=== PATIENT | female | born 1935 | race Caucasian/White ===

== ENCOUNTER → 2021-10-04 | Outpatient (CLI) | payer MEDICARE, OTHER, SELFPAY ==
[2021-10-04 10:05] LABS: Hematocrit 34.8 % (37-47); Hemoglobin 11.3 g/dL (12.0-15.0); Mean Corp Hgb Conc 32.5 g/dL (32-36); Mean Corpuscular Volume 89.2 fL (81-99); Mean Platelet Vol. 9.5 fl (6.2-12.0); Platelet Count 279 K/mm3 (150-450); RBC Distribution Width CV 13.8 % (11.6-14.6); RBC Distribution Width SD 44.8 fl (35.1-43.9); White Blood Count 7.6 K/mm3 (4.4-11.0)
[2021-10-04 10:30] LABS: Ferritin 54 ng/mL (8-252); Iron 55 ug/dL (50-170)
[2021-10-04 11:50] LABS: Vitamin B12 254 pg/mL (211-911)
== END | disposition home or self-care (01) ==
LOC: MTLAB 09:10
PROVIDERS: PCP Family Medicine; Referring Provider Psychiatry & Neurology Neurology; Visit Provider Psychiatry & Neurology Neurology
DX: D64.9 Anemia, unspecified (principal); Z86.2 Personal history of diseases of the blood and blood-forming organs and certain disorders involving the immune mechanism; E53.8 Deficiency of other specified B group vitamins
CPT/HCPCS: 36415; 82607; 82728; 83540; 85027

== ENCOUNTER → 2024-07-03 | Outpatient (CLI) | payer MEDICARE, OTHER, SELFPAY | END | disposition home or self-care (01) | LOC: MTLAB 09:09 | PROVIDERS: PCP Family Medicine; Referring Provider Psychiatry & Neurology Neurology; Visit Provider Psychiatry & Neurology Neurology | DX: I10 Essential (primary) hypertension (principal); R44.3 Hallucinations, unspecified | CPT/HCPCS: 36415; 84443 ==

== ENCOUNTER → 2024-07-31 | Outpatient (CLI) | payer MEDICARE, OTHER, SELFPAY ==
--- NOTE | 2024-07-31 15:45 | MRI_ITS ---
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 Multiplanar and multisequence images were obtained. CONTRAST: [facility] VOLUME: 11 ML COMPARISON: None FINDINGS: No diffusion restriction to suggest acute/subacute ischemia. No acute intracranial hemorrhage, midline shift or mass effect. Moderate generalized cerebral atrophy. Scattered periventricular, subcortical and deep white matter hyperintense FLAIR signal most likely related to chronic small-vessel ischemic disease. Mild ventriculomegaly likely related to central atrophy. No suspicious cortical edema. No evidence of chronic microhemorrhage. No definite MR evidence of mesial temporal sclerosis. No pathologic enhancement. Poorly visualized right vertebral artery flow void which may relate to vascular occlusion. Globes are intact. Calvarium is within normal limits. Paranasal sinuses and mastoid air cells are clear. MRI/Brain W/WO Contrast IMPRESSION: 1. No acute intracranial abnormality or pathologic enhancement. 2. Atrophy and chronic small-vessel ischemic disease. 3. Possible occlusion of the right vertebral artery. Recommend further assessm ent with CTA neck. Reading Location: [facility]
--- OUTSIDE RECORDS SUMMARY | 2024-07-31 21:56 | XMS RPT_ITS | CCD ---
Author Organization [facility] Care Team Providers Care Neurology Hospitalist Name Role Phone Zhen Duncan Unavailable Unavailable Nilsa Malik Unavailable Unavailable Nilsa Malik Unavailable Unavailable Nilsa Malik Unavailable [phone] Isaiah Sterling Attending Provider Nilsa Malik MD Primary Care Provider Nilsa Malik MD Unavailable Nilsa Malik MD Unavailable Nilsa Malik MD Primary Care Provider [phone] Nilsa Malik MD Unavailable Nilsa Malik MD Unavailable NILSA MALIK Primary Care Unavailable NILSA MALIK Primary Care Unavailable NILSA MALIK Primary Care Unavailable Nilsa Malik MD Unavailable Nilsa Malik MD Primary Care Provider Nilsa Malik MD Unavailable Nilsa Malik MD Primary Care Provider [phone] Dr. Nilsa Malik MD Primary Care Provider Dr. Nilsa Malik MD Referring Provider Dr. Isaiah Sterling MD Attending Provider Dr. Isaiah Sterling MD Referring Provider NILSA MALIK Primary Care Unavailable JAIRON DENISE Attending Unavailable JAIRON DENISE Referring Unavailable NILSA MALIK Primary Care Unavailable MARY THOMASON Referring Unavailable NILSA MALIK Primary Care Unavailable MARY THOMASON Referring Unavailable STENCEL, NILSA D Primary Care Unavailable YEATER, MARY Hopper Referring Unavailable STENCEL, NILSA D Primary Care Unavailable YEATER, MARY M Referring Unavailable STENCEL, NILSA D Primary Care Unavailable YEATER, MARY M Referring Unavailable STENCEL, NILSA D Primary Care Unavailable YEATER, MARY M Referring Unavailable STENCEL, NILSA D Primary Care Unavailable YEATER, MARY M Referring Unavailable STENCEL, NILSA D Primary Care Unavailable YEATER, MARY M Referring Unavailable STENCEL, NILSA D Primary Care Unavailable BOLIVAR, AUBREY T Attending Unavailable YEATER, MARY M Referring Unavailable STENCEL, NILSA D Primary Care Unavailable YEATER, MARY M Referring Unavailable STENCEL, NILSA D Primary Care Unavailable STENCEL, NILSA D Attending Unavailable STENCEL, NILSA D Referring Unavailable STENCEL, NILSA D Primary Care Unavailable YEATER, MARY Hopper Attending Unavailable STENCEL, NILSA D Primary Care Unavailable STENCEL, NILSA D Attending Unavailable STENCEL, NILSA D Referring Unavailable STENCEL, NILSA D Primary Care Unavailable FURNESS, ZHEN Drummond Attending Unavailable STENCEL, NILSA D Primary Care Unavailable Stencel, Nilsa Primary Care Unavailable Stencel, Nilsa Referring Unavailable Baddour, Isaiah Attending Unavailable Stencel, Nilas Primary Care Unavailable Baddour, Isaiah Attending Unavailable Baddour, Isaiah Referring Unavailable Stencel, Nilsa Primary Care Unavailable Baddour, Isaiah Attending Unavailable Baddour, Isaiah Referring Unavailable Stencel, Nilsa Primary Care Unavailable Stencel, Nilsa Referring Unavailable Baddour, Isaiah Attending Unavailable Stencel, Nilsa Primary Care Unavailable Stencel, Nilsa Referring Unavailable Baddour, Isaiah Attending Unavailable Medications Current Medications Medication Drug Class(es) Dates Sig (Normalized) Sig (Original) 8 hr acetaminophen 650 mg extended release oral tablet (6 sources) take 1 tablet by mouth every eight hours as needed acetaminophen (Tylenol 8 HOUR) 650 mg ER tablet Take 1 tablet (650 mg) by mouth every 8 hours if needed for mild pain (1 - 3) or moderate pain (4 - 6). Do not crush, chew, or split. Active aspirin 81 mg delayed release oral tablet (20 sources) Platelet Aggregation Inhibitor, Nonsteroidal Anti-inflammatory Drug Start: 08-19-2019 take 1 tablet by mouth once daily aspirin 81 mg EC tablet Take 1 tablet (81 mg) by mouth once daily. 08/19/2019 Active carbidopa 25 mg / levodopa 100 mg oral tablet (20 sources) Aromatic Amino Acid Decarboxylation Inhibitor, Aromatic Amino Acid Start: 10-04-2021 End: 05-26-2024 Carbidopa-Levodopa (Sinemet) 25-100 mg tablet Active 2 {tbl} PO THREE TIMES A DAY May 26, 2024 5:21pm Start: 08-31-2020 Carbidopa-Levo dopa ER 25-100 MG Oral Tablet Extended Release Quantity: 0 Refills: 0 Ordered: 07-Jun-2021 DO Start : 31-Aug-2020 Active carbidopa-levodo pa (Sinemet) 25-100 mg tablet Take by mouth 4 times a day. 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 90 tablet 3 07/27/2023 07/26/2024 Active ferrous sulfate 325 mg oral tablet (20 sources) Start: 10-17-2022 End: 05-26-2024 take 1 tablet by mouth twice daily Ferrous Sulfate 325 mg (65 mg iron) tablet Active 325 mg PO DAILY May 26, 2024 5:22pm Do not take within 2 hours of a carbidopa/levodopa dose. Start: 08-31-2020 End: 10-17-2022 take 1 tablet by mouth once daily Ferrous Sulfate 325 mg (65 mg iron) tablet Discontinued 325 mg PO DAILY June 22, 2022 7:45pm October 17, 2022 10:21pm fludrocortisone acetate 0.1 mg oral tablet (1 source) Start: 07-03-2024 take 1 tablet by mouth once daily in the morning Fludrocortisone 0.1 mg tablet Active 0.1 mg PO 3 TIMES A WEEK July 03, 2024 12:00am Take 1 tablet orally every morning every Sunday, , and Sunday levETIRAcetam 500 mg oral tablet (2 sources) Start: 07-04-2024 End: 08-03-2024 take 1 tablet by mouth twice daily levETIRAcetam (Keppra) 500 mg tablet Indications: New onset seizure (Multi) Take 1 tablet (500 mg) by mouth 2 times a day. 60 tablet 07/04/2024 08/03/2024 Active Start: 07-02-2024 End: 07-02-2024 500 mg, intravenous, at 857. 1 mL/hr, Administer over 7 Minutes, Once, On Sun07/02/24 at 2200, For 1 dose levothyroxine sodium 0.075 mg oral tablet (20 sources) l-Thyroxine Start: 08-04-2022 End: 07-26-2024 take 1 tablet by mouth once daily levothyroxine (Synthroid, Levoxyl) 75 mcg tablet Indications: Hypothyroidism, unspecified type Take 1 tablet (75 mcg) by mouth once daily. 90 tablet 3 07/27/2023 07/26/2024 Active Start: 10-04-2021 take 1 capsule by mo [facility] once daily Levothyroxine 75 mcg capsule Active 75 ug PO DAILY October 04, 2021 12:00am Start: 01-21-2019 [facility] daily levothyroxine (Synthroid, Levoxyl) 75 mcg tablet Take 1 tablet (75 mcg) by mouth once daily. 0 01/21/2019 Active losartan potassium 25 mg oral tablet (5 sources) Angiotensin 2 Receptor Sima Start: 07-27-2023 End: 08-26-2023 take 1 tablet by mouth once daily losartan (Cozaar) 25 mg tablet Indications: Primary hypertension Take 1 tablet (25 mg) by mouth once daily. 30 tablet 11 07/27/2023 Active metFORMIN hydrochloride 1000 mg oral tablet (20 sources) Biguanide Start: 01-21-2019 End: 07-26-2024 take 1 tablet by mouth twice daily metFORMIN (Glucophage) 1,000 mg tablet Indications: Type 2 diabetes mellitus without complication, without long-term current use of insulin Take 1 tablet (1,000 mg) by mouth 2 times a day. 180 tablet 3 07/27/2023 07/26/2024 Active pioglitazone 15 mg oral tablet (20 sources) Peroxisome Proliferator Receptor alpha Agonist, Peroxisome Proliferator Receptor gamma Agonist, Thiazolidinedione Start: 08-31-2020 End: 07-26-2024 take 1 tablet by mouth once daily pioglitazone (Actos) 15 mg tablet Indications: Type 2 diabetes mellitus without complication, without long-term current use of insulin Take 1 tablet (15 mg) by mouth once daily. 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, unspecified whether recurrent 1 tab in am and 2 tabs in pm 90 tablet 11 06/22/2023 Active Start: 10-17-2022 End: 10-17-2022 take 1 tablet by mouth at bedtime Risperidone 2 mg tablet Discontinued 2 mg PO AT BEDTIME October 17, 2022 12:00am October 17, 2022 2:39pm Start: 06-22-2022 End: 06-07-2023 take 1 tablet by mouth twice daily Risperidone 1 mg tablet Discontinued 1 mg PO TWICE A DAY 60 June 04, 2023 4:35pm June 07, 2023 4:50pm Start: 02-16-2022 End: 06-22-2022 take 1 tablet by mouth at bedtime Risperidone 0.5 mg tablet Discontinued 0.5 mg PO AT BEDTIME February 16, 2022 1:00am June 22, 2022 7:44pm Start: 01-21-2019 End: 02-16-2022 take 1 tablet by mouth once daily Risperidone 2 mg tablet Discontinued 2 mg PO DAILY October 04, 2021 12:00am February 16, 2022 12:24pm Start: 01-21-2019 End: 06-22-2023 take 0.5 tablet by mouth twice daily risperiDONE (RisperDAL) 2 mg tablet Take 0.5 tablets (1 mg) by mouth 2 times a day. 01/21/2019 06/22/2023 Discontinued (Med List Cleanup) simvastatin 20 mg oral tablet (20 sources) HMG-CoA Reductase Inhibitor Start: 01-21-2019 End: 07-26-2024 take 1 tablet by mouth once daily simvastatin (Zocor) 20 mg tablet Indications: Mixed hyperlipidemia Take 1 tablet (20 mg) by mouth once daily. 90 tablet 3 07/27/2023 07/26/2024 Active sulfamethoxazole 800 mg / trimethoprim 160 mg oral tablet (1 source) Dihydrofolate Reductase Inhibitor Antibacterial, Sulfonamide Antimicrobial Start: 07-04-2024 End: 07-11-2024 take 1 tablet by mouth twice daily sulfamethoxazole-tr imethoprim (Bactrim DS) 800-160 mg tablet Indications: Urgency of urination Take 1 tablet by mouth 2 times a day for 7 days. 14 tablet 07/04/2024 07/11/2024 Active Completed/Discontinued Medications Medication Drug Class(es) Dates Sig (Normalized) Sig (Original) amantadine hydrochloride 100 mg oral capsule (20 sources) Influenza A M2 Protein Inhibitor Start: 05-26-2024 End: 07-03-2024 take 1 capsule by mouth three times daily Amantadine Hcl 100 mg capsule Discontinued 100 mg PO THREE TIMES A DAY 90 May 26, 2024 5:23pm July 03, 2024 8:34am Start: 02-16-2022 End: 05-26-2024 take 1 capsule by mouth twice daily Amantadine Hcl 100 mg capsule Discontinued 100 mg PO TWICE A DAY 60 October 12, 2023 1:53am May 26, 2024 5:23pm busPIRone hydrochloride 5 mg oral tablet (1 source) Start: 10-17-2022 End: 07-03-2024 take 1 tablet by mouth twice daily Buspirone 5 mg tablet Discontinued 5 mg PO TWICE A DAY 60 October 17, 2022 12:00am July 03, 2024 8:32am iohexol (OMNIPaque) 350 mg iodine/mL solution 68 mL (1 source) Start: 07-02-2024 End: 07-02-2024 68 mL, intravenous, Once in imaging, Starting on Sun07/02/24 at 2103, For 1 dose iohexol (OMNIPaque) 350 mg iodine/mL solution 73 mL (1 source) Start: 06-24-2023 End: 06-24-2023 73 mL, intravenous, Once in imaging, Starting on Sun06/24/23 at 0855, For 1 dose 1 ml ketorolac tromethamine 30 mg/ml injection (1 source) Nonsteroidal Anti-inflammatory Drug, Cyclooxygenase Inhibitor Start: 06-24-2023 End: 06-24-2023 15 mg, intravenous, Once, On Sun06/24/23 at 0840, For 1 dose lisinopril 10 mg oral tablet (20 sources) Angiotensin Converting Enzyme Inhibitor Start: 01-21-2019 End: 10-12-2023 take 1 tablet by mouth once daily lisinopril 10 mg tablet Indications: Primary hypertension Take 1 tablet (10 mg) by mouth once daily. 90 tablet 3 08/04/2022 06/22/2023 Discontinued (Therapy completed) 50 ml magnesium sulfate 40 mg/ml injection (1 source) Start: 06-24-2023 End: 06-24-2023 2 g, intravenous, at 25 mL/hr, Administer over 2 Hours, Once, On 06/24/23 at 0750, For 1 dose regadenoson (Lexiscan) injection 0.4 mg (1 source) Start: 07-09-2023 End: 07-09-2023 0.4 mg, intravenous, Once, On Sun07/09/23 at 0915, For 1 dose 1000 ml sodium chloride 9 mg/ml injection (1 source) Start: 06-24-2023 End: 06-24-2023 1,000 mL, intravenous, at 1,000 mL/hr, Administer over 1 Hours, Once, On 06/24/23 at 0750, For 1 dose Tc-99m tetrofosmin (Myoview) injection 10.5 millicurie (1 source) Start: 07-09-2023 End: 07-09-2023 10.5 millicurie, intravenous, Once in imaging, Starting on Sun07/09/23 at 0927, For 1 dose, Administer 45 to 90 minutes prior to imaging unless otherwise indicated. Tc-99m tetrofosmin (Myoview) injection 33 millicurie (1 source) Start: 07-09-2023 End: 07-09-2023 33 millicurie, intravenous, Once in imaging, Starting on Sun07/09/23 at 1002, For 1 dose, Administer 45 to 90 minutes prior to imaging unless otherwise indicated. vitamin b12 1 mg oral tablet (20 sources) Vitamin B12 Start: 10-05-2021 End: 05-26-2024 take 1 tablet by mouth once daily Cyanocobalamin (Vitamin B-12) 1,000 mcg tablet Discontinued 1000 ug PO DAILY October 12, 2023 1:53am May 26, 2024 5:23pm Problems Active Problems Problem Classification Problem Date Documented Date Episodic/Chronic Anxiety disorders (1 source) Anxiety; Translations: [Anxiety disorder, unspecified] 10-17-2022 Chronic Chronic kidney disease (17 sources) Chronic kidney disease stage 3A ; Translations: [Stage 3a chronic kidney disease (Multi)] Onset: 06-22-2023 06-22-2023 Chronic Deficiency and other anemia (4 sources) Iron deficiency anemia; Translations: [Iron deficiency anemia, unspecified] 10-17-2022 Episodic Deficiency and other anemia (1 source) Iron deficiency anemia, unspecified; Translations: [Iron deficiency anemia, unspecified] Episodic Diabetes mellitus without complication (20 sources) Type 2 diabetes mellitus; Translations: [Diabetes mellitus without mention of complication, type II or unspecified type, not stated as uncontrolled] Onset: 04-17-2022 06-09-2022 Chronic Disorders of lipid metabolism (20 sources) Hyperlipidemia; Translations: [Other and unspecified hyperlipidemia] Onset: 04-17-2022 06-09-2022 Chronic Epilepsy; convulsions (6 sources) Seizure; Translations: [Unspecified convulsions] Onset: 07-02-2024 07-02-2024 Episodic Essential hypertension (20 sources) Hypertensive disorder; Translations: [Unspecified essential hypertension] Onset: 04-17-2022 06-09-2022 Chronic Genitourinary symptoms and ill-defined conditions (3 sources) Urgent desire to urinate; Translations: [Urgency of urination] Onset: 07-04-2024 07-04-2024 Episodic Immunizations and screening for infectious disease (16 sources) Patient encounter status; Translations: [Other specified vaccination] Episodic Mood disorders (20 sources) Depressive disorder; Translations: [Depressive disorder, not elsewhere classified] Onset: 04-17-2022 06-09-2022 Chronic Nonspecific chest pain (4 sources) Chest pain; Translations: [Chest pain, unspecified] 06-24-2023 Episodic Nutritional deficiencies (4 sources) Cobalamin deficiency; Translations: [Deficiency of other specified B group vitamins] Episodic Osteoporosis (20 sources) Osteoporosis; Translations: [Osteoporosis, unspecified] Onset: 04-17-2022 04-17-2022 Chronic Other circulatory disease (2 sources) Orthostatic hypotension; Translations: [Orthostatic hypotension] 07-06-2024 Episodic Other hereditary and degenerative nervous system conditions (4 sources) Impaired cognition; Translations: [Mild cognitive impairment, so stated] 10-04-2021 Chronic Other hereditary and degenerative nervous system conditions (3 sources) Mild cognitive impairment, so stated; Translations: [Mild cognitive impairment, so stated] Onset: 07-03-2024 Chronic Other nervous system disorders (4 sources) Other chronic pain; Translations: [Other chronic pain] Onset: 10-25-2023 Chronic Other nervous system disorders (1 source) Unspecified abnormalities of gait and mobility; Translations: [Unspecified abnormalities of gait and mobility] Onset: 07-03-2024 Episodic Parkinson`s disease (20 sources) Parkinson's disease; Translations: [Parkinson's disease] Onset: 06-22-2023 Chronic Parkinson`s disease (2 sources) Parkinson`s disease; Translations: [Parkinson's disease without dyskinesia, without mention of fluctuations (Multi)] Onset: 06-22-2023 Residual codes; unclassified (20 sources) Past history of procedure; Translations: [Other specified personal history presenting hazards to health] Episodic Comment on above: 2017; Residual codes; unclassified (3 sources) Altered mental status, unspecified; Translations: [Altered mental status, unspecified] Onset: 05-31-2023 Episodic Residual codes; unclassified (5 sources) Hallucinations, unspecified; Translations: [Hallucinations, unspecified] Onset: 05-31-2023 Episodic Residual codes; unclassified (4 sources) Hallucinations; Translations: [Hallucinations, unspecified] 07-04-2024 Episodic Syncope (3 sources) Syncope; Translations: [Syncope and collapse] Onset: 07-03-2024 07-03-2024 Episodic Thyroid disorders (20 sources) Hypothyroidism; Translations: [Unspecified acquired hypothyroidism] Onset: 04-17-2022 04-17-2022 Chronic Unclassified (5 sources) Patient encounter status; Translations: [Screening for breast cancer] 02-05-2024 Past or Other Problems Problem Classification Problem Date Documented Date Episodic/Chronic Nonmalignant breast conditions (20 sources) Atypical ductal hyperplasia of breast; Translations: [Mammographic microcalcification found on diagnostic imaging of breast] Onset: 04-17-2022 Episodic Other connective tissue disease (4 sources) Muscle weakness of limb; Translations: [Other symptoms and signs involving the musculoskeletal system] Onset: 4 11-05-2023 Episodic Other screening for suspected conditions (not mental disorders or infectious disease) (20 sources) Mammography abnormal; Translations: [Abnormal mammogram, unspecified] Onset: 3 04-17-2022 Episodic Spondylosis; intervertebral disc disorders; other back problems (15 sources) Neck pain; Translations: [Cervicalgia] Onset: 4 06-24-2023 Episodic Unclassified (17 sources) Onset: 3 Resolved: 5 06-09-2022 NEGATED: Highlighted row has not occurred!Residual codes; unclassified (7 sources) Disease Episodic Results Test Name Value Interpretation Reference Range Facility POCT UA Automated manually r esultedon 07-04-2024 Appearance (U) Clear Clear [facility] Work Phone: Glucose Test strip (U) [Mass/Vol] Negative NEGATIVE mg/dl [facility] Work Phone: [phone] Hemoglobin Ql (U) Negative NEGATIVE [facility] Work Phone: [phone] Leukocyte esterase Test strip Ql (U) Negative NEGATIVE [facility] Work Phone: [phone] Nitrite Ql (U) Negative NEGATIVE [facility] Work Phone: [phone] pH (U) 5.5 [pH] No Reference Range Established [facility] Work Phone: [phone] POC Bilirubin, Urine Negative NEGATIVE [facility] Work Phone: [phone] POC Color, Urine Yellow Straw, Yellow, Light-Yellow [facility] Work Phone: [phone] POC Ketones, Urine Negative NEGATIVE mg/dl [facility] Work Phone: POC Protein, Urine Negative NEGATIVE mg/dl [facility] Work Phone: POC Specific [place], Urine 1.015 1.005 - 1.035 [facility] Work Phone: POC Urobilinogen, Urine 0.2 0.2, 1.0 EU/DL [facility] Work Phone: [facility] Work Phone: Neurology Visit Reporton Neurology Visit Report [facility] [address], [address] [place] [address] OFFICE VISIT Date of Service: 07/03/24 MR#: [id number] Acct: [id number] Name: RAMYA MOSS Rep #: [id number] : 1935 Provider: Dr. Isaiah bland MD Age/Sex: 88/F Location[place] [facility] [place] Status: Signed HPI HPI Chief Complaint: Details: Interim History: Ramya returns for follow-up visit. She has a history of history of hypertension, hypothyroidism, diabetes mellitus, depression and anxiety. Since 2009, she has been experiencing a tremor. The tremor affects the right leg and both hands. Her bilateral hand tremor began worsening in 2019 and is present at rest and with action. The tremor has interfered with activities such as eating soup. Her tremor has diminished with the use of carbidopa/levodopa 25/100 (though increasing her dose to 2 tablets 3 times daily in 2021 was not of added benefit for her tremor) and amantadine (initiated in 2021). Increasing her dose of amantadine to 100mg TID was not of added benefit and it is unclear at this time whether amantadine is producing ongoing functional benefit. Her tremor interferes with handwriting. Since 2019, she has had slowing of her gait. She has had multiple falls. Carbidopa/levodopa has been of benefit for her parkinsonian symptoms and no significant change in her parkinsonian symptoms have been noted within recent months.. She has tolerated carbidopa/levodopa well. She has had some slowing of her mentation but remains independent in her daily activities. She has been more confused recently. She has been having ongoing hallucinations. She has a prior history of nervous breakdown (around 2003) and was prescribed risperidone and escitalopram and continues to take these medications. In 2010, her dose of risperidone was reduced to 1mg nightly and she had some reduction of her tremor at that time though subsequently, in 2019, her tremor began worsening. She had auditory and visual hallucinations and delusional ideations. A trial of discontinuation of amantadine did not result in resolution of her hallucinations and amantadine was then resumed. Her dose of risperidone was increased to 1mg BID however she had a side effect of increased tremor and shuffling gait. This improved with a reduction of her risperidone dose to 0.5mg BID. Her hallucinations persist however she is not significantly troubled by these. Buspirone was not well- tolerated. She has no longer experienced significant anxiety. She takes simvastatin and aspirin. Her prior laboratory studies revealed a B12 deficiency and anemia. She has received B12 injections. B12 injections were of benefit for her prior fatigue. Per prior discussion, she did not wish to have further B12 injections. Her last B12 level was near the low end of the normal range. She is now taking B12 1000 mcg PO daily. She takes ferrous sulfate for iron deficiency anemia. Mini-mental status exam score was 28/30 in January 2021. Earlier in June 2024, she was found on the floor and unresponsive at her home. EMS was called and on hospital evaluation, the possibility of a stroke was raised (based on initial finding of aphasia, right sided weakness and right sided neglect, however on further assessment, including teleneurology consultation, no evidence of a stroke was noted and she was thought to possibly have had an unwitnessed seizure. In the hospital her blood pressure was noted to be 193/90. Levetiracetam was initiated. She has had occasional momentary vertigo (this has occurred when lying down). She has experienced occasional lightheadedness when standing. She now exhibits orthostatic hypotension when she stands. Physical Exam: Neuro: the patient is awake; she is mildly bradyphrenic; motor strength is 4+/5 in the right quadriceps and right foot dorsiflexors, 4-/5 in the left foot dorsiflexors and 4/5 in the left foot dorsiflexors; she is unsteady when she stands; she is able to subtract 7 from 100; she is able to spell world backwards; she is oriented to day of the week; no rigidity is noted in the wrists; a moderate bilateral hand tremor is noted when arms are extended; speech is hypophonic Heart: regular rate and rhythm Neck: no bruits Supplemental Info CBC, CMP, TSH (07/07/10): glucose 113, hematocrit 34.7. CMP, CBC, TSH, B12, folate (3/2/21): glucose 151, hemoglobin 11.4, hematocrit 35.7, B12 126. Head MRI (06/09/20): subcortical and periventricular sequelae of chronic microvascular disease; parenchymal volume loss with slightly disproportionate ventricular dilatation. No evidence of intracranial mass, extra-axial collection or acute infarction. Intrinsic factor blocking antibody (07/06/20): negative. Serum iron, ferritin (07/06/20): serum iron 34 (low). CBC, iron, ferritin, B12 (10/04/2021):???Hemoglobin 11.3 (low), hematocrit 34.8 (low), B12 254 (near low end of normal range). (more content not included)... Normal [facility] TSH DL <= 0.005 mIU/L QnOrde red By: Isaiah Sterling on 07-03-2024 TSH Qn 1.250 uIU/mL 0.300-4.200 [facility] Thyroid Stim Hormone (TSH)on 07-03-2024 TSH 1.250 uIU/mL Normal 0.300-4.200 [facility] Comment on above: Order Comment: TROYO U RINE Performed By: #### L [phone] #### [facility] [facility] [address] [place], [address] APTTon 07-02-2024 aPTT Coag (PPP) [Time] 29 s [facility] CBC W Auto Differential pane l (Bld)on 07-02-2024 Basophils (Bld) [#/Vol] 0.03 10*3/uL [facility] Basophils/100 WBC (Bld) 0.3 % 0.0 - 2.0 % [facility] Eosinophils (Bld) [#/Vol] 0.13 10*3/uL [facility] Eosinophils/100 WBC (Bld) 1.3 % 0.0 - 6.0 % [facility] Erythrocyte distribution width (RBC) [Ratio] 14.1 % 11.5 - 14.5 % [facility] Hematocrit (Bld) [Volume fraction] 31.7 % Low 36.0 - 46.0 % [facility] Hemoglobin (Bld) [Mass/Vol] 10.1 g/dL Low 12.0 - 16.0 g/dL [facility] Immature granulocytes (Bld) [#/Vol] 0.04 10*3/uL [facility] Immature granulocytes/100 WBC (Bld) 0.4 % 0.0 - 0.9 % [facility] Comment on above: Immature Granulocyte Count (IG) includes promyelocytes, myelocytes and metamyelocytes but does not include bands. Percent differential counts (%) should be interpreted in the context of the absolute cell counts (cells/UL). Interpretation and review of laboratory results Abnormal [facility] Lymphocytes (Bld) [#/Vol] 3.74 10*3/uL High [facility] Lymphocytes/100 WBC (Bld) 38.7 % 13.0 - 44.0 % [facility] MCH (RBC) [Entitic mass] 28.5 pg 26.0 - 34.0 pg [facility] MCHC (RBC) [Mass/Vol] 31.9 g/dL Low 32.0 - 36.0 g/dL [facility] MCV (RBC) [Entitic vol] 90 fL 80 - 100 fL [facility] Monocytes (Bld) [#/Vol] 0.59 10*3/uL [facility] Monocytes/100 WBC (Bld) 6.1 % 2.0 - 10.0 % [facility] Neutrophils (Bld) [#/Vol] 5.14 10*3/uL [facility] Comment on above: Percent differential counts (%) should be interpreted in the context of the absolute cell counts (cells/uL). Neutrophils/100 WBC (Bld) 53.2 % 40.0 - 80.0 % [facility] Nucleated RBC/100 WBC (Bld) [Ratio] 0 % [facility] Platelets (Bld) [#/Vol] 249 10*3/uL [facility] RBC (Bld) [#/Vol] 3.54 10*6/uL Low [facility] WBC (Bld) [#/Vol] 9.7 10*3/uL [facility] Basophils (Bld) [#/Vol] 0.03 x10*3/uL Normal 0.00-0.10 [facility] Comment on above: Performed By: #### 5 7021-8 #### BUZZ FUNEZ ([id number]) [facility] ([facility]) [address] [place] [address] 62285 Basophils/100 WBC (Bld) 0.3 % Normal 0.0-2.0 [facility] Comment on above: Performed By: #### 7021-8 #### BUZZ FUNEZ ([id number]) [facility] ([facility]) [address] [place] [address] 67784 Eosinophils (Bld) [#/Vol] 0.13 x10*3/uL Normal 0.00-0.40 [facility] Comment on above: Performed By: #### 5 7021-8 #### BUZZ FUNEZ ([id number]) [facility] ([facility]) [address] [place] [address] 28196 Eosinophils/100 WBC (Bld) 1.3 % Normal 0.0-6.0 [facility] Comment on above: Performed By: #### 7021-8 #### BUZZ FUNEZ ([id number]) [facility] ([facility]) [address] [place] [address] 04954 Erythrocyte distribution width (RBC) [Ratio] 14.1 % Normal 11.5-14.5 [facility] Comment on above: Performed By: #### 5 7021-8 #### BUZZ FUNEZ ([id number]) [facility] ([facility]) [address] [place] [address] 52016 Hematocrit (Bld) [Volume fraction] 31.7 % Low 36.0-46.0 [facility] Comment on above: Performed By: #### 7021-8 #### BUZZ FUNEZ ([id number]) [facility] ([facility]) [address] [place] [address] 59474 Hemoglobin (Bld) [Mass/Vol] 10.1 g/dL Low 12.0-16.0 [facility] Comment on above: Performed By: #### 7021-8 #### BUZZ FUNEZ ([id number]) [facility] ([facility]) [address] [place] [address] 08286 Immature granulocytes (Bld) [#/Vol] 0.04 x10*3/uL Normal 0.00-0.50 [facility] Comment on above: Performed By: #### 5 7021-8 #### BUZZ FUNEZ ([id number]) [facility] ([facility]) [address] [place] [address] 72164 Immature granulocytes/100 WBC (Bld) 0.4 % Normal 0.0-0.9 [facility] Comment on above: Result Comment: Olivia ture Granulocyte Count (IG) includes promyelocytes, myelocytes and metamyelocytes but does not include bands. Percent differential counts (%) should be interpreted in the context of the absolute cell counts (cells/UL). Performed By: #### 5 7021-8 #### BUZZ FUNEZ ([id number]) [facility] ([facility]) [address] [place] [address] 81703 Lymphocytes (Bld) [#/Vol] 3.74 x10*3/uL High 0.80-3.00 [facility] Comment on above: Performed By: #### 5 7021-8 #### BUZZ FUNEZ ([id number]) [facility] ([facility]) [address] [place] [address] 45785 Lymphocytes/100 WBC (Bld) 38.7 % Normal 13.0-44.0 [facility] Comment on above: Performed By: #### 5 7021-8 #### BUZZ FUNEZ ([id number]) [facility] ([facility]) [address] [place] [address] 27952 MCH (RBC) [Entitic mass] 28.5 pg Normal 26.0-34.0 [facility] Comment on above: Performed By: #### 5 7021-8 #### BUZZ FUNEZ ([id number]) [facility] ([facility]) [address] [place] [address] 73878 MCHC (RBC) [Mass/Vol] 31.9 g/dL Low 32.0-36.0 [facility] Comment on above: Performed By: #### 5 7021-8 #### BUZZ FUNEZ ([id number]) [facility] ([facility]) [address] [place] [address] 67904 MCV (RBC) [Entitic vol] 90 fL Normal 80-100 [facility] Comment on above: Performed By: #### 5 7021-8 #### BUZZ FUNEZ ([id number]) [facility] ([facility]) [address] [place] [address] 82492 Monocytes (Bld) [#/Vol] 0.59 x10*3/uL Normal 0.05-0.80 [facility] Comment on above: Performed By: #### 5 7021-8 #### BUZZ FUNEZ ([id number]) [facility] ([facility]) [address] [place] [address] 78816 Monocytes/100 WBC (Bld) 6.1 % Normal 2.0-10.0 [facility] Comment on above: Performed By: #### 5 7021-8 #### BUZZ FUNEZ ([id number]) [facility] ([facility]) [address] [place] [address] 57466 Neutrophils (Bld) [#/Vol] 5.14 x10*3/uL Normal 1.60-5.50 [facility] Comment on above: Result Comment: Perc ent differential counts (%) should be interpreted in the context of the absolute cell counts (cells/uL). Performed By: #### 5 7021-8 #### BUZZ FUNEZ ([id number]) [facility] ([facility]) [address] [place] [address] 95602 Neutrophils/100 WBC (Bld) 53.2 % Normal 40.0-80.0 [facility] Comment on above: Performed By: #### 5 7021-8 #### BUZZ FUNEZ ([id number]) [facility] ([facility]) [address] [place] [address] 04288 Nucleated RBC/100 WBC (Bld) [Ratio] 0.0 /100 WBCs Normal 0.0-0.0 [facility] Comment on above: Performed By: #### 5 7021-8 #### BUZZ FUNEZ ([id number]) [facility] ([facility]) [address] [place] [address] Platelets (Bld) [#/Vol] 249 x10*3/uL Normal 150-450 [facility] Comment on above: Performed By: #### 5 7021-8 #### BUZZ FUNEZ ([id number]) [facility] ([facility]) [address] [place] [address] RBC (Bld) [#/Vol] 3.54 x10*6/uL Low 4.00-5.20 [facility] Comment on above: Performed By: #### 5 7021-8 #### BUZZ FUNEZ ([id number]) [facility] ([facility]) [address] [place] [address] WBC (Bld) [#/Vol] 9.7 x10*3/uL Normal 4.4-11.3 [facility] Comment on above: Performed By: #### 5 7021-8 #### BUZZ FUNEZ ([id number]) [facility] ([facility]) [address] [place] [address] CT BRAIN ATTACK ANGIO HEAD A ND NECK W AND WO IV CONTRASTon 07-02-2024 CT BRAIN ATTACK ANGIO HEAD AND NECK W AND WO IV CONTRAST Interpreted By: Nighat Ngo, STUDY: CT BRAIN ATTACK ANGIO HEAD AND NECK W AND WO IV CONTRAST; 07/02/2024 9:03 pm INDICATION: Signs/Symptoms:Strokelike symptoms COMPARISON: Correlation with noncontrast CT of the same day ACCESSION NUMBER(S): [id number] ORDERING CLINICIAN: JAIRON DENISE TECHNIQUE: Following IV contrast administration, a CT angiography of the head and neck was performed. Triplanar MIPS and 3D reconstructions of the ute of Garcia and neck were generated. FINDINGS: CTA NECK: The great vessel origins are patent with no significant stenosis. LEFT VERTEBRAL ARTERY: The left vertebral artery is dominant. No hemodynamically significant stenosis, occlusion, or dissection. LEFT COMMON/INTERNAL CAROTID ARTERY: Mild calcified and noncalcified plaque at the carotid bifurcation and proximal ICA. No hemodynamically significant stenosis, occlusion, or dissection. RIGHT VERTEBRAL ARTERY: No hemodynamically significant stenosis, occlusion, or dissection. RIGHT COMMON/INTERNAL CAROTID ARTERY: Calcification of the carotid bifurcation. No hemodynamically significant stenosis, occlusion, or dissection. The neck soft tissues show no evidence of mass, fluid collection, or enlarged lymph nodes. There is no acute osseous abnormality. Mtkv-hb-uwstjxmo diffuse cervical degenerative disc changes. The imaged lungs are clear. CTA HEAD: ANTERIOR CIRCULATION: No occlusion or aneurysm. - Internal Carotid Arteries: Patent, with no hemodynamically significant stenosis. - Middle Cerebral Arteries: Patent, with no hemodynamically significant stenosis. - Anterior Cerebral Arteries: Patent, with no hemodynamically significant stenosis. POSTERIOR CIRCULATION: No aneurysm. - Intracranial Vertebral Arteries: The right vertebral artery is occluded just distal to the right posteroinferior cerebellar artery origin, approximately 8 mm segment occlusion. The basilar artery is supplied by the widely patent left vertebral artery. There is contrast opacifying a stump of the distal right vertebral artery near the vertebrobasilar junction. - Basilar Artery: Patent, with no hemodynamically significant stenosis. - Posterior Cerebral Arteries: Patent, with no hemodynamically significant stenosis. No arteriovenous malformation is visualized. No pathologic intracranial enhancement or discrete mass. The dural venous sinuses are patent. MIPS and 3D reconstructions confirm the above findings. IMPRESSION: 1. 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 The basilar artery is supplied by the left vertebral artery, which is dominant and widely patent. 2. No significant stenosis of the cervical carotid or vertebral arteries. MACRO: None Signed by: Nighat Ngo 07/02/2024 9:28 PM Dictation workstation: [id number] [facility] CT BRAIN ATTACK [facility] BRAIN ATTACK HEAD WO IV CONTRAST Interpreted By: Nighat Ngo, STUDY: CT BRAIN ATTACK HEAD WO IV CONTRAST; 07/02/2024 8:51 pm INDICATION: Signs/Symptoms:Stroke Evaluation. COMPARISON: None. ACCESSION NUMBER(S): [id number] ORDERING CLINICIAN: JAIRON DENISE TECHNIQUE: Axial noncontrast CT images of the head. FINDINGS: BRAIN PARENCHYMA: Moderate deep and periventricular white matter hypodensities are nonspecific, but favored to represent chronic small vessel ischemic changes. Byrne-white matter interfaces are preserved. No mass effect or midline shift. HEMORRHAGE: No acute intracranial hemorrhage. VENTRICLES and EXTRA-AXIAL SPACES: The ventricles and sulci are within normal limits in size for brain volume. No abnormal extraaxial fluid collection. EXTRACRANIAL SOFT TISSUES: Within normal limits. PARANASAL SINUSES/MASTOIDS: The visualized paranasal sinuses and mastoid air cells are aerated. CALVARIUM: No depressed skull fracture. No destructive osseous lesion. OTHER FINDINGS: None. IMPRESSION: No acute intracranial abnormality. Moderate burden of deep and periventricular white matter hypodensities which are nonspecific, but favored to represent chronic small vessel ischemic changes. MACRO: Nighat Ngo discussed the significance and urgency of this critical finding by telephone with JAIRON DENISE on 07/02/2024 at 9:10 pm. (-RCF-) Findings: See findings. Signed by: Nighat Ngo 07/02/2024 9:12 PM Dictation workstation: [id number] [facility] CT Head WO contraston 2024 No acute intracrania l abnormality. Moderate burden of deep and periventricular white matter hypodensities which are nonspecific, but favored to represent chronic small vessel ischemic changes. MACRO: Nighat Ngo discussed the significance and urgency of this critical finding by telephone with JAIRON DENISE on 07/02/2024 at 9:10 pm. (-RCF-) Findings: See findings. Signed by: Nighat Ngo 07/02/2024 9:12 PM Dictation workstation: [id number] [facility] Interpreted By: Nighat Manzano, STUDY: CT BRAIN ATTACK HEAD WO IV CONTRAST; 07/02/2024 8:51 pm INDICATION: Signs/Symptoms:Stroke Evaluation. COMPARISON: None. ACCESSION NUMBER(S): [id number] ORDERING CLINICIAN: JAIRON DENISE TECHNIQUE: Axial noncontrast CT images of the head. FINDINGS: BRAIN PARENCHYMA: Moderate deep and periventricular white matter hypodensities are nonspecific, but favored to represent chronic small vessel ischemic changes. Byrne-white matter interfaces are preserved. No mass effect or midline shift. HEMORRHAGE: No acute intracranial hemorrhage. VENTRICLES and EXTRA-AXIAL SPACES: The ventricles and sulci are within normal limits in size for brain volume. No abnormal extraaxial fluid collection. EXTRACRANIAL SOFT TISSUES: Within normal limits. PARANASAL SINUSES/MASTOIDS: The visualized paranasal sinuses and mastoid air cells are aerated. CALVARIUM: No depressed skull fracture. No destructive osseous lesion. OTHER FINDINGS: None. [facility] Nighat Ngo MD - 07/02/2024 Interpreted By: Nighat Ngo, STUDY: CT BRAIN ATTACK HEAD WO IV CONTRAST; 07/02/2024 8:51 pm INDICATION: Signs/Symptoms:Stroke Evaluation. COMPARISON: None. ACCESSION NUMBER(S): [id number] ORDERING CLINICIAN: JAIRON DENISE TECHNIQUE: Axial noncontrast CT images of the head. FINDINGS: BRAIN PARENCHYMA: Moderate deep and periventricular white matter hypodensities are nonspecific, but favored to represent chronic small vessel ischemic changes. Byrne-white matter interfaces are preserved. No mass effect or midline shift. HEMORRHAGE: No acute intracranial hemorrhage. VENTRICLES and EXTRA-AXIAL SPACES: The ventricles and sulci are within normal limits in size for brain volume. No abnormal extraaxial fluid collection. EXTRACRANIAL SOFT TISSUES: Within normal limits. PARANASAL SINUSES/MASTOIDS: The visualized paranasal sinuses and mastoid air cells are aerated. CALVARIUM: No depressed skull fracture. No destructive osseous lesion. OTHER FINDINGS: None. IMPRESSION: No acute intracranial abnormality. Moderate burden of deep and periventricular white matter hypodensities which are nonspecific, but favored to represent chronic small vessel ischemic changes. MACRO: Nighat Ngo discussed the significance and urgency of this critical finding by telephone with JAIRON DENISE on 07/02/2024 at 9:10 pm. (-RCF-) Findings: See findings. Signed by: Nighat Ngo 07/02/2024 9:12 PM Dictation workstation: [id number] [facility] Work Phone: Radiology Study observation (narrative) [facility] Work Phone: CT Head WO contrastOrdered B y: Nighat Ngo on 07-02-2024 [facility] Work Phone: CTA Head vessels and Neck ve ssels WO and W contrast Paul 07-02-2024 1. Segmental occlusi on of the right V4 segment vertebral artery just distal to the PICA origin. The basilar artery is supplied by the left vertebral artery, which is dominant and widely patent. 2. No significant stenosis of the cervical carotid or vertebral arteries. MACRO: None Signed by: Nighat Ngo 07/02/2024 9:28 PM Dictation workstation: [id number] [facility] Interpreted By: Nighat Manzano, STUDY: CT BRAIN ATTACK ANGIO HEAD AND NECK W AND WO IV CONTRAST; 07/02/2024 9:03 pm INDICATION: Signs/Symptoms:Strokelike symptoms COMPARISON: Correlation with noncontrast CT of the same day ACCESSION NUMBER(S): [id number] ORDERING CLINICIAN: JAIRON DENISE TECHNIQUE: Following IV contrast administration, a CT angiography of the head and neck was performed. Triplanar MIPS and 3D reconstructions of the ute of Garcia and neck were generated. FINDINGS: CTA NECK: The great vessel origins are patent with no significant stenosis. LEFT VERTEBRAL ARTERY: The left vertebral artery is dominant. No hemodynamically significant stenosis, occlusion, or dissection. LEFT COMMON/INTERNAL CAROTID ARTERY: Mild calcified and noncalcified plaque at the carotid bifurcation and proximal ICA. No hemodynamically significant stenosis, occlusion, or dissection. RIGHT VERTEBRAL ARTERY: No hemodynamically significant stenosis, occlusion, or dissection. RIGHT COMMON/INTERNAL CAROTID ARTERY: Calcification of the carotid bifurcation. No hemodynamically significant stenosis, occlusion, or dissection. The neck soft tissues show no evidence of mass, fluid collection, or enlarged lymph nodes. There is no acute osseous abnormality. Epkb-[id number] diffuse cervical degenerative disc changes. The imaged lungs are clear. CTA HEAD: ANTERIOR CIRCULATION: No occlusion or aneurysm. - Internal Carotid Arteries: Patent, with no hemodynamically significant stenosis. - Middle Cerebral Arteries: Patent, with no hemodynamically significant stenosis. - Anterior Cerebral Arteries: Patent, with no hemodynamically significant stenosis. POSTERIOR CIRCULATION: No aneurysm. - Intracranial Vertebral Arteries: The right vertebral artery is occluded just distal to the right posteroinferior cerebellar artery origin, approximately 8 mm segment occlusion. The basilar artery is supplied by the widely patent left vertebral artery. There is contrast opacifying a stump of the distal right vertebral artery near the vertebrobasilar junction. - Basilar Artery: Patent, with no hemodynamically significant stenosis. - Posterior Cerebral Arteries: Patent, with no hemodynamically significant stenosis. No arteriovenous malformation is visualized. No pathologic intracranial enhancement or discrete mass. The dural venous sinuses are patent. MIPS and 3D reconstructions confirm the above findings. MMODAL Nighat Ngo MD - 07/02/2024 Interpreted By: Nighat Ngo, STUDY: CT BRAIN ATTACK ANGIO HEAD AND NECK W AND WO IV CONTRAST; 07/02/2024 9:03 pm INDICATION: Signs/Symptoms:Strokelike symptoms COMPARISON: Correlation with noncontrast CT of the same day ACCESSION NUMBER(S): [id number] ORDERING CLINICIAN: JAIRON DENISE TECHNIQUE: Following IV contrast administration, a CT angiography of the head and neck was performed. Triplanar MIPS and 3D reconstructions of the ute of Garcia and neck were generated. FINDINGS: CTA NECK: The great vessel origins are patent with no significant stenosis. LEFT VERTEBRAL ARTERY: The left vertebral artery is dominant. No hemodynamically significant stenosis, occlusion, or dissection. LEFT COMMON/INTERNAL CAROTID ARTERY: Mild calcified and noncalcified plaque at the carotid bifurcation and proximal ICA. No hemodynamically significant stenosis, occlusion, or dissection. RIGHT VERTEBRAL ARTERY: No hemodynamically significant stenosis, occlusion, or dissection. RIGHT COMMON/INTERNAL CAROTID ARTERY: Calcification of the carotid bifurcation. No hemodynamically significant stenosis, occlusion, or dissection. The neck soft tissues show no evidence of mass, fluid collection, or enlarged lymph nodes. There is no acute osseous abnormality. Kjhd-nb-[id number] diffuse cervical degenerative disc changes. The imaged lungs are clear. CTA HEAD: ANTERIOR CIRCULATION: No occlusion or aneurysm. - Internal Carotid Arteries: Patent, with no hemodynamically significant stenosis. - Middle Cerebral Arteries: Patent, with no hemodynamically significant stenosis. - Anterior Cerebral Arteries: Patent, with no hemodynamically significant stenosis. POSTERIOR CIRCULATION: No aneurysm. - Intracranial Vertebral Arteries: The right vertebral artery is occluded just distal to the right posteroinferior cerebellar artery origin, approximately 8 mm segment occlusion. The basilar artery is supplied by the widely patent left vertebral artery. There is contrast opacifying a stump of the distal right vertebral artery near the vertebrobasilar junction. - Basilar Artery: Patent, with no hemodynamically significant stenosis. - Posterior Cerebral Arteries: Patent, with no hemodynamically significant stenosis. No arteriovenous malformation is visualized. No pathologic intracranial enhancement or discrete mass. The dural venous sinuses are patent. MIPS and 3D reconstructions confirm the above findings. IMPRESSION: 1. 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 The basilar artery is supplied by the left vertebral artery, which is dominant and widely patent. 2. No significant stenosis of the cervical carotid or vertebral arteries. MACRO: None Signed by: Nighat Ngo 07/02/2024 9:28 PM Dictation workstation: [id number] [facility] Work Phone: [facility] Work Phone: Radiology Study observation (narrative) [facility] Work Phone: Coagulation surface inducedo n 07-02-2024 aPTT Coag (PPP) [Time] 29 s Normal 26-36 [facility] Comment on above: Order Comment: The A PTT is no longer used for monitoring Unfractionated Heparin Therapy. For monitoring Heparin Therapy, use the Heparin Assay. Performed By: #### 1 4979-9 #### BUZZ FUNEZ ([id number]) [facility] ([facility]) [address] [place] [address] Coagulation tissue factor in ducedon 07-02-2024 PT Coag (PPP) [Time] 11.4 s Normal 9.8-12.4 [facility] Comment on above: Performed By: #### 5 902-2 #### BUZZ FUNEZ ([id number]) [facility] ([facility]) [address] [place], [place] [id number] Comprehensive metabolic 2000 panelon 07-02-2024 Albumin BCP dye [Mass/Vol] 4.2 g/dL 3.4 - 5.0 g/dL [facility] ALP [Catalytic activity/Vol] 62 U/L 33 - 136 U/L [facility] ALT With P-5'-P [Catalytic activity/Vol] 9 U/L 7 - 45 U/L [facility] Comment on above: Patients treated wit h Sulfasalazine may generate falsely decreased results for ALT. Anion gap [Moles/Vol] 18 mmol/L 10 - 20 mmol/L [facility] AST With P-5'-P [Catalytic activity/Vol] 10 U/L 9 - 39 U/L [facility] Bilirubin [Mass/Vol] 0.4 mg/dL 0.0 - 1 .2 mg/dL [facility] Calcium [Mass/Vol] 8.9 mg/dL 8.6 - 10. 3 mg/dL [facility] Chloride [Moles/Vol] 98 mmol/L 98 - 10 7 mmol/L [facility] CO2 [Moles/Vol] 21 mmol/L 21 - 32 mmol/L [facility] Creatinine [Mass/Vol] 1.27 mg/dL High 0.50 - 1.05 mg/dL [facility] GFR/1.73 sq M.predicted among non-blacks MDRD (S/P/Bld) [Vol rate/Area] 41 mL/min/{1.73_m2} Low - PINF [facility] Comment on above: Calculations of julia mated GFR are performed using the 2020 CKD-EPI Study Refit equation without the race variable for the IDMS-Traceable creatinine methods. https://jasn.asnjournals.org/content//ASN.3954141 988 Glucose [Mass/Vol] 191 mg/dL High 74 - 99 mg/dL [facility] Interpretation and review of laboratory results Abnormal [facility] Potassium [Moles/Vol] 4 mmol/L 3.5 - 5.3 mmol/L [facility] Protein [Mass/Vol] 6.8 g/dL 6.4 - 8.2 g/dL [facility] Sodium [Moles/Vol] 133 mmol/L Low 136 - 145 mmol/L [facility] Urea nitrogen [Mass/Vol] 16 mg/dL 6 - 23 mg/dL [facility] [facility] Albumin BCP dye [Mass/Vol] 4.2 g/dL Normal 3.4-5.0 [facility] Comment on above: Performed By: #### 2 4323-8 #### BUZZ FUNEZ ([id number]) [facility] ([facility]) [address] [place] [address] ALP [Catalytic activity/Vol] 62 U/L Normal 33-136 [facility] Comment on above: Performed By: #### 2 4323-8 #### BUZZ FUNEZ ([id number]) [facility] ([facility]) [address] [place] [address] ALT With P-5'-P [Catalytic activity/Vol] 9 U/L Normal 7-45 [facility] Comment on above: Result Comment: Desiree ents treated with Sulfasalazine may generate falsely decreased results for ALT. Performed By: #### 2 4323-8 #### BUZZ FUNEZ ([id number]) [facility] ([facility]) [address] [place] [address] Anion gap [Moles/Vol] 18 mmol/L Normal 10-20 [facility] Comment on above: Performed By: #### 2 4323-8 #### BUZZ FUNEZ ([id number]) [facility] ([facility]) [address] [place] [address] AST With P-5'-P [Catalytic activity/Vol] 10 U/L Normal 9-39 [facility] Comment on above: Performed By: #### 2 4323-8 #### BUZZ FUNEZ ([id number]) [facility] ([facility]) [address] [place] [address] Bilirubin [Mass/Vol] 0.4 mg/dL Normal 0.0-1.2 [facility] Comment on above: Performed By: #### 2 4323-8 #### BUZZ FUNEZ ([id number]) [facility] ([facility]) [address] [place] [address] Calcium [Mass/Vol] 8.9 mg/dL Normal 8.6-10.3 [facility] Comment on above: Performed By: #### 2 4323-8 #### BUZZ FUNEZ ([id number]) [facility] ([facility]) [address] [place] [address] Chloride [Moles/Vol] 98 mmol/L Normal 98-107 [facility] Comment on above: Performed By: #### 2 4323-8 #### BUZZ FUNEZ ([id number]) [facility] ([facility]) [address] [place] [address] CO2 [Moles/Vol] 21 mmol/L Normal 21-32 [facility] Comment on above: Performed By: #### 2 4323-8 #### BUZZ FUNEZ ([id number]) [facility] ([facility]) [address] [place] [address] Creatinine [Mass/Vol] 1.27 mg/dL High 0.50-1.05 [facility] Comment on above: Performed By: #### 2 4323-8 #### BUZZ FUNEZ ([id number]) [facility] ([facility]) [address] [place] [address] Glomerular filtration rate/1.73 sq M.predicted 41 mL/min/1.73m*2 Low >60 [facility] Comment on above: Result Comment: Calc ulations of estimated GFR are performed using the 2020 CKD-EPI Study Refit equation without the race variable for the IDMS-Traceable creatinine methods. https://jasn.asnjournals.org/content//ASN.6111344 988 Performed By: #### 2 4323-8 #### BUZZ FUNEZ ([id number]) [facility] ([facility]) [address] [place] [address] Glucose [Mass/Vol] 191 mg/dL High 74-99 [facility] Comment on above: Performed By: #### 2 4323-8 #### BUZZ FUNEZ ([id number]) [facility] ([facility]) [address] [place] [address] Potassium [Moles/Vol] 4.0 mmol/L Normal 3.5-5.3 [facility] Comment on above: Performed By: #### 2 4323-8 #### BUZZ FUNEZ ([id number]) [facility] ([facility]) [address] [place] [address] Protein [Mass/Vol] 6.8 g/dL Normal 6.4-8.2 [facility] Comment on above: Performed By: #### 2 4323-8 #### BUZZ FUNEZ ([id number]) [facility] ([facility]) [address] [place] [address] Sodium [Moles/Vol] 133 mmol/L Low 136-145 [facility] Comment on above: Performed By: #### 2 4323-8 #### BUZZ FUNEZ ([id number]) [facility] ([facility]) [facility] [place] [address] Urea nitrogen [Mass/Vol] 16 mg/dL Normal 6-23 [facility] Comment on above: Performed By: #### 2 4323-8 #### BUZZ FUNEZ ([id number]) [facility] ([facility]) [address] [place] [address] ECG 12-LEADon 07-02-2024 ECG 12-LEAD Ventricular Rate 88 Atrial Rate 88 P-R Interval 168 QRS Duration 74 Q-T Interval 372 QTC Calculation(Bazett) 450 P [place] 117 R [place] -25 T [place] 109 QRS Count 15 Q Onset 213 P Onset 96 P Offset 180 T Offset 399 QTC Fredericia 422 Diagnosis Normal sinus rhythm Nonspecific ST and T wave abnormality Abnormal ECG When compared with ECG of 09-JUL-2023 09:55, QRS axis Shifted left Nonspecific T wave abnormality, worse in Lateral leads See ED provider note for full interpretation and clinical correlation Confirmed by Amena Balbuena ([id number]) on 07/04/2024 9:28:24 PM Normal [facility] No Panel Informationon 07-02 Interpretation and review of laboratory results Normal [facility] POCT glucoseOrdered By: Kumar Agosto on 07-02-2024 Glucose [Mass/Vol] 177 mg/dL Abnormal 74 - 99 mg/dL [facility] Interpretation and review of laboratory results Abnormal [facility] PT Coag (PPP) [Time]on 07-02 INR Coag (PPP) [Relative time] 1 {INR} 0.9 - 1.1 [facility] INR Coag (PPP) [Relative time] 1.0 Normal 0.9-1.1 [facility] Comment on above: Performed By: #### 5 902-2 #### BUZZ FUNEZ ([id number]) [facility] ([facility]) [address] [place] [address] [place] [address] Protime-INRon 07-02-2024 PT Coag (PPP) [Time] 11.4 s [facility] Tropinin I.cardiac panel Hig h sensitivity methodon 07-02-2024 Interpretation and review of laboratory results Normal [facility] Less than 99th perce ntile of normal range cutoff- Female and children under 18 years old <14 ng/L; Male <21 ng/L: Negative Repeat testing should be performed if clinically indicated. Female and children under 18 years old 14-50 ng/L; Male 21-50 ng/L: Consistent with possible cardiac damage and possible increased clinical risk. Serial measurements may help to assess extent of myocardial damage. >50 ng/L: Consistent with cardiac damage, increased clinical risk and myocardial infarction. Serial measurements may help assess extent of myocardial damage. NOTE: Children less than 1 year old may have higher baseline troponin levels and results should be interpreted in conjunction with the overall clinical context. NOTE: Troponin I testing is performed using a different testing methodology at [facility] than at other [facility]. Direct result comparisons should only be made within the same method. [facility] Troponin I, High Sensitivity on 07-02-2024 Tropinin I.cardiac panel High sensitivity method 8 ng/L 0 - 13 ng/L [facility] Troponin I.cardiac panelon 0 07-02-2024 Tropinin I.cardiac panel High sensitivity method 8 ng/L Normal 0-13 [facility] Comment on above: Order Comment: Less than 99th percentile of normal range cutoff- Female and children under 18 years old <14 ng/L; Male <21 ng/L: Negative Repeat testing should be performed if clinically indicated. Female and children under 18 years old 14-50 ng/L; Male 21-50 ng/L: Consistent with possible cardiac damage and possible increased clinical risk. Serial measurements may help to assess extent of myocardial damage. >50 ng/L: Consistent with cardiac damage, increased clinical risk and myocardial infarction. Serial measurements may help assess extent of myocardial damage. NOTE: Children less than 1 year old may have higher baseline troponin levels and results should be interpreted in conjunction with the overall clinical context. NOTE: Troponin I testing is performed using a different testing methodology at [facility] than at other [facility]. Direct result comparisons should only be made within the same method. Performed By: #### 8 9577-1 #### GERBER ARMIN ([id number]) [facility] ([facility]) [address] [place] [address] aPTT Coag (PPP) [Time]on The APTT is no longe r used for monitoring Unfractionated Heparin Therapy. For monitoring Heparin Therapy, use the Heparin Assay. [facility] Neurology Visit Reporton Neurology Visit Report [facility] [address] [place] [address], [address] [place] [address] OFFICE VISIT Date of Service: 05/26/24 MR#: [id number] Acct: [id number] Name: RAMYA MOSS Rep #: [id number] : 1935 Provider: Dr. Isaiah bland MD Age/Sex: 88/F Location: [facility]. Status: Signed HPI HPI Chief Complaint: Details: Interim History: Ramya returns for follow-up visit. She has a history of history of hypertension, hypothyroidism, diabetes mellitus, depression and anxiety. Since 2009, she has been experiencing a tremor. The tremor affected the right leg and both hands. Her bilateral hand tremor began worsening in 2019 and is present at rest and with action. The tremor has interfered with activities such as eating soup. Her tremor has diminished with the use of carbidopa/levodopa 25/100 (though increasing her dose to 2 tablets 3 times daily in 2021 was not of added benefit for her tremor) and amantadine (initiated in 2021). Her tremor interferes with handwriting. Since 2019, she has had slowing of her gait. She has had multiple falls. Carbidopa/levodopa has been of benefit for her parkinsonian symptoms and no significant change in her parkinsonian symptoms have been noted within recent months.. She has tolerated carbidopa/levodopa well. She has had some slowing of her mentation but remains independent in her daily activities. No recent further change in her memory has been noted. She has a prior history of nervous breakdown (around 2003) and was prescribed risperidone and escitalopram and continues to take these medications. In 2010, her dose of risperidone was reduced to 1mg nightly and she had some reduction of her tremor at that time though subsequently, in 2019, her tremor began worsening. She had auditory and visual hallucinations and delusional ideations. A trial of discontinuation of amantadine did not result in resolution of her hallucinations and amantadine was then resumed. Her dose of risperidone was increased to 1mg BID however she had a side effect of increased tremor and shuffling gait. This improved with a reduction of her risperidone dose to 0.5mg BID. Her hallucinations persist however she is not significantly troubled by these. Buspirone was not well- tolerated. She has no longer experienced significant anxiety. She takes simvastatin and aspirin. Her prior laboratory studies revealed a B12 deficiency and anemia. She has received B12 injections. B12 injections were of benefit for her prior fatigue. Per prior discussion, she did not wish to have further B12 injections. Her last B12 level was near the low end of the normal range. She is now taking B12 1000 mcg PO daily. She takes ferrous sulfate for her iron deficiency anemia. Mini-mental status exam score was 28/30 in January 2021. She reports having occasional momentary vertigo (this has occurred when lying down). She has experienced occasional lightheadedness when standing. Physical Exam: Neuro: the patient is awake; she is mildly bradyphrenic; she is oriented to day of the week; she is able to subtract 7 from 100; she is able to spell world backwards; she exhibits a masklike face; no rigidity is noted in the wrists; a moderate bilateral hand tremor is noted when arms are extended; gait is mildly slow; speech is hypophonic Heart: regular rate and rhythm Neck: no bruits Supplemental Info CBC, CMP, TSH (07/07/10): glucose 113, hematocrit 34.7. CMP, CBC, TSH, B12, folate (04/27/20): glucose 151, hemoglobin 11.4, hematocrit 35.7, B12 126. Head MRI (06/09/20): subcortical and periventricular sequelae of chronic microvascular disease; parenchymal volume loss with slightly disproportionate ventricular dilatation. No evidence of intracranial mass, extra-axial collection or acute infarction. Intrinsic factor blocking antibody (07/06/20): negative. Serum iron, ferritin (07/06/20): serum iron 34 (low). CBC, iron, ferritin, B12 (10/04/2021):???Hemoglobin 11.3 (low), hematocrit 34.8 (low), B12 254 (near low end of normal range). Urine culture (05/31/23): no growth Urinalysis (05/31/23): ketones 5 (trace) CBC, CMP, TSH, hemoglobin A1c (06/15/23): hemoglobin 11.4 (low), glucose 145 (high), eGFR 57 (low), hemoglobin A1c 7.6 (high) CBC, magnesium (06/24/23): WBC 14.3 (high), hemoglobin 11.6 (low), magnesium 1.19 (low) Head CT (06/24/23): Skull fracture: no Subdural hematoma: none detected Epidural hematoma : none detected Intraparenchymal hemorrhage: none detected Subarachnoid hemorrhage: none detected Intraventricular hemorrhage: none detected Acute intracranial mass effect: negative CT evidence of acute/subacute territorial ischemia: negative Ventricles: diffusely prominent for size but in proportion to the degree of atrophy; no acute pathologic findings Other brain findings: no additional findings to note Included paranasal sinuses: layering fluid in right sphenoi (more content not included)... Normal [facility] HbA1c (Bld) [Mass fraction]o n 01-28-2024 Average glucose Estimated from glycated hemoglobin (Bld) [Mass/Vol] 169 mg/dL Normal Not Established [facility] Comment on above: Order Comment: Diagn osis of Diabetes-Adults Non-Diabetic: < or = 5.6% Increased risk for developing diabetes: 5.7-6.4% Diagnostic of diabetes: > or = 6.5% Performed By: #### 4 548-4 #### DANELLE Douglas ([id number]) [facility] ([facility]) [address] [place] [address] Hemoglobin A1c/Hemoglobin.to stephanie 01-28-2024 HbA1c (Bld) [Mass fraction] 7.5 % High See comment [facility] Comment on above: Order Comment: Diagn osis of Diabetes-Adults Non-Diabetic: < or = 5.6% Increased risk for developing diabetes: 5.7-6.4% Diagnostic of diabetes: > or = 6.5% Performed By: #### 4 548-4 #### DANELLE Douglas ([id number]) [facility] ([facility]) [address] [place] [address] XR LUMBAR SPINE COMPLETE 4+ VIEWSon 10-25-2023 XR LUMBAR SPINE COMPLETE 4+ VIEWS Interpreted By: Simba Escobar, STUDY: XR LUMBAR SPINE COMPLETE 4+ VIEWS; ; 10/25/2023 11:45 am INDICATION: Signs/Symptoms:88 year old female with bilateral low back pain with bialteral sciatica.. ,M54.42 Lumbago with sciatica, left side,M54.41 Lumbago with sciatica, right side,G89.29 Other chronic pain COMPARISON: None. ACCESSION NUMBER(S): [id number] ORDERING CLINICIAN: MARY THOMASON FINDINGS: Lumbar spine, five views Mild anterolisthesis of L4 on L5. There is moderate disc space narrowing with osteophytosis and sclerosis at L4-L5 and L5-S1. Facet disease as well. No fracture seen IMPRESSION: Moderate spondylosis facet disease lower lumbar spine. Mild anterolisthesis L4 on L5 MACRO: None Signed by: Simba Escobar 10/31/2023 5:42 PM Dictation workstation: [id number] [facility] Neurology Visit Reporton Neurology Visit Report [facility] [address] [facility] [address], [address] [place] [address] OFFICE VISIT Date of Service: 10/11/23 MR#: [id number] Acct: [id number] Name: RAMYA MOSS Rep #: [id number] : 1935 Provider: Dr. Isaiah bland MD Age/Sex: 88/F Location: [facility] Status: Signed HPI [facility] Chief Complaint: Details: Interim History: Ramya returns for follow-up visit. She has a history of history of hypertension, hypothyroidism, diabetes mellitus, depression and anxiety. Since 2009, she has been experiencing a tremor. The tremor affected the right leg and both hands. Her bilateral hand tremor began worsening in 2019 and is present at rest and with action. The tremor has interfered with activities such as eating soup. Her tremor has diminished with the use of carbidopa/levodopa 25/100 (though increasing her dose to 2 tablets 3 times daily in 2021 was not of added benefit for her tremor) and amantadine (initiated in 2021). Since 2019, she has had slowing of her gait. Carbidopa/levodopa has been of benefit for her parkinsonian symptoms and no change in her gait has been noted over recent months. She is tolerating carbidopa/levodopa well. She has had some slowing of her mentation but remains independent in her daily activities. Some recent further worsening of her memory has been noted. She is no longer driving. She has a prior history of nervous breakdown (around 2003) and was prescribed risperidone and escitalopram and continues to take these medications. In 2010, her dose of risperidone was reduced to 1mg nightly and she had some reduction of her tremor at that time though subsequently, in 2019, her tremor began worsening. She had auditory and visual hallucinations and delusional ideations. A trial of discontinuation of amantadine did not result in resolution of her hallucinations and amantadine was then resumed. Her dose of risperidone was increased to 1mg BID however she had a side effect of increased tremor and shuffling gait. This improved with a reduction of her risperidone dose to 0.5mg BID. Her hallucinations persisted and her dose of risperidone was increased to 0.5mg qAM and 1mg qPM. She takes simvastatin and aspirin. Her prior laboratory studies revealed a B12 deficiency and anemia. She has received B12 injections. B12 injections were of benefit for her prior fatigue. Per prior discussion, she did not wish to have further B12 injections. Her last B12 level was near the low end of the normal range. She is now taking B12 1000 mcg PO daily. She takes ferrous sulfate for her iron deficiency anemia. Mini-mental status exam score was 28/30 in January 2021. Buspirone was not well-tolerated. She is no longer experiencing significant anxiety. Physical Exam: Neuro: the patient is awake; she is mildly bradyphrenic; she is oriented to day of the week; she is able to subtract 7 from 100; she exhibits a masklike face; no rigidity is noted in the wrists; a moderate intermittent right hand tremor is noted at rest and with action; a mild intermittent left hand is noted; gait is slow; speech is hypophonic Heart: regular rate and rhythm Neck: no bruits Supplemental Info CBC, CMP, TSH (07/07/10): glucose 113, hematocrit 34.7. CMP, CBC, TSH, B12, folate (04/27/20): glucose 151, hemoglobin 11.4, hematocrit 35.7, B12 126. Head MRI (06/09/20): subcortical and periventricular sequelae of chronic microvascular disease; parenchymal volume loss with slightly disproportionate ventricular dilatation. No evidence of intracranial mass, extra-axial collection or acute infarction. Intrinsic factor blocking antibody (07/06/20): negative. Serum iron, ferritin (07/06/20): serum iron 34 (low). CBC, iron, ferritin, B12 (10/04/2021):???Hemoglobin 11.3 (low), hematocrit 34.8 (low), B12 254 (near low end of normal range). Urine culture (05/31/23): no growth Urinalysis (05/31/23): ketones 5 (trace) CBC, CMP, TSH, hemoglobin A1c (06/15/23): hemoglobin 11.4 (low), glucose 145 (high), eGFR 57 (low), hemoglobin A1c 7.6 (high) CBC, magnesium (06/24/23): WBC 14.3 (high), hemoglobin 11.6 (low), magnesium 1.19 (low) Head CT (06/24/23): Skull fracture: no Subdural hematoma: none detected Epidural hematoma : none detected Intraparenchymal hemorrhage: none detected Subarachnoid hemorrhage: none detected Intraventricular hemorrhage: none detected Acute intracranial mass effect: negative CT evidence of acute/subacute territorial ischemia: negative Ventricles: diffusely prominent for size but in proportion to the degree of atrophy; no acute pathologic findings Other brain findings: no additional findings to note Included paranasal sinuses: layering fluid in right sphenoid. Elsewhere clear Included mastoid air cells: all clear Skull: no lytic or blastic lesion Extracranial soft tissues: scalp and ocular globes grossly normal No acute intracranial process. Skull (more content not included)... Normal [facility] [place] Heart Perfusion W stress and W radionuclide Paul 07-09-2023 Normal myocardial perfusion study without evidence of ischemia or prior infarction. The left ventricle is normal in size. Normal LV wall motion with an LV EF estimated at greater than 65%. I personally reviewed the images/study and I agree with the findings as stated. This study was interpreted at [facility], [place], [place]. MACRO: None Signed by: Narinder Tristan 07/09/2023 12:00 PM Dictation workstation: [id number] Interpreted By: Narinder Sharp and Bartolomei Aguilar Christopher STUDY: NUCLEAR STRESS TEST; 07/09/2023 11:22 am INDICATION: Signs/Symptoms:atypical chest ain. COMPARISON: None. ACCESSION NUMBER(S): [id number] ORDERING CLINICIAN: NILSA MALIK TECHNIQUE: DIVISION OF NUCLEAR MEDICINE PHARMACOLOGIC STRESS MYOCARDIAL PERFUSION SCAN, ONE DAY PROTOCOL The patient received an intravenous injection of 10.5 mCi of Tc-99m Myoview and resting emission tomographic (SPECT) images of the myocardium were acquired. The patient then received an intravenous infusion of 0.4 mg regadenoson (Lexiscan) followed by an additional injection of 33 mCi of Tc-99m Myoview. Stress phase SPECT images of the myocardium were then acquired. These included ECG-gated post-stress and rest images to assess and quantify ventricular function. Low dose CT was acquired for attenuation correction. FINDINGS: Both stress and rest studies demonstrate grossly normal perfusion throughout the left ventricle. The left ventricle is normal in size. EKG-gated images demonstrate normal LV wall motion with an LV EF estimated at greater than 65%. Attenuation correction CT images demonstrate no gross anatomic abnormalities. [facility] MMODAL Narinder Tristan MD - 07/09/2023 Interpreted By: Narinder Tristan and Bartolomei Aguilar Christopher STUDY: NUCLEAR STRESS TEST; 07/09/2023 11:22 am INDICATION: Signs/Symptoms:atypical chest ain. COMPARISON: None. ACCESSION NUMBER(S): [id number] ORDERING CLINICIAN: NILSA MALIK TECHNIQUE: DIVISION OF NUCLEAR MEDICINE PHARMACOLOGIC STRESS MYOCARDIAL PERFUSION SCAN, ONE DAY PROTOCOL The patient received an intravenous injection of 10.5 mCi of Tc-99m Myoview and resting emission tomographic (SPECT) images of the myocardium were acquired. The patient then received an intravenous infusion of 0.4 mg regadenoson (Lexiscan) followed by an additional injection of 33 mCi of Tc-99m Myoview. Stress phase SPECT images of the myocardium were then acquired. These included ECG-gated post-stress and rest images to assess and quantify ventricular function. Low dose CT was acquired for attenuation correction. FINDINGS: Both stress and rest studies demonstrate grossly normal perfusion throughout the left ventricle. The left ventricle is normal in size. EKG-gated images demonstrate normal LV wall motion with an LV EF estimated at greater than 65%. Attenuation correction CT images demonstrate no gross anatomic abnormalities. IMPRESSION: Normal myocardial perfusion study without evidence of ischemia or prior infarction. The left ventricle is normal in size. Normal LV wall motion with an LV EF estimated at greater than 65%. I personally reviewed the images/study and I agree with the findings as stated. This study was interpreted at [facility], [place], [place]. MACRO: None Signed by: Narinder Tristan 07/09/2023 12:00 PM Dictation workstation: [id number] [facility] Work Phone: Radiology Study observation (narrative) [facility] Work Phone: NM Heart Perfusion W stress and W radionuclide IVOrdered By: Narinder Tristan on 07-09-2023 [facility] Work Phone: No Panel Informationon 07-08 [place] [address] [phone], Nuclear Pharmacologic Stress Test Patient Name: RAMYA MOSS Ordering Provider: [id number] NILSA MALIK Study Date: 07/09/2023 Reading Physician: [id number] Morrissey MD MRN/PID: [id number] Supervising Physician: [id number] Morrissey MD Fellow: Date of /Age: 7 1935 / 87 years Fellow: Gender: F Nurse: N/A Admit Date: 07/09/2023 Dope Firer: Admission Status: Outpatient Slubber Hand: N/A Height: 147.32 cm Technologist: Sharon Wood Weight: 57.61 kg Additional Staff: BSA: 1.50 m2 BMI: 26.54 kg/m2 Patient Location: [facility] Stress Lab Study Type: CARDIOLOGY INTERPRETATION OF NUCLEAR STRESS Diagnosis/ICD: Other chest pain-R07.89 Indication: Chest Pain Atypical Falls Risk: High: Patient has a high risk for sustaining a fall; a falls prevention plan has been implemented. Study Details: Correct procedure and correct patient verified verbally and with ID Band checked. Patient History: Chest pain, dyslipidemia and hyperlipidemia. Allergies: None. Smoker: Never. Diabetes: Yes, managed with Insulin. BMI: Overweight 25 - 30. Medications: ASPIRIN, ESCOTALOPRAM, METFORMIN, PIOGLITAZONE, SIMVASTATIN,SINEMET,SYNTH ROID, RISPERDAL. The patient did not take medications as prescribed. Patient Performance: Patient received a total of 0.4 mg of Regadenoson at 9:56:43 AM. Patient received a total of 33 mCi of Myoview at 9:57:31 AM. The patient did not exercise during infusion. The peak heart rate achieved was 100 bpm, which was 75 % of the age predicted target heart rate of 134 bpm. The resting blood pressure was 176/88 mmHg with a heart rate of 74 bpm. The patient developed nausea during the stress exam. The symptoms resolved with rest 3 minutes into recovery. The blood pressure response was normal. The test was terminated due to: completed lab protocol. Baseline ECG: Resting ECG showed Sinus Arrhythmia. Stress Stage Data: + +--+---- --+-------+ HR Sys BP Mcmahon BP + +--+---- --+-------+ Baseline Resting 74 176 88 + +--+---- --+-------+ Stage 1/2 77 + +--+---- --+-------+ Stage I 90 125 69 + +--+---- --+-------+ Recovery ECG: The heart rate recovery was normal. + +---+------+ -------+ HR Sys BP Mcmahon BP + +---+------+ -------+ Recovery I 100 + +---+------+ -------+ Recovery II 93 131 68 + +---+------+ -------+ Recovery III 94 + +---+------+ -------+ Recovery IV 98 152 73 + +---+------+ -------+ Summary: 1. Baseline EKG showing normal sinus rhythm with no resting ST-T segment changes. 2. With regadenoson infusion, there are no ST-T segment changes suggestive of ischemia. No sustained ventricular arrhythmias are seen. 3. Regadenoson stress EKG is negative for ischemia. 4. Adequate level of stress achieved. 5. Nuclear image results are reported separately. [id number] Morrissey MD Electronically signed on 07/09/2023 at 5:52:15 PM Final Louis Bar MD - 07/09/2023 [place] [address] [phone], Nuclear Pharmacologic Stress Test Patient Name: RAMYA MOSS Ordering Provider: [id number] NILSA MALIK Study Date: 07/09/2023 Reading Physician: [id number] Morrissey MD MRN/PID: [id number] Supervising Physician: Pedro Morrissey MD Fellow: Date of /Age: 7 1935 / 87 years Fellow: Gender: F Nurse: N/A Admit Date: 07/09/2023 Dope Firer: Admission Status: Outpatient Slubber Hand: N/A Height: 147.32 cm Technologist: Sharon Wood Weight: 57.61 kg Additional Staff: BSA: 1.50 m2 BMI: 26.54 kg/m2 Patient Location: [facility] Stress Lab Study Type: CARDIOLOGY INTERPRETATION OF NUCLEAR STRESS Diagnosis/ICD: Other chest pain-R07.89 Indication: Chest Pain Atypical Falls Risk: High: Patient has a high risk for sustaining a fall; a falls prevention plan has been implemented. Study Details: Correct procedure and correct patient verified verbally and with ID Band checked. Patient History: Chest pain, dyslipidemia and hyperlipidemia. Allergies: None. Smoker: Never. Diabetes: Yes, managed with Insulin. BMI: Overweight 25 - 30. Medications: ASPIRIN, ESCOTALOPRAM, METFORMIN, PIOGLITAZONE, SIMVASTATIN,SINEMET,SYNTH ROID, RISPERDAL. The patient did not take medications as prescribed. Patient Performance: Patient received a total of 0.4 mg of Regadenoson at 9:56:43 AM. Patient received a total of 33 mCi of Myoview at 9:57:31 AM. The patient did not exercise during infusion. The peak heart rate achieved was 100 bpm, which was 75 % of the age predicted target heart rate of 134 bpm. The resting blood pressure was 176/88 mmHg with a heart rate of 74 bpm. The patient developed nausea during the stress exam. The symptoms resolved with rest 3 minutes into recovery. The blood pressure response was normal. The test was terminated due to: completed lab protocol. Baseline ECG: Resting ECG showed Sinus Arrhythmia. Stress Stage Data: + +--+---- --+-------+ HR Sys BP Mcmahon BP + +--+---- --+-------+ Baseline Resting 74 176 88 + +--+---- --+-------+ Stage 1/2 77 + +--+---- --+-------+ Stage I 90 125 69 + +--+---- --+-------+ Recovery ECG: The heart rate recovery was normal. + +---+------+ -------+ HR Sys BP Mcmahon BP + +---+------+ -------+ Recovery I 100 + +---+------+ -------+ Recovery II 93 131 68 + +---+------+ -------+ Recovery III 94 + +---+------+ -------+ Recovery IV 98 152 73 + +---+------+ -------+ Summary: 1. Baseline EKG showing normal sinus rhythm with no resting ST-T segment changes. 2. With regadenoson infusion, there are no ST-T segment changes suggestive of ischemia. No sustained ventricular arrhythmias are seen. 3. Regadenoson stress EKG is negative for ischemia. 4. Adequate level of stress achieved. 5. Nuclear image results are reported separately. [id number] Louis Morrissey MD Electronically signed on 07/09/2023 at 5:52:15 PM Final [facility] Work Phone: No Panel InformationOrdered By: Louis Morrissey on 07-09-2023 [facility] Work Phone: CBC W Auto Differential pane l (Bld)on 06-24-2023 Basophils (Bld) [#/Vol] 0.04 10*3/uL [facility] Basophils/100 WBC (Bld) 0.3 % 0.0 - 2.0 % [facility] Eosinophils (Bld) [#/Vol] 0.03 10*3/uL [facility] Eosinophils/100 WBC (Bld) 0.2 % 0.0 - 6.0 % [facility] Erythrocyte distribution width (RBC) [Ratio] 13.3 % 11.5 - 14.5 % [facility] Hematocrit (Bld) [Volume fraction] 37.1 % 36.0 - 46.0 % [facility] Hemoglobin (Bld) [Mass/Vol] 11.6 g/dL Low 12.0 - 16.0 g/dL [facility] Immature granulocytes (Bld) [#/Vol] 0.08 10*3/uL [facility] Immature granulocytes/100 WBC (Bld) 0.6 % 0.0 - 0.9 % [facility] Comment on above: Immature Granulocyte Count (IG) includes promyelocytes, myelocytes and metamyelocytes but does not include bands. Percent differential counts (%) should be interpreted in the context of the absolute cell counts (cells/UL). Interpretation and review of laboratory results Abnormal [facility] Lymphocytes (Bld) [#/Vol] 1.11 10*3/uL [facility] Lymphocytes/100 WBC (Bld) 7.8 % 13.0 - 44.0 % [facility] MCH (RBC) [Entitic mass] 28.8 pg 26.0 - 34.0 pg [facility] MCHC (RBC) [Mass/Vol] 31.3 g/dL Low 32.0 - 36.0 g/dL [facility] MCV (RBC) [Entitic vol] 92 fL 80 - 100 fL [facility] Monocytes (Bld) [#/Vol] 1.08 10*3/uL High [facility] Monocytes/100 WBC (Bld) 7.6 % 2.0 - 10.0 % [facility] Neutrophils (Bld) [#/Vol] 11.93 10*3/uL High [facility] Comment on above: Percent differential counts (%) should be interpreted in the context of the absolute cell counts (cells/uL). Neutrophils/100 WBC (Bld) 83.5 % 40.0 - 80.0 % [facility] Nucleated RBC/100 WBC (Bld) [Ratio] 0.0 % [facility] Platelets (Bld) [#/Vol] 253 10*3/uL [facility] RBC (Bld) [#/Vol] 4.03 10*6/uL [facility] WBC (Bld) [#/Vol] 14.3 10*3/uL High [facility] CT Chest W contrast IV and C T angiogram Pulmonary arteries for pulmonary embolus W contrast Paul 06-24-[address] evidence of ac libra pulmonary embolism. MACRO: None. Signed by: Len Becekr 06/24/2023 10:24 AM Dictation workstation: [id number] MMODAL Interpreted By: Len Becker, STUDY: CT ANGIO CHEST FOR PULMONARY EMBOLISM; 06/24/2023 9:31 am INDICATION: Signs/Symptoms:chest pain. COMPARISON: None.. ACCESSION NUMBER(S): [id number] ORDERING CLINICIAN: JEAN PIERRE MATHIAS TECHNIQUE: CT angiography (non-coronary) of the chest was performed with Intravenous contrast material along with 3D (maximum intensity projection - MIP) image post processing and coronal reformatted images. 50 ml Omnipaque 350 was injected intravenously. FINDINGS: No filling defects to suggest acute pulmonary embolism or ventricular strain. No acute infiltrate or pleural effusion. Basilar platelike atelectasis. Cardiomegaly. No mediastinal or hilar adenopathy. Limited view of the upper abdomen shows no acute abnormality. Large benign-appearing cyst upper pole left kidney not entirely within the field of view. [facility]AL Len Becker MD - 06/24/2023 Interpreted By: Len Becker, STUDY: CT ANGIO CHEST FOR PULMONARY EMBOLISM; 06/24/2023 9:31 am INDICATION: Signs/Symptoms:chest pain. COMPARISON: None.. ACCESSION NUMBER(S): [id number] ORDERING CLINICIAN: JEAN PIERRE MATHIAS TECHNIQUE: CT angiography (non-coronary) of the chest was performed with Intravenous contrast material along with 3D (maximum intensity projection - MIP) image post processing and coronal reformatted images. 50 ml Omnipaque 350 was injected intravenously. FINDINGS: No filling defects to suggest acute pulmonary embolism or ventricular strain. No acute infiltrate or pleural effusion. Basilar platelike atelectasis. Cardiomegaly. No mediastinal or hilar adenopathy. Limited view of the upper abdomen shows no acute abnormality. Large benign-appearing cyst upper pole left kidney not entirely within the field of view. IMPRESSION: No CT evidence of acute pulmonary embolism. MACRO: None. Signed by: Len Becker 06/24/2023 10:24 AM Dictation workstation: [id number] [facility] Work Phone: Radiology Study observation (narrative) [facility] Work Phone: CT Chest W contrast IV and C T angiogram Pulmonary arteries for pulmonary embolus W contrast IVOrdered By: Len Becker on 06-24-2023 [facility] Work Phone: Comprehensive metabolic 2000 panelon 06-24-2023 Albumin BCP dye [Mass/Vol] 4.3 g/dL 3.4 - 5.0 g/dL [facility] ALP [Catalytic activity/Vol] 71 U/L 33 - 136 U/L [facility] ALT With P-5'-P [Catalytic activity/Vol] 5 U/L Low 7 - 45 U/L [facility] Comment on above: Patients treated wit h Sulfasalazine may generate falsely decreased results for ALT. Anion gap [Moles/Vol] 14 mmol/L 10 - 20 mmol/L [facility] AST With P-5'-P [Catalytic activity/Vol] 10 U/L 9 - 39 U/L [facility] Bilirubin [Mass/Vol] 0.6 mg/dL 0.0 - 1 .2 mg/dL [facility] Calcium [Mass/Vol] 9.1 mg/dL 8.6 - 10. 3 mg/dL [facility] Chloride [Moles/Vol] 103 mmol/L 98 - 10 7 mmol/L [facility] CO2 [Moles/Vol] 22 mmol/L 21 - 32 mmol/L [facility] Creatinine [Mass/Vol] 1.07 mg/dL High 0.50 - 1.05 mg/dL [facility] GFR/1.73 sq M.predicted among non-blacks MDRD (S/P/Bld) [Vol rate/Area] 51 mL/min/{1.73_m2} Low - PINF [facility] Comment on above: Calculations of julia mated GFR are performed using the 2020 CKD-EPI Study Refit equation without the race variable for the IDMS-Traceable creatinine methods. https://jasn.asnjournals.org/content//ASN.7124294 988 Glucose [Mass/Vol] 194 mg/dL High 74 - 99 mg/dL [facility] Potassium [Moles/Vol] 4.3 mmol/L 3.5 - 5.3 mmol/L [facility] Protein [Mass/Vol] 7.2 g/dL 6.4 - 8.2 g/dL [facility] Sodium [Moles/Vol] 135 mmol/L Low 136 - 145 mmol/L [facility] Urea nitrogen [Mass/Vol] 31 mg/dL High 6 - 23 mg/dL [facility] Magnesiumon 06-24-2023 Magnesium [Mass/Vol] 1.19 mg/dL Low 1.60 - 2.40 mg/dL [facility] No Panel Informationon 06-23 NO ACUTE INTRACRANIA L PROCESS. SKULL INTACT NO ACUTE FRACTURE OR SUBLUXATION IN THE CERVICAL SPINE THIS REPORT SERVES THE DIAGNOSTIC INTERPRETATION FOR TWO EXAMS PERFORMED CONCURRENTLY: CT BRAIN WITHOUT IV CONTRAST AND CT CERVICAL SPINE WITHOUT IV CONTRAST MACRO: None Signed by: Derick Arguelles 06/24/2023 8:33 AM Dictation workstation: [id number] [facility]AL Interpreted By: Derick Dinero, STUDY: CT HEAD WO IV CONTRAST; CT CERVICAL SPINE WO IV CONTRAST; 06/24/2023 8:07 am INDICATION: Signs/Symptoms:head injury; Signs/Symptoms:neck pain. COMPARISON: MRI brain 09 June 2020 ACCESSION NUMBER(S): [id number]; [id number] ORDERING CLINICIAN: JEAN PIERRE MATHIAS TECHNIQUE: CT of the brain from the skull vertex to the skull base, without intravenous contrast CT cervical spine from the craniocervical junction through the cervicothoracic junction without IV contrast, including sagittal and coronal reformatted images FINDINGS: CT BRAIN TRAUMA-RELATED Brain Injury (BIG) guidelines CT values: Skull fracture: No SDH (subdural hematoma): None detected EDH (epidural hemtoma): None detected IPH (intraparenchymal hemorrhage): None detected SAH (subarachnoid hemorrhage): None detected IVH (intraventricular hemorrhage): None detected Reference: Yoseph Duque, Sandra RS, Stephanie M, et al. The BIG (brain injury guidelines) project: defining the management of traumatic brain injury by acute care surgeons. J Trauma Acute Care Surg. 2014;76:052n541. OTHER ACUTE INTRACRANIAL MASS EFFECT: Negative CT EVIDENCE OF ACUTE / SUBACUTE TERRITORIAL ISCHEMIA: Negative VENTRICLES: Diffusely prominent for size but in proportion to the degree of atrophy; no acute pathologic findings OTHER BRAIN FINDINGS: No additional findings to note INCLUDED PARANASAL SINUSES: Layering fluid in right sphenoid. Elsewhere clear INCLUDED MASTOID AIR CELLS: All clear SKULL: No lytic or blastic lesion EXTRACRANIAL SOFT TISSUES: Scalp and occular globes grossly normal by CT ------- CT CERVICAL SPINE COUNTING REFERENCE: Craniocervical junction CRANIOCERVICAL JUNCTION: Intact CERVICAL ALIGNMENT: Straightening of and almost reversal of the normal cervical lordosis can be positional or can be seen with muscle spasm ACUTE FRACTURE: Negative AGGRESSIVE OSSEOUS LESION: Negative BONY CANAL AND FORAMINA: Degenerative changes are mild for age and most pronounced at C3-4. Multiple levels of perhaps mild bony canal and/or bony foraminal stenosis, but no critical/high-grade bony canal or bony foraminal stenosis PARASPINAL SOFT TISSUES: No large acute hematoma or other acute posttraumatic finding OTHER INCLUDED STRUCTURES: The right upper lobe nodule is a granuloma [facility] MM[facility]AL Derick Arguelles MD - 06/24/2023 Interpreted By: Derick Arguelles, STUDY: CT HEAD WO IV CONTRAST; CT CERVICAL SPINE WO IV CONTRAST; 06/24/2023 8:07 am INDICATION: Signs/Symptoms:head injury; Signs/Symptoms:neck pain. COMPARISON: MRI brain 09 June 2020 ACCESSION NUMBER(S): [id number]; [id number] ORDERING CLINICIAN: JEAN PIERRE MATHIAS TECHNIQUE: CT of the brain from the skull vertex to the skull base, without intravenous contrast CT cervical spine from the craniocervical junction through the cervicothoracic junction without IV contrast, including sagittal and coronal reformatted images FINDINGS: CT BRAIN TRAUMA-RELATED Brain Injury (BIG) guidelines CT values: Skull fracture: No SDH (subdural hematoma): None detected EDH (epidural hemtoma): None detected IPH (intraparenchymal hemorrhage): None detected SAH (subarachnoid hemorrhage): None detected IVH (intraventricular hemorrhage): None detected Reference: Yoseph B, Sandra RS, Stephanie M, et al. The BIG (brain injury guidelines) project: defining the management of traumatic brain injury by acute care surgeons. J Trauma Acute Care Surg. 2014;76:045g964. OTHER ACUTE INTRACRANIAL MASS EFFECT: Negative CT EVIDENCE OF ACUTE / SUBACUTE TERRITORIAL ISCHEMIA: Negative VENTRICLES: Diffusely prominent for size but in proportion to the degree of atrophy; no acute pathologic findings OTHER BRAIN FINDINGS: No additional findings to note INCLUDED PARANASAL SINUSES: Layering fluid in right sphenoid. Elsewhere clear INCLUDED MASTOID AIR CELLS: All clear SKULL: No lytic or blastic lesion EXTRACRANIAL SOFT TISSUES: Scalp and occular globes grossly normal by CT ------- CT CERVICAL SPINE COUNTING REFERENCE: Craniocervical junction CRANIOCERVICAL JUNCTION: Intact CERVICAL ALIGNMENT: Straightening of and almost reversal of the normal cervical lordosis can be positional or can be seen with muscle spasm ACUTE FRACTURE: Negative AGGRESSIVE OSSEOUS LESION: Negative BONY CANAL AND FORAMINA: Degenerative changes are mild for age and most pronounced at C3-4. Multiple levels of perhaps mild bony canal and/or bony foraminal stenosis, but no critical/high-grade bony canal or bony foraminal stenosis PARASPINAL SOFT TISSUES: No large acute hematoma or other acute posttraumatic finding OTHER INCLUDED STRUCTURES: The right upper lobe nodule is a granuloma IMPRESSION: NO ACUTE INTRACRANIAL PROCESS. SKULL INTACT NO ACUTE FRACTURE OR SUBLUXATION IN THE CERVICAL SPINE THIS REPORT SERVES THE DIAGNOSTIC INTERPRETATION FOR TWO EXAMS PERFORMED CONCURRENTLY: CT BRAIN WITHOUT IV CONTRAST AND CT CERVICAL SPINE WITHOUT IV CONTRAST MACRO: None Signed by: Derick Arguelles 06/24/2023 8:33 AM Dictation workstation: [id number] [facility] Work Phone: Interpretation and review of laboratory results Abnormal [facility] Radiology Study observation (narrative) [facility] Work Phone: No Panel InformationOrdered By: Derick Arguelles on 06-24-2023 [facility] Work Phone: Tropinin I.cardiac panel Hig h sensitivity methodon 06-24-2023 Interpretation and review of laboratory results Normal [facility] Less than 99th perce ntile of normal range cutoff- Female and children under 18 years old <14 ng/L; Male <21 ng/L: Negative Repeat testing should be performed if clinically indicated. Female and children under 18 years old 14-50 ng/L; Male 21-50 ng/L: Consistent with possible cardiac damage and possible increased clinical risk. Serial measurements may help to assess extent of myocardial damage. >50 ng/L: Consistent with cardiac damage, increased clinical risk and myocardial infarction. Serial measurements may help assess extent of myocardial damage. NOTE: Children less than 1 year old may have higher baseline troponin levels and results should be interpreted in conjunction with the overall clinical context. NOTE: Troponin I testing is performed using a different testing methodology at [facility] than at other [facility]. Direct result comparisons should only be made within the same method. [facility] Interpretation and review of laboratory results Normal [facility] Less than 99th perce ntile of normal range cutoff- Female and children under 18 years old <14 ng/L; Male <21 ng/L: Negative Repeat testing should be performed if clinically indicated. Female and children under 18 years old 14-50 ng/L; Male 21-50 ng/L: Consistent with possible cardiac damage and possible increased clinical risk. Serial measurements may help to assess extent of myocardial damage. >50 ng/L: Consistent with cardiac damage, increased clinical risk and myocardial infarction. Serial measurements may help assess extent of myocardial damage. NOTE: Children less than 1 year old may have higher baseline troponin levels and results should be interpreted in conjunction with the overall clinical context. NOTE: Troponin I testing is performed using a different testing methodology at [facility] than at other [facility]. Direct result comparisons should only be made within the same method. [facility] Troponin I, High Sensitivity , Initialon 06-24-2023 Tropinin I.cardiac panel High sensitivity method 3 ng/L 0 - 13 ng/L [facility] Troponin, High Sensitivity, 1 Houron 06-24-2023 Tropinin I.cardiac panel High sensitivity method 3 ng/L 0 - 13 ng/L [facility] XR Chest Single viewon 06-23 No acute abnormaliti es. Chronic changes noted. Signed by: Guillermina Finn 06/24/2023 8:21 AM Dictation workstation: [id number] MMODAL Interpreted By: Guillermina Munoz ch, STUDY: XR CHEST 1 VIEW 06/24/2023 7:24 am INDICATION: Signs/Symptoms:Chest Pain COMPARISON: None ACCESSION NUMBER(S): [id number] ORDERING CLINICIAN: JEAN PIERRE MATHIAS TECHNIQUE: AP view FINDINGS: There are low lung volumes. No infiltrates. Slight basilar atelectasis or scarring in the right lung base. Heart size is accentuated by the poor inspiration. Pulmonary vascularity is normal. MMODAL Guillermina Finn MD - 06/24/2023 Interpreted By: Guillermina Finn, STUDY: XR CHEST 1 VIEW 06/24/2023 7:24 am INDICATION: Signs/Symptoms:Chest Pain COMPARISON: None ACCESSION NUMBER(S): [id number] ORDERING CLINICIAN: JEAN PIERRE MATHIAS TECHNIQUE: AP view FINDINGS: There are low lung volumes. No infiltrates. Slight basilar atelectasis or scarring in the right lung base. Heart size is accentuated by the poor inspiration. Pulmonary vascularity is normal. IMPRESSION: No acute abnormalities. Chronic changes noted. Signed by: Guillermina Finn 06/24/2023 8:21 AM Dictation workstation: [id number] [facility] Work Phone: Radiology Study observation (narrative) [facility] Work Phone: XR Chest Single viewOrdered By: Guillermina Finn on 06-24-2023 [facility] Work Phone: Albumin/Creatinineon 024 Albumin/Creatinine DL <= 20 mg/L (U) [Mass ratio] 9.6 ug/mg Creat Normal <30.0 [facility] Comment on above: Performed By: #### 1 4959-1 #### DANELLE Douglas ([id number]) [facility] ([facility]) [address] [place] [address] Albumin/Creatinine DL <= 20 mg/L (U) [Mass ratio]on 06-15-2023 Albumin DL <= 20 mg/L (U) [Mass/Vol] 12.1 mg/L Normal Not established [facility] Comment on above: Performed By: #### 1 4959-1 #### DANELLE Douglas ([id number]) [facility] ([facility]) [address] [place] [address] Creatinine (U) [Mass/Vol] 126.0 mg/dL Normal 20.0-320.0 [facility] Comment on above: Performed By: #### 1 4959-1 #### DANELLE Douglas ([id number]) [facility] ([facility]) [address] [place] [address] CBC panel Auto (Bld)on 06-14 Erythrocyte distribution width (RBC) [Ratio] 13.6 % Normal 11.5-14.5 [facility] Comment on above: Performed By: #### 5 8410-2 #### BUZZ FUNEZ ([id number]) [facility] ([facility]) [address] [place] [address] Hematocrit (Bld) [Volume fraction] 37.3 % Normal 36.0-46.0 [facility] Comment on above: Performed By: #### 5 8410-2 #### BUZZ FUNEZ ([id number]) [facility] ([facility]) [address] [place] [address] Hemoglobin (Bld) [Mass/Vol] 11.4 g/dL Low 12.0-16.0 [facility] Comment on above: Performed By: #### 5 8410-2 #### BUZZ FUNEZ ([id number]) [facility] ([facility]) [address] [place] [address] 26723 MCH (RBC) [Entitic mass] 29.2 pg Normal 26.0-34.0 [facility] Comment on above: Performed By: #### 5 8410-2 #### BUZZ FUNEZ ([id number]) [facility] ([facility]) [address] [place] [address] 00766 MCHC (RBC) [Mass/Vol] 30.6 g/dL Low 32.0-36.0 [facility] Comment on above: Performed By: #### 5 8410-2 #### BUZZ FUNEZ ([id number]) [facility] ([facility]) [address] [place] [address] 44091 MCV (RBC) [Entitic vol] 96 fL Normal 80-100 [facility] Comment on above: Performed By: #### 5 8410-2 #### BUZZ FUNEZ ([id number]) [facility] ([facility]) [address] [place] [address] Nucleated RBC/100 WBC (Bld) [Ratio] 0.0 /100 WBCs Normal 0.0-0.0 [facility] Comment on above: Performed By: #### 5 8410-2 #### BUZZ FUNEZ ([id number]) [facility] ([facility]) [address] [place] [address] 19007 Platelets (Bld) [#/Vol] 273 x10*3/uL Normal 150-450 [facility] Comment on above: Performed By: #### 5 8410-2 #### BUZZ FUNEZ ([id number]) [facility] ([facility]) [address] [place] [address] 13747 RBC (Bld) [#/Vol] 3.90 x10*6/uL Low 4.00-5.20 [facility] Comment on above: Performed By: #### 5 8410-2 #### BUZZ FUNEZ ([id number]) [facility] ([facility]) [address] [place] [address] 66085 WBC (Bld) [#/Vol] 8.9 x10*3/uL Normal 4.4-11.3 [facility] Comment on above: Performed By: #### 5 8410-2 #### BUZZ FUNEZ ([id number]) [facility] ([facility]) [address] [place] [address] 67671 Comprehensive metabolic 2000 panelon 06-15-2023 Albumin BCP dye [Mass/Vol] 4.0 g/dL Normal 3.4-5.0 [facility] Comment on above: Performed By: #### 2 4323-8 #### BUZZ FUNEZ ([id number]) [facility] ([facility]) [address] [place] [address] ALP [Catalytic activity/Vol] 72 U/L Normal 33-136 [facility] Comment on above: Performed By: #### 2 432-8 #### UBZZ FUNEZ ([id number]) [facility] ([facility]) [address] [place] [address] ALT With P-5'-P [Catalytic activity/Vol] 11 U/L Normal 7-45 [facility] Comment on above: Result Comment: Desiree ents treated with Sulfasalazine may generate falsely decreased results for ALT. Performed By: #### 2 432-8 #### BUZZ FUNEZ ([id number]) [facility] ([facility]) [address] [place] [address] 39907 Anion gap [Moles/Vol] 11 mmol/L Normal 10-20 [facility] Comment on above: Performed By: #### 2 4322-8 #### BUZZ FUNEZ ([id number]) [facility] ([facility]) [address] [place] [address] 34703 AST With P-5'-P [Catalytic activity/Vol] 11 U/L Normal 9-39 [facility] Comment on above: Performed By: #### 2 4322-8 #### BUZZ FUNEZ ([id number]) [facility] ([facility]) [address] [place] [address] 04002 Bilirubin [Mass/Vol] 0.3 mg/dL Normal 0.0-1.2 [facility] Comment on above: Performed By: #### 2 4323-8 #### BUZZ FUNEZ ([id number]) [facility] ([facility]) [address] [place] [address] 18606 Calcium [Mass/Vol] 9.3 mg/dL Normal 8.6-10.3 [facility] Comment on above: Performed By: #### 2 432-8 #### BUZZ FUNEZ ([id number]) [facility] ([facility]) [address] [place] [address] Chloride [Moles/Vol] 104 mmol/L Normal 98-107 [facility] Comment on above: Performed By: #### 2 4323-8 #### BUZZ FUNEZ ([id number]) [facility] ([facility]) [address] [place] [address] 02847 CO2 [Moles/Vol] 30 mmol/L Normal 21-32 [facility] Comment on above: Performed By: #### 2 4323-8 #### BUZZ FUNEZ ([id number]) [facility] ([facility]) [address] [place] [address] 37426 Creatinine [Mass/Vol] 0.97 mg/dL Normal 0.50-1.05 [facility] Comment on above: Performed By: #### 2 3-8 #### BUZZ FUNEZ ([id number]) [facility] ([facility]) [address] [place] [address] 70505 Glomerular filtration rate/1.73 sq M.predicted 57 mL/min/1.73m*2 Low >60 [facility] Comment on above: Result Comment: Calc ulations of estimated GFR are performed using the 2020 CKD-EPI Study Refit equation without the race variable for the IDMS-Traceable creatinine methods. https://jasn.asnjournals.org/content/early/ASN.1322034 988 Performed By: #### 2 432-8 #### BUZZ FUNEZ ([id number]) [facility] ([facility]) [address] [place] [address] 23193 Glucose [Mass/Vol] 145 mg/dL High 74-99 [facility] Comment on above: Performed By: #### 2 432-8 #### BUZZ FUNEZ ([id number]) [facility] ([facility]) [address] [place] [address] 88215 Potassium [Moles/Vol] 4.0 mmol/L Normal 3.5-5.3 [facility] Comment on above: Performed By: #### 2 4323-8 #### BUZZ FUNEZ ([id number]) [facility] ([facility]) [address] [place] [address] 53284 Protein [Mass/Vol] 6.7 g/dL Normal 6.4-8.2 [facility] Comment on above: Performed By: #### 2 4323-8 #### BUZZ FUNEZ ([id number]) [facility] ([facility]) [address] [place] [address] 58021 Sodium [Moles/Vol] 141 mmol/L Normal 136-145 [facility] Comment on above: Performed By: #### 2 4323-8 #### BUZZ FUNEZ ([id number]) [facility] ([facility]) [address] [place] [address] 42609 Urea nitrogen [Mass/Vol] 17 mg/dL Normal 6-23 [facility] Comment on above: Performed By: #### 2 4323-8 #### BUZZ FUNEZ ([id number]) [facility] ([facility]) [address] [place] [address] 20677 HbA1c (Bld) [Mass fraction]o n 06-15-2023 Average glucose Estimated from glycated hemoglobin (Bld) [Mass/Vol] 171 mg/dL Normal Not Established [facility] Comment on above: Order Comment: Diagn osis of Diabetes-Adults Non-Diabetic: < or = 5.6% Increased risk for developing diabetes: 5.7-6.4% Diagnostic of diabetes: > or = 6.5% Monitoring of Diabetes Age (y)....................... Therapeutic Goal (%) Adults: >18.........................<7.0 Pediatrics: 13-18...................<7.5 Pediatrics: 7-12....................<8.0 Pediatrics: 0-6..................... 7.5-8.5 [place]. Diabetes Care 33(S1), Feb 2009 Performed By: #### 4 548-4 #### BUZZ FUNEZ ([id number]) [facility] ([facility]) [address] [place] [id number] Hemoglobin A1c/Hemoglobin.to stephanie 06-15-2023 HbA1c (Bld) [Mass fraction] 7.6 % High see below [facility] Comment on above: Order Comment: Diagn osis of Diabetes-Adults Non-Diabetic: < or = 5.6% Increased risk for developing diabetes: 5.7-6.4% Diagnostic of diabetes: > or = 6.5% Monitoring of Diabetes Age (y)....................... Therapeutic Goal (%) Adults: >18.........................<7.0 Pediatrics: 13-18...................<7.5 Pediatrics: 7-12....................<8.0 Pediatrics: 0-6..................... 7.5-8.5 [place] [employer]. Diabetes Care 33(S1), Feb 2009 Performed By: #### 4 548-4 #### BUZZ FUNEZ ([id number]) [facility] ([facility]) [address] [place] [address] Lipid 1996 panelon 4 Cholesterol [Mass/Vol] 137 mg/dL Normal 0-199 [facility] Comment on above: Result Comment: Age Desirable Borderline High High 0-19 Y 0 - 169 170 - 199 >/= 200 20-24 Y 0 - 189 190 - 224 >/= 225 >24 Y 0 - 199 200 - 239 >/= 240 All ranges are based on fasting samples. Specific therapeutic targets will vary based on patient-specific cardiac risk. Pediatric guidelines reference:Pediatrics 2011, 128(S5).Adult guidelines reference: NCEP ATPIII Guidelines,OSWALD 2001, 258:2486-97 Venipuncture immediately after or during the administration of Metamizole may lead to falsely low results. Testing should be performed immediately prior to Metamizole dosing. Performed By: #### 2 4331-1 #### BUZZ FUNEZ ([id number]) [facility] ([facility]) [facility] [place] [address] Cholesterol in HDL [Mass/Vol] 64.0 mg/dL Normal [facility] Comment on above: Result Comment: Age Very Low Low Normal High 0-19 Y < 35 < 40 40-45 ---- 20-24 Y ---- < 40 >45 ---- >24 Y ---- < 40 40-60 >60 Performed By: #### 2 4331-1 #### BUZZ FUNEZ ([id number]) [facility] ([facility]) [facility] [place] [address] Cholesterol in LDL [Mass/Vol] 50 mg/dL Normal <=99 [facility] Comment on above: Result Comment: Near Borderline AGE Desirable Optimal High High Very High 0-19 Y 0 - 109 --- 110-129 >/= 130 ---- 20-24 Y 0 - 119 --- 120-159 >/= 160 ---- >24 Y 0 - 99 100-129 130-159 160-189 >/=190 Performed By: #### 2 4331-1 #### BUZZ FUNEZ ([id number]) [facility] ([facility]) [address] [place] [address] 73271 Cholesterol in VLDL [Mass/Vol] 23 mg/dL Normal 0-40 [facility] Comment on above: Performed By: #### 2 4331-1 #### BUZZ FUNEZ ([id number]) [facility] ([facility]) [address] [place] [address] 09799 CHOLESTEROL/HDL RATIO 2.1 Normal [facility] Comment on above: Result Comment: Ref Values Desirable < 3.4 High Risk > 5.0 Performed By: #### 2 4331-1 #### BUZZ FUNEZ ([id number]) [facility] ([facility]) [address] [place] [address] 85991 NON HDL CHOLESTEROL 73 mg/dL Normal 0-149 [facility] Comment on above: Result Comment: Age Desirable Borderline High High Very High 0-19 Y 0 - 119 120 - 144 >/= 145 >/= 160 20-24 Y 0 - 149 150 - 189 >/= 190 ---- >24 Y 30 mg/dL above LDL Cholesterol goal Performed By: #### 2 4331-1 #### BUZZ FUNEZ ([id number]) [facility] ([facility]) [address] [place] [address] 69358 Triglyceride [Mass/Vol] 117 mg/dL Normal 0-149 [facility] Comment on above: Result Comment: Age Desirable Borderline High High Very High 0 D-90 D 19 - 174 ---- ---- ---- 91 D- 9 Y 0 - 74 75 - 99 >/= 100 ---- 10-19 Y 0 - 89 90 - 129 >/= 130 ---- 20-24 Y 0 - 114 115 - 149 >/= 150 ---- >24 Y 0 - 149 150 - 199 200- 499 >/= 500 Venipuncture immediately after or during the administration of Metamizole may lead to falsely low results. Testing should be performed immediately prior to Metamizole dosing. Performed By: #### 2 4331-1 #### BUZZ FUNEZ ([id number]) [facility] ([facility]) [address] [place] [address] 85779 Thyrotropinon 06-15-2023 TSH Qn 0.95 m[IU]/L Normal 0.44-3.98 [facility] Comment on above: Order Comment: TSH t esting is performed using different testing methodology at [facility] than at other [facility]. Direct result comparisons should only be made within the same method. Performed By: #### 3 016-3 #### BUZZ FUNEZ ([id number]) [facility] ([facility]) [address] [place] [address] 62569 Bacteria identifiedon 2023 Bacteria identified Cx Nom (U) Test: Urine Culture Specimen Source: Clean Catch/Voided Specimen Type: Urine Specimen Date: 05/31/2023 5:37 PM Result Date: 06/01/2023 10:59 PM Result Status: Final result Abnormal: No Resulting Lab: [facility] [id number] [place] [address] CULTURE No significant growth Normal [facility] Comment on above: Performed By: #### 6 30-4 #### DANELLE Douglas ([id number]) [facility] ([facility]) [id number] [place] [address] 16242 Urinalysis complete panel (U )on 05-31-2023 Appearance (U) Clear Normal Clear [facility] Comment on above: Performed By: #### 2 4356-8 #### BUZZ FUNEZ ([id number]) [facility] ([facility]) [address] [place] [address] 98287 Bilirubin (U) [Mass/Vol] Negative Normal NEGATIVE [facility] Comment on above: Performed By: #### 2 4356-8 #### BUZZ FUNEZ ([id number]) [facility] ([facility]) [address] [place] [address] 11027 Color (U) Straw Normal Straw, Yellow [facility] Comment on above: Performed By: #### 2 4356-8 #### BUZZ FUNEZ ([id number]) [facility] ([facility]) [address] [place] [address] 36653 Glucose Auto test strip (U) [Mass/Vol] Negative Normal NEGATIVE [facility] Comment on above: Performed By: #### 2 4356-8 #### BUZZ FUNEZ ([id number]) [facility] ([facility]) [address] [place] [address] 39666 Ketones (U) [Mass/Vol] 5 (TRACE) Abnormal NEGATIVE [facility] Comment on above: Performed By: #### 2 4356-8 #### BUZZ FUNEZ ([id number]) [facility] ([facility]) [address] [place] [address] 40782 Leukocyte esterase Auto test strip Ql (U) Negative Normal NEGATIVE [facility] Comment on above: Performed By: #### 2 4356-8 #### BUZZ FUNEZ ([id number]) [facility] ([facility]) [address] [place] [address] 53291 Nitrite Auto test strip Ql (U) Negative Normal NEGATIVE [facility] Comment on above: Performed By: #### 2 4356-8 #### BUZZ FUNEZ ([id number]) [facility] ([facility]) [address] [place] [address] 49197 pH (U) 5.0 [pH] Normal 5.0, 5.5, 6.0, 6.5, 7.0, 7.5, 8.0 [facility] Comment on above: Performed By: #### 2 4356-8 #### BUZZ FUNEZ ([id number]) [facility] ([facility]) [address] [place] [address] 85668 Protein (U) [Mass/Vol] Negative Normal NEGATIVE [facility] Comment on above: Performed By: #### 2 4356-8 #### BUZZ FUNEZ ([id number]) [facility] ([facility]) [address] [place] [address] 85041 RBC (U) [#/Vol] Negative Normal NEGATIVE [facility] Comment on above: Performed By: #### 2 4356-8 #### BUZZ FUNEZ ([id number]) [facility] ([facility]) [address] [place] [address] 85931 Specific gravity (U) [Rel density] 1.010 Normal 1.005-1.035 [facility] Comment on above: Performed By: #### 2 4356-8 #### BUZZ FUNEZ ([id number]) [facility] ([facility]) [address] [place] [address] 38320 Urobilinogen (U) [Mass/Vol] mg/dL Normal <2.0 [facility] Comment on above: Performed By: #### 2 4356-8 #### BUZZ FUNEZ ([id number]) [facility] ([facility]) [address] [place] [address] 40862 Office Visit (Primary Care T xt/Forms)on 12-07-2021 Follow-up visit Diagnoses/Problems Assessed Diabetes mellitus, type 2 (250.00) (E11.9) Hypothyroid (244.9) (E03.9) Depression (311) (F32.A) Hyperlipemia (272.4) (E78.5) Hypertension (401.9) (I10) Overweight with body mass index (BMI) of 27 to 27.9 in adult (278.02,V85.23) (E66.3,Z68.27) Orders Diabetes mellitus, type 2 Albumin, Urine Spot; Status:Active; Requested for:[id number]; Complete Blood Count; Status:Active; Requested for:01Clq5377; Comprehensive Metabolic Panel; Status:Active; Requested for:98Rdj8668; Hemoglobin A1C; Status:Active; Requested for:67Ldm2465; Lipid Panel; Status:Active; Requested for:38Odp2039; Hypothyroid TSH - Thyroid Stimulating Hormone, Serum; Status:Active; Requested for:20Ziv6541; Patient Discussion/Summary 6 month appointment and labs. Chief Complaint 6 MO FU. REV LABS History of Present Illness Since the last office visit there have been no interval operations, hospitalizations, important illnesses or injuries. 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 No alcohol. no tobacco. no exercise. low salt. Reviewed recommendation for 150 minutes of exercise per week including 2 days of weight training if over age 50 Hyperlipidemia- is on statin and a prudent diet. Hypothyroid- is euthyroid on replacement. Thyroid ros is unremarkable. 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) Depression (311) (F32.A) Diabetes mellitus, type 2 (250.00) (E11.9) Encounter for immunization (V03.89) (Z23) Hyperlipemia (272.4) (E78.5) Hypertension (401.9) (I10) Hypothyroid (244.9) (E03.9) Mammogram abnormal (793.80) (R92.8) Microcalcification of right breast on mammogram (793.81) (R92.0) Osteoporosis (733.00) (M81.0) Screening for breast cancer (V76.10) (Z12.39) Past Medical History Problems H/O mammogram (V15.89) (Z92.89) Surgical History Problems History of Appendectomy History of Breast biopsy History of Cataract surgery History of Cholecystectomy History of Colonoscopy History of Hysterectomy Family History Mother Family history of type 2 diabetes mellitus (V18.0) (Z83.3) Sister Family history of cardiac pacemaker (V17.49) (Z82.49) Family history of lung cancer (V16.1) (Z80.1) Family history of pancreatic cancer (V16.0) (Z80.0) Brother Family history of Cancer of spine Family history of cardiac pacemaker (V17.49) (Z82.49) Family history of pancreatic cancer (V16.0) (Z80.0) Social History Problems Denies alcohol consumption (V49.89) (Z78.9) No advance directives (V49.89) (Z78.9) No alcohol use Non-smoker (V49.89) (Z78.9) Current Meds Medication NameInstruction Aspirin EC Low Dose 81 MG Oral Tablet Delayed ReleaseTAKE 1 TABLET DAILY. Carbidopa-Levodopa ER 25-100 MG Oral Tablet Extended Release Escitalopram Oxalate 10 MG Oral TabletTAKE 1 TABLET DAILY. Ferrous Sulfate 325 (65 Fe) MG Oral Tablet Levothyroxine Sodium 75 MCG Oral TabletTAKE 1 TABLET DAILY. Lisinopril 10 MG Oral TabletTake 1 tablet daily metFORMIN HCl - 1000 MG Oral TabletTAKE 1 TABLET TWICE DAILY. Pioglitazone HCl - 15 MG Oral TabletTAKE 1 TABLET ONCE DAILY. risperiDONE 2 MG Oral TabletTAKE 1 TABLET AT BEDTIME. Simvastatin 20 MG Oral TabletTAKE 1 TABLET DAILY. Allergies Medication No Known Drug Allergies Vitals Vital Signs Recorded: [id number] 09:29AM Heart Rate: 76 Systolic: 128 Diastolic: 74 Height: 4 ft 9 in Weight: 127 lb 4 oz BMI Calculated: 27.54 kg/m2 BSA Calculated: 1.48 Tobacco Use: b) No Falls Screening (Age 18+): a) No falls within the last year O2 Saturation: 96 Physical Exam General: Alert, No acute distress. Appears stated age Eye: Pupils are equal, round and reactive to light, Extraocular movements are intact, Normal conjunctiva. Neck: Supple, Non-tender, No carotid bruit, No jugular venous distention, No lymphadenopathy, No thyromegaly. Respiratory: Lungs are clear to auscultation, Respirations are non-labored, Breath sounds are equal. Cardiovascular: Normal rate, Regular rhythm, No murmur. Gastrointestinal: Soft, Non-tender, No organomegaly. No solid or pulsatile mass Integumentary: Warm, Dry. No concerning lesions on exposed areas Neurologic: Alert, Oriented. Gross and fine motor intact, CN 2-12 intact Psychiatric: Cooperative, Appropriate mood AND affect. Results/Data 73 Signatures Electronically signed by : Nilsa Malik MD; Dec 07 2021 10:11AM EST (Author) Normal [employer] Hemoglobin A1Con 11-30-2021 Glucose [Mass/Vol] 163 mg/dL [employer] [facility] Work Phone: HbA1c (Bld) [Mass fraction] 7.3 % Abnormal [employer] [facility] Work Phone: Comment on above: Diagnosis of Diabete s-Adults Non-Diabetic: < or = 5.6% Increased risk for developing diabetes: 5.7-6.4% Diagnostic of diabetes: > or = 6.5%. Monitoring of Diabetes Age (y) Therapeutic Goal (%) Adults: >18 <7.0 Pediatrics: 13-18 <7.5 7-12 <8.0 0- 6 7.5-8.5 [place] [employer]. Diabetes Care 33(S1), Feb 2009. 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 We discussed the alternatives related to mammography follow-up. She thinks she would like to stop having mammograms or at least just do them intermittently. She is willing to follow-up with her primary care. She will return on a as needed basis. Chief Complaint Breast exam,mammo 09/12/2021 cat 2. Denies nipple discharge, breast pain or lumps. Pt is not performing SBE at this time. History of Present IllnessPatient is seen for breast exam and mammogram follow-up. She denies any change in her breast self-exam. 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) Depression (311) (F32.A) Diabetes mellitus, type 2 (250.00) (E11.9) Encounter for immunization (V03.89) (Z23) Hyperlipemia (272.4) (E78.5) Hypertension (401.9) (I10) Hypothyroid (244.9) (E03.9) Mammogram abnormal (793.80) (R92.8) Microcalcification of right breast on mammogram (793.81) (R92.0) Osteoporosis (733.00) (M81.0) Screening for breast cancer (V76.10) (Z12.39) Past Medical History H/O mammogram (V15.89) (Z92.89) 2018 Surgical History History of Appendectomy History of Breast biopsy History of Cataract surgery History of Cholecystectomy History of Colonoscopy 2012 History of Hysterectomy Family History Family history of type 2 diabetes mellitus (V18.0) (Z83.3) Family history of cardiac pacemaker (V17.49) (Z82.49) Family history of lung cancer (V16.1) (Z80.1) Family history of pancreatic cancer (V16.0) (Z80.0) Family history of Cancer of spine Family history of cardiac pacemaker (V17.49) (Z82.49) Family history of pancreatic cancer (V16.0) (Z80.0) Social History Denies alcohol consumption (V49.89) (Z78.9) No advance directives (V49.89) (Z78.9) No alcohol use Non-smoker (V49.89) (Z78.9) Allergies No Known Drug Allergies Recorded By: Caridad Emerson; 02/06/2019 8:52:43 AM Current Meds Medication NameInstruction Aspirin EC Low Dose 81 MG Oral Tablet Delayed ReleaseTAKE 1 TABLET DAILY. Carbidopa-Levodopa ER 25-100 MG Oral Tablet Extended Release Escitalopram Oxalate 10 MG Oral TabletTAKE 1 TABLET DAILY. Ferrous Sulfate 325 (65 Fe) MG Oral Tablet Levothyroxine Sodium 75 MCG Oral TabletTAKE 1 TABLET DAILY. Lisinopril 10 MG Oral TabletTake 1 tablet daily metFORMIN HCl - 1000 MG Oral TabletTAKE 1 TABLET TWICE DAILY. Pioglitazone HCl - 15 MG Oral TabletTAKE 1 TABLET ONCE DAILY. risperiDONE 2 MG Oral TabletTAKE 1 TABLET AT BEDTIME. Simvastatin 20 MG Oral TabletTAKE 1 TABLET DAILY. Vitals Vital Signs Recorded: [id number] 11:09AM Heart Rate80 [id number] Nhdbmwqho40 Height4 ft 9 in Mrnnbv953 lb 2 oz BMI Edcvdocuux16.94 kg/m2 BSA Calculated1.49 Tobacco Useb) No Falls Screening (Age 18+)a) No falls within the last year Physical Exam Eyes - Anicteric. Pulmonary - Respiratory effort: Normal respiration. Cardiovascular - Regular rate. Chest - No dominant mass or nipple discharge. Abdomen - Soft and nontender. Neurologic - Nonfocal. Psychiatric - Appropriate. Results/Data Mamm - Screening Mammogram w/ [id number] 10:25AMMaSerena Fair Test NameResultFlagReference Mamm Screening Digital with Tomosynthesis(Report) FINAL REPORT Interpreted by: HERMAN AHMADI CHRISTOPHER, MD 09/13/21 08:32 Patient Name: RAMYA MOSS STUDY: Digital mammography screening with parmjit; 09/12/2021 10:25 am ACCESSION NUMBER(S): [id number] ORDERING CLINICIAN: SERENA HULL INDICATION: Screening. COMPARISON: Comparison is made to prior digital mammograms dated 09/08/2020 FINDINGS: CC and MLO 2D digital mammograms and digital breast tomosynthesis images were obtained of the bilateral breasts. 3-D volume images were reconstructed in 4 views at an independent workstation as 1 mm slices through the breasts in both the CC and MLO projections. There are areas of scattered fibroglandular tissue. Well-defined intramammary lymph nodes are seen in the lateral aspect of the left breast at posterior depth, unchanged from prior studies. No new or enlarging mass or focal asymmetry is identified. No suspicious microcalcifications or foci of architectural distortion are seen. There has been no significant change. This study was interpreted with CAD. IMPRESSION: No mammographic evidence of malignancy. BI-RADS CATEGORY: Category: 2 - Benign. Recommendation: 1 Year Screening. Electronically signed by: HERMAN AHMADI 09/13/21 08:32 Signatures Electronically signed by : (more content not included)... Normal [employer] Tobacco Screening.on 022 Fall risk assessment a) No falls within the last year [facility] Work Phone: Tobacco use status CPHS b) No [facility] Work Phone: Basophil percentageon 2021 WBC (Bld) [#/Vol] 7.6 10*3/uL 4.4-11.0 [facility] Work Phone: Blood erythrocytes count (nu mber/volume)on 10-04-2021 RBC (Bld) [#/Vol] 3.90 10*6/uL 4.2-5.4 [facility] Work Phone: Blood hemoglobin measurement (mass/volume)on 10-04-2021 Hemoglobin (Bld) [Mass/Vol] 11.3 g/dL 12.0-15.0 [facility] Work Phone: Blood platelet mean volumeon 10-04-2021 Platelet mean volume (Bld) [Entitic vol] 9.5 fL 6.2-12.0 [facility] Work Phone: Determination of erythrocyte mean corpuscular volume (MCV)on 10-04-2021 MCV (RBC) [Entitic vol] 89.2 fL 81-99 [facility] Work Phone: Hematocrit Auto (Bld) [Volum e fraction]on 10-04-2021 Hematocrit (Bld) [Volume fraction] 34.8 % 37-47 [facility] Work Phone: Iron measurement (mass/mass) on 10-04-2021 Iron (Unsp spec) [Mass/Mass] 55 ug/dL 50-170 [facility] Work Phone: Laboratory - Chemistry and C hemistry - challengeon 10-04-2021 Cobalamin (Vitamin B12) [Mass/Vol] 254 pg/mL 211-911 [facility] Work Phone: Laboratory - Hematology and Cell countson 10-04-2021 Erythrocyte distribution width (RBC) [Entitic vol] 44.8 fL 35.1-43.9 [facility] Work Phone: Erythrocyte distribution width (RBC) [Ratio] 13.8 % 11.6-14.6 [facility] Work Phone: MCH (RBC) [Entitic mass] 29.0 pg 27.0-32.0 [facility] Work Phone: MCHC Auto (RBC) [Mass/Vol]on 10-04-2021 MCHC (RBC) [Mass/Vol] 32.5 g/dL 32-36 [facility] Work Phone: Platelets bldon 10-04-2021 Platelets (Bld) [#/Vol] 279 10*3/uL 150-450 [facility] Work Phone: Serum or plasma ferritin shelby surement (mass/volume)on 10-04-2021 Ferritin [Mass/Vol] 54 ng/mL 8-252 [facility] Work Phone: DIGITAL MAMM SCREENING W/ TO Sahni 09-12-2021 DIGITAL MAMM SCREENING W/ PARMJIT Patient Name: RAMYA MOSS STUDY: Digital mammography screening with parmjit; 09/12/2021 10:25 am ACCESSION NUMBER(S): [id number] ORDERING CLINICIAN: SERENA HULL INDICATION: Screening. COMPARISON: Comparison is made to prior digital mammograms dated 09/08/2020 FINDINGS: CC and MLO 2D digital mammograms and digital breast tomosynthesis images were obtained of the bilateral breasts. 3-D volume images were reconstructed in 4 views at an independent workstation as 1 mm slices through the breasts in both the CC and MLO projections. There are areas of scattered fibroglandular tissue. Well-defined intramammary lymph nodes are seen in the lateral aspect of the left breast at posterior depth, unchanged from prior studies. No new or enlarging mass or focal asymmetry is identified. No suspicious microcalcifications or foci of architectural distortion are seen. There has been no significant change. This study was interpreted with CAD. IMPRESSION: No mammographic evidence of malignancy. BI-RADS CATEGORY: Category: 2 - Benign. Recommendation: 1 Year Screening. Electronically signed by: HERMAN AHMADI MD [facility] Mamm - Screening Mammogram w / Tomosynthesison 09-12-2021 MG Breast Screening Normal [facility] Work Phone: Laboratory - Chemistry and C hemistry - challengeon 06-07-2021 Albumin Ql (U) <7.0 See Below [email or web address] [facility] Work Phone: Comment on above: Reference Range: Not Established Albumin/Creatinine DL <= 20 mg/L (U) [Mass ratio] SEE COMMENT 0.0 - 30.0 [email or web address] [facility] Work Phone: Comment on above: One or more analytes used in this calculation is outside of the analytical measurement range.Calculation cannot be performed. Creatinine (U) [Mass/Vol] 82.0 mg/dL See Below [email or web address] [facility] Work Phone: Comment on above: Reference Range: 20. 0 - 320.0 Medicare Annual Wellness Vis iton 06-07-2021 Medicare Annual Wellness Visit *Chief Complaint MCW..6 MO FU. REV LABS History of Present Illness The patient is being seen for the subsequent annual wellness visit. Past Medical, Surgical and Family History: reviewed and updated in chart. Interval History: Patient has not been hospitalized previously. Medications and Supplements: Review of all medications by a prescribing practitioner or clinical pharmacist (such as prescriptions, OTCs, herbal therapies and supplements) documented in the medical record. No, the patient is not using opioids. Health Risk Assessment:. Paper HRA completed by patient and scanned into chart. Patient Self Assessment of Health Status: good. Tobacco use: Non-User Alcohol use: Non-User, As noted in social history Illicit drug use: Non-User Current diet: well balanced diet. Exercise Frequency: the patient does not exercise. Depression/Suicide Screening: Patient has a current diagnosis of depression. Hearing Impairment: Patient has slight hearing impairment, bilaterally. Cognitive Impairment: No cognitive impairment observed. Bathing: performs independently. Dressing: performs independently. Walking: performs independently. Toileting: performs independently. Feeding: performs independently. Personal Hygiene: performs independently. Bowels: continent. Bladder: continent. Managing Finances: performs independently. Shopping: performs independently. Managing Medications: performs independently. Housework / Basic Home Maintenance: performs independently. Handling Transportation: performs independently. Preparing Meals: performs independently. Using the Telephone/ Communication Devices: performs independently. Falls Risk Screening:. RAMYA has not fallen in the last 6 months. Her fall did not result in injury. Fall risk factors: fell in snow. Care Plan Low/Moderate Risk: Regular physical activity such as walking, water aerobics or subhash chi to improve strength, balance, coordination and flexibility. Wear appropriate, sensible shoe wear. Remove fall hazards at home such as loose rugs, obstacles, use non-slip surface in bath or shower. Keep living space well lit. Home safety risk factors: no grab bars in the bathroom. Advance directives:. Advance Care Planning discussed and documented in the medical record, patient did not wish or was not able to name a surrogate decision maker or provide an advance care plan. Patient has living will. Patient has healthcare POA. Since the last office visit there have been no interval operations, hospitalizations, important illnesses or injuries. Hyperlipidemia- is on statin and a prudent diet. Hypothyroid- is euthyroid on replacement. Thyroid ros is unremarkable. HTN-Takes and tolerates meds without side effects. No alcohol. no tobacco. no exercise. low salt. 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) Depression (311) (F32.A) Diabetes mellitus, type 2 (250.00) (E11.9) Encounter for immunization (V03.89) (Z23) Hyperlipemia (272.4) (E78.5) Hypertension (401.9) (I10) Hypothyroid (244.9) (E03.9) Mammogram abnormal (793.80) (R92.8) Microcalcification of right breast on mammogram (793.81) (R92.0) Osteoporosis (733.00) (M81.0) Screening for breast cancer (V76.10) (Z12.39) Past Medical History H/O mammogram (V15.89) (Z92.89) 2018 Surgical History History of Appendectomy History of Breast biopsy History of Cataract surgery History of Cholecystectomy History of Colonoscopy 2011 History of Hysterectomy Family History Family history of type 2 diabetes mellitus (V18.0) (Z83.3) Family history of cardiac pacemaker (V17.49) (Z82.49) Family history of lung cancer (V16.1) (Z80.1) Family history of pancreatic cancer (V16.0) (Z80.0) Family history of Cancer of spine Family history of cardiac pacemaker (V17.49) (Z82.49) Family history of pancreatic cancer (V16.0) (Z80.0) Social History Denies alcohol consumption (V49.89) (Z78.9) No advance directives (V49.89) (Z78.9) No alcohol use Non-smoker (V49.89) (Z78.9) *Allergies No Known Drug Allergies Recorded By: Caridad Emerson; 02/06/2019 8:52:43 AM *Current Meds Medication NameInstruction Aspirin EC Low Dose 81 MG Oral Tablet Delayed ReleaseTAKE 1 TABLET DAILY. Carbidopa-Levodopa ER 25-100 MG Oral Tablet Extended Release Escitalopram Oxalate 10 MG Oral TabletTAKE 1 TABLET DAILY. Ferrous Sulfate 325 (65 Fe) MG Oral Tablet Levothyroxine Sodium 75 MCG Oral TabletTAKE 1 T (more content not included)... Normal [employer] Tobacco Screening.on 022 Adult depression screening assessment No [employer] [facility] Work Phone: Fall risk assessment a) No falls within the last year [employer] [facility] Work Phone: Tobacco use status CPHS b) No [employer] [facility] Work Phone: Hemoglobin A1Con 05-31-2021 Glucose [Mass/Vol] 169 mg/dL [employer] [facility] Work Phone: HbA1c (Bld) [Mass fraction] 7.5 % Abnormal [employer] [facility] Work Phone: Comment on above: Diagnosis of Diabete s-Adults Non-Diabetic: < or = 5.6% Increased risk for developing diabetes: 5.7-6.4% Diagnostic of diabetes: > or = 6.5%. Monitoring of Diabetes Age (y) Therapeutic Goal (%) Adults: >18 <7.0 Pediatrics: 13-18 <7.5 7-12 <8.0 0- 6 7.5-8.5 [place] [employer]. Diabetes Care 33(S1), Feb 2009. Laboratory - Chemistry and C hemistry - challengeon 05-31-2021 Albumin BCP dye [Mass/Vol] 4.0 g/dL 3.4 - 5.0 [employer] [facility] Work Phone: Albumin Ql (U) Canceled [employer] [facility] Work Phone: Albumin/Creatinine DL <= 20 mg/L (U) [Mass ratio] Canceled [employer] [facility] Work Phone: ALP [Catalytic activity/Vol] 71 U/L 33 - 136 [employer] [facility] Work Phone: ALT With P-5'-P [Catalytic activity/Vol] 10 U/L 7 - 45 [employer] [facility] Work Phone: Comment on above: Patients treated wit h Sulfasalazine may generate falsely decreased results for ALT. Anion gap [Moles/Vol] 13 mmol/L 10 - 20 [employer] [facility] Work Phone: AST With P-5'-P [Catalytic activity/Vol] 11 U/L 9 - 39 [employer] [facility] Work Phone: Bilirubin [Mass/Vol] 0.3 mg/dL 0.0 - 1.2 [employer] [facility] Work Phone: Calcium [Mass/Vol] 9.5 mg/dL 8.6 - 10.3 -[facility] ical [employer] [facility] Work Phone: Chloride [Moles/Vol] 104 mmol/L 98 - 107 - [facility] Work Phone: CO2 [Moles/Vol] 27 mmol/L 21 - 32 -[facility] Work Phone: Creatinine (U) [Mass/Vol] Canceled [facility] Work Phone: Creatinine [Mass/Vol] 0.86 mg/dL See Below -[facility] Work Phone: Comment on above: Reference Range: 0.5 0 - 1.05 Glucose [Mass/Vol] 136 mg/dL above high threshold 74 - 99 [facility] Work Phone: Potassium [Moles/Vol] 3.8 mmol/L 3.5 - 5.3 [facility] Work Phone: Protein [Mass/Vol] 7.1 g/dL 6.4 - 8.2 -[facility] Work Phone: Sodium [Moles/Vol] 140 mmol/L 136 - 145 -[facility] Work Phone: Urea nitrogen [Mass/Vol] 20 mg/dL 6 - 23 [facility] Work Phone: Laboratory - Hematology and Cell countson 05-31-2021 Erythrocyte distribution width (RBC) [Ratio] 14.6 % above high threshold See Below [facility] Work Phone: Comment on above: Reference Range: 11. 5 - 14.5 Hematocrit (Bld) [Volume fraction] 36.1 % See Below [facility] Work Phone: Comment on above: Reference Range: 36. 0 - 46.0 Hemoglobin (Bld) [Mass/Vol] 11.5 g/dL below low threshold See Below [facility] Work Phone: Comment on above: Reference Range: 12. 0 - 16.0 MCHC (RBC) [Mass/Vol] 31.9 g/dL below low threshold See Below [employer] [facility] Work Phone: Comment on above: Reference Range: 32. 0 - 36.0 MCV (RBC) [Entitic vol] 89 fL 80 - 100 [employer] [facility] Work Phone: Platelets (Bld) [#/Vol] 316 10*3/uL 150 - 450 [email or web address] Work Phone: RBC (Bld) [#/Vol] 4.08 {x10E12/L} See Below [employer] [facility] Work Phone: Comment on above: Reference Range: 4.0 0 - 5.20 WBC (Bld) [#/Vol] 8.1 10*3/uL 4.4 - 11.3 [facility] Work Phone: Lipid Panelon 05-31-2021 Cholesterol [Mass/Vol] 163 mg/dL 0 - 199 [employer] [facility] Work Phone: Comment on above: . AGE DESIRABLE BORD ERNST HIGH HIGH 0-19 Y 0 - 169 170 - 199 >/= 200 20-24 Y 0 - 189 190 - 224 >/= 225 >24 Y 0 - 199 200 - 239 >/= 240 All ranges are based on fasting samples. Specific therapeutic targets will vary based on patient-specific cardiac risk.. Pediatric guidelines reference:Pediatrics 2011, 128(S5). Adult guidelines reference: NCEP ATPIII Guidelines, OSWALD 2001, 258:2486-97. Venipuncture immediately after or during the administration of Metamizole may lead to falsely low results. Testing should be performed immediately prior to Metamizole dosing. Cholesterol in HDL [Mass/Vol] 53.0 mg/dL [employer] [facility] Work Phone: Comment on above: . AGE VERY LOW LOW N ORMAL HIGH 0-19 Y < 35 < 40 40-45 ---- 20- 24 Y ---- < 40 >45 ---- >24 Y ---- < 40 40-60 >60. Cholesterol in LDL [Mass/Vol] 54 mg/dL 0 - 99 [employer] [facility] Work Phone: Comment on above: . NEAR BORD AGE FRANCISCO RABLE OPTIMAL HIGH HIGH VERY HIGH 0-19 Y 0 - 109 --- 110-129 >/= 130 ---- 20-24 Y 0 - 119 --- 120-159 >/= 160 ---- >24 Y 0 - 99 100-129 130-159 160-189 >/=190. Cholesterol non HDL [Mass/Vol] 110 mg/dL [employer] [facility] Work Phone: Comment on above: AGE DESIRABLE BORDER LINE HIGH HIGH VERY HIGH 0-19 Y 0 - 119 120 - 144 >/= 145 >/= 160 20-24 Y 0 - 149 150 - 189 >/= 190 ---- >24 Y 30 MG/DL ABOVE LDL CHOLESTEROL GOAL. Cholesterol.total/Ch olesterol in HDL [Mass ratio] 3.1 {ratio} [employer] [facility] Work Phone: Comment on above: REF VALUESDESIRABLE < 3.4HIGH RISK > 5.0 Triglyceride [Mass/Vol] 278 mg/dL above high threshold 0 - 149 [employer] [facility] Work Phone: Comment on above: . AGE DESIRABLE BORD ERNST HIGH HIGH VERY HIGH 0 D-90 D 19 - 174 ---- ---- ----91 D- 9 Y 0 - 74 75 - 99 >/= 100 ---- 10-19 Y 0 - 89 90 - 129 >/= 130 ---- 20-24 Y 0 - 114 115 - 149 >/= 150 ---- >24 Y 0 - 149 150 - 199 200- 499 >/= 500. Venipuncture immediately after or during the administration of Metamizole may lead to falsely low results. Testing should be performed immediately prior to Metamizole dosing. Lipid Panel 56 mg/dL above high threshold 0 - 40 [employer] [facility] Work Phone: No Panel Informationon 05-31 67 {mL/min/1.73m2} >90 [employer] [facility] Work Phone: Comment on above: CALCULATIONS OF JULIA MATED GFR ARE PERFORMED USING THE 2020 CKD-EPI STUDY REFIT EQUATION WITHOUT THE RACE VARIABLE FOR THE IDMS-TRACEABLE CREATININE METHODS.[email or web address].asnjournals.org/content//ASN [email or web address] TSH - Thyroid Stimulating Ho nadja, Serumon 05-31-2021 TSH Qn 2.08 m[IU]/L See Below [employer] [facility] Work Phone: Comment on above: Reference Range: 0.4 4 - 3.98 TSH testing is performed using different testing methodology at [facility] than at other [facility]. Direct result comparisons should only be made within the same method. Falls Risk Screeningon 12-06 Fall risk assessment a) No falls within the last year [employer] [facility] Work Phone: Tobacco use status CPHS b) No [employer] [facility] Work Phone: HEMOGLOBIN A1Con 11-29-2020 Glucose [Mass/Vol] 160 mg/dL Normal [facility] Comment on above: Performed By: #### H BA1E #### [address] [address] HbA1c (Bld) [Mass fraction] 7.2 % Abnormal [facility] Comment on above: Result Comment: Diag nosis of Diabetes-Adults Non-Diabetic: < or = 5.6% Increased risk for developing diabetes: 5.7-6.4% Diagnostic of diabetes: > or = 6.5% . Monitoring of Diabetes Age (y) Therapeutic Goal (%) Adults: >18 <7.0 Pediatrics: 13-18 <7.5 7-12 <8.0 0- 6 7.5-8.5 [place] [employer]. Diabetes Care 33(S1), Feb 2009. Performed By: #### H BA1E #### [address] [address] Hemoglobin A1Con 11-29-2020 Glucose [Mass/Vol] 160 mg/dL [employer] [facility] Work Phone: HbA1c (Bld) [Mass fraction] 7.2 % Abnormal [facility] Work Phone: Comment on above: Diagnosis of Diabete s-Adults Non-Diabetic: < or = 5.6% Increased risk for developing diabetes: 5.7-6.4% Diagnostic of diabetes: > or = 6.5%. Monitoring of Diabetes Age (y) Therapeutic Goal (%) Adults: >18 <7.0 Pediatrics: 13-18 <7.5 7-12 <8.0 0- 6 7.5-8.5 [place] [employer]. Diabetes Care 33(S1), Feb 2009. GLUCOSE-POCTon 10-15-2020 Glucose [Mass/Vol] 160 mg/dL High 74 - 99 [facility] Comment on above: Performed By: #### G MIGUEL ANGEL #### [id number] [place] [address] Laboratory - Chemistry and C hemistry - challengeon 10-15-2020 Glucose [Mass/Vol] 160 mg/dL above high threshold 74 - 99 [facility] 120 Work Phone: No Panel Informationon 10-15 [email or web address]} [facility] 120 Work Phone: Tobacco Screening.on 021 Fall risk assessment a) No falls within the last year [facility] Work Phone: Tobacco use status [facility] b) No [facility] Work Phone: Tobacco Screening.on 021 Fall risk assessment a) No falls within the last year [facility] Work Phone: Tobacco use status [facility] b) No [facility] Work Phone: Hemoglobin A1Con 08-23-2020 Glucose [Mass/Vol] 171 mg/dL [facility] Work Phone: HbA1c (Bld) [Mass fraction] 7.6 % [facility] [employer] [facility] Work Phone: Comment on above: Diagnosis of Diabete s-Adults Non-Diabetic: < or = 5.6% Increased risk for developing diabetes: 5.7-6.4% Diagnostic of diabetes: > or = 6.5%. Monitoring of Diabetes Age (y) Therapeutic Goal (%) Adults: >18 <7.0 Pediatrics: 13-18 <7.5 7-12 <8.0 0- 6 7.5-8.5 [place] [employer]. Diabetes Care 33(S1), Feb 2009. Laboratory - Chemistry and C hemistry - challengeon 08-23-2020 Albumin BCP dye [Mass/Vol] 3.9 g/dL 3.4 - 5.0 [facility] Work Phone: Albumin Ql (U) 14.4 mg/L See Below [facility] Work Phone: Comment on above: Reference Range: Not Established Albumin/Creatinine DL <= 20 mg/L (U) [Mass ratio] 10.5 {ug/mg_crt} 0.0 - 30.0 [facility] Work Phone: ALP [Catalytic activity/Vol] 75 U/L 33 - 136 [facility] Work Phone: ALT With P-5'-P [Catalytic activity/Vol] 14 U/L 7 - 45 [facility] Work Phone: Comment on above: Patients treated wit h Sulfasalazine may generate falsely decreased results for ALT. Anion gap [Moles/Vol] 13 mmol/L 10 - 20 [facility] Work Phone: AST With P-5'-P [Catalytic activity/Vol] 14 U/L 9 - 39 [facility] Work Phone: Bilirubin [Mass/Vol] 0.3 mg/dL 0.0 - 1.2 [facility] Work Phone: Calcium [Mass/Vol] 8.9 mg/dL 8.6 - 10.3 -[facility] Work Phone: Chloride [Moles/Vol] 105 mmol/L 98 - 107 [facility] Work Phone: CO2 [Moles/Vol] 26 mmol/L 21 - 32 -[facility] Work Phone: Creatinine (U) [Mass/Vol] 137.0 mg/dL See Below [facility] Work Phone: Comment on above: Reference Range: 20. 0 - 320.0 Creatinine [Mass/Vol] 0.81 mg/dL See Below [facility] Work Phone: Comment on above: Reference Range: 0.5 0 - 1.05 Glucose [Mass/Vol] 146 mg/dL above high threshold 74 - 99 [facility] Work Phone: Potassium [Moles/Vol] 4.1 mmol/L 3.5 - 5.3 [facility] Work Phone: Protein [Mass/Vol] 6.7 g/dL 6.4 - 8.2 [facility] Work Phone: Sodium [Moles/Vol] 140 mmol/L 136 - 145 [facility] Work Phone: Urea nitrogen [Mass/Vol] 18 mg/dL 6 - 23 [facility] Work Phone: Laboratory - Hematology and Cell countson 08-23-2020 Erythrocyte distribution width (RBC) [Ratio] 14.5 % See Below [facility] Work Phone: Comment on above: Reference Range: 11. 5 - 14.5 Hematocrit (Bld) [Volume fraction] 34.5 % below low threshold See Below [facility] Work Phone: Comment on above: Reference Range: 36. 0 - 46.0 Hemoglobin (Bld) [Mass/Vol] 11.2 g/dL below low threshold See Below [email or web address] Work Phone: Comment on above: Reference Range: 12. 0 - 16.0 MCHC (RBC) [Mass/Vol] 32.5 g/dL See Below [email or web address] Work Phone: Comment on above: Reference Range: 32. 0 - 36.0 MCV (RBC) [Entitic vol] 88 fL 80 - 100 [employer] [facility] Work Phone: Platelets (Bld) [#/Vol] 268 10*3/uL 150 - 450 [facility] [employer] [facility] Work Phone: RBC (Bld) [#/Vol] 3.92 {x10E12/L} below low threshold See Below [email or web address] Work Phone: Comment on above: Reference Range: 4.0 0 - 5.20 WBC (Bld) [#/Vol] 8.3 10*3/uL 4.4 - 11.3 [facility] [employer] [facility] Work Phone: Lipid Panelon 08-23-2020 Cholesterol [Mass/Vol] 161 mg/dL 0 - 199 [email or web address] Work Phone: Comment on above: . AGE DESIRABLE BORD ERNST HIGH HIGH 0-19 Y 0 - 169 170 - 199 >/= 200 20-24 Y 0 - 189 190 - 224 >/= 225 >24 Y 0 - 199 200 - 239 >/= 240 All ranges are based on fasting samples. Specific therapeutic targets will vary based on patient-specific cardiac risk.. Pediatric guidelines reference:Pediatrics 2011, 128(S5). Adult guidelines reference: NCEP ATPIII Guidelines, OSWALD 2001, 258:2486-97. Venipuncture immediately after or during the administration of Metamizole may lead to falsely low results. Testing should be performed immediately prior to Metamizole dosing. Cholesterol in HDL [Mass/Vol] 48.0 mg/dL [employer] [facility] Work Phone: Comment on above: . AGE VERY LOW LOW N ORMAL HIGH 0-19 Y < 35 < 40 40-45 ---- 20- 24 Y ---- < 40 >45 ---- >24 Y ---- < 40 40-60 >60. Cholesterol in LDL [Mass/Vol] 66 mg/dL 0 - 99 [employer] [facility] Work Phone: Comment on above: . NEAR BORD AGE FRANCISCO RABLE OPTIMAL HIGH HIGH VERY HIGH 0-19 Y 0 - 109 --- 110-129 >/= 130 ---- 20-24 Y 0 - 119 --- 120-159 >/= 160 ---- >24 Y 0 - 99 100-129 130-159 160-189 >/=190. Cholesterol non HDL [Mass/Vol] 113 mg/dL [employer] [facility] Work Phone: Comment on above: AGE DESIRABLE BORDER LINE HIGH HIGH VERY HIGH 0-19 Y 0 - 119 120 - 144 >/= 145 >/= 160 20-24 Y 0 - 149 150 - 189 >/= 190 ---- >24 Y 30 MG/DL ABOVE LDL CHOLESTEROL GOAL. Cholesterol.total/Ch olesterol in HDL [Mass ratio] 3.4 {ratio} [employer] [facility] Work Phone: Comment on above: REF VALUESDESIRABLE < 3.4HIGH RISK > 5.0 Triglyceride [Mass/Vol] 233 mg/dL above high threshold 0 - 149 [employer] [facility] Work Phone: Comment on above: . AGE DESIRABLE BORD ERNST HIGH HIGH VERY HIGH 0 D-90 D 19 - 174 ---- ---- ----91 D- 9 Y 0 - 74 75 - 99 >/= 100 ---- 10-19 Y 0 - 89 90 - 129 >/= 130 ---- 20-24 Y 0 - 114 115 - 149 >/= 150 ---- >24 Y 0 - 149 150 - 199 200- 499 >/= 500. Venipuncture immediately after or during the administration of Metamizole may lead to falsely low results. Testing should be performed immediately prior to Metamizole dosing. Lipid Panel 47 mg/dL above high threshold 0 - 40 [facility] Work Phone: No Panel Informationon 08-23 >60 >60 [facility] Work Phone: Comment on above: CALCULATIONS OF JULIA MATED GFR ARE PERFORMED USING THE MDRD STUDY EQUATION FOR THE IDMS-TRACEABLE CREATININE METHODS. CLIN CHEM 2007;53:766-72 TSH - Thyroid Stimulating Ho nadja, Serumon 08-23-2020 TSH Qn 1.59 m[IU]/L See Below [facility] Work Phone: Comment on above: Reference Range: 0.4 4 - 3.98 TSH testing is performed using different testing methodology at [facility] than at other [facility]. Direct result comparisons should only be made within the same method. Metabolic Panelon 10-23-2019 Glucose [Mass/Vol] 136 mg/dL above high threshold 74 - 99 [facility] Work Phone: Otheron 10-23-2019 Interpreted by: HERMAN AHMADI10/23/19 10:45MRN: [id number] Name: RAMYA MOSS STUDY:RAD BREAST EXAM SPECIMEN; CLIP IMAGING DURING BREAST BIOPSY;ULTRASOUND GUIDED PLACEMENT BREAST LOC DEV; 10/23/2019 10:29 am;10/23/2019 9:15 am; 10/23/2019 9:11 am [id number]; [id number] ORDERING CLINICIAN:SERENA HULL INDICATION:ATYPICAL DUCTAL HYPERPLASIA; Atypical ductal hyperplasia. FINDINGS:Prior to the procedure, an audible timeout was done to verify patientidentification, site and type of procedure. Dr. Ahmadi and aradiology technologist were present. The procedure was explained to the patient including the risks,benefits, and alternatives. Medications were discussed, includingany prior use of blood thinning medications by the patient. Patientallergies were reviewed. The risks, including but not limited toinfection and bleeding, were reviewed by the performing physician andthe patient agreed to undergo the procedure. Ultrasound images were obtained through the right breast,demonstrating a biopsy clip in the 10 of the right breast. Theright breast was marked and sterilely prepped. Local anesthesia wasobtained via injection of 1% lidocaine. A 7 cm needle containing aMagseed was advanced into the area of concern using a medial tolateral approach. The needle was then removed and bandage wasapplied. The patient tolerated the procedure without difficulty andproceeded to Ambulatory surgery. Specimen radiograph obtained following surgery demonstrated thebiopsy clip, MagSeed within the specimen. IMPRESSION:Status post ultrasound-guided Mag seed localization of right breasttissue marker and associated mass. Electronically signed by: HERMAN AHMADI 10/23/19 10:45 Normal -[facility] Work Phone: Name RAMYA MOSS Pathologist: BEE DELGADO, IVANIAate of Procedure: 10/23/2019Date Received: 10/23/2019Date Reported 10/28/2019Submitting Physician: SERENA HULL MDLocation: [facility] Copy To/Referring/Attending:RAMON HULL MD Other External # FINAL DIAGNOSISA. 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 Electronically Signed Out By BEE DELGADO MD/HLGBy the signature on this report, the individual or group listed as making theFinal Interpretation/Diagnosis certifies that they have reviewed this case. Clinical History:Physician Contact Number: [phone] (A): FreshClinical Diagnosis History RT BREAST MASSout of body time unknown: recieved in mammo @ 1021recieved in lab and formalin added @ 1030Ischemic Time: estimate: 5720-3604= 9 min(within the hour)Specimens Submitted As:A: RT BREAST MASS Gross Description:Received in formalin, in a container labeled with the patient's name andhospital number and right breast mass, is an irregular segment of yellowlobulated fibrofatty tissue, 4.5 x 3.5 x 1.5 cm. The specimen is receivedunoriented, no sutures are identified. 6 inks are present on the specimen: Red,orange, yellow, green, blue, black. The inks are not oriented on therequisition or physician portal. The specimen is serially sectioned fromblack to green. The cut surface reveals a yellow fibrofatty cut surface. Thereis a hemorrhagic biopsy cavity measuring 1.5 x 0.4 x 0.4, abuts the red ink. Amag seed clip is identified. No discrete mass or lesion is identified. Aphotograph has been taken. The specimen is entirely submitted in 18 cassettes.IADNOTE: Ischemia time: Not provided.This specimen was placed into formalin at: 10:30 on 10/23/19.Summary of Cassettes:Specimen Label SiteA 1 slice 1, green 2 slice 2, green, yellow 3 slice 3, blue, green, red, yellow, orange 4 slice 4, bisected, blue, red, orange 5 slice 4, yellow, red, blue 6 slice 5, bisected, orange, blue, red, clip 7 slice 5, yellow, blue, red 8 slice 6, bisected, orange, red, blue 9 slice 6, yellow, blue, red 10 slice 7, blue, yellow 11 slice 8, bisected, orange, blue, red 12 slice 8, yellow, blue, red 13 slice 9, bisected, orange, blue, red 14 slice 9, bisected, yellow, blue, red 15 slice 10, orange, blue, red, yellow 16 slice 11, yellow, red, blue 17 slice 12, yellow, black, blue 18 slice 13, blackiad/10/25/2019 [facility] Work Phone: Interpreted by: HERMAN AHMADI10/23/19 10:45MRN: [id number] Name: RAMAY MOSS STUDY:RAD BREAST EXAM SPECIMEN; CLIP IMAGING DURING BREAST BIOPSY;ULTRASOUND GUIDED PLACEMENT BREAST LOC DEV; 10/23/2019 10:29 am;10/23/2019 9:15 am; 10/23/2019 9:11 am [id number]; [id number] ORDERING CLINICIAN:SERENA HULL INDICATION:ATYPICAL DUCTAL HYPERPLASIA; Atypical ductal hyperplasia. FINDINGS:Prior to the procedure, an audible timeout was done to verify patientidentification, site and type of procedure. Dr. Ahmadi and aradiology technologist were present. The procedure was explained to the patient including the risks,benefits, and alternatives. Medications were discussed, includingany prior use of blood thinning medications by the patient. Patientallergies were reviewed. The risks, including but not limited toinfection and bleeding, were reviewed by the performing physician andthe patient agreed to undergo the procedure. Ultrasound images were obtained through the right breast,demonstrating a biopsy clip in the 10 of the right breast. Theright breast was marked and sterilely prepped. Local anesthesia wasobtained via injection of 1% lidocaine. A 7 cm needle containing aMagseed was advanced into the area of concern using a medial tolateral approach. The needle was then removed and bandage wasapplied. The patient tolerated the procedure without difficulty andproceeded to Ambulatory surgery. Specimen radiograph obtained following surgery demonstrated thebiopsy clip, MagSeed within the specimen. IMPRESSION:Status post ultrasound-guided Mag seed localization of right breasttissue marker and associated mass. Electronically signed by: HERMAN AHMADI 10/23/19 10:45 Normal [facility] Work Phone: US Guidance for needle localization of Breast Interpreted by: HERMAN AHMADI10/23/19 10:45MRN: [id number] Name: RAMYA MOSS STUDY:RAD BREAST EXAM SPECIMEN; CLIP IMAGING DURING BREAST BIOPSY;ULTRASOUND GUIDED PLACEMENT BREAST LOC DEV; 10/23/2019 10:29 am;10/23/2019 9:15 am; 10/23/2019 9:11 am [id number]; [id number] ORDERING CLINICIAN:SERENA HULL INDICATION:ATYPICAL DUCTAL HYPERPLASIA; Atypical ductal hyperplasia. FINDINGS:Prior to the procedure, an audible timeout was done to verify patientidentification, site and type of procedure. Dr. Ahmadi and aradiology technologist were present. The procedure was explained to the patient including the risks,benefits, and alternatives. Medications were discussed, includingany prior use of blood thinning medications by the patient. Patientallergies were reviewed. The risks, including but not limited toinfection and bleeding, were reviewed by the performing physician andthe patient agreed to undergo the procedure. Ultrasound images were obtained through the right breast,demonstrating a biopsy clip in the 10 of the right breast. Theright breast was marked and sterilely prepped. Local anesthesia wasobtained via injection of 1% lidocaine. A 7 cm needle containing aMagseed was advanced into the area of concern using a medial tolateral approach. The needle was then removed and bandage wasapplied. The patient tolerated the procedure without difficulty andproceeded to Ambulatory surgery. Specimen radiograph obtained following surgery demonstrated thebiopsy clip, MagSeed within the specimen. IMPRESSION:Status post ultrasound-guided Mag seed localization of right breasttissue marker and associated mass. Electronically signed by: HERMAN AHMADI 10/23/19 10:45 Normal [facility] Work Phone: Otheron 10-21-2019 NOT DETECTED See Below [facility] Work Phone: Comment on above: SOURCE: Nasal, Nasop haryngealReference Range: Not DetectedThis assay is designed to detect the N, ORF1ab and/or S genes of SARS-CoV-2 via nucleic acid amplification. A Negative (NOT DETECTED) result does not preclude 2019-nCoV infection since the adequacy of sample collection and/or low viral burden may result in presence of viral nucleic acids below the clinical sensitivity of this test method. Negative (NOT DETECTED) result should not be used as the sole basis for treatment or other patient management decisions. Rather negative results should be combined with clinical observations, patient history, and epidemiological information to make patient management decisions.Fact sheet for providers: https://www.fda.gov/media/849707/downloadFact sheet for patients: https://www.fda.gov/media/627452/downloadThis test has received FDA Emergency Use Authorization (EUA) and has been verified by [facility] ([facility]). This test is only authorized for the duration of time that circumstances exist to justify the authorization of the emergency use of in vitro diagnostic tests for the detection of SARS-CoV-2 virus and/or diagnosis of COVID-19 infection under section 564(b)(1) of the Act, 21 U.S.C. 360bbb-3(b)(1), unless the authorization is terminated or revoked sooner. [facility] is certified under CLIA-88 as qualified to perform high complexity testing. Testing is performed in the [facility] laboratories located at [address] [place] [address]. Hematologyon 08-12-2019 Hematocrit (Bld) [Volume fraction] 37.8 % See Below [email or web address] Work Phone: Comment on above: Reference Range: 36. 0 - 46.0 Hemoglobin (Bld) [Mass/Vol] 12.1 g/dL See Below [facility] Work Phone: Comment on above: Reference Range: 12. 0 - 16.0 MCV (RBC) [Entitic vol] 87 fL 80 - 100 [facility] Work Phone: Platelets (Bld) [#/Vol] 314 {x10E9/L} 150 - 450 [facility] Work Phone: RBC (Bld) [#/Vol] 4.35 {x10E12/L} See Below [email or web address] Work Phone: Comment on above: Reference Range: 4.0 0 - 5.20 WBC (Bld) [#/Vol] 10.1 {x10E9/L} 4.4 - 11.3 [facility] [email or web address] [facility] Work Phone: Hemoglobin A1Con 08-12-2019 HbA1c (Bld) [Mass fraction] 166 {MG/DL} [email or web address] Work Phone: HbA1c (Bld) [Mass fraction] 7.4 % [facility] [email or web address] Work Phone: Comment on above: Diagnosis of Diabete s-Adults Non-Diabetic: < or = 5.6% Increased risk for developing diabetes: 5.7-6.4% Diagnostic of diabetes: > or = 6.5%. Monitoring of Diabetes Age (y) Therapeutic Goal (%) Adults: >18 <7.0 Pediatrics: 13-18 <7.5 7-12 <8.0 0- 6 7.5-8.5 [place] [employer]. Diabetes Care 33(S1), Feb 2009. Lipid Panelon 08-12-2019 Cholesterol [Mass/Vol] 147 mg/dL 0 - 199 [employer] [facility] Work Phone: Comment on above: . AGE DESIRABLE BORD ERNST HIGH HIGH 0-19 Y 0 - 169 170 - 199 >/= 200 20-24 Y 0 - 189 190 - 224 >/= 225 >24 Y 0 - 199 200 - 239 >/= 240 All ranges are based on fasting samples. Specific therapeutic targets will vary based on patient-specific cardiac risk.. Pediatric guidelines reference:Pediatrics 2011, 128(S5). Adult guidelines reference: NCEP ATPIII Guidelines, OSWALD 2001, 258:2486-97. Venipuncture immediately after or during the administration of Metamizole may lead to falsely low results. Testing should be performed immediately prior to Metamizole dosing. Cholesterol in HDL [Mass/Vol] 43.0 mg/dL [employer] [facility] Work Phone: Comment on above: . AGE VERY LOW LOW N ORMAL HIGH 0-19 Y < 35 < 40 40-45 ---- 20- 24 Y ---- < 40 >45 ---- >24 Y ---- < 40 40-60 >60. Cholesterol in LDL [Mass/Vol] 62 mg/dL 0 - 99 [employer] [facility] Work Phone: Comment on above: . NEAR BORD AGE FRANCISCO RABLE OPTIMAL HIGH HIGH VERY HIGH 0-19 Y 0 - 109 --- 110-129 >/= 130 ---- 20-24 Y 0 - 119 --- 120-159 >/= 160 ---- >24 Y 0 - 99 100-129 130-159 160-189 >/=190. Cholesterol non HDL [Mass/Vol] 104 mg/dL [employer] [facility] Work Phone: Comment on above: AGE DESIRABLE BORDER LINE HIGH HIGH VERY HIGH 0-19 Y 0 - 119 120 - 144 >/= 145 >/= 160 20-24 Y 0 - 149 150 - 189 >/= 190 ---- >24 Y 30 MG/DL ABOVE LDL CHOLESTEROL GOAL. Cholesterol.total/Ch olesterol in HDL [Mass ratio] 3.4 {ratio} [employer] [facility] Work Phone: Comment on above: REF VALUESDESIRABLE < 3.4HIGH RISK > 5.0 Triglyceride [Mass/Vol] 211 mg/dL above high threshold 0 - 149 [employer] [facility] Work Phone: Comment on above: . AGE DESIRABLE BORD ERNST HIGH HIGH VERY HIGH 0 D-90 D 19 - 174 ---- ---- ----91 D- 9 Y 0 - 74 75 - 99 >/= 100 ---- 10-19 Y 0 - 89 90 - 129 >/= 130 ---- 20-24 Y 0 - 114 115 - 149 >/= 150 ---- >24 Y 0 - 149 150 - 199 200- 499 >/= 500. Venipuncture immediately after or during the administration of Metamizole may lead to falsely low results. Testing should be performed immediately prior to Metamizole dosing. Lipid Panel 42 mg/dL above high threshold 0 - 40 [employer] [facility] Work Phone: Metabolic Panelon 08-12-2019 ALP [Catalytic activity/Vol] 79 U/L 33 - 136 [employer] [facility] Work Phone: Anion gap [Moles/Vol] 12 mmol/L 10 - 20 [employer] [facility] Work Phone: Bilirubin [Mass/Vol] 0.2 mg/dL 0.0 - 1.2 [employer] [facility] Work Phone: Calcium [Mass/Vol] 9.5 mg/dL 8.6 - 10.3 [facility] [employer] [facility] Work Phone: [place] [Moles/Vol] 104 mmol/L 98 - 107 [employer] [facility] Work Phone: CO2 [Moles/Vol] 29 mmol/L 21 - 32 [facility] [employer] [facility] Work Phone: Creatinine [Mass/Vol] 0.99 mg/dL See Below [employer] [facility] Work Phone: Comment on above: Reference Range: 0.5 0 - 1.05 Glucose [Mass/Vol] 139 mg/dL above high threshold 74 - 99 [employer] [facility] Work Phone: Potassium [Moles/Vol] 3.9 mmol/L 3.5 - 5.3 [facility] [email or web address] Work Phone: Protein [Mass/Vol] 7.1 g/dL 6.4 - 8.2 [facility]ITGlobal [facility] [employer] [facility] Work Phone: Sodium [Moles/Vol] 141 mmol/L 136 - 145 [facility] [employer] [facility] Work Phone: Urea nitrogen [Mass/Vol] 21 mg/dL 6 - 23 [email or web address] Work Phone: Otheron 08-12-2019 Albumin Ql (U) 8.7 mg/L See Below [email or web address] Work Phone: Comment on above: Reference Range: Not Established Albumin BCP dye [Mass/Vol] 4.1 g/dL 3.4 - 5.0 [employer] [facility] Work Phone: ALT With P-5'-P [Catalytic activity/Vol] 14 U/L 7 - 45 [facility] [email or web address] Work Phone: Comment on above: Patients treated wit h Sulfasalazine may generate falsely decreased results for ALT. AST With P-5'-P [Catalytic activity/Vol] 14 U/L 9 - 39 [email or web address] Work Phone: Erythrocyte distribution width (RBC) [Ratio] 14.7 % above high threshold See Below [email or web address] Work Phone: Comment on above: Reference Range: 11. 5 - 14.5 MCHC (RBC) [Mass/Vol] 32.2 g/dL See Below [email or web address] Work Phone: Comment on above: Reference Range: 32. 0 - 36.0 65 {mL/min/1.73m2} >60 [employer] [facility] [employer] [facility] Work Phone: Comment on above: CALCULATIONS OF JULIA MATED GFR ARE PERFORMED USING THE MDRD STUDY EQUATION FOR THE IDMS-TRACEABLE CREATININE METHODS. CLIN CHEM 2007;53:766-72 54 {mL/min/1.73m2} Abnormal >60 [facility] Work Phone: TSH - Thyroid Stimulating Ho rmone, Serumon 08-12-2019 TSH Qn 1.56 {mIU/L} See Below [facility] Work Phone: Comment on above: Reference Range: 0.4 4 - 3.98 TSH testing is performed using different testing methodology at [facility] than at other [facility]. Direct result comparisons should only be made within the same method. Urinalysison 08-12-2019 Albumin/Creatinine DL <= 20 mg/L (U) [Mass ratio] 6.3 {ug/mg_crt} 0.0 - 30.0 [facility] Work Phone: Creatinine (U) [Mass/Vol] 138.0 mg/dL See Below [facility] Work Phone: Comment on above: Reference Range: 20. 0 - 320.0 Auto Diffon 07-31-2018 Basophils (Bld) [#/Vol] 0.0 E3/mcL Normal 0.0-0.2 [facility] Comment on above: Order Comment: Order Added by Discern Expert. Performed By: #### 2 [id number] #### GIANLUCA PedersenHemo [address] [place], [place] [id number] Basophils/100 WBC (Bld) 0.3 % Normal 0.0-2.0 [facility] Comment on above: Order Comment: Order Added by Discern Expert. Performed By: #### 2 [id number] #### GIANLUCA RemHemo [facility] [place] [address] Eos Absolute 0.2 E3/mcL Normal 0.0-0.7 [facility] Comment on above: Order Comment: Order Added by Discern Expert. Performed By: #### 2 [id number] #### GIANLUCA RemHemo [facility] [place] [address] Eosinophils/100 WBC (Bld) 2.2 % Normal 0.0-11.0 [facility] Comment on above: Order Comment: Order Added by Discern Expert. Performed By: #### 2 [id number] #### GIANLUCA RemHemo [address] [place] [address] Lymphocytes (Bld) [#/Vol] 2.8 E3/mcL Normal 1.2-3.4 [facility] Comment on above: Order Comment: Order Added by Discern Expert. Performed By: #### 2 [id number] #### GIANLUCA RemHemo [address] [place] [address] Lymphocytes/100 WBC (Bld) 30.4 % Normal 20.0-55.0 [facility] Comment on above: Order Comment: Order Added by Discern Expert. Performed By: #### 2 [id number] #### GIANLUCA RemHemo [address] [place] [address] [place] Absolute 0.5 E3/mcL Normal 0.0-0.7 [facility] Comment on above: Order Comment: Order Added by Discern Expert. Performed By: #### 2 [id number] #### GIANLUCA RemHemo [address] [place] [address] Monocytes/100 WBC (Bld) 5.9 % Normal 0.0-10.0 [facility] Comment on above: Order Comment: Order Added by Discern Expert. Performed By: #### 2 [id number] #### GIANLUCA RemHemo [address] [place] [address] Neutro Absolute 5.5 E3/mcL Normal 1.4-6.5 [facility] Comment on above: Order Comment: Order Added by Discern Expert. Performed By: #### 2 [id number] #### GIANLUCA RemHemo [address] [place] [address] Neutro Auto 61.2 % Normal 37.0-75.0 [facility] Comment on above: Order Comment: Order Added by Discern Expert. Performed By: #### 2 [id number] #### GIANLUCA RemHemo [address] [place] [address] CBC w/ Auto Diffon 9 Erythrocyte distribution width (RBC) [Ratio] 13.9 % Normal 11.5-14.5 [facility] Comment on above: Performed By: #### 2 [id number] #### GIANLUCA PedersenHemo [facility] [place] [address] Hematocrit (Bld) [Volume fraction] 36.4 % Normal 36.0-48.0 [facility] Comment on above: Performed By: #### 2 [id number] #### GIANLUCA PedersenHemo [address] [place] [address] Hemoglobin (Bld) [Mass/Vol] 11.9 g/dL Low 12.0-16.0 [facility] Comment on above: Performed By: #### 2 [id number] #### GIANLUCA PedersenHemo [address] [place] [address] MCH (RBC) [Entitic mass] 29.1 pg Normal 27.0-31.0 [facility] Comment on above: Performed By: #### 2 [id number] #### GIANLUCA PedersenHemo [address] [place] [address] MCHC (RBC) [Mass/Vol] 32.8 g/dL Low 33.0-37.0 [facility] Comment on above: Performed By: #### 2 [id number] #### GIANLUCA PedersenHemo [address] [place] [address] MCV (RBC) [Entitic vol] 88.9 fL Normal 78.0-100.0 [facility] Comment on above: Performed By: #### 2 [id number] #### GIANLUCA PedersenHemo [address] [place] [address] Platelet mean volume (Bld) [Entitic vol] 8.7 fL Normal 7.4-11.0 [facility] Comment on above: Performed By: #### 2 [id number] #### GIANLUCA PedersenHemo [facility] [place] [address] Platelets (Bld) [#/Vol] 267 E3/mcL Normal 130-400 [facility] Comment on above: Performed By: #### 2 [id number] #### GIANLUCA PedersenHemo [facility] [place] [address] RBC (Bld) [#/Vol] 4.10 E6/mcL Normal 3.90-5.40 [facility] Comment on above: Performed By: #### 2 [id number] #### GIANLUCA Evanso [facility] [place] [address] WBC (Bld) [#/Vol] 9.1 E3/mcL Normal 3.6-11.0 [facility] Comment on above: Performed By: #### 2 [id number] #### GIANLUCA Evanso [facility] [place] [id number] CMPon 07-31-2018 Albumin [Mass/Vol] 4.0 g/dL Normal 3.4-5.0 [facility] Comment on above: Performed By: #### 2 [id number] #### GIANLUCA Evanso [facility] [place] [address] Albumin/Globulin [Mass ratio] 1.3 {ratio} Normal 1.1-1.9 [facility] Comment on above: Performed By: #### 2 045241 #### GIANLUCA PedersenHemo [address] [place] [address] Alk Phos 73 Int._Unit/L Normal 33-136 [facility] Comment on above: Performed By: #### 2 089839 #### GIANLUCA PedersenHemo [address] [place] [address] ALT [Catalytic activity/Vol] 16 Int._Unit/L Normal 7-45 [facility] Comment on above: Performed By: #### 2 [id number] #### GIANLUCA PedersenHemo [facility] [place] [address] Anion gap [Moles/Vol] 12 mmol/L Normal 10-20 [facility] Comment on above: Performed By: #### 2 850728 #### GIANLUCA PedersenHemo [address] [place] [address] AST [Catalytic activity/Vol] 13 Int._Unit/L Normal 9-39 [facility] Comment on above: Performed By: #### 2 944531 #### GIANLUCA PedersenHemo [address] [place] [address] Bili Total 0.22 mg/dL Normal 0.00-1.20 [facility] Comment on above: Performed By: #### 2 291021 #### GIANLUCA RemHemo [address] [place] [address] Calcium [Mass/Vol] 9.2 mg/dL Normal 8.6-10.3 [facility] Comment on above: Performed By: #### 2 947290 #### GIANLUCA RemHemo [address] [place] [address] Chloride [Moles/Vol] 106 mmol/L Normal 98-107 [facility] Comment on above: Performed By: #### 2 159127 #### GIANLUCA RemHemo [address] [place] [address] CO2 [Moles/Vol] 26.0 mmol/L Normal 21.0-32.0 [facility] Comment on above: Performed By: #### 2 949731 #### GIANLUCA RemHemo [address] [place] [address] Creatinine [Mass/Vol] 0.8 mg/dL Normal 0.5-1.1 [facility] Comment on above: Performed By: #### 2 898940 #### GIANLUCA RemHemo [address] [place] [address] Globulin (S) [Mass/Vol] 3.0 g/dL Normal 2.0-4.0 [facility] Comment on above: Performed By: #### 2 641503 #### GIANLUCA RemHemo [address] [place] [address] Glucose [Mass/Vol] 129 mg/dL High 70-99 [facility] Comment on above: Performed By: #### 2 302757 #### GIANLUCA RemHemo [address] [place] [address] Potassium [Moles/Vol] 4.4 mmol/L Normal 3.5-5.3 [facility] Comment on above: Performed By: #### 2 829703 #### GIANLUCA RemHemo [address] [place] [address] Protein [Mass/Vol] 7.0 g/dL Normal 6.4-8.2 [facility] Comment on above: Performed By: #### 2 406412 #### GIANLUCA RemHemo [address] [place] [address] Sodium [Moles/Vol] 139 mmol/L Normal 136-145 [facility] Comment on above: Performed By: #### 2 143192 #### GIANLUCA PedersenHemo [address] [place] [address] Urea nitrogen [Mass/Vol] 18 mg/dL Normal 6-23 [facility] Comment on above: Performed By: #### 2 405597 #### GIANLUCA NuviaHemo [facility] [place] [address] Urea nitrogen/Creatinine [Mass ratio] 22.5 ratio Normal 5.4-30.0 [facility] Comment on above: Performed By: #### 2 153540 #### GIANLUCA PedersenHemo [facility] [place] [address] [id number] 07-31-2018 HbA1c (Bld) [Mass fraction] 7.1 % High 4.0-6.3 [facility] Comment on above: Performed By: #### 2 346871 #### GIANLUCA NuviaHemo [address] [place] [address] Lipid Profileon 07-31-2018 Cholesterol [Mass/Vol] 139 mg/dL Normal 0-199 [facility] Comment on above: Result Comment: TOTA L CHOLEESTEROL: <200 NORMAL 200 - 239 BORDERLINE HIGH >240 HIGH Performed By: #### 2 554539 #### GIANLUCA PedersenHemo [address] [place] [address] Cholesterol in HDL [Mass/Vol] 41 mg/dL Normal 40-60 [facility] Comment on above: Performed By: #### 2 802867 #### GIANLUCA PedersenHemo [address] [place] [address] Cholesterol in LDL [Mass/Vol] 42 mg/dL Normal 0-130 [facility] Comment on above: Result Comment: <100 OPTIMAL 100-129 NEAR / ABOVE OPTIMAL 130-159 BORDERLINE HIGH 160-189 HIGH >190 VERY HIGH CALC LDL NOT VALID WHEN TRIGLYCERIDE IS >400 MG/DL Performed By: #### 2 099707 #### GIANLUCA NuviaHemo [address] [place] [address] Cholesterol in VLDL [Mass/Vol] 56 mg/dL High 0-40 [facility] Comment on above: Performed By: #### 2 628623 #### GIANLUCA RemHemo [address] [place] [address] Triglyceride [Mass/Vol] 279 mg/dL High 0-149 [facility] Comment on above: Result Comment: AGE DESIRABLE BORDERLINE HIGH 91 D - 9 Y 0 - 74 75 - 99 > 100 10 - 19 Y 0 - 89 90 - 129 > 130 20 -24 Y 0 - 114 115 - 149 > 150 > 25 0 - 149 150 - 199 200 - 499 Performed By: #### 2 158587 #### GIANLUCA RemHemo [facility] [place] [address] TSHon 07-31-2018 TSH Qn 1.63 mcIU/mL Normal 0.30-5.60 [facility] Comment on above: Performed By: #### 2 854752 #### GIANLUCA [employer] [address] [place] [address] eGFRon 07-31-2018 GFR/1.73 sq M predicted among non-blacks MDRD (S/P/Bld) [Vol rate/Area] mL/min/{1.73_m2} Normal [facility] Comment on above: Order Comment: Order Added by Discern Expert. Performed By: #### 2 [id number] #### GIANLUCA RemHemo [facility] [place] [id number] Auto Diffon 01-30-2018 Basophils (Bld) [#/Vol] 0.0 E3/mcL Normal 0.0-0.2 [facility] Comment on above: Order Comment: Order Added by Discern Expert. Performed By: #### 2 725330 #### GIANLUCA RemHemo [facility] [place] [address] Basophils/100 WBC (Bld) 0.4 % Normal 0.0-2.0 [facility] Comment on above: Order Comment: Order Added by Discern Expert. Performed By: #### 2 685625 #### GIANLUCA RemHemo [facility] [place] [id number] Eos Absolute 0.3 E3/mcL Normal 0.0-0.7 [facility] Comment on above: Order Comment: Order Added by Discern Expert. Performed By: #### 2 371004 #### GIANLUCA PedersenHemo [address] [place] [address] Eosinophils/100 WBC (Bld) 3.5 % Normal 0.0-11.0 [facility] Comment on above: Order Comment: Order Added by Discern Expert. Performed By: #### 2 401270 #### GIANLUCA PedersenHemo [address] [place] [address] Lymphocytes (Bld) [#/Vol] 2.5 E3/mcL Normal 1.2-3.4 [facility] Comment on above: Order Comment: Order Added by Discern Expert. Performed By: #### 2 426529 #### GIANLUCA PedersenHemo [address] [place] [address] Lymphocytes/100 WBC (Bld) 30.3 % Normal 20.0-55.0 [facility] Comment on above: Order Comment: Order Added by Discern Expert. Performed By: #### 2 489752 #### GIANLUCA PedersenHemo [address] [place] [address] [place] Absolute 0.5 E3/mcL Normal 0.0-0.7 [facility] Comment on above: Order Comment: Order Added by Discern Expert. Performed By: #### 2 207356 #### GIANLUCA PedersenHemo [address] [place] [address] Monocytes/100 WBC (Bld) 6.2 % Normal 0.0-10.0 [facility] Comment on above: Order Comment: Order Added by Discern Expert. Performed By: #### 2 191457 #### GIANLUCA PedersenHemo [address] [place] [address] Neutro Absolute 4.9 E3/mcL Normal 1.4-6.5 [facility] Comment on above: Order Comment: Order Added by Discern Expert. Performed By: #### 2 820420 #### GIANLUCA RemHemo [address] [place] [address] Neutro Auto 59.6 % Normal 37.0-75.0 [facility] Comment on above: Order Comment: Order Added by Discern Expert. Performed By: #### 2 722092 #### GIANLUCA PedersenHemo [address] [place] [address] CBC w/ Auto Diffon 8 Erythrocyte distribution width (RBC) [Ratio] 13.9 % Normal 11.5-14.5 [facility] Comment on above: Performed By: #### 2 817799 #### GIANLUCA PedersenHemo [address] [place] [address] Hematocrit (Bld) [Volume fraction] 37.7 % Normal 36.0-48.0 [facility] Comment on above: Performed By: #### 2 483166 #### GIANLUCA PedersenHemo [address] [place] [address] Hemoglobin (Bld) [Mass/Vol] 12.1 g/dL Normal 12.0-16.0 [facility] Comment on above: Performed By: #### 2 174827 #### GIANLUCA PedersenHemo [address] [place] [address] MCH (RBC) [Entitic mass] 28.4 pg Normal 27.0-31.0 [facility] Comment on above: Performed By: #### 2 384694 #### GIANLUCA PedersenHemo [address] [place] [address] MCHC (RBC) [Mass/Vol] 32.2 g/dL Low 33.0-37.0 [facility] Comment on above: Performed By: #### 2 780465 #### GIANLUCA PedersenHemo [address] [place] [address] MCV (RBC) [Entitic vol] 88.2 fL Normal 78.0-100.0 [facility] Comment on above: Performed By: #### 2 580884 #### GIANLUCA PedersenHemo [address] [place] [address] Platelet mean volume (Bld) [Entitic vol] 8.7 fL Normal 7.4-11.0 [facility] Comment on above: Performed By: #### 2 230255 #### GIANLUCA PedersenHemo [facility] [place] [address] Platelets (Bld) [#/Vol] 283 E3/mcL Normal 130-400 [facility] Comment on above: Performed By: #### 2 548407 #### GIANLUCA PedersenHemo [facility] [place] [address] RBC (Bld) [#/Vol] 4.28 E6/mcL Normal 3.90-5.40 [facility] Comment on above: Performed By: #### 2 707142 #### GIANLUCA Evanso [address] [place] [address] WBC (Bld) [#/Vol] 8.2 E3/mcL Normal 3.6-11.0 [facility] Comment on above: Performed By: #### 2 558371 #### GIANLUCA Evanso [address] [place], [place] [address] CMPon 01-30-2018 Albumin [Mass/Vol] 4.0 g/dL Normal 3.4-5.0 [facility] Comment on above: Performed By: #### 2 723789 #### [place] [id number] Albumin/Globulin [Mass ratio] 1.5 {ratio} Normal 1.1-1.9 [facility] Comment on above: Performed By: #### 2 342971 #### GIANLUCA PedersenChem [address] [place] [address] Alk Phos 79 Int._Unit/L Normal 33-136 [facility] Comment on above: Performed By: #### 2 307448 #### GIANLUCA Pedersen[address] [address] ALT [Catalytic activity/Vol] 19 Int._Unit/L Normal 7-45 [facility] Comment on above: Performed By: #### 2 635672 #### GIANLUCA NuviaMiroslava [facility] [place] [address] Anion gap [Moles/Vol] 11 mmol/L Normal 10-20 [facility] Comment on above: Performed By: #### 2 804488 #### GIANLUCA PedersenChem [address] [place] [address] AST [Catalytic activity/Vol] 15 Int._Unit/L Normal 9-39 [facility] Comment on above: Performed By: #### 2 550796 #### GIANLUCA NuviaChem [facility] [place] [address] Bili Total 0.32 mg/dL Normal 0.00-1.20 [facility] Comment on above: Performed By: #### 2 005805 #### GIANLUCA [employer] [address] [place] [address] Calcium [Mass/Vol] 9.0 mg/dL Normal 8.6-10.3 [facility] Comment on above: Performed By: #### 2 265655 #### GIANLUCA [employer] [address] [place] [address] Chloride [Moles/Vol] 105 mmol/L Normal 98-107 [facility] Comment on above: Performed By: #### 2 228739 #### GIANLUCA [employer] [address] [place] [address] CO2 [Moles/Vol] 28.0 mmol/L Normal 21.0-32.0 [facility] Comment on above: Performed By: #### 2 038501 #### GIANLUCA [employer] [address] [place] [address] Creatinine [Mass/Vol] 0.9 mg/dL Normal 0.5-1.1 [facility] Comment on above: Performed By: #### 2 557420 #### GIANLUCA [employer] [address] [place] [address] Globulin (S) [Mass/Vol] 3.0 g/dL Normal 2.0-4.0 [facility] Comment on above: Performed By: #### 2 487663 #### GIANLUCA [employer] [address] [place] [address] Glucose [Mass/Vol] 149 mg/dL High 70-99 [facility] Comment on above: Performed By: #### 2 417756 #### GIANLUCA [employer] [address] [place] [address] Potassium [Moles/Vol] 4.1 mmol/L Normal 3.5-5.3 [facility] Comment on above: Performed By: #### 2 915740 #### GIANLUCA [employer] [address] [place] [address] Protein [Mass/Vol] 6.6 g/dL Normal 6.4-8.2 [facility] Comment on above: Performed By: #### 2 344638 #### GIANLUCA [employer] [address] [place] [address] Sodium [Moles/Vol] 140 mmol/L Normal 136-145 [facility] Comment on above: Performed By: #### 2 933584 #### GIANLUCA [employer] [address] [place] [address] Urea nitrogen [Mass/Vol] 17 mg/dL Normal 6-23 [facility] Comment on above: Performed By: #### 2 747650 #### GIANLUCA [employer] [address] [place] [address] Urea nitrogen/Creatinine [Mass ratio] 18.9 ratio Normal 5.4-30.0 [facility] Comment on above: Performed By: #### 2 138784 #### GIANLUCA [employer] [address] [place] [address] [id number] 01-30-2018 HbA1c (Bld) [Mass fraction] 7.9 % High 4.0-6.3 [facility] Comment on above: Performed By: #### 3 [id number] #### GIANLUCA Chemistry Manual Subsection [address] [place] [address] Lipid Profileon 01-30-2018 Cholesterol [Mass/Vol] 158 mg/dL Normal 0-199 [facility] Comment on above: Performed By: #### 3 [id number] #### GIANLUCA [employer] [address] [place] [address] Cholesterol in HDL [Mass/Vol] 44 mg/dL Normal 40-60 [facility] Comment on above: Performed By: #### 3 [id number] #### GIANLUCA [employer] [address] [place] [address] Cholesterol in LDL [Mass/Vol] 59 mg/dL Normal 0-130 [facility] Comment on above: Performed By: #### 3 [id number] #### GIANLUCA [employer] [address] [place] [address] Cholesterol in VLDL [Mass/Vol] 55 mg/dL High 0-40 [facility] Comment on above: Performed By: #### 3 [id number] #### GIANLUCA [employer] [address] [place] [address] Triglyceride [Mass/Vol] 277 mg/dL High 0-149 [facility] Comment on above: Result Comment: AGE DESIRABLE BORDERLINE HIGH 91 D - 9 Y 0 - 74 75 - 99 > 100 10 - 19 Y 0 - 89 90 - 129 > 130 20 - 24 Y 0 - 114 115 - 149 > 150 > 25 0 - 149 150 - 199 200 - 499 Performed By: #### 3 [id number] #### GIANLUCA RemChem [facility] [place] [address] Microalb/Creat Ratioon 01-30 Creatinine [Mass/Vol] 181.0 mg/dL Normal 20.0-300.0 [facility] Comment on above: Performed By: #### 1 [id number] #### GIANLUCA RemChem [facility] [place] [address] Creatinine [Mass/Vol] 9 ug/mg Normal 0-30 [facility] Comment on above: Performed By: #### 1 [id number] #### GIANLUCA RemChem [facility] [place] [address] Ur Microalbumin 1.6 mg/dL Normal 0.0-1.9 [facility] Comment on above: Performed By: #### 1 [id number] #### GIANLUCA RemChem [facility] [place] [address] eGFRon 01-30-2018 GFR/1.73 sq M predicted among non-blacks MDRD (S/P/Bld) [Vol rate/Area] mL/min/{1.73_m2} Normal [facility] Comment on above: Order Comment: Order added by Discern Expert. Performed By: #### 1 [id number] #### GIANLUCA Pedersen[address] [address] Vital Signs Date Time Vital Sign Value Performing Clinician Facility 07-04-2024 13:53-0400 Body height 144.8 cm Zhen Duncan MD Work Phone: [facility] 07-04-2024 13:53-0400 Body mass index (BMI) [Ratio] 26.83 kg/m2 Zhen Duncan MD Work Phone: [facility] 07-04-2024 13:53-0400 Body weight 56.25 kg Zhen Duncan MD Work Phone: [facility] 07-04-2024 13:53-0400 Diastolic blood pressure 56 mm[Hg] Zhen Duncan MD Work Phone: [facility] 07-04-2024 13:53-0400 Heart rate 65 /min Zhen Duncan MD Work Phone: [facility] 07-04-2024 13:53-0400 SaO2% (BldA) [Mass fraction] 96 % Zhen Duncan MD Work Phone: [facility] 07-04-2024 13:53-0400 Systolic blood pressure 104 mm[Hg] Zhen Duncan MD Work Phone: [facility] 07-03-2024 11:38-0400 Diastolic blood pressure 64 mm[Hg] Dr. Nilsa Malik MD Work Phone: [facility] 07-03-2024 11:38-0400 Systolic blood pressure 90 mm[Hg] Dr. Nilsa Malik MD Work Phone: [facility] 07-03-2024 08:00-0400 Body height 146.[address] Nilsa Malik MD Work Phone: [facility] 07-03-2024 08:00-0400 Body mass index (BMI) [Ratio] 25.9 kg/m2 Dr. Nilsa Malik MD Work Phone: [facility] 07-03-2024 08:00-0400 Body temperature 97.8 [degF] Dr. Nilsa Malik MD Work Phone: [facility] 07-03-2024 08:00-0400 Body weight 55.[address] Nilsa Malik MD Work Phone: [facility] 07-03-2024 08:00-0400 Heart rate 76 /min Dr. Nilsa Malik MD Work Phone: [facility] 07-03-2024 08:00-0400 Respiratory rate 16 /min Dr. Nilsa Malik MD Work Phone: [facility] 07-03-2024 08:00-0400 SaO2% (BldA) [Mass fraction] 94 % Dr. Nilsa Malik MD Work Phone: [facility] 07-02-2024 23:30-0400 Diastolic blood pressure 84 mm[Hg] Jairon Denise MD Work Phone: [facility] 07-02-2024 23:30-0400 Heart rate 81 /min Jairon Denise MD Work Phone: [facility] 07-02-2024 23:30-0400 Respiratory rate 16 /min Jairon Denise MD Work Phone: [facility] 07-02-2024 23:30-0400 SaO2% (BldA) [Mass fraction] 97 % Jairon Denise MD Work Phone: [facility] 07-02-2024 23:30-0400 Systolic blood pressure 175 mm[Hg] Jairon Denise MD Work Phone: [facility] 07-02-2024 21:04-0400 Body temperature 97.59 [degF] Jairon Denise MD Work Phone: [facility] 07-02-2024 20:58-0400 Body height 144.8 cm Jairon Denise MD Work Phone: [facility] 07-02-2024 20:58-0400 Body mass index (BMI) [Ratio] 26.24 kg/m2 Jairon Denise MD Work Phone: [facility] 07-02-2024 20:58-0400 Body weight 55 kg Jairon Denise MD Work Phone: [facility] 05-26-2024 17:06-0400 Diastolic blood pressure 66 mm[Hg] Dr. Nilsa Malik MD Work Phone: [facility] 05-26-2024 17:06-0400 Systolic blood pressure 124 mm[Hg] Dr. Nilsa Malik MD Work Phone: [facility] 05-26-2024 11:22-0400 Body mass index (BMI) [Ratio] 26.6 kg/m2 Dr. Nilsa Malik MD Work Phone: [facility] 05-26-2024 11:22-0400 Body temperature 98 [degF] Dr. Nilsa Malik MD Work Phone: [facility] 05-26-2024 11:22-0400 Body weight 56.[address] Nilsa Malik MD Work Phone: 6(168)006-826027 [place] [address] 05-26-2024 11:22-0400 Heart rate 81 /min Dr. Nilsa Malik MD Work Phone: 0(366)617-889527 [place] [address] 05-26-2024 11:22-0400 Respiratory rate 15 /min Dr. Nilsa Malik MD Work Phone: 6(505)463-055727 [place] [address] 05-26-2024 11:22-0400 SaO2% (BldA) [Mass fraction] 99 % Dr. Nilsa Malik MD Work Phone: 6(469)696-761527 [place] [address] 02-05-2024 11:10-0500 Body height 145.7 cm Nilsa Malik MD Work Phone: 0(188)985-905200 [place] [address] 02-05-2024 11:10-0500 Body mass index (BMI) [Ratio] 27.79 kg/m2 Nilsa Malik MD Work Phone: [facility] 02-05-2024 11:10-0500 Body weight 58.97 kg Nilsa Malik MD Work Phone: [facility] 02-05-2024 11:10-0500 Diastolic blood pressure 84 mm[Hg] Nilsa Malik MD Work Phone: [facility] 02-05-2024 11:10-0500 Heart rate 86 /min Nilsa Malik MD Work Phone: [facility] 02-05-2024 11:10-0500 SaO2% (BldA) [Mass fraction] 96 % Nilsa Malik MD Work Phone: [facility] 02-05-2024 11:10-0500 Systolic blood pressure 144 mm[Hg] Nilsa Malik MD Work Phone: [facility] 10-25-2023 09:26-0400 Body height 146.1 cm Mary Thomason MD Work Phone: [facility] 10-25-2023 09:26-0400 Body mass index (BMI) [Ratio] 27.98 kg/m2 Mary Thomason MD Work Phone: [facility] 10-25-2023 09:26-0400 Body weight 59.69 kg Mary Thomason MD Work Phone: [facility] 10-25-2023 09:26-0400 Diastolic blood pressure 74 mm[Hg] Mary Thomason MD Work Phone: [facility] 10-25-2023 09:26-0400 Heart rate 78 /min Mary Thomason MD Work Phone: [facility] 10-25-2023 09:26-0400 SaO2% (BldA) [Mass fraction] 96 % Mary Thomason MD Work Phone: [facility] 10-25-2023 09:26-0400 Systolic blood pressure 140 mm[Hg] Mary Thomason MD Work Phone: [facility] 07-27-2023 10:06-0400 Body height 146.1 cm Nilsa Malik MD Work Phone: [facility] 07-27-2023 10:06-0400 Body mass index (BMI) [Ratio] 26.84 kg/m2 Nilsa Malik MD Work Phone: [facility] 07-27-2023 10:06-0400 Body weight 57.24 kg Nilsa Malik MD Work Phone: [facility] 07-27-2023 10:06-0400 Diastolic blood pressure 70 mm[Hg] Nilsa Malik MD Work Phone: [facility] 07-27-2023 10:06-0400 Heart rate 87 /min Nilsa Malik MD Work Phone: [facility] 07-27-2023 10:06-0400 SaO2% (BldA) [Mass fraction] 95 % Nilsa Malik MD Work Phone: [facility] 07-27-2023 10:06-0400 Systolic blood pressure 130 mm[Hg] Nilsa Malik MD Work Phone: [facility] 06-25-2023 09:13-0400 Body height 146.1 cm Nilsa Malik MD Work Phone: [facility] 06-25-2023 09:13-0400 Body mass index (BMI) [Ratio] 26.99 kg/m2 Nilsa Malik MD Work Phone: [facility] 06-25-2023 09:13-0400 Body weight 57.56 kg Nilsa Malik MD Work Phone: [facility] 06-25-2023 09:13-0400 Diastolic blood pressure 64 mm[Hg] Nilsa Malik MD Work Phone: [facility] 06-25-2023 09:13-0400 Heart rate 78 /min Nilsa Malik MD Work Phone: [facility] 06-25-2023 09:13-0400 SaO2% (BldA) [Mass fraction] 92 % Nilsa Malik MD Work Phone: [facility] 06-25-2023 09:13-0400 Systolic blood pressure 130 mm[Hg] Nilsa Malik MD Work Phone: [facility] 06-24-2023 11:25-0400 Diastolic blood pressure 72 mm[Hg] Jean Pierre Mathias DO Work Phone: [facility] 06-24-2023 11:25-0400 Heart rate 82 /min Jean Pierre Mathias DO Work Phone: [facility] 06-24-2023 11:25-0400 Respiratory rate 20 /min Jean Pierre Mathias DO Work Phone: [facility] 06-24-2023 11:25-0400 SaO2% (BldA) [Mass fraction] 92 % Jean Pierre Mathias DO Work Phone: [facility] 06-24-2023 11:25-0400 Systolic blood pressure 151 mm[Hg] Jean Pierre Mathias DO Work Phone: [facility] 06-24-2023 07:00-0400 Body height 146.1 cm Jean Pierre Mathias DO Work Phone: [facility] 06-24-2023 07:00-0400 Body mass index (BMI) [Ratio] 26.13 kg/m2 Jean Pierre Mathias DO Work Phone: [facility] 06-24-2023 07:00-0400 Body temperature 97 [degF] Jean Pierre Mathias DO Work Phone: [facility] 06-24-2023 07:00-0400 Body weight 55.75 kg Jean Pierre Mathias DO Work Phone: [facility] 06-22-2023 10:01-0400 Body height 144.8 cm Nilsa Malik MD Work Phone: [facility] 06-22-2023 10:01-0400 Body mass index (BMI) [Ratio] 26.6 kg/m2 Nilsa Malik MD Work Phone: [facility] 06-22-2023 10:01-0400 Body weight 55.75 kg Nilsa Malik MD Work Phone: [facility] 06-22-2023 10:01-0400 Diastolic blood pressure 60 mm[Hg] Nilsa Malik MD Work Phone: [facility] [facility] 06-22-2023 10:01-0400 Heart rate 58 /min Nilsa Malik MD Work Phone: [facility] 06-22-2023 10:01-0400 SaO2% (BldA) [Mass fraction] 97 % Nilsa Malik MD Work Phone: [facility] 06-22-2023 10:01-0400 Systolic blood pressure 108 mm[Hg] Nilsa Malik MD Work Phone: [facility] 12-20-2022 09:49-0400 Body height 144.8 cm Nilsa Malik MD Work Phone: [facility] 12-20-2022 09:49-0400 Body mass index (BMI) [Ratio] 26.94 kg/m2 Nilsa Malik MD Work Phone: [facility] 12-20-2022 09:49-0400 Body weight 56.47 kg Nilsa Malik MD Work Phone: [facility] 12-20-2022 09:49-040 Diastolic blood pressure 62 mm[Hg] Nilsa Malik MD Work Phone: [facility] 12-20-2022 09:49-0400 Heart rate 100 /min Nilsa Malik MD Work Phone: [facility] 12-20-2022 09:49-0400 SaO2% (BldA) [Mass fraction] 95 % Nilsa Malik MD Work Phone: [facility] 12-20-2022 09:49-0400 Systolic blood pressure 124 mm[Hg] Nilsa Malik MD Work Phone: [facility] 06-09-2022 09:28-0400 Body height 144.8 cm Nilsa Malik MD Work Phone: [facility] 06-09-2022 09:28-0400 Body mass index (BMI) [Ratio] 28.07 kg/m2 Nilsa Malik MD Work Phone: [facility] 06-09-2022 09:28-0400 Body weight 58.83 kg Nilsa Malik MD Work Phone: [facility] 06-09-2022 09:28-0400 Diastolic blood pressure 64 mm[Hg] Nilsa Malik MD Work Phone: [facility] 06-09-2022 09:28-0400 Heart rate 77 /min Nilsa Malik MD Work Phone: [facility] 06-09-2022 09:28-0400 SaO2% (BldA) [Mass fraction] 97 % Nilsa Malki MD Work Phone: [facility] 06-09-2022 09:28-0400 Systolic blood pressure 122 mm[Hg] Nilsa Malik MD Work Phone: [facility] 10-25-2021 11:09-0400 Body height 144.78 cm Nilsa Malik Work Phone: -[facility] Work Phone: 10-25-2021 11:09-0400 Body mass index (BMI) [Ratio] 27.94 kg/m2 Nilsa Malik Work Phone: -[facility] Work Phone: 10-25-2021 11:09-0400 Body surface area Derived from formula 1.49 m2 Nilsa Malik Work Phone: -[facility] Work Phone: 10-25-2021 11:09-0400 Body weight 58.57 kg Nilsa Malik Work Phone: -[facility] Work Phone: 10-25-2021 11:09-0400 Diastolic blood pressure 72 mm[Hg] Nilsa Malik Work Phone: -[facility] Work Phone: 10-25-2021 11:09-0400 Heart rate 80 /min Nilsa Malik Work Phone: -[facility] Work Phone: 10-25-2021 11:09-0400 Systolic blood pressure 102 mm[Hg] Nilsa Malik Work Phone: -[facility] Work Phone: 10-04-2021 08:19-0400 Body height 146.[address] Isaiah Sterlnig Work Phone: [facility] Work Phone: 10-04-2021 08:19-0400 Body mass index (BMI) [Ratio] 27 kg/m2 Dr. Isaiah Sterling Work Phone: [facility] Work Phone: 10-04-2021 08:19-0400 Body temperature 98.2 [degF] Dr. Isaiah Sterling Work Phone: [facility] Work Phone: 10-04-2021 08:19-0400 Body weight 57.[address] Isaiah Sterling Work Phone: [facility] Work Phone: 10-04-2021 08:19-0400 Diastolic blood pressure 88 mm[Hg] Dr. Isaiah Sterling Work Phone: [facility] Work Phone: 10-04-2021 08:19-0400 Heart rate 76 /min Dr. Isaiah Sterling Work Phone: [facility] Work Phone: 10-04-2021 08:19-0400 Respiratory rate 16 /min Dr. Isaiah Sterling Work Phone: [facility] Work Phone: 10-04-2021 08:19-0400 SaO2% (BldA) [Mass fraction] 92 % Dr. Isaiah Sterling Work Phone: [facility] Work Phone: 10-04-2021 08:19-0400 Systolic blood pressure 138 mm[Hg] Dr. Isaiah Sterling Work Phone: [facility] Work Phone: 06-07-2021 08:39-0400 Body height 144.78 cm Nilsa Malik Work Phone: [facility] Work Phone: 06-07-2021 08:39-0400 Body mass index (BMI) [Ratio] 28.69 kg/m2 Nilsa Malik Work Phone: [facility] Work Phone: 06-07-2021 08:39-0400 Body surface area Derived from formula 1.51 m2 Nilsa Malik Work Phone: [facility] Work Phone: 06-07-2021 08:39-0400 Body weight 60.13 kg Nilsa Malik Work Phone: [facility] Work Phone: 06-07-2021 08:39-0400 Diastolic blood pressure 72 mm[Hg] Nilsa Malik Work Phone: [facility] Work Phone: 06-07-2021 08:39-0400 Heart rate 75 /min Nilsa Malik Work Phone: [facility] Work Phone: 06-07-2021 08:39-0400 SaO2% (BldA) [Mass fraction] 95 % Nilsa Malik Work Phone: [facility] Work Phone: 06-07-2021 08:39-0400 Systolic blood pressure 132 mm[Hg] Nilsa Malik Work Phone: [facility] Work Phone: 12-06-2020 14:05-0400 Body height 144.78 cm Nilsa Malik Work Phone: [facility] Work Phone: 12-06-2020 14:05-0400 Body mass index (BMI) [Ratio] 28.17 kg/m2 Nilsa Malik Work Phone: [facility] Work Phone: 12-06-2020 14:05-0400 Body surface area Derived from formula 1.5 m2 Nilsa Malik Work Phone: [facility] Work Phone: 12-06-2020 14:05-0400 Body temperature 96.9 [degF] Nilsa Malik Work Phone: [facility] Work Phone: 12-06-2020 14:05-0400 Body weight 59.05 kg Nilsa Malik Work Phone: [facility] Work Phone: 12-06-2020 14:05-0400 Diastolic blood pressure 58 mm[Hg] Nilsa Malik Work Phone: [facility] Work Phone: 12-06-2020 14:05-0400 Heart rate 71 /min Nilsa Malik Work Phone: [facility] Work Phone: 12-06-2020 14:05-0400 SaO2% (BldA) [Mass fraction] 95 % Nilsa Malik Work Phone: [facility] Work Phone: 12-06-2020 14:05-0400 Systolic blood pressure 118 mm[Hg] Nilsa Malik Work Phone: [facility] Work Phone: 09-10-2020 13:13-0400 Body height 144.78 cm Nilsa Rajancel Work Phone: [facility] Work Phone: 09-10-2020 13:13-0400 Body mass index (BMI) [Ratio] 27.92 kg/m2 Nilsa Rajancel Work Phone: [facility] Work Phone: 09-10-2020 13:13-0400 Body surface area Derived from formula 1.49 m2 Nilsa Rajancel Work Phone: [facility] Work Phone: 09-10-2020 13:13-0400 Body weight 58.51 kg Nilsa Ham Stencel Work Phone: [facility] Work Phone: 09-10-2020 13:13-0400 Diastolic blood pressure 74 mm[Hg] Nilsa Rajancel Work Phone: [facility] Work Phone: 09-10-2020 13:13-0400 Heart rate 76 /min Nilsa Rajancel Work Phone: [facility] Work Phone: 09-10-2020 13:13-0400 Systolic blood pressure 122 mm[Hg] Nilsa Rajancel Work Phone: [facility] Work Phone: 08-31-2020 10:05-0400 Body height 144.78 cm Nilsa Rajancel Work Phone: [facility] Work Phone: 08-31-2020 10:05-0400 Body mass index (BMI) [Ratio] 28.36 kg/m2 Nilsa Rajancel Work Phone: [facility] Work Phone: 08-31-2020 10:05-0400 Body surface area Derived from formula 1.5 m2 Nilsa Rajancel Work Phone: [facility] Work Phone: 08-31-2020 10:05-0400 Body temperature 97.6 [degF] Nilsa Rajancel Work Phone: [facility] Work Phone: 08-31-2020 10:05-0400 Body weight 59.45 kg Nilsa Rajancel Work Phone: [facility] Work Phone: 08-31-2020 10:05-0400 Diastolic blood pressure 78 mm[Hg] Nilsa Malik Work Phone: [facility] Work Phone: 08-31-2020 10:05-0400 Heart rate 75 /min Nlisa Malik Work Phone: [facility] Work Phone: 08-31-2020 10:05-0400 SaO2% (BldA) [Mass fraction] 96 % Nilsa Malik Work Phone: [facility] Work Phone: 08-31-2020 10:05-0400 Systolic blood pressure 118 mm[Hg] Nilsa Malik Work Phone: [facility] Work Phone: 08-19-2019 10:37-0400 BP Diastolic 72 mm[Hg] Zhen Duncan [facility] Work Phone: 08-19-2019 10:37-0400 BP Systolic 144 mm[Hg] Zhen Duncan [facility] Work Phone: 08-19-2019 10:30-0400 BMI (Body Mass Index) 28.7 kg/m2 Zhen Duncan [facility] Work Phone: 08-19-2019 10:30-0400 Body Temperature 96.9 [degF] Zhen Duncan [facility] Work Phone: 08-19-2019 10:30-0400 Body weight 58.06 kg Zhen Duncan [facility] Work Phone: 08-19-2019 10:30-0400 BSA (Body Surface Area) 1.47 m2 Zhen Duncan [facility] Work Phone: 08-19-2019 10:30-0400 Height 142.24 cm Zhen Duncan -[facility] Work Phone: 08-19-2019 10:30-0400 Pulse (Heart Rate) 80 /min Zhen Duncan -[facility] Work Phone: 08-19-2019 10:30-0400 Pulse Oximetry 95 % Zhen Duncan -[facility] Work Phone: Encounters Encounter Date Encounter Type Care Provider Facility Start: 07-31-2024 ambulatory Nilsa Malik Facilit y:[facility] Start: 07-04-2024 End: 07-04-2024 Office outpatient visit 25 minutes Zhen Duncan MD Work Phone: [facility] Comment on above: Urgency of urination (Primary Dx); Hallucinations; Primary hypertension Start: 07-04-2024 End: 07-04-2024 ambulatory ZHEN [facility] Ambulatory Start: 07-03-2024 End: 07-03-[address] Nilsa Malik MD Work Phone: [facility] Work Phone: Start: 07-03-2024 End: 07-03-[address] Isaiah Sterling MD -[facility] Work Phone: Start: 07-03-2024 End: 07-03-[address] Isaiah Sterling MD -[facility] Work Phone: Start: 07-03-2024 End: 07-03-2024 ambulatory Nilsa Malik Facility[facility] Start: 07-03-2024 End: 07-03-2024 ambulatory Nilsa Malik Facility:[facility] Start: 07-02-2024 End: 07-03-2024 Emergency department patient visit JAIRON DENISE [facility] Start: 07-02-2024 End: 07-02-2024 Subsequent hospital visit by physician Alex L[facility] Start: 07-02-2024 End: 07-02-2024 Emergency department patient visit Jairon Denise MD Work Phone: [facility] Comment on above: New onset seizure (M ulti) (Primary Dx) Start: 05-26-2024 End: 05-26-[address] Isaiah Sterling MD -[facility] Work Phone: Start: 05-26-2024 End: 05-26-[address] 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); Type 2 diabetes mellitus without complication, without long-term current use of insulin (Multi); Primary hypertension; Parkinson's disease, unspecified whether dyskinesia present, unspecified whether manifestations fluctuate; Acquired hypothyroidism Start: 02-05-2024 End: 02-05-2024 ambulatory [facility] Ambulatory Start: 02-05-2024 End: 02-05-2024 Encounter for general adult medical examination without abnormal findings [facility] Ambulatory Start: 01-28-2024 ambulatory [facility] Start: 12-06-2023 End: 12-06-2023 ambulatory MARY Hopper [facility] Start: 12-03-2023 End: 12-03-2023 ambulatory AUBREY BOLIVAR [facility] Start: 11-29-2023 End: 11-29-2023 ambulatory MARY Hopper [facility] Start: 11-26-2023 End: 11-26-2023 ambulatory MARY Hopper [facility] Start: 11-22-2023 End: 11-22-2023 ambulatory MARY Hopper [facility] Start: 11-19-2023 End: 11-19-2023 ambulatory MARY Ruchi [facility] Start: 11-15-2023 End: 11-15-2023 ambulatory [facility] Start: 11-12-2023 End: 11-12-2023 [facility] Start: 11-05-2023 End: 11-05-2023 [facility] Start: 10-25-2023 End: 10-25-2023 ambulatory [facility] Start: 10-25-2023 End: 10-25-2023 Subsequent hospital visit by physician Alex Banuelos 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); Acquired hypothyroidism; Primary hypertension; Mixed hyperlipidemia; Hypothyroidism, unspecified type Start: 07-27-2023 End: 07-27-2023 [facility] Start: 07-09-2023 End: 07-09-2023 Subsequent hospital visit by physician Alex Church [facility] Comment on above: Arrived Atypical chest pain Start: 06-25-2023 End: 06-25-2023 Office outpatient visit 25 minutes Nilsa Malik MD Work Phone: [facility] Comment on above: Atypical chest pain (Primary Dx) Start: 06-24-2023 End: 06-24-2023 Emergency department patient visit Jean Pierre Mathias DO Work Phone: [facility] Comment on above: Chest pain, unspecif ied type (Primary Dx); Neck pain Start: 06-22-2023 End: 06-22-2023 Office outpatient visit 25 minutes Nilsa Malik MD Work Phone: [facility] Comment on above: Type 2 diabetes zach itus without complication, without long- term current use of insulin (Multi) (Primary Dx); 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, unspecified whether recurrent (CMS-HCC); Acquired hypothyroidism; Primary hypertension; Mixed hyperlipidemia; Parkinson's disease, unspecified whether dyskinesia present, unspecified whether manifestations fluctuate (Multi); Stage 3a chronic kidney disease (Multi) Start: 06-15-2023 End: 06-15-2023 ambulatory NILSA MALIK [facility] Start: 05-31-2023 End: 05-31-2023 ambulatory NILSA MALIK [facility] Start: 12-20-2022 End: 12-20-2022 Assay of hemosiderin, quant Nilsa Malik MD Work Phone: [facility] Work Phone: Start: 12-20-2022 End: 12-20-2022 Patient encounter procedure Nilsa Malik MD Work Phone: [facility] Comment on above: Routine general medi marko examination at health care facility (Primary Dx); Type 2 diabetes mellitus without complication, without long-term current use of insulin (CMS/HCC); 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, unspecified whether recurrent (CMS/HCC); Acquired hypothyroidism; Primary hypertension; Mixed hyperlipidemia Start: 06-09-2022 End: 06-09-2022 Office outpatient visit 25 minutes Nilsa Malik MD Work Phone: [facility] Comment on above: Primary hypertension (Primary Dx); Type 2 diabetes mellitus without complication, without long-term current use of insulin (CMS/HCC); Mixed hyperlipidemia; 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 Isaiah Sterling Work Phone: [facility] Start: 10-04-2021 End: 10-04-[address] Isaiah Sterling Work Phone: [facility] Start: 09-14-2021 Chart Update Nilsa Rajan darby Work Phone: [facility] Work Phone: Start: 08-16-2021 AUDIT Nilsa Rajan darby Work Phone: [facility] Work Phone: Start: 06-07-2021 Chart Update Nilsa Rajan darby Work Phone: [facility] Work Phone: Start: 06-07-2021 Adv care pln/ no alt dcsn mkr docd or refusal Nilsa Malik Work Phone: [facility] Work Phone: Start: 05-31-2021 Chart Update Nilsa Rajan darby Work Phone: [facility] Work Phone: Start: 01-26-2021 Chart Update Nilsa Rajan darby Work Phone: [facility] Work Phone: Start: 12-06-2020 Office outpatient vi sit 25 minutes Nilsa D Stencel Work Phone: -[facility] Work Phone: Start: 11-29-2020 Chart Update Nilsa Ham Sten darby Work Phone: [facility] Work Phone: Start: 10-18-2020 Chart Update Nilsa D Sten darby Work Phone: [facility] [facility] [address] Work Phone: Start: 09-10-2020 Office outpatient vi sit 15 minutes Nilsa D Stencel Work Phone: [facility] Work Phone: Start: 09-10-2020 Patient encounter procedure Nilsa D Stencel Work Phone: [facility] Work Phone: Start: 08-31-2020 Office outpatient vi sit 25 minutes Nilsa D Stencel Work Phone: -[facility] Work Phone: Start: 08-23-2020 Chart Update Nilsa D Sten darby Work Phone: [facility] Work Phone: Start: 09-29-2019 Patient encounter procedure Zhen Duncan [facility] Work Phone: Start: 08-19-2019 [facility] Work [facility]: Start: 02-06-2019 Patient encounter procedure Zhen Duncan [facility] Work Phone: Procedures Date Procedure Procedure Detail Performing Clinician Start: 07-04-2024 Urnls dip stick/tabl et rgnt auto w/o microscopy Zhen Duncan MD Work Phone: Start: 07-02-2024 Ecg routine ecg w/le ast 12 lds trcg only w/o i&r Jairon Denise MD Work Phone: Start: 07-02-2024 End: 07-02-2024 Ct head/brain w/o contrast material Jairon Denise MD Work Phone: Start: 07-02-2024 Comprehensive metabo lic panel Jairon Denise MD Work Phone: Start: 07-02-2024 PULSE OXIMETRY, CONTINUOUS Jairon Denise MD Work Phone: Start: 07-02-2024 POCT GLUCOSE METER Jairon Denise MD Work Phone: Start: 07-09-2023 Cv strs tst xers&/or rx cont ecg trcg only Nilsa Malik MD Work Phone: Start: 07-09-2023 Myocardial spect mul tiple studies Nilsa Malik MD Work Phone: Start: 06-24-2023 Ecg routine ecg w/le ast 12 lds trcg only w/o i&r Jean Pierre Mathias DO Work Phone: Start: 06-24-2023 Ct angiography chest w/contrast/noncontrast Jean Pierre Mathias DO Work Phone: Start: 06-24-2023 Assay of troponin quantitative Jean Pierre Yilisa DO Work Phone: Start: 06-24-2023 Ct cervical spine w/ o contrast material Jean Pierre Mathias DO Work Phone: Start: 06-24-2023 Ct head/brain w/o co ntrast material Jean Pierre Mathias DO Work Phone: Start: 06-24-2023 Radiologic exam ches t single view Jean Pierre Mathias DO Work Phone: Start: 06-24-2023 Comprehensive metabo lic panel Jean Pierre Mathias DO Work Phone: Start: 06-24-2023 Troponin I.cardiac p kasia - Serum or Plasma by High sensitivity method Jean Pierre Mathias DO Work Phone: Start: 06-15-2023 ALBUMIN, URINE RANDOM Ruchi LANDAVERDE ESTEPHANIE Start: 06-15-2023 CBC panel - Blood by Automated count NILSA MALIK Start: 06-15-2023 Comprehensive metabo lic 2000 panel - Serum or Plasma NILSA MALIK Start: 06-15-2023 Hemoglobin A1c/Hemoglobin.total in Blood NILSA MALIK Start: 06-15-2023 Lipid panel NILSA SHERWOOD Start: 06-15-2023 Lipid 1996 panel - S bucky or Plasma Nilsa Malik MD Work Phone: Start: 06-15-2023 Thyrotropin [Units/v olume] in Serum or Plasma Nilsa Malik MD Work Phone: Start: 05-31-2023 Bacteria identified in Urine by Culture NILSA MALIK Start: 05-31-2023 URINALYSIS WITH REFL EX MICROSCOPIC NILSA MALIK Start: 06-02-2022 Lipid 1996 panel - S bucky or Plasma Nilsa Malik MD Work Phone: Start: 06-02-2022 Thyrotropin [Units/v olume] in Serum or Plasma Nilsa Malik MD Work Phone: Start: 10-15-2020 Colonoscopy Nilsa Malik Work Phone: Start: 08-19-2019 Hemoglobin glycosylated a1c Zhen Duncan Start: 08-19-2019 MG Breast screening Niurka Duncan Appendectomy Zhen Duncan Biopsy of breast Nilsa chambers Work Phone: Cataract surgery Zhen Yanes ness Cholecystectomy Zhen dey Colonoscopy Zhen Duncan Comment on above: 2011; Hysterectomy Zhen Duncan Plan of Treatment Date Care Activity Detail Author Start: 03-01-2030 DTaP/Tdap/Td Vaccine s (2 - Td or Tdap) DTaP/Tdap/Td Vaccines (2 - Td or Tdap) [facility] Start: 10-31-2025 Glaucoma screening Diabetes: R etinopathy Screening [facility] Start: 02-05-2025 Medicare Annual Well ness Visit Medicare Annual Wellness Visit (AWV) [facility] Start: 10-31-2024 Glaucoma screening Diabetes: R etinopathy Screening [facility] Start: 08-07-2024 End: 08-07-2024 Patient encounter procedure 08/07/2024 3:20 PM EDT Office Visit [facility] [address] [id number] Nilsa Malik MD [address] [address] [facility] Start: 07-14-2024 Electroencephalogram [facility] Start: 06-14-2024 Lipid panel Lipid Panel [facility] Start: 06-14-2024 Thyroid stimulating hormone measurement TSH Level [facility] Start: 06-14-2024 Urine screening for protein Di abetes: Urine Protein Screening [facility] Start: 04-27-2024 Hemoglobin A1c measurement Torri betes: Hemoglobin A1C [facility] Start: 02-05-2024 End: 02-04-2025 CBC panel - Blood by Automated count CBC Lab Routine 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, unspecified whether recurrent (CMS-HCC) Type 2 diabetes mellitus without complication, without long-term current use of insulin (Multi) Primary hypertension Parkinson's disease, unspecified whether dyskinesia present, unspecified whether manifestations fluctuate (Multi) Expected: 02/05/2024 (Approximate), Expires: 02/04/2025 [facility] Work Phone: Comment on above: Expected: 02/05/2024 (Approximate), Expires: 02/04/2025 Start: 02-05-2024 End: 02-04-2025 Comprehensive metabolic 2000 panel - Serum or Plasma Comprehensive Metabolic Panel Lab Routine 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, unspecified whether recurrent (CMS-HCC) Type 2 diabetes mellitus without complication, without long-term current use of insulin (Multi) Primary hypertension Parkinson's disease, unspecified whether dyskinesia present, unspecified whether manifestations fluctuate (Multi) Expected: 02/05/2024 (Approximate), Expires: 02/04/2025 [facility] [facility] Service Area Work Phone: Comment on above: Expected: 02/05/2024 (Approximate), Expires: 02/04/2025 Start: 02-05-2024 End: 02-04-2025 Hemoglobin A1c/Hemoglobin.total in Blood Hemoglobin A1C Lab Routine Type 2 diabetes mellitus without complication, without long-term current use of insulin (Multi) Expected: 02/05/2024 (Approximate), Expires: 02/04/2025 [facility] Work Phone: Comment on above: Expected: 02/05/2024 (Approximate), Expires: 02/04/2025 Start: 02-05-2024 End: 02-04-2025 Lipid 1996 panel - Serum or Plasma Lipid Panel Lab Routine Type 2 diabetes mellitus without complication, without long-term current use of insulin (Multi) Primary hypertension Expected: 02/05/2024 (Approximate), Expires: 02/04/2025 [facility] Work Phone: Comment on above: Expected: 02/05/2024 (Approximate), Expires: 02/04/2025 Start: 02-05-2024 End: 02-04-2025 Microalbumin/Creatinine [Mass Ratio] in Urine Albumin-Creatinine Ratio, Urine Random Lab Routine Type 2 diabetes mellitus without complication, without long-term current use of insulin (Multi) Expected: 02/05/2024 (Approximate), Expires: 02/04/2025 [facility] Work Phone: Comment on above: Expected: 02/05/2024 (Approximate), Expires: 02/04/2025 Start: 02-05-2024 End: 02-04-2025 Thyrotropin [Units/volume] in Serum or Plasma Thyroid Stimulating Hormone Lab Routine Acquired hypothyroidism Expected: 02/05/2024 (Approximate), Expires: 02/04/2025 [facility] Work Phone: Comment on above: Expected: 02/05/2024 (Approximate), Expires: 02/04/2025 Start: 02-05-2024 End: 02-05-2024 Patient encounter procedure [facility] Start: 12-22-2023 Medicare Annual Well ness Visit Medicare Annual Wellness Visit (AWV) [facility] Start: 11-05-2023 End: 11-05-2023 ambulatory 11/05/2023 1:45 PM EDT Evaluation [facility] [address] [place] [id number] Petra Dangelo, PT [address] [facility] [place], [place] [id number] [facility] Start: 10-28-2023 COVID-19 Vaccine () COVID-19 Vaccine () [facility] Start: 10-28-2023 Influenza vaccination Influenz a Vaccine (#1) [facility] Start: 10-25-2023 End: 10-24-2024 XR Lumbar spine 4 Views [facility] Service Are a Work Phone: Comment on above: Once for 1 Occurrenc es starting 10/25/2023 until 10/25/2023 Expected: 10/25/2023 , Expires: 10/24/2024 Start: 09-14-2023 Hemoglobin A1c measurement Torri betes: Hemoglobin A1C [facility] Start: 07-27-2023 End: 07-26-2024 Hemoglobin A1c/Hemoglobin.total in Blood Hemoglobin A1C Lab Routine Type 2 diabetes mellitus without complication, without long-term current use of insulin (Multi) Expected: 07/27/2023 (Approximate), Expires: 07/26/2024 [facility] Service Area Work Phone: Comment on above: Expected: 07/27/2023 (Approximate), Expires: 07/26/2024 Start: 07-27-2023 End: 07-27-2023 Patient encounter procedure 07/27/2023 10:00 AM EDT Office Visit [facility] [address] [place] [phone] Nilsa Malik MD [address] [place], [place] [id number] [facility] Start: 07-09-2023 End: 07-09-2023 Patient encounter procedure 07/09/2023 10:[address] [facility] [address] [place] [address] [facility] Start: 07-09-2023 End: 07-09-[address] [facility] Start: 06-25-2023 End: 06-24-2024 NM Heart Perfusion W stress and W radionuclide IV Nuclear Stress Test Cardiac Nuclear Medicine Routine Atypical chest pain Expected: 06/25/2023, Expires: 06/24/2024 [facility] Service Area Work Phone: Comment on above: Expected: 06/25/2023 , Expires: 06/24/2024 Start: 06-22-2023 End: 06-22-2023 Patient encounter procedure 06/22/2023 10:00 AM EDT Office Visit [facility] [address] [place] [phone] Nilsa Malik MD [address] [place], [place] [id number] [facility] Start: 06-03-2023 Lipid panel Lipid Panel [facility] Start: 06-03-2023 Thyroid stimulating hormone measurement TSH Level [facility] Start: 06-03-2023 Urine screening for protein Di abetes: Urine Protein Screening [facility] Start: 03-15-2023 Hemoglobin A1c measurement Torri betes: Hemoglobin A1C [facility] Start: 12-20-2022 End: 12-21-2023 CBC panel - Blood by Automated count CBC Lab Routine Type 2 diabetes mellitus without complication, without long-term current use of insulin ([facility]) Primary hypertension Mixed hyperlipidemia Expected: 12/20/2022 (Approximate), Expires: 12/21/2023 [facility] Work Phone: Comment on above: Expected: 12/20/2022 (Approximate), Expires: 12/21/2023 Start: 12-20-2022 End: 12-21-2023 Comprehensive metabolic 2000 panel - Serum or Plasma Comprehensive Metabolic Panel Lab Routine Type 2 diabetes mellitus without complication, without long-term current use of insulin (CMS/HCC) Primary hypertension Mixed hyperlipidemia Expected: 12/20/2022 (Approximate), Expires: 12/21/2023 [facility] Work Phone: Comment on above: Expected: 12/20/2022 (Approximate), Expires: 12/21/2023 Start: 12-20-2022 End: 12-21-2023 Hemoglobin A1c/Hemoglobin.total in Blood Hemoglobin A1C Lab Routine Type 2 diabetes mellitus without complication, without long-term current use of insulin (CMS/HCC) Expected: 12/20/2022 (Approximate), Expires: 12/21/2023 [facility] Work Phone: Comment on above: Expected: 12/20/2022 (Approximate), Expires: 12/21/2023 Start: 12-20-2022 End: 12-21-2023 Lipid 1996 panel - Serum or Plasma Lipid Panel Lab Routine Type 2 diabetes mellitus without complication, without long-term current use of insulin (CMS/[facility]) Primary hypertension Mixed hyperlipidemia Expected: 12/20/2022 (Approximate), Expires: 12/21/2023 [facility] Work Phone: Comment on above: Expected: 12/20/2022 (Approximate), Expires: 12/21/2023 Start: 12-20-2022 End: 12-21-2023 Microalbumin/Creatinine [Mass Ratio] in Urine Albumin , Urine Random Lab Routine Type 2 diabetes mellitus without complication, without long-term current use of insulin (CMS/HCC) Primary hypertension Mixed hyperlipidemia Expected: 12/20/2022 (Approximate), Expires: 12/21/2023 [facility] Service Area Work Phone: Comment on above: Expected: 12/20/2022 (Approximate), Expires: 12/21/2023 Start: 12-20-2022 End: 12-21-2023 Thyrotropin [Units/volume] in Serum or Plasma Thyroid Stimulating Hormone Lab Routine Acquired hypothyroidism Expected: 12/20/2022 (Approximate), Expires: 12/21/2023 [facility] Work Phone: Comment on above: Expected: 12/20/2022 (Approximate), Expires: 12/21/2023 Start: 12-20-2022 End: 12-20-2022 Patient encounter procedure 12/20/2022 10:00 AM EDT Office Visit [facility] [address] [place] [address] Nilsa Malik MD [address] [place] [address] [facility] Start: 10-27-2022 COVID-19 Vaccine () COVID-19 Vaccine () [facility] Start: 2022 Hemoglobin A1c measurement Torri betes: Hemoglobin A1C [facility] Start: 06-29-2022 Glaucoma screening Diabetes: R etinopathy Screening [facility] Start: 06-09-2022 End: 06-10-2023 Hemoglobin A1c/Hemoglobin.total in Blood Hemoglobin A1C Lab Routine Type 2 diabetes mellitus without complication, without long-term current use of insulin ([facility]) Expected: 06/09/2022 (Approximate), Expires: 06/10/2023 [facility] Service Area Work Phone: Comment on above: Expected: 06/09/2022 (Approximate), Expires: 06/10/2023 Start: 12-07-2021 EPV, Provider: Nilsa Malik, Status: Pen, Time: 9:20 AM EPV, Provider: Nilsa Malik, Status: Pen, Time: 9:20 AM [facility] Work Phone: Start: 06-07-2021 EPV, Provider: Nilsa Malik, Status: Pen, Time: 8:40 AM EPV, Provider: Nilsa Malik, Status: Pen, Time: 8:40 AM [facility] Work Phone: Start: 02-15-2021 COVID-19 Vaccine (4 - Booster for Moderna series) COVID-19 Vaccine (4 - Booster for Moderna series) [facility] Start: 02-15-2021 COVID-19 Vaccine (4 - Moderna series) COVID-19 Vaccine (4 - Moderna series) [facility] Start: 12-06-2020 EPV, Provider: Nilsa Malik, Status: Pen, Time: 2:00 PM EPV, Provider: Nilsa Malik, Status: Pen, Time: 2:00 PM [email or web address] Work Phone: Start: 10-15-2020 COLON, Provider: Jaison Messer, Status: Pen, Time: 11:00 AM COLON, Provider: Jaison Messer, Status: Pen, Time: 11:00 AM [facility] Work Phone: Start: 09-10-2020 FUV, Provider: Serena Hull, Status: Pen, Time: 1:00 PM FUV, Provider: Serena Hull, Status: Pen, Time: 1:00 PM [email or web address] Work Phone: Start: 08-31-2020 EPV, Provider: Nilsa Malik, Status: Pen, Time: 10:00 AM EPV, Provider: Nilsa Malik, Status: Pen, Time: 10:00 AM [email or web address] Work Phone: Start: 09-03-2019 MG Breast screening Mamm - Scr eening Mammogram w/ Tomosynthesis [email or web address] Work Phone: Start: 2012 RSV High Risk: (Elde rly (60+) or Population) (1 - 1-dose 75+ series) RSV High Risk: (Elderly (60+) or Population) (1 - 1-dose 75+ series) [facility] Start: 06-26-2009 Screening for osteoporosis Bone Dens ity Scan [facility] Start: 1997 RSV patient s and/or patients aged 60+ years (1 - 1-dose 60+ series) RSV patients and/or patients aged 60+ years (1 - 1-dose 60+ series) [facility] Start: 09-02-1987 Zoster Vaccines (1 of 2) Zoste r Vaccines (1 of 2) [facility] Start: 09-02-1947 Diabetic foot examination Diabetes: Foot Exam [facility] Start: 09-02-1947 Ophthalmic examinati on and evaluation Diabetes: Retinopathy Screening [facility] Start: 1935 Medicare Annual Well ness Visit Medicare Annual Wellness Visit (AWV) [facility] Start: 1935 Screening for osteoporosis Bone Dens ity Scan [facility] End: 06-24-2023 ECG 12 lead [facility] Service Area Work Phone: Comment on above: Every 1 hour for 2 O ccurrences starting 06/24/2023 until 06/24/2023, 1 completed As needed until disc ontinued starting 06/24/2023 End: 07-02-2024 ECG 12 lead [facility] Service Area Work Phone: Comment on above: Once for 1 Occurrenc es starting 07/02/2024 until 07/02/2024 MR Brain WO and W co ntrast IV [facility] Urinalysis complete panel - Urine [facility] Work Phone: [facility] NEGATED: Highlighted row has been ruled out! Planned Goals not documented [facility] Work Phone: Immunizations Immunization Date Immunization Notes Care Provider Chan valerio 11-15-2023 influenza, high dose seasonal, preservative-free Nilsa Malik MD Work Phone: [facility] Work Phone: 11-09-2022 Influenza, Seasonal, Quadrivalent, Adjuvanted Nilsa Malik MD Work Phone: [facility] Work Phone: 11-09-2022 influenza virus vacc ine, unspecified formulation Mary Thomason MD Work Phone: [facility] Work Phone: 11-10-2021 influenza, seasonal, injectable Nilsa Malik MD Work Phone: [facility] Work Phone: 12-21-2020 [facility] COVI D-19 Vacc 30 MCG/0.3ML Intramuscular Suspension Nilsa Jitendra Malik Work Phone: [facility] 11-10-2020 Fluzone High-Dose Quadrivalent 0.7 ML Intramuscular Suspension Prefilled Syringe Nilsa Malik Work Phone: [facility] Work Phone: 05-13-2020 Moderna COVID-19 Vac cine 100 MCG/0.5ML Intramuscular Suspension Nilsa Malik Work Phone: [facility] 04-14-2020 Moderna COVID-19 Vac cine 100 MCG/0.5ML Intramuscular Suspension Nilsa Malik Work Phone: [facility] 03-01-2020 pneumococcal polysaccharide vaccine, 23 valent; Translations: [Pneumococcal polysaccharide vaccine, 23 valent] Nilsa Malik Work Phone: [facility] Work Phone: Comment on above: Series: 03-01-2020 tetanus toxoid, redu baljeet diphtheria toxoid, and acellular pertussis vaccine, adsorbed; Translations: [Tdap] Nilsa Malik Work Phone: [facility] Work Phone: Comment on above: Series: 11-19-2019 Flu vaccine, quadrivalent, high-dose, preservative free, age 65y+ (FLUZONE) Nilsa Malik MD Work Phone: [facility] Work Phone: 11-19-2019 influenza, seasonal, injectable Nilsa Malik Work Phone: [facility] Work Phone: Comment on above: Series: 11-20-2018 influenza, high dose seasonal, preservative-free Nilsa Malik MD Work Phone: [facility] Work Phone: 11-20-2018 influenza, seasonal, injectable Zhen Duncan [facility] Work Phone: Comment on above: Series: 08-04-2015 pneumococcal conjuga te vaccine, 13 valent Zhen Duncan [facility] Work Phone: Comment on above: Series: Payers Date Payer Category Payer Self-pay [id number] 2007 Managed Care (Private) [facility] [id number] 2007 Private Health Insurance [facility] [id number] 2007-Present [address] [place] [address] [id number] 2007 Private Health Insurance [id number] 2002 Medicare [id number] 2002 Medicare [id number] 1937 Unknown [id number] [id number] 9.2.124 1937 Unknown [id number] 2.16840.1.492066.3.57 9.2.124 1937 Unknown [id number] 2.16.840.1.490018.3.57 9.2.1244 1937 Unknown [id number] 2.840.1.055559.3.57 9.2.1242 1937 Unknown [id number] 2.16840.1.116634.3.57 9.2.1242 1937 Unknown [id number] 2.16840.1.365805.3.57 9.2.1242 1937 Unknown [id number] 2.840.1.462817.3.57 9.2.1242 1937 Unknown [id number] 2.840.1.141687.3.57 9.2.1242 1937 Unknown [id number] 2.840.1.489639.3.57 9.2.1242 1937 Unknown [id number] 2.840.1.689548.3.57 9.2.1242 1937 Unknown [id number] 2.840.1.733291.3.57 9.2.1242 1937 Unknown [id number] 2.840.1.059284.3.57 9.2.1242 1937 Unknown [id number] 2.840.1.984846.3.57 9.2.1242 1937 Unknown [id number] 2.840.1.583447.3.57 9.2.1242 1937 Unknown [id number] 2.840.1.262270.3.57 9.2.1242 1937 Unknown [id number] 2.840.1.065619.3.57 9.2.1243 1937 Unknown [id number] 2.840.1.073192.3.57 9.2.1243 1937 Unknown [id number] 2.840.1.411300.3.57 9.2.1244 1937 Unknown [id number] 2.16.840.1.161530.3.57 9.2.1244 Unknown Unknown [id number] 2.16.840.1.797280.3.57 9.2.462 Unknown [id number] 2.16.840.1.913705.3.57 9.2.462 Unknown [id number] 2.16.840.1.291810.3.57 9.2.462 Unknown [id number] 2.16.840.1.959761.3.57 9.2.462 Unknown [id number] 2.16.840.1.849349.3.57 9.2.462 Social History Date Type Detail Facility Assertion Tobacco smoking consumption unknown (finding) [facility] Work Phone: Start: 06-09-2022 End: 07-04-2024 Non-smoker Non-smoker [facility] [facility] Work Phone: Start: 10-04-2021 Tobacco smoking stat us NHIS Unknown if ever smoked [facility] Work Phone: Start: 1935 Sex Assigned At Female [facility] Start: 06-09-2022 End: 07-02-2024 Tobacco smoking status NHIS Never smoked tobacco [facility] Work Phone: Start: 06-09-2022 Tobacco use and exposure Smokeless tobacco non-user [facility] Work Phone: Start: 06-09-2022 Alcohol intake [facility] Work Phone: Start: 06-09-2022 End: 07-04-2024 Tobacco use panel [facility] Work Phone: Start: 1935 Sex Assigned At Not on file U [facility] Work Phone: Start: 05-30-2022 End: 07-04-2024 Exposure to SARS-CoV-2 (event) Not sure [facility] Start: 12-20-2022 End: 07-04-2024 Alcohol intake Lifetime non-drinker (finding) [facility] Work Phone: Functional Status Date Assessment Result Facility 07-04-2024 Patient Health Questionnaire 2 item (PHQ-2) [Reported] [facility] Work Phone: 07-02-2024 [facility] - suicide severity rating scale screener - recent [C-SSRS] [facility] Work Phone: NEGATED: Highlighted row Functional performance Functional status health issues are not documented [facility] Work Phone: Mental Status Date Assessment Result Facility NEGATED: Highlighted row Cognitive function [Interpretation] Cognitive status health issues are not documented Disease [facility] Work Phone: Clinical Notes 06-09-2022 to 07-04-2024 Zhen Duncan MD - 07/04/2024 1:40 PM EDTPatient InstructionsDischarge InstructionsAttachmentsChajitendra Denise MD - 07/02/2024 11:12 PM EDTChad Michael Denise MD - 07/02/2024 11:12 PM EDT Note Date & Type Note Facility 07-04-2024 History of Present illness Narrative Subjective Patient ID: Ramya Moss is a 88 y.o. female who presents for UTI (Confusion- shuffle with feet since Sunday- hallucinations constantly). HPI Was able to see neurology after the ER visit, does not think it is a seizure but is okay with starting the Keppra twice a day for now. Did back off on the amantadine although she has not stopped that. Did put her on some Florinef 3 times a week to elevate her blood pressure but did not want to stop the losartan. Is also ordering an EEG and an MRI of the brain. Sounds like she has possibly had a change neurologically with significant decline Noticed if it is just been weakness in her legs over the last 5 days. No obvious signs of UTI but I think treatment short-term would be worth it. Agree with the Florinef I recommend she stop the losartan her blood pressure is low today and was lower at home yesterday. Family is helping taking care of her and keeping a close eye on her. Review of Systems Constitutional: Positive for fatigue. Negative for chills and fever. Respiratory: Negative for cough and shortness of breath. Cardiovascular: Negative for chest pain and palpitations. Gastrointestinal: Negative for diarrhea and nausea. Genitourinary: Positive for frequency. Skin: Negative for rash. Psychiatric/Behavioral: Positive for confusion, decreased concentration and hallucinations. Negative for behavioral problems. Objective BP 104/56 Pulse 65 Ht 1.448 m (4' 9) Wt 56.2 kg (124 lb) SpO2 96% BMI 26.83 kg/m Physical Exam Constitutional: Appearance: Normal appearance. HENT: Head: Normocephalic and atraumatic. Cardiovascular: Rate and Rhythm: Normal rate and regular rhythm. Heart sounds: Normal heart sounds. Pulmonary: Effort: Pulmonary effort is normal. Breath sounds: Normal breath sounds. Skin: General: Skin is warm and dry. Neurological: General: No focal deficit present. Mental Status: She is alert and oriented to person, place, and time. Psychiatric: Mood and Affect: Mood normal. Behavior: Behavior normal. Thought Content: Thought content normal. Judgment: Judgment normal. Assessment/Plan Problem List Items Addressed This Visit ICD-10-CM Hypertension I10 Other Visit Diagnoses Codes Urgency of urination - Primary R39.15 Relevant Medications sulfamethoxazole-trimethoprim (Bactrim DS) 800-160 mg tablet Other Relevant Orders POCT UA Automated manually resulted (Completed) Hallucinations R44.3 Patient was identified as a fall risk. Risk prevention instructions provided. documented in this encounter [facility] Work Phone: 07-04-2024 Instructions Zhen Duncan MD - 07/04/2024 1:40 PM EDT Ways to Help Prevent Falls at Home Quick Tips ? Ask for help if you need it. Most people want to help! ? Get up slowly after sitting or laying down ? Wear a medical alert device or keep cell phone in your pocket ? Use night lights, especially areas near a bathroom ? Keep the items you use often within reach on a small stool or end table ? Use an assistive device such as walker or cane, as directed by provider/physical therapy ? Use a non-slip mat and grab bars in your bathroom. Look for home health sections for best options Other Areas to Focus On ? Exercise and nutrition: Regular exercise or taking a falls prevention class are great ways improve strength and balance. Don t forget to stay hydrated and bring a snack! ? Medicine side effects: Some medicines can make you sleepy or dizzy, which could cause a fall. Ask your healthcare provider about the side effects your medicines could cause. Be sure to let them know if you take any vitamins or supplements as well. ? Tripping hazards: Remove items you could trip on, such as loose mats, rugs, cords, and clutter. Wear closed toe shoes with rubber soles. ? Health and wellness: Get regular checkups with your healthcare provider, plus routine vision and hearing screenings. Talk with your healthcare provider about: o Your medicines and the possible side effects - bring them in a bag if that is easier! o Problems with balance or feeling dizzy o Ways to promote bone health, such as Vitamin D and calcium supplements o Questions or concerns about falling *Ask your healthcare team if you have questions [facility]2021 documented in this encounter [facility] Work Phone: 07-02-2024 Hospital Discharge instructions Jairon Denise MD - 07/02/2024 11:19 PM EDT Recommend no driving until follow-up. The following attachments cannot be sent through Care Everywhere.Seizures, Adult ED (Belarusian)Time to stop driving? (Belarusian)documented in this encounter [facility] Work Phone: 07-02-2024 Physician Emergency department Note Patient is an 88-year-old female who presents after being found down. Last known well was 715 when the went out to do some lawn work. When he returned to the house she was unresponsive lying on the floor. EMS was contacted. Upon arrival I felt the patient was VAN positive and she was sent directly to CT scan. Review of Systems Physical Exam Vitals and nursing note reviewed. Constitutional: Appearance: She is not ill-appearing or toxic-appearing. HENT: Head: Normocephalic and atraumatic. Right Ear: Tympanic membrane normal. Left Ear: Tympanic membrane normal. Nose: Nose normal. Mouth/Throat: Mouth: Mucous membranes are moist. Pharynx: No oropharyngeal exudate or posterior oropharyngeal erythema. Eyes: Extraocular Movements: Extraocular movements intact. Conjunctiva/sclera: Conjunctivae normal. Pupils: Pupils are equal, round, and reactive to light. Cardiovascular: Rate and Rhythm: Normal rate and regular rhythm. Pulmonary: Effort: Pulmonary effort is normal. No respiratory distress. Breath sounds: Normal breath sounds. No wheezing, rhonchi or rales. Abdominal: General: There is no distension. Palpations: Abdomen is soft. There is no mass. Tenderness: There is no abdominal tenderness. There is no guarding. Musculoskeletal: General: No deformity. Normal range of motion. Cervical back: Neck supple. No tenderness. Skin: General: Skin is warm and dry. Neurological: General: No focal deficit present. Mental Status: She is alert. Cranial Nerves: Dysarthria and facial asymmetry present. Motor: Weakness present. Comments: Upon arrival initial sentiment seem to demonstrate a right sided facial droop, right-sided upper extremity weakness and right sided neglect as well as aphasia versus dysarthria. Psychiatric: Mood and Affect: Mood normal. Labs Reviewed CBC WITH AUTO DIFFERENTIAL - Abnormal Result Value WBC 9.7 nRBC 0.0 RBC 3.54 (*) Hemoglobin 10.1 (*) Hematocrit 31.7 (*) MCV 90 MCH 28.5 MCHC 31.9 (*) RDW 14.1 Platelets 249 Neutrophils % 53.2 Immature Granulocytes %, Automated 0.4 Lymphocytes % 38.7 Monocytes % 6.1 Eosinophils % 1.3 Basophils % 0.3 Neutrophils Absolute 5.14 Immature Granulocytes Absolute, Automated 0.04 Lymphocytes Absolute 3.74 (*) Monocytes Absolute 0.59 Eosinophils Absolute 0.13 Basophils Absolute 0.03 COMPREHENSIVE METABOLIC PANEL - Abnormal Glucose 191 (*) Sodium 133 (*) Potassium 4.0 Chloride 98 Bicarbonate 21 Anion Gap 18 Urea Nitrogen 16 Creatinine 1.27 (*) eGFR 41 (*) Calcium 8.9 Albumin 4.2 Alkaline Phosphatase 62 Total Protein 6.8 AST 10 Bilirubin, Total 0.4 ALT 9 POCT GLUCOSE METER - Abnormal POCT Glucose 177 (*) TROPONIN I, HIGH SENSITIVITY - Normal Troponin I, High Sensitivity 8 Narrative: Less than 99th percentile of normal range cutoff- Female and children under 18 years old <14 ng/L; Male <21 ng/L: Negative Repeat testing should be performed if clinically indicated. Female and children under 18 years old 14-50 ng/L; Male 21-50 ng/L: Consistent with possible cardiac damage and possible increased clinical risk. Serial measurements may help to assess extent of myocardial damage. >50 ng/L: Consistent with cardiac damage, increased clinical risk and myocardial infarction. Serial measurements may help assess extent of myocardial damage. NOTE: Children less than 1 year old may have higher baseline troponin levels and results should be interpreted in conjunction with the overall clinical context. NOTE: Troponin I testing is performed using a different testing methodology at [facility] than at other [facility]. Direct result comparisons should only be made within the same method. PROTIME-INR - Normal Protime 11.4 INR 1.0 APTT - Normal aPTT 29 Narrative: The APTT is no longer used for monitoring Unfractionated Heparin Therapy. For monitoring Heparin Therapy, use the Heparin Assay. CT brain attack angio head and neck W and WO IV contrast Final Result 1. 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 The basilar artery is supplied by the left vertebral artery, which is dominant and widely patent. 2. No significant stenosis of the cervical carotid or vertebral arteries. MACRO: None Signed by: Nighat Ngo 07/02/2024 9:28 PM Dictation workstation: [id number] CT brain attack head wo IV contrast Final Result No acute intracranial abnormality. Moderate burden of deep and periventricular white matter hypodensities which are nonspecific, but favored to represent chronic small vessel ischemic changes. MACRO: Nighat Ngo discussed the significance and urgency of this critical finding by telephone with JAIRON DENISE on 07/02/2024 at 9:10 pm. (-RCF-) Findings: See findings. Signed by: Nighat Ngo 07/02/2024 9:12 PM Dictation workstation: [id number] Procedures Medical Decision Making Patient is an 88-year-old female who presents after being found down. Last known well was 715 when the went out to do some lawn work. When he returned to the house she was unresponsive lying on the floor. EMS was contacted. Upon arrival I felt the patient was VAN positive and she was sent directly to CT scan. She demonstrated right upper extremity weakness with aphasia and would appear to be right sided neglect. By the time she got back from CT scan she was starting to make some improvements overall. Reassessment revealed some lingering dysarthria versus difficulty word finding. Stroke alert was called prior to the patient's arrival. It was discontinued at 2200 as the neurology consult with Dr. Zuñiga did not feel that the patient was having a stroke, neurology's concern was more of a seizure. They recommended starting her on Keppra and getting an outpatient EEG. DDx: Stroke, seizure, hypoglycemia, hyperglycemia, intracranial bleed Diagnoses as of 07/02/24 2320 New onset seizure (Multi) Jairon Denise MD 07/02/242319 [facility] Work Phone: 07-02-2024 Emergency department Note Patient is an 88-year-old female who presents after being found down. Last known well was 715 when the went out to do some lawn work. When he returned to the house she was unresponsive lying on the floor. EMS was contacted. Upon arrival I felt the patient was VAN positive and she was sent directly to CT scan. Review of Systems Physical Exam Vitals and nursing note reviewed. Constitutional: Appearance: She is not ill-appearing or toxic-appearing. HENT: Head: Normocephalic and atraumatic. Right Ear: Tympanic membrane normal. Left Ear: Tympanic membrane normal. Nose: Nose normal. Mouth/Throat: Mouth: Mucous membranes are moist. Pharynx: No oropharyngeal exudate or posterior oropharyngeal erythema. Eyes: Extraocular Movements: Extraocular movements intact. Conjunctiva/sclera: Conjunctivae normal. Pupils: Pupils are equal, round, and reactive to light. Cardiovascular: Rate and Rhythm: Normal rate and regular rhythm. Pulmonary: Effort: Pulmonary effort is normal. No respiratory distress. Breath sounds: Normal breath sounds. No wheezing, rhonchi or rales. Abdominal: General: There is no distension. Palpations: Abdomen is soft. There is no mass. Tenderness: There is no abdominal tenderness. There is no guarding. Musculoskeletal: General: No deformity. Normal range of motion. Cervical back: Neck supple. No tenderness. Skin: General: Skin is warm and dry. Neurological: General: No focal deficit present. Mental Status: She is alert. Cranial Nerves: Dysarthria and facial asymmetry present. Motor: Weakness present. Comments: Upon arrival initial sentiment seem to demonstrate a right sided facial droop, right-sided upper extremity weakness and right sided neglect as well as aphasia versus dysarthria. Psychiatric: Mood and Affect: Mood normal. Labs Reviewed CBC WITH AUTO DIFFERENTIAL - Abnormal Result Value WBC 9.7 nRBC 0.0 RBC 3.54 (*) Hemoglobin 10.1 (*) Hematocrit 31.7 (*) MCV 90 MCH 28.5 MCHC 31.9 (*) RDW 14.1 Platelets 249 Neutrophils % 53.2 Immature Granulocytes %, Automated 0.4 Lymphocytes % 38.7 Monocytes % 6.1 Eosinophils % 1.3 Basophils % 0.3 Neutrophils Absolute 5.14 Immature Granulocytes Absolute, Automated 0.04 Lymphocytes Absolute 3.74 (*) Monocytes Absolute 0.59 Eosinophils Absolute 0.13 Basophils Absolute 0.03 COMPREHENSIVE METABOLIC PANEL - Abnormal Glucose 191 (*) Sodium 133 (*) Potassium 4.0 Chloride 98 Bicarbonate 21 Anion Gap 18 Urea Nitrogen 16 Creatinine 1.27 (*) eGFR 41 (*) Calcium 8.9 Albumin 4.2 Alkaline Phosphatase 62 Total Protein 6.8 AST 10 Bilirubin, Total 0.4 ALT 9 POCT GLUCOSE METER - Abnormal POCT Glucose 177 (*) TROPONIN I, HIGH SENSITIVITY - Normal Troponin I, High Sensitivity 8 Narrative: Less than 99th percentile of normal range cutoff- Female and children under 18 years old <14 ng/L; Male <21 ng/L: Negative Repeat testing should be performed if clinically indicated. Female and children under 18 years old 14-50 ng/L; Male 21-50 ng/L: Consistent with possible cardiac damage and possible increased clinical risk. Serial measurements may help to assess extent of myocardial damage. >50 ng/L: Consistent with cardiac damage, increased clinical risk and myocardial infarction. Serial measurements may help assess extent of myocardial damage. NOTE: Children less than 1 year old may have higher baseline troponin levels and results should be interpreted in conjunction with the overall clinical context. NOTE: Troponin I testing is performed using a different testing methodology at [facility] than at other [facility]. Direct result comparisons should only be made within the same method. PROTIME-INR - Normal Protime 11.4 INR 1.0 APTT - Normal aPTT 29 Narrative: The APTT is no longer used for monitoring Unfractionated Heparin Therapy. For monitoring Heparin Therapy, use the Heparin Assay. CT brain attack angio head and neck W and WO IV contrast Final Result 1. 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 The basilar artery is supplied by the left vertebral artery, which is dominant and widely patent. 2. No significant stenosis of the cervical carotid or vertebral arteries. MACRO: None Signed by: Nighat Ngo 07/02/2024 9:28 PM Dictation workstation: [id number] CT brain attack head wo IV contrast Final Result No acute intracranial abnormality. Moderate burden of deep and periventricular white matter hypodensities which are nonspecific, but favored to represent chronic small vessel ischemic changes. MACRO: Nighat Ngo discussed the significance and urgency of this critical finding by telephone with JAIRON DENISE on 07/02/2024 at 9:10 pm. (-RCF-) Findings: See findings. Signed by: Nighat Ngo 07/02/2024 9:12 PM Dictation workstation: [id number] Procedures Medical Decision Making Patient is an 88-year-old female who presents after being found down. Last known well was 715 when the went out to do some lawn work. When he returned to the house she was unresponsive lying on the floor. EMS was contacted. Upon arrival I felt the patient was VAN positive and she was sent directly to CT scan. She demonstrated right upper extremity weakness with aphasia and would appear to be right sided neglect. By the time she got back from CT scan she was starting to make some improvements overall. Reassessment revealed some lingering dysarthria versus difficulty word finding. Stroke alert was called prior to the patient's arrival. It was discontinued at 2200 as the neurology consult with Dr. Zuñiga did not feel that the patient was having a stroke, neurology's concern was more of a seizure. They recommended starting her on Keppra and getting an outpatient EEG. DDx: Stroke, seizure, hypoglycemia, hyperglycemia, intracranial bleed Diagnoses as of 07/02/242319 New onset seizure (Multi) Jairon Denise MD 07/02/242319 documented in this encounter [facility] Work Phone: 07-02-2024 Nurse Note Pt Stroke Alert. Pt has never smoked. [facility] 07-02-2024 Nurse Note Pt Stroke Alert. Pt has never smoked. documented in this encounter [facility] Work Phone: 05-26-2024 Evaluation note Diagnosis Onset Date Resolution Hallucinations chronic April 11:20am Iron deficiency anemia chronic Ma [facility] 2024 11:20am Mild cognitive impairment chronic May 26, 2024 11:20am Parkinson disease chronic April 282024 11:20am B12 nutritional deficiency resolved May 26, 2024 11:20am Orthostatic hypotension acute M ay 2024 8:03am Seizure acute July 03, 2024 8:03am Hallucinations chronic July 03, 025 8:03am Iron deficiency anemia chronic Ma y 2024 8:03am Mild cognitive impairment chronic July 03, 2024 8: 03am Parkinson disease chronic June 8:03am [facility] Work Phone: 1(157) 822-773312-10-2024 History of Present illness Narrative* Nilsa Malik MD - 02/05/2024 10:40 AM EST Subjective Patient ID: Ramya Moss is a 88 y.o. female who presents for Medicare Annual Wellness Visit Subsequent (6 mo fu rev labs). HPI Since the last office visit there have been no interval operations, hospitalizations, important illnesses or injuries. Dm no cks HTN-Takes and tolerates meds without side effects. No alcohol. no tobacco. Reg exercise. low salt. Reviewed recommendation for 150 minutes of exercise per week including 2 days of weight training if over age 50 Depression-mood has been very good. Hypothyroid- is euthyroid on replacement. Thyroid ros is unremarkable. Parkinson's continue on meds as ordered amantadine and carbidopa levodopa Review of Systems General-no fatigue weight to within 10 pounds ENT no problems with vision swallowing Cardiac no chest pains palpitations change in exercise tolerance or capacity Pulmonary no cough shortness of breath GI no heartburn or abdominal pain Musculoskeletal no joint pains Objective BP 144/84 Pulse 86 Ht 1.457 m (4' 9.35) Wt 59 kg (130 lb) SpO2 96% BMI 27.79 kg/m Physical Exam General: Alert, No acute distress. Appears stated age Neck: Supple, Non-tender, No carotid bruit, No jugular venous distention, No lymphadenopathy, No thyromegaly. Respiratory: Lungs are clear to auscultation, Respirations are non-labored, Breath sounds are equal. Cardiovascular: Normal rate, Regular rhythm, No murmur. Gastrointestinal: Soft, Non-tender, No organomegaly. No solid or pulsatile mass Integumentary: Warm, Dry. No concerning lesions on exposed areas Neurologic: Alert, Oriented. Gross and fine motor intact, CN 2-12 intact Psychiatric: Cooperative, Appropriate mood & affect. Assessment/Plan Problem List Items Addressed This Visit ICD-10-CM Depression F32.A Relevant Orders Follow Up In Primary Care Comprehensive Metabolic Panel CBC Hypertension I10 Relevant Orders Follow Up In Primary Care Comprehensive Metabolic Panel CBC Lipid Panel Hypothyroid E03.9 Relevant Orders Follow Up In Primary Care Thyroid Stimulating Hormone Type 2 diabetes mellitus E11.9 Relevant Orders Follow Up In Primary Care Comprehensive Metabolic Panel CBC Albumin-Creatinine Ratio, Urine Random Hemoglobin A1C Lipid Panel Parkinson's disease, unspecified whether dyskinesia present, unspecified whether manifestations fluctuate G20.A1 Relevant Orders Follow Up In Primary Care Comprehensive Metabolic Panel CBC Other Visit Diagnoses Codes Routine general medical examination at health care facility - Primary Z00.00 Relevant Orders 1 Year Follow Up In Primary Care - Wellness [facility] Phone: 1(117) 909-767508-29-2024 History of Present illness Narrative* Mary Thomason MD - 10/25/2023 9:20 AM EDT Subjective: Ramya Moss is a 88 y.o. female who presents to clinic today for Back Pain (LOWER BACK ) She notes that she is having back pain. This started for a year or more. Its been off and on. It traditionally was aggravated by walking and exercise. Over the last 3 weeks she has been having pain every day. She's had to start using a cane in the last week. She was taking 4 tylenol every day, she's taking 2 in the morning nad 2 in the evening. Pain worsened when told to take 1 tylenol twice daily instead by her daughter. She's had pain daily since visiting her granddaughter in [place]. She notes that tylenol takes the edge off but doesn't eliminate it. She's been taking tylenol for 6months. Review of Systems Assessment/Plan: Ramya Moss is a 88 y.o. female who presents to clinic today to address the following issues: 1. Chronic bilateral low back pain with bilateral sciatica XR lumbar spine complete 4+ views Referral to Physical Therapy 2. Stage 3a chronic kidney disease (Multi) Worsening of chronic problem - Chronic problem, unresolved, new to this provider, requires further workup and treatment - Discussed with pt that with any acute worsening of her chronic back pain I would recommend that we get x-rays to rule out compression fracture or other anatomical abnormalities. I did explain that I anticipate degenerative changes that are age-related and that these may or may not be explaining her acute changes. I encouraged her and her daughter to increase Tylenol back to 2 tablets twice daily and to continue to minimize and avoid NSAIDs due to chronic kidney disease. Additionally ordered physical therapy that she will complete unless fracture on x-ray. Problem List Items Addressed This Visit Stage 3a chronic kidney disease (Multi) Other Visit Diagnoses Chronic bilateral low back pain with bilateral sciatica - Primary Relevant Orders XR lumbar spine complete 4+ views Referral to Physical Therapy There are no Patient Instructions on file for this visit. Follow up: based on results Return precautions discussed. An After Visit Summary was given to the patient. All questions were answered and patient in agreement with plan. Objective: BP 140/74 Pulse 78 Ht 1.461 m (4' 9.5) Wt 59.7 kg (131 lb 9.6 oz) SpO2 96% BMI 27.98 kg/m Physical Exam Vitals and nursing note reviewed. Constitutional: General: She is not in acute distress. Appearance: Normal appearance. HENT: Head: Normocephalic and atraumatic. Mouth/Throat: Mouth: Mucous membranes are moist. Eyes: General: No scleral icterus. Right eye: No discharge. Left eye: No discharge. Extraocular Movements: Extraocular movements intact. Conjunctiva/sclera: Conjunctivae normal. Pulmonary: Effort: No respiratory distress. Musculoskeletal: Comments: No tenderness to palpation over cervical and thoracic spine. Tenderness to palpation over lumbar region of spine and laterally. + + straight leg test bilaterally Skin: General: Skin is warm and dry. Neurological: Mental Status: She is alert and oriented to person, place, and time. I spent 18 minutes in total time for this visit including all related clinical activities before, during, and after the visit excluding other billable activities/procedure time. Mary Thomason MD documented in this [facility] Work Phone: 1(802) 733-704605-31-2024 History of Present illness Narrative* Nilsa Malik MD - 07/27/2023 10:00 AM EDT Subjective Patient ID: Ramya Moss is a 87 y.o. female who presents for Follow-up (1 mo). HPI 1 month follow-up blood pressure in good control no side effects taking and tolerating losartan 25 daily. Had no hypotensive episodes no orthostasis. Prescriptions filled for other diagnoses Review of Systems Denies chest pains palpitations cough shortness of breath heartburn or abdominal pain Objective BP 130/70 Pulse 87 Ht 1.461 m (4' 9.5) Wt 57.2 kg (126 lb 3.2 oz) SpO2 95% BMI 26.84 kg/m Physical Exam Chest is clear heart is regular without murmur Assessment/Plan Problem List Items Addressed This Visit ICD-10-CM Depression F32.A Relevant Medications escitalopram (Lexapro) 10 mg tablet Hyperlipemia E78.5 Relevant Medications simvastatin (Zocor) 20 mg tablet Hypertension I10 Relevant Medications losartan (Cozaar) 25 mg tablet Other Relevant Orders Follow Up In Primary Care - Established Hypothyroid E03.9 Relevant Medications levothyroxine (Synthroid, Levoxyl) 75 mcg tablet Type 2 diabetes mellitus (Multi) E11.9 Relevant Medications metFORMIN (Glucophage) 1,000 mg tablet pioglitazone (Actos) 15 mg tablet Other Relevant Orders Hemoglobin A1C Follow Up In Primary Care - Established [facility]: 1(679) 110-660104-29-2024 History of Present illness Narrative* Nilsa Malik MD - 06/25/2023 9:00 AM EDT Subjective Patient ID: Ramya Moss is a 87 y.o. female who presents for Follow-up (ER-06/24/23). HPI in er. Pain neck, shoulders. Felll 2wks ago and onset pain yesterday. ER record reviewed radiograph CAT scan reviewed. Reviewed use of [id number] analgesics Additionally reported some substernal discomfort. Will get stress test to prove not anginal Review of Systems As per HPI otherwise not remarkable Objective BP 160/78 Pulse 78 Ht 1.461 m (4' 9.5) Wt 57.6 kg (126 lb 14.4 oz) SpO2 92% BMI 26.99 kg/m Physical Exam Slightly tender base of the neck bilaterally right greater than left. No pain with right or left gaze. No weakness in upper extremities. Inspection of scalp shows no rash Assessment/Plan Problem List Items Addressed This Visit None Visit Diagnoses Codes Atypical chest pain - Primary R07.89 Relevant Orders Nuclear Stress Test [facility] Phone: 1(398) 457-603904-28-2024 Hospital Discharge instructions* Discharge Instructions* Jean Pierre Mathias DO - 06/24/2023 10:32 AM EDT Motrin and Tylenol as needed for pain. * Attachments The following attachments cannot be sent through Care Everywhere. * Chest Pain Discharge Instructions (Belarusian) * Neck Pain ED (Belarusian) documented in this [facility] Work Phone: 1(298) 810-713804-28-2024 Emergency department Note* Jean Pierre Mathias DO - 06/24/2023 6:56 AM EDTAssociated Order(s): ECG 12 lead HPI Chief Complaint Patient presents with Chest Pain Pt comes in for chest pain x last pm. Pt reports having upper/mid chest pain that radiates into bilateral shoulders. Pt denies any nausea, vomiting, back pain. Pt does have some neck pain, but had a fall last wk. Pt states that it hurts to breath. Limitations to History: None HPI: 87-year-old female presents with chest pain, neck pain, shoulder pain. States this began 12 hours ago. Kept her up through the night. Constant in nature. Patient fell a week ago in the bathroom and feels it may be secondary to this fall. Denies any shortness of breath, nausea, vomiting, abdominal pain, urinary symptoms. Additional History Obtained from: Family at the bedside. Physical Exam: VS: As documented in the triage note and EMR flowsheet from this visit were reviewed. Appearance: Alert. cooperative, in no acute distress. Skin: Intact, dry skin, no lesions, rash, petechiae or purpura. Eyes: PERRLA, EOMs intact, Conjunctiva pink with no redness or exudates. HENT: Normocephalic, atraumatic. Nares patent. No intraoral lesions. Neck: Supple, without meningismus. Trachea at midline. No lymphadenopathy. Pulmonary: Clear bilaterally with good chest wall excursion. No rales, rhonchi or wheezing. No accessory muscle use or stridor. Cardiac: Regular rate and rhythm, no rubs, murmurs, or gallops. Abdomen: Abdomen is soft, nontender, and nondistended. No palpable organomegaly. No rebound or guarding. No CVA tenderness. Nonsurgical abdomen. Genitourinary: Exam deferred. Musculoskeletal: Full range of motion. Pulses full and equal. No cyanosis, clubbing, or edema. Neurological: Cranial nerves are grossly intact, grossly normal sensation, no weakness, no focal findings identified. Psychiatric: Appropriate mood and affect. No data recorded Patient History Past Medical History: Diagnosis Date Personal history of other medical treatment H/O mammogram Past Surgical History: Procedure Laterality Date OTHER SURGICAL HISTORY 02/06/2019 Cholecystectomy OTHER SURGICAL HISTORY 02/06/2019 Appendectomy OTHER SURGICAL HISTORY 02/06/2019 Cataract surgery OTHER SURGICAL HISTORY 02/06/2019 Hysterectomy OTHER SURGICAL HISTORY 02/06/2019 Colonoscopy OTHER SURGICAL HISTORY 03/01/2020 Breast biopsy Family History Problem Relation Name Age of Onset Diabetes Mother Other (cardiac pacemaker) Sister Lung cancer Sister Pancreatic cancer Sister Other (cancer of spine) Brother Other (cardiack pacemaker) Brother Pancreatic cancer Brother Social History Tobacco Use Smoking status: Never Smokeless tobacco: Never Vaping Use Vaping status: Never Used Substance Use Topics Alcohol use: Never Drug use: Defer Physical Exam ED Triage Vitals [06/24/23 0700] Temperature Heart Rate Respirations BP 36.1 C (97 F) 87 (!) 21 153/79 Pulse Ox Temp Source Heart Rate Source Patient Position (!) 92 % Temporal Monitor Sitting BP Location FiO2 (%) Left arm -- Physical Exam ED Course & MDM Diagnoses as of 06/24/23 1032 Chest pain, unspecified type Neck pain Medical Decision Making Labs Reviewed CBC WITH AUTO DIFFERENTIAL - Abnormal WBC 14.3 (*) nRBC 0.0 RBC 4.03 Hemoglobin 11.6 (*) Hematocrit 37.1 MCV 92 MCH 28.8 MCHC 31.3 (*) RDW 13.3 Platelets 253 Neutrophils % 83.5 Immature Granulocytes %, Automated 0.6 Lymphocytes % 7.8 Monocytes % 7.6 Eosinophils % 0.2 Basophils % 0.3 Neutrophils Absolute 11.93 (*) Immature Granulocytes Absolute, Au* 0.08 Lymphocytes Absolute 1.11 Monocytes Absolute 1.08 (*) Eosinophils Absolute 0.03 Basophils Absolute 0.04 COMPREHENSIVE METABOLIC PANEL - Abnormal Glucose 194 (*) Sodium 135 (*) Potassium 4.3 Chloride 103 Bicarbonate 22 Anion Gap 14 Urea Nitrogen 31 (*) Creatinine 1.07 (*) eGFR 51 (*) Calcium 9.1 Albumin 4.3 Alkaline Phosphatase 71 Total Protein 7.2 AST 10 Bilirubin, Total 0.6 ALT 5 (*) MAGNESIUM - Abnormal Magnesium 1.19 (*) SERIAL TROPONIN-INITIAL - Normal Troponin I, High Sensitivity 3 Narrative: Less than 99th percentile of normal range cutoff- Female and children under 18 years old <14 ng/L; Male <21 ng/L: Negative Repeat testing should be performed if clinically indicated. Female and children under 18 years old 14-50 ng/L; Male 21-50 ng/L: Consistent with possible cardiac damage and possible increased clinical risk. Serial measurements may help to assess extent of myocardial damage. >50 ng/L: Consistent with cardiac damage, increased clinical risk and myocardial infarction. Serial measurements may help assess extent of myocardial damage. NOTE: Children less than 1 year old may have higher baseline troponin levels and results should be interpreted in conjunction with the overall clinical context. NOTE: Troponin I testing is performed using a different testing methodology at [facility] than at [facility]. Direct result comparisons should only be made within the same method. SERIAL TROPONIN, 1 HOUR - Normal Troponin I, High Sensitivity 3 Narrative: Less than 99th percentile of normal range cutoff- Female and children under 18 years old <14 ng/L; Male <21 ng/L: Negative Repeat testing should be performed if clinically indicated. Female and children under 18 years old 14-50 ng/L; Male 21-50 ng/L: Consistent with possible cardiac damage and possible increased clinical risk. Serial measurements may help to assess extent of myocardial damage. >50 ng/L: Consistent with cardiac damage, increased clinical risk and myocardial infarction. Serial measurements may help assess extent of myocardial damage. NOTE: Children less than 1 year old may have higher baseline troponin levels and results should be interpreted in conjunction with the overall clinical context. NOTE: Troponin I testing is performed using a different testing methodology at [facility] than at other [facility]. Direct result comparisons should only be made within the same method. TROPONIN SERIES- (INITIAL, 1 HR) CT angio chest for pulmonary embolism Final Result No CT evidence of acute pulmonary embolism. MACRO: None. Signed by: Len Becker 06/24/2023 10:24 AM Dictation workstation: [id number] CT head wo IV contrast Final Result NO ACUTE INTRACRANIAL PROCESS. SKULL INTACT NO ACUTE FRACTURE OR SUBLUXATION IN THE CERVICAL SPINE THIS REPORT SERVES THE DIAGNOSTIC INTERPRETATION FOR TWO EXAMS PERFORMED CONCURRENTLY: CT BRAIN WITHOUT IV CONTRAST AND CT CERVICAL SPINE WITHOUT IV CONTRAST MACRO: None Signed by: Derick Arguelles 06/24/2023 8:33 AM Dictation workstation: [id number] CT cervical spine wo IV contrast Final Result NO ACUTE INTRACRANIAL PROCESS. SKULL INTACT NO ACUTE FRACTURE OR SUBLUXATION IN THE CERVICAL SPINE THIS REPORT SERVES THE DIAGNOSTIC INTERPRETATION FOR TWO EXAMS PERFORMED CONCURRENTLY: CT BRAIN WITHOUT IV CONTRAST AND CT CERVICAL SPINE WITHOUT IV CONTRAST MACRO: None Signed by: Derick Arguelles 06/24/2023 8:33 AM Dictation workstation: [id number] XR chest 1 view Final Result No acute abnormalities. Chronic changes noted. Signed by: Guillermina Finn 06/24/2023 8:21 AM Dictation workstation: [id number] Medical Decision Making: Patient appears well nontoxic. EKG nonischemic. Patient's oxygen between 89 and 92. Was placed on some supplemental for comfort. White blood cell count of 14,000. Mild acute renal insufficiency with some hypomagnesemia. Patient treated with 1 L normal saline, intravenous magnesium, and intravenous Toradol. Troponin negative x 2. Chest x-ray clear. CTA performed which is also negative. Patient feeling much improved. Advised on Motrin and Tylenol for pain. Patient does wish to be discharged home.Will follow-up with her primary care provider and was given cardiology as needed. Stable at time ofdischarge. Differential Diagnoses Considered: ACS, pneumonia, pneumothorax, pulmonary embolism, chest wall pain Independent Interpretation of Studies: I independently interpreted: Chest x-ray shows no evidence of pneumonia or pneumothorax. CTA without central pulmonary embolism. Escalation of Care: Appropriate for discharge and follow-up with primary care and cardiology. Procedure ECG 12 lead Performed by: Jean Pierre Mathias DO Authorized by: Jean Pierre Mathias DO ECG interpreted by ED Physician in the absence of a reinforcing metal worker: yes Comments: EKG interpreted by Dr. Jean Pierre Mathias: Normal sinus rhythm at 93 bpm. MO interval 154 ms. QTc of422 ms. No evidence of ST elevation or depression at this time. Jean Pierre Mathias DO 06/24/23 1034 documented in this [facility] Work Phone: [phone]) 769-523704-28-2024 Physician Emergency department Note* Jean Pierre Mathias DO - 06/24/2023 6:56 AM EDTAssociated Order(s): ECG 12 lead HPI Chief Complaint Patient presents with Chest Pain Pt comes in for chest pain x last pm. Pt reports having upper/mid chest pain that radiates into bilateral shoulders. Pt denies any nausea, vomiting, back pain. Pt does have some neck pain, but had a fall last wk. Pt states that it hurts to breath. Limitations to History: None HPI: 87-year-old female presents with chest pain, neck pain, shoulder pain. States this began 12 hours ago. Kept her up through the night. Constant in nature. Patient fell a week ago in the bathroom and feels it may be secondary to this fall. Denies any shortness of breath, nausea, vomiting, abdominal pain, urinary symptoms. Additional History Obtained from: Family at the bedside. Physical Exam: VS: As documented in the triage note and EMR flowsheet from this visit were reviewed. Appearance: Alert. cooperative, in no acute distress. Skin: Intact, dry skin, no lesions, rash, petechiae or purpura. Eyes: PERRLA, EOMs intact, Conjunctiva pink with no redness or exudates. HENT: Normocephalic, atraumatic. Nares patent. No intraoral lesions. Neck: Supple, without meningismus. Trachea at midline. No lymphadenopathy. Pulmonary: Clear bilaterally with good chest wall excursion. No rales, rhonchi or wheezing. No accessory muscle use or stridor. Cardiac: Regular rate and rhythm, no rubs, murmurs, or gallops. Abdomen: Abdomen is soft, nontender, and nondistended. No palpable organomegaly. No rebound or guarding. No CVA tenderness. Nonsurgical abdomen. Genitourinary: Exam deferred. Musculoskeletal: Full range of motion. Pulses full and equal. No cyanosis, clubbing, or edema. Neurological: Cranial nerves are grossly intact, grossly normal sensation, no weakness, no focal findings identified. Psychiatric: Appropriate mood and affect. No data recorded Patient History Past Medical History: Diagnosis Date Personal history of other medical treatment H/O mammogram Past Surgical History: Procedure Laterality Date OTHER SURGICAL HISTORY 02/06/2019 Cholecystectomy OTHER SURGICAL HISTORY 02/06/2019 Appendectomy OTHER SURGICAL HISTORY 02/06/2019 Cataract surgery OTHER SURGICAL HISTORY 02/06/2019 Hysterectomy OTHER SURGICAL HISTORY 02/06/2019 Colonoscopy OTHER SURGICAL HISTORY 03/01/2020 Breast biopsy Family History Problem Relation Name Age of Onset Diabetes Mother Other (cardiac pacemaker) Sister Lung cancer Sister Pancreatic cancer Sister Other (cancer of spine) Brother Other (cardiack pacemaker) Brother Pancreatic cancer Brother Social History Tobacco Use Smoking status: Never Smokeless tobacco: Never Vaping Use Vaping status: Never Used Substance Use Topics Alcohol use: Never Drug use: Defer Physical Exam ED Triage Vitals [06/24/23 0700] Temperature Heart Rate Respirations BP 36.1 C (97 F) 87 (!) 21 153/79 Pulse Ox Temp Source Heart Rate Source Patient Position (!) 92 % Temporal Monitor Sitting BP Location FiO2 (%) Left arm -- Physical Exam ED Course & MDM Diagnoses as of 06/24/23 1032 Chest pain, unspecified type Neck pain Medical Decision Making Labs Reviewed CBC WITH AUTO DIFFERENTIAL - Abnormal WBC 14.3 (*) nRBC 0.0 RBC 4.03 Hemoglobin 11.6 (*) Hematocrit 37.1 MCV 92 MCH 28.8 MCHC 31.3 (*) RDW 13.3 Platelets 253 Neutrophils % 83.5 Immature Granulocytes %, Automated 0.6 Lymphocytes % 7.8 Monocytes % 7.6 Eosinophils % 0.2 Basophils % 0.3 Neutrophils Absolute 11.93 (*) Immature Granulocytes Absolute, Au* 0.08 Lymphocytes Absolute 1.11 Monocytes Absolute 1.08 (*) Eosinophils Absolute 0.03 Basophils Absolute 0.04 COMPREHENSIVE METABOLIC PANEL - Abnormal Glucose 194 (*) Sodium 135 (*) Potassium 4.3 Chloride 103 Bicarbonate 22 Anion Gap 14 Urea Nitrogen 31 (*) Creatinine 1.07 (*) eGFR 51 (*) Calcium 9.1 Albumin 4.3 Alkaline Phosphatase 71 Total Protein 7.2 AST 10 Bilirubin, Total 0.6 ALT 5 (*) MAGNESIUM - Abnormal Magnesium 1.19 (*) SERIAL TROPONIN-INITIAL - Normal Troponin I, High Sensitivity 3 Narrative: Less than 99th percentile of normal range cutoff- Female and children under 18 years old <14 ng/L; Male <21 ng/L: Negative Repeat testing should be performed if clinically indicated. Female and children under 18 years old 14-50 ng/L; Male 21-50 ng/L: Consistent with possible cardiac damage and possible increased clinical risk. Serial measurements may help to assess extent of myocardial damage. >50 ng/L: Consistent with cardiac damage, increased clinical risk and myocardial infarction. Serial measurements may help assess extent of myocardial damage. NOTE: Children less than 1 year old may have higher baseline troponin levels and results should be interpreted in conjunction with the overall clinical context. NOTE: Troponin I testing is performed using a different testing methodology at [facility] than at other [facility]. Direct result comparisons should only be made within the same method. SERIAL TROPONIN, 1 HOUR - Normal Troponin I, High Sensitivity 3 Narrative: Less than 99th percentile of normal range cutoff- Female and children under 18 years old <14 ng/L; Male <21 ng/L: Negative Repeat testing should be performed if clinically indicated. Female and children under 18 years old 14-50 ng/L; Male 21-50 ng/L: Consistent with possible cardiac damage and possible increased clinical risk. Serial measurements may help to assess extent of myocardial damage. >50 ng/L: Consistent with cardiac damage, increased clinical risk and myocardial infarction. Serial measurements may help assess extent of myocardial damage. NOTE: Children less than 1 year old may have higher baseline troponin levels and results should be interpreted in conjunction with the overall clinical context. NOTE: Troponin I testing is performed using a different testing methodology at [facility] than at other [facility]. Direct result comparisons should only be made within the same method. TROPONIN SERIES- (INITIAL, 1 HR) CT angio chest for pulmonary embolism Final Result No CT evidence of acute pulmonary embolism. MACRO: None. Signed by: Len Becker 06/24/2023 10:24 AM Dictation workstation: [id number] CT head wo IV contrast Final Result NO ACUTE INTRACRANIAL PROCESS. SKULL INTACT NO ACUTE FRACTURE OR SUBLUXATION IN THE CERVICAL SPINE THIS REPORT SERVES THE DIAGNOSTIC INTERPRETATION FOR TWO EXAMS PERFORMED CONCURRENTLY: CT BRAIN WITHOUT IV CONTRAST AND CT CERVICAL SPINE WITHOUT IV CONTRAST MACRO: None Signed by: Derick Arguelles 06/24/2023 8:33 AM Dictation workstation: [id number] CT cervical spine wo IV contrast Final Result NO ACUTE INTRACRANIAL PROCESS. SKULL INTACT NO ACUTE FRACTURE OR SUBLUXATION IN THE CERVICAL SPINE THIS REPORT SERVES THE DIAGNOSTIC INTERPRETATION FOR TWO EXAMS PERFORMED CONCURRENTLY: CT BRAIN WITHOUT IV CONTRAST AND CT CERVICAL SPINE WITHOUT IV CONTRAST MACRO: None Signed by: Derick Arguelles 06/24/2023 8:33 AM Dictation workstation: [id number] XR chest 1 view Final Result No acute abnormalities. Chronic changes noted. Signed by: Guillermina Finn 06/24/2023 8:21 AM Dictation workstation: [id number] Medical Decision Making: Patient appears well nontoxic. EKG nonischemic. Patient's oxygen between 89 and 92. Was placed on some supplemental for comfort. White blood cell count of 14,000. Mild acute renal insufficiency with some hypomagnesemia. Patient treated with 1 L normal saline, intravenous magnesium, and intravenous Toradol. Troponin negative x 2. Chest x-ray clear. CTA performed which is also negative. Patient feeling much improved. Advised on Motrin and Tylenol for pain. Patient does wish to be discharged home.Will follow-up with her primary care provider and was given cardiology as needed. Stable at time ofdischarge. Differential Diagnoses Considered: ACS, pneumonia, pneumothorax, pulmonary embolism, chest wall pain Independent Interpretation of Studies: I independently interpreted: Chest x-ray shows no evidence of pneumonia or pneumothorax. CTA without central pulmonary embolism. Escalation of Care: Appropriate for discharge and follow-up with primary care and cardiology. Procedure ECG 12 lead Performed by: Jean Pierre Mathias DO Authorized by: Jean Pierre Mathias DO ECG interpreted by ED Physician in the absence of a reinforcing metal worker: yes Comments: EKG interpreted by Dr. Jean Pierre Mathias: Normal sinus rhythm at 93 bpm. MO interval 154 ms. QTc of422 ms. No evidence of ST elevation or depression at this time. Jean Pierre Mathias DO 06/24/23 1034 [facility] Work Phone: [phone]) 830-800304-28-2024 Reason for referral (narrative)* Consultation (Routine) - Authorized Specialty Diagnoses / Procedures Referred By Lorraine drummond Referred To Contact Cardiology Jean Pierre Mathias DO [address] [place] [address] Department [place] [address] Referral ID Status Reason Start Date Expiration Date Visits Requested Visits Authorized [id number] Authorized Specialty Services Required 06/24/2023 06/23/2024 1 1 * Consultation (Routine) - Authorized Specialty Diagnoses / Procedures Referred By Lorraine drummond Referred To Contact Family Medicine / Primary Care Jean Pierre Mathias DO [address] [place] [address] Department [place] [address] Referral ID Status Reason Start Date Expiration Date Visits Requested Visits Authorized [id number] Authorized Specialty Services Required 06/24/2023 06/23/2024 1 1 [facility] Work Phone: [phone]) [phone] History of Present illness Narrative* Nilsa Malik MD - 06/22/2023 10:00 AM EDT Subjective Patient ID: Ramya Moss is a 87 y.o. female who presents for Follow-up (6 MO FU ). HPI Had fall, dizzy, lite headed when up at hs. Since the last office visit there have been no interval operations, hospitalizations, important illnesses or injuries. Lab CKD 3A. His diabetic on lisinopril been having hypotension with dizziness will DC the lisinopril. When rechecked in a month we will see if orthostasis is better monitor blood pressure. Here today with son and [id number] as she has had an acceleration in her improbable thoughts. She thinks her now had an affair with the resultant 31-year-old child [place] whocomes to visit regularly, moves the tile so she knows he has been there. Been aware of these psych code features long-term and she been well-maintained on respite all. More recently neurology washed out the amantadine over the weekend to see if it was the cause, did not evaluate the Parkinson's drug Sinemet as the cause and increased her from 1 mg to 2 mg which she became sedated and had shuffling gait so he reduced her to half milligram tabs 1 twice a day. I recommend that we attempt to control with smaller stairstep and she will take 0.5 mg by day and 1 mg at bedtime and if tolerated recheck in a month for both tolerability and effectiveness. If not effective consider quetiapine Review of Systems As per HPI Objective BP 108/60 Pulse 58 Ht 1.448 m (4' 9) Wt 55.7 kg (122 lb 14.4 oz) SpO2 97% BMI 26.60 kg/m Physical Exam Heart regular lungs clear able to discuss issues regarding the above-captioned improbable thought Assessment/Plan Problem List Items Addressed This Visit ICD-10-CM Depression F32.A Relevant Medications risperiDONE (RisperDAL) 0.5 mg tablet Other Relevant Orders Follow Up In Primary Care - Established Hyperlipemia E78.5 Relevant Orders Follow Up In Primary Care - Established Hypertension I10 Relevant Orders Follow Up In Primary Care - Established Hypothyroid E03.9 Relevant Orders Follow Up In Primary Care - Established Type 2 diabetes mellitus (Multi) - Primary E11.9 Relevant Orders Follow Up In Primary Care - Established Parkinson's disease, unspecified whether dyskinesia present, unspecified whether manifestations fluctuate (Multi) G20.A1 Stage 3a chronic kidney disease (Multi) N18.31 Depression with psychotic features will now be Resporal 0.5 every morning and 1 mg nightly 1 month follow-up documented in this [facility] Work Phone: [phone] 454-357910-25-2023 History of Present illness Narrative* Nilsa Malik MD - 12/20/2022 10:00 AM EDT Subjective Reason for Visit: Ramya Moss is an 87 y.o. female here for a Medicare Wellness visit. Past Medical, Surgical, and Family History reviewed and updated in chart. Reviewed all medications by prescribing practitioner or clinical pharmacist (such as prescriptions,OTCs, herbal therapies and supplements) and documented in the medical record. HPI Since the last office visit there have been no interval operations, hospitalizations, important illnesses or injuries. Patient Care Team: Nilsa Malik MD as PCP - General [facility] Provider Nilsa Malik MD as PCP - [facility] PCP Dr Sterling for parkinsons on sinemet HTN-Takes and tolerates meds without side effects. No alcohol. no tobacco. no exercise. low salt. Reviewed recommendation for 150 minutes of exercise per week including 2 days of weight training if over age 50 Hyperlipidemia- is on a statin and a prudent diet. Hypothyroid- is euthyroid on replacement. Thyroid ros is unremarkable. Dm-no checks, no nursing staff development coordinator,retin, nephrop On risperdone woth no hallucinations or improbable thoughts. Review of Systems Objective Vitals: BP 124/62 Pulse 100 Ht 1.448 m (4' 9) Wt 56.5 kg (124 lb 8 oz) SpO2 95% BMI 26.94 kg/m Physical Exam General: Alert, No acute distress. Appears stated age Eye: Pupils are equal, round and reactive to light, Extraocular movements are intact, Normal conjunctiva. Neck: Supple, Non-tender, No carotid bruit, No jugular venous distention, No lymphadenopathy, No thyromegaly. Respiratory: Lungs are clear to auscultation, Respirations are non-labored, Breath sounds are equal. Cardiovascular: Normal rate, Regular rhythm, No murmur. Gastrointestinal: Soft, Non-tender, No organomegaly. No solid or pulsatile mass Integumentary: Warm, Dry. No concerning lesions on exposed areas Neurologic: Alert, Oriented. Gross and fine motor intact, CN 2-12 intact Psychiatric: Cooperative, Appropriate mood & affect. Assessment/Plan Problem List Items Addressed This Visit Depression Relevant Orders Follow Up In Primary Care Hyperlipemia Relevant Orders Albumin , Urine Random CBC Comprehensive Metabolic Panel Lipid Panel Follow Up In Primary Care Hypertension Relevant Orders Albumin , Urine Random CBC Comprehensive Metabolic Panel Lipid Panel Follow Up In Primary Care Hypothyroid Relevant Orders Thyroid Stimulating Hormone Follow Up In Primary Care Type 2 diabetes mellitus (CMS/HCC) Relevant Orders Albumin , Urine Random CBC Hemoglobin A1C Comprehensive Metabolic Panel Lipid Panel Follow Up In Primary Care Other Visit Diagnoses Routine general medical examination at health care facility - [facility]: [phone] History of Present illness Narrative* Nilsa Malik MD - 06/09/2022 9:20 AM EDT Subjective Patient ID: Ramya Moss is a 86 y.o. female who presents for Follow-up (6 mo fu rev labs ). HPI Since the last office visit there have been no interval operations, hospitalizations, importantillnesses or injuries. HTN-Takes and tolerates meds without side effects. No alcohol. no tobacco. no exercise. low salt. Reviewed recommendation for 150 minutes of exercise per week including 2 days of weight training if over age 50 Hyperlipidemia- is on a statin and a prudent diet. dm A1c at 7.4 microalbumin absent lipids at goal CBC CMP unremarkable Depression is well controlled sleep is good continues on respite all at bedtime. No problematic improbable thoughts Review of Systems general-no fatigue weight to within 10 pounds ENT no problems with vision swallowing Cardiac no chest pains palpitations change in exercise tolerance or capacity Pulmonary no cough shortness of breath GI no heartburn or abdominal pain Musculoskeletal no joint pains Objective BP 122/64 Pulse 77 Ht 1.448 m (4' 9) Wt 58.8 kg (129 lb 11.2 oz) SpO2 97% BMI 28.07 kg/m Physical Exam General: Alert, No acute distress. Appears stated age Eye: Pupils are equal, round and reactive to light, Extraocular movements are intact, Normal conjunctiva. Neck: Supple, Non-tender, No carotid bruit, No jugular venous distention, No lymphadenopathy, No thyromegaly. Respiratory: Lungs are clear to auscultation, Respirations are non-labored, Breath sounds are equal. Cardiovascular: Normal rate, Regular rhythm, No murmur. Gastrointestinal: Soft, Non-tender, No organomegaly. No solid or pulsatile mass Integumentary: Warm, Dry. No concerning lesions on exposed areas Neurologic: Alert, Oriented. Gross and fine motor intact, CN 2-12 intact Psychiatric: Cooperative, Appropriate mood & affect. Assessment/Plan Problem List Items Addressed This Visit Circulatory Hypertension - Primary Endocrine/Metabolic Type 2 diabetes mellitus (CMS/HCC) Relevant Orders Follow Up In Primary Care Hemoglobin A1C Other Depression [facility]emia [facility] note* Diagnosis Onset Date Resolution Status B12 nutritional deficiency c hronic Iron deficiency anemia chron ic Mild cognitive impairment ch ronic Parkinson disease [facility] Work Phone: Evaluation note* Diagnosis Primary hypertension- Primary Unspecified essential hypertension Type 2 diabetes mellitus without complication, without long-term current use of insulin (CMS/HCC) Mixed hyperlipidemia 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, unspecified whether recurrent (CMS/HCC) documented in this encounter [facility] Work Phone: Evaluation note* Diagnosis Routine general medical examination at health care facility- Primary Routine general medical examination at a health care facility Type 2 diabetes mellitus without complication, without long-term current use of insulin (CMS/HCC) 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, unspecified whether recurrent (CMS/HCC) Acquired hypothyroidism Unspecified hypothyroidism Primary hypertension Unspecified essential hypertension Mixed hyperlipidemia documented in this encounter [facility] Work Phone: Evaluation note* Diagnosis Type 2 diabetes mellitus without complication, without long-term current use of insulin (Multi)- Primary 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, unspecified whether recurrent (CMS-HCC) Acquired hypothyroidism Unspecified hypothyroidism Primary hypertension Unspecified essential hypertension Mixed hyperlipidemia Parkinson's disease, unspecified whether dyskinesia present, unspecified whether manifestations fluctuate (Multi) Stage 3a chronic kidney disease (Multi) documented in this encounter [facility] Work Phone: [phone] note* Diagnosis Chest pain, unspecified type- Primary Neck pain Cervicalgia documented in this encounter [facility] Work Phone: [phone] note* Diagnosis Atypical chest pain- Primary Other chest pain documented in this encounter [facility] Work Phone: [phone] note* Diagnosis Atypical chest pain Other chest pain Atypical chest pain Other chest pain documented in this encounter [facility] Work Phone: [phone] note* Diagnosis Atypical chest pain Other chest pain Atypical chest pain Other chest pain documented in this encounter [facility] Work Phone: [phone] note* Diagnosis Type 2 diabetes mellitus without complication, without long-term current use of insulin (Multi) 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, unspecified whether recurrent ([facility]-HCC) Acquired hypothyroidism Unspecified hypothyroidism Primary hypertension Unspecified essential hypertension Mixed hyperlipidemia Hypothyroidism, unspecified type documented in this encounter [facility] Work Phone: [phone] note* Diagnosis Routine general medical examination at health care facility- Primary Routine general medical examination at a health care facility 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, unspecified whether recurrent (CMS-HCC) Type 2 diabetes mellitus without complication, without long-term current use of insulin (Multi) Primary hypertension Unspecified essential hypertension Parkinson's disease, unspecified whether dyskinesia present, unspecified whether manifestations fluctuate Acquired hypothyroidism Unspecified hypothyroidism documented in this encounter [facility] Work Phone: [phone] note* Diagnosis Chronic bilateral low back pain with bilateral sciatica documented in this encounter [facility] Work Phone: [phone] note* Diagnosis Chronic bilateral low back pain with bilateral sciatica- Primary Stage 3a chronic kidney disease (Multi) documented in this encounter [facility] Work Phone: [phone] note* Diagnosis New onset seizure (Multi)- Primary documented in this encounter [facility] Work Phone: [phone] note* Diagnosis Urgency of urination- Primary Hallucinations Primary hypertension Unspecified essential hypertension documented in this encounter [facility] Work Phone: History of Present illness Narrative* Since the last office visit there have been no interval operations, hospitalizations, important illnesses or injuries. * sees neurology for herbert jacobsen * mood is good on lexapro risperdal with no improbable thoughts * HTN-Takes and tolerates meds without side effects. No alcohol. no tobacco. no exercise. low salt. Reviewed recommendation for 150 minutes of exercise per week including 2 days of weight training if over age 50 * dm no cks , eye dr current no nursing staff development coordinator * Hyperlipidemia- is on statin and a prudent diet. * is on b12 pills as b12 was low and anemia is persistent nc/[email or web address] has on . [email or web address] [facility] Work Phone: History of Present illness Narrative* Since the last office visit there have been no interval operations, hospitalizations, important illnesses or injuries. * dm back down to 7.2 and will return to 6 mo ov * eye dr current feb, no nursing staff development coordinator * Hypothyroid- is euthyroid on replacement. Thyroid ros is unremarkable. * Hyperlipidemia- is on statin and a prudent diet. * HTN-Takes and tolerates meds without side effects. No alcohol. no tobacco. no exercise. low salt. Reviewed recommendation for 150 minutes of exercise per week including 2 days of weight training if over age 50 [email or web address] [facility] Work Phone: History of Present illness Narrative* The patient is being seen for the subsequent annual wellness visit. * Past Medical, Surgical and Family History: reviewed and updated in chart. * Interval History: Patient has not been hospitalized previously. * Medications and Supplements: Review of all medications by a prescribing practitioner or clinical pharmacist (such as prescriptions, OTCs, herbal therapies and supplements) documented in the medical record. * No, the patient is not using opioids. * Health Risk Assessment:. Paper HRA completed by patient and scanned into chart. * Patient Self Assessment of Health Status: good. * Tobacco use: Non-User * Alcohol use: Non-User, As noted in social history * Illicit drug use: Non-User * Current diet: well balanced diet. * Exercise Frequency: the patient does not exercise. * Depression/Suicide Screening: Patient has a current diagnosis of depression. * Hearing Impairment: Patient has slight hearing impairment, bilaterally. * Cognitive Impairment: No cognitive impairment observed. * Bathing: performs independently. * Dressing: performs independently. * Walking: performs independently. * Toileting: performs independently. * Feeding: performs independently. * Personal Hygiene: performs independently. * Bowels: continent. * Bladder: continent. * Managing Finances: performs independently. * Shopping: performs independently. * Managing Medications: performs independently. * Housework / Basic Home Maintenance: performs independently. * Handling Transportation: performs independently. * Preparing Meals: performs independently. * Using the Telephone/ Communication Devices: performs independently. * Falls Risk Screening:. RAMYA has not fallen in the last 6 months. Her fall did not result in injury. * Fall risk factors: fell in snow. * Care Plan Low/Moderate Risk: Regular physical activity such as walking, water aerobics or subhash chi to improve strength, balance, coordination and flexibility. Wear appropriate, sensible shoe wear. Remove fall hazards at home such as loose rugs, obstacles, use non-slip surface in bath or shower. Keep living space well lit. * Home safety risk factors: no grab bars in the bathroom. * Advance directives:. Advance Care Planning discussed and documented in the medical record, patient did not wish or was not able to name a surrogate decision maker or provide an advance care plan. Patient has living will. Patient has healthcare POA. * Since the last office visit there have been no interval operations, hospitalizations, important illnesses or injuries. * Hyperlipidemia- is on statin and a prudent diet. * Hypothyroid- is euthyroid on replacement. Thyroid ros is unremarkable. * HTN-Takes and tolerates meds without side effects. No alcohol. no tobacco. no exercise. low salt. Reviewed recommendation for 150 minutes of exercise per week including 2 days of weight training if over age 50 * dm met and paige, no lows * mood is good no improbable thoughts on risperdala dn lexapro [facility] Work Phone: History of Present illness NarrativePatient is seen for breast exam and mammogram follow-up. She denies any change in her breast self-exam.-[facility] Work Phone: reason for referral (narrative)* Consultation (Routine) - Authorized Specialty Diagnoses / Procedures Referred By Contac t Referred To Contact Primary Care Diagnoses Type 2 diabetes mellitus without complication, without long-term current use of insulin (CMS/HCC) Procedures Follow Up In Primary Care Nilsa Malik MD [address] [place] [address] Referral ID Status Reason Start Date Expiration Date V isits Requested Visits Authorized [id number] Authorized 06/09/2022 12/06/2022 1 1 [facility] Work Phone: Reason for referral (narrative)* Consultation (Routine) - Authorized Specialty Diagnoses / Procedures Referred By Lorraine drummond Referred To Contact Primary Care Diagnoses Type 2 diabetes mellitus without complication, without long-term current use of insulin (CMS/HCC) 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, unspecified whether recurrent (CMS/HCC) Acquired hypothyroidism Primary hypertension Mixed hyperlipidemia Procedures Follow Up In Primary Care Nilsa Malik MD [address] [place] [address] Referral ID Status Reason Start Date Expiration Date V isits Requested Visits Authorized [id number] Authorized 12/20/2022 12/20/2023 1 1 [facility] Work Phone: Reason for referral (narrative)* Consultation (Routine) - Authorized Specialty Diagnoses / Procedures Referred By Lorraine drummond Referred To Contact Primary Care Diagnoses Type 2 diabetes mellitus without complication, without long-term current use of insulin (Multi) 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, unspecified whether recurrent (CMS-HCC) Acquired hypothyroidism Primary hypertension Mixed hyperlipidemia Procedures Follow Up In Primary Care - Established Nilsa Malik MD [address] [place] [address] Referral ID Status Reason Start Date Expiration Date V isits Requested Visits Authorized [id number] Authorized 06/22/2023 06/21/2024 1 1 [facility] Work Phone: Regeum for referral (narrative)* Consultation (Routine) - Authorized Specialty Diagnoses / Procedures Referred By Contac t Referred To Contact Primary Care Diagnoses Type 2 diabetes mellitus without complication, without long-term current use of insulin (Multi) Primary hypertension Procedures Follow Up In Primary Care - Established Nilsa Malik MD [address] [id number] Referral ID Status Reason Start Date Expiration Date V isits Requested Visits Authorized [id number] Authorized 07/27/2023 07/26/2024 1 1 [facility] Work Phone: reason for referral (narrative)* Consultation (Routine) - Pending Review Specialty Diagnoses / Procedures Referred By Contac t Referred To Contact Physical Therapy Diagnoses Chronic bilateral low back pain with bilateral sciatica Mary Thomason MD [address] [place] [address] Referral ID Status Reason Start Date Expiration Date Visits Requested Visits Authorized [id number] Pending Review Specialty Services Required 10/25/2023 10/24/2024 1 1 * Imaging (Routine) - Authorized Specialty Diagnoses / Procedures Referred By Contac t Referred To Contact Radiology Diagnoses Chronic bilateral low back pain with bilateral sciatica Procedures XR lumbar spine complete 4+ views Mary Thomason MD [address] [place] [address] Referral ID Status Reason Start Date Expiration Date Visits Requested Visits Authorized [id number] Authorized Perform Procedure 10/25/2023 10/24/2024 1 1 T [facility] Work Phone: Reodar for referral (narrative)No reason for referral information [facility] Work Phone: Summary Purpose Family History No Family History Records Found Sister Name Dates Details Family history of cardiac pa cemaker(V17.49, Z82.49) Status:Active Family history of pancreatic cancer(V16.0, Z80.0) Status:Active Family history of lung cance r(V16.1, Z80.1) Status:Active Brother Name Dates Details Family history of cardiac pa cemaker(V17.49, Z82.49) Status:Active Family history of pancreatic cancer(V16.0, Z80.0) Status:Active Family history of Cancer of spine(170.2, C41.2) Status:Active Sister Name Dates Details Family history of cardiac pa cemaker(V17.49, Z82.49) Status:Active Family history of pancreatic cancer(V16.0, Z80.0) Status:Active Family history of lung cance r(V16.1, Z80.1) Status:Active Brother Name Dates Details Family history of cardiac pa cemaker(V17.49, Z82.49) Status:Active Family history of pancreatic cancer(V16.0, Z80.0) Status:Active Family history of Cancer of spine(170.2, C41.2) Status:Active Sister Name Dates Details Family history of cardiac pa cemaker(V17.49, Z82.49) Status:Active Family history of pancreatic cancer(V16.0, Z80.0) Status:Active Family history of lung cance r(V16.1, Z80.1) Status:Active Brother Name Dates Details Family history of cardiac pa cemaker(V17.49, Z82.49) Status:Active Family history of pancreatic cancer(V16.0, Z80.0) Status:Active Family history of Cancer of spine(170.2, C41.2) Status:Active Mother Name Dates Details Family history of type 2 torri betes mellitus(V18.0, Z83.3) Status:Active Sister Name Dates Details Family history of cardiac pa cemaker(V17.49, Z82.49) Status:Active Family history of pancreatic cancer(V16.0, Z80.0) Status:Active Family history of lung cance r(V16.1, Z80.1) Status:Active Brother Name Dates Details Family history of cardiac pa cemaker(V17.49, Z82.49) Status:Active Family history of pancreatic cancer(V16.0, Z80.0) Status:Active Family history of Cancer of spine(170.2, C41.2) Status:Active Unknown Family Member Name Dates Details Family history of cardiac pa cemaker: Sister, Brother(V17.49, Z82.49) Status:Active Family history of pancreatic cancer: Sister, Brother(V16.0, Z80.0) Status:Active Family history of lung cance r: Sister(V16.1, Z80.1) Status:Active Cancer of spine: Brother Status:Active Family history of type 2 torri betes mellitus: Mother(V18.0, Z83.3) Status:Active Unknown Family Member Name Dates Details Family history of cardiac pa cemaker: Sister, Brother(V17.49, Z82.49) Status:Active Family history of pancreatic cancer: Sister, Brother(V16.0, Z80.0) Status:Active Family history of lung cance r: Sister(V16.1, Z80.1) Status:Active Cancer of spine: Brother Status:Active Family history of type 2 torri betes mellitus: Mother(V18.0, Z83.3) Status:Active Unknown Family Member Name Dates Details Family history of cardiac pa cemaker: Sister, Brother(V17.49, Z82.49) Status:Active Family history of pancreatic cancer: Sister, Brother(V16.0, Z80.0) Status:Active Family history of lung cance r: Sister(V16.1, Z80.1) Status:Active Cancer of spine: Brother Status:Active Family history of type 2 torri betes mellitus: Mother(V18.0, Z83.3) Status:Active Unknown Family Member Name Dates Details Family history of cardiac pa cemaker: Sister, Brother(V17.49, Z82.49) Status:Active Family history of pancreatic cancer: Sister, Brother(V16.0, Z80.0) Status:Active Family history of lung cance r: Sister(V16.1, Z80.1) Status:Active Cancer of spine: Brother Status:Active Family history of type 2 torri betes mellitus: Mother(V18.0, Z83.3) Status:Active Unknown Family Member Name Dates Details Family history of cardiac pa cemaker: Sister, Brother(V17.49, Z82.49) Status:Active Family history of pancreatic cancer: Sister, Brother(V16.0, Z80.0) Status:Active Family history of lung cance r: Sister(V16.1, Z80.1) Status:Active Cancer of spine: Brother Status:Active Family history of type 2 torri betes mellitus: Mother(V18.0, Z83.3) Status:Active Unknown Family Member Name Dates Details Family history of cardiac pa cemaker: Sister, Brother(V17.49, Z82.49) Status:Active Family history of pancreatic cancer: Sister, Brother(V16.0, Z80.0) Status:Active Family history of lung cance r: Sister(V16.1, Z80.1) Status:Active Cancer of spine: Brother Status:Active Family history of type 2 torri betes mellitus: Mother(V18.0, Z83.3) Status:Active Unknown Family Member Name Dates Details Family history of cardiac pa cemaker: Sister, Brother(V17.49, Z82.49) Status:Active Family history of pancreatic cancer: Sister, Brother(V16.0, Z80.0) Status:Active Family history of lung cance r: Sister(V16.1, Z80.1) Status:Active Cancer of spine: Brother Status:Active Family history of type 2 torri betes mellitus: Mother(V18.0, Z83.3) Status:Active Unknown Family Member Name Dates Details Family history of cardiac pa cemaker: Sister, Brother(V17.49, Z82.49) Status:Active Family history of pancreatic cancer: Sister, Brother(V16.0, Z80.0) Status:Active Family history of lung cance r: Sister(V16.1, Z80.1) Status:Active Cancer of spine: Brother Status:Active Family history of type 2 torri betes mellitus: Mother(V18.0, Z83.3) Status:Active Unknown Family Member Name Dates Details Family history of cardiac pa cemaker: Sister, Brother(V17.49, Z82.49) Status:Active Family history of pancreatic cancer: Sister, Brother(V16.0, Z80.0) Status:Active Family history of lung cance r: Sister(V16.1, Z80.1) Status:Active Cancer of spine: Brother Status:Active Family history of type 2 torri betes mellitus: Mother(V18.0, Z83.3) Status:Active Unknown Family Member Name Dates Details Family history of cardiac pa cemaker: Sister, Brother(V17.49, Z82.49) Status:Active Family history of pancreatic cancer: Sister, Brother(V16.0, Z80.0) Status:Active Family history of lung cance r: Sister(V16.1, Z80.1) Status:Active Cancer of spine: Brother Status:Active Family history of type 2 torri betes mellitus: Mother(V18.0, Z83.3) Status:Active Unknown Family Member Name Dates Details Family history of cardiac pa cemaker: Sister, Brother(V17.49, Z82.49) Status:Active Family history of pancreatic cancer: Sister, Brother(V16.0, Z80.0) Status:Active Family history of lung cance r: Sister(V16.1, Z80.1) Status:Active Cancer of spine: Brother Status:Active Family history of type 2 torri betes mellitus: Mother(V18.0, Z83.3) Status:Active Unknown Family Member Name Dates Details Family history of type 2 torri betes mellitus: Mother(V18.0, Z83.3) Status:Active Family history of cardiac pa cemaker: Sister, Brother(V17.49, Z82.49) Status:Active Family history of pancreatic cancer: Sister, Brother(V16.0, Z80.0) Status:Active Family history of lung cance r: Sister(V16.1, Z80.1) Status:Active Cancer of spine: Brother Status:Active Unknown Family Member Name Dates Details Family history of type 2 torri betes mellitus: Mother(V18.0, Z83.3) Status:Active Family history of cardiac pa cemaker: Sister, Brother(V17.49, Z82.49) Status:Active Family history of pancreatic cancer: Sister, Brother(V16.0, Z80.0) Status:Active Family history of lung cance r: Sister(V16.1, Z80.1) Status:Active Cancer of spine: Brother Status:Active Relationship Condition Age at Onset Recorded Date/T zuleyma brother Malignant neoplasm of bone Unknown sister Malignant neoplasm of lung Unknown Parkinson's disease Unknown Unknown Family Member Name Dates Details Family history of cardiac pa cemaker: Sister, Brother(V17.49, Z82.49) Status:Active Family history of pancreatic cancer: Sister, Brother(V16.0, Z80.0) Status:Active Family history of lung cance r: Sister(V16.1, Z80.1) Status:Active Cancer of spine: Brother Status:Active Family history of type 2 torri betes mellitus: Mother(V18.0, Z83.3) Status:Active Unknown Family Member Name Dates Details Family history of cardiac pa cemaker: Sister, Brother(V17.49, Z82.49) Status:Active Family history of pancreatic cancer: Sister, Brother(V16.0, Z80.0) Status:Active Family history of lung cance r: Sister(V16.1, Z80.1) Status:Active Cancer of spine: Brother Status:Active Family history of type 2 torri betes mellitus: Mother(V18.0, Z83.3) Status:Active Unknown Family Member Name Dates Details Family history of type 2 torri betes mellitus: Mother(V18.0, Z83.3) Status:Active Cancer of spine: Brother Status:Active Family history of lung cance r: Sister(V16.1, Z80.1) Status:Active Family history of pancreatic cancer: Sister, Brother(V16.0, Z80.0) Status:Active Family history of cardiac pa cemaker: Sister, Brother(V17.49, Z82.49) Status:Active Advance Directives No Advanced Directives Records FoundNo Advanced Directives Records FoundNo Advanced Directives Records FoundNo Advanced Directives Records FoundNo Advanced Directives Records FoundNo Advanced Directives Records FoundNo Advanced Directives Records FoundNo Advanced Directives Records Found Chief Complaint 6 MO FU REV LABS3 MO FU. REV LABSMCW..6 MO FU. REV LABSBreast exam,mammo 09/12/2021 cat 2. Denies nipple discharge, breast pain or lumps. Pt is not performing SBE at this time.Breast exam,mammo 09/12/2021 cat 2. Denies nipple discharge, breast pain or lumps. Pt is not performing SBE at this time. Chief Complaint and Reason for Visit Chief Complaint Parkinson's disease/ GERALDINE PATIENT EORDER Reason for Visit B12 nutritional defi ciency Iron deficiency anemia Mild cognitive impairment Parkinson disease Chief Complaint Admit Date FOLLOW UP May 26, 2024 11: 20am ACUTE-DIFFICULTY WALKING July 03, 2024 8 :03am E-ORDER July 03, 2024 9:08am Reason for Visit Admit Date Hallucinations May 26, 2024 11: 20am Iron deficiency anemia May 26, 2024 11:20am Mild cognitive impairment May 26 11:20am Parkinson disease May 26, 2024 11: 20am B12 nutritional deficiency May 26 11:20am Orthostatic hypotension July 03, 2024 8: 03am Seizure July 03, 2024 8:03am Hallucinations July 03, 2024 8:03am Iron deficiency anemia July 03, 2024 8:0 3am Mild cognitive impairment July 03, 2024 8:03am Parkinson disease July 03, 2024 8:03am Reason for Referral Specialty Diagnoses / Procedures Referred By Contac t Referred To Contact Diagnoses Atypical chest pain Procedures Nuclear Stress Test [place] [address] Referral ID Status Reason Start Date Expiration Date V isits Requested Visits Authorized [id number] Pending Review 06/25/2023 06/24/2024 5 5 Specialty Diagnoses / Procedures Referred By Contac t Referred To Contact Diagnoses Atypical chest pain Procedures Cardiology Interpretation Of Nuclear Stress - See Other Report For Nuclear Portion Nilsa Malik MD [address] [place] [address] Referral ID Status Reason Start Date Expiration Date V isits Requested Visits Authorized [id number] Pending Review 07/09/2023 07/08/2024 1 1 Specialty Diagnoses / Procedures Referred By Contac t Referred To Contact Radiology Diagnoses Chronic bilateral low back pain with bilateral sciatica Procedures XR lumbar spine complete 4+ views Mary Thomason MD [address] [place] [address] Referral ID Status Reason Start Date Expiration Date Visits Requested Visits Authorized [id number] Authorized Perform Procedure 10/25/2023 10/24/2024 1 1 Additional Source Comments INFORMATION SOURCE (unrecogn ized section and content) DATE CREATED AUTHOR 10/11/2018 [facility] DATE CREATED AUTHOR AUTHOR'S ORGANIZ ATION 09/16/2021 [facility] DATE CREATED AUTHOR AUTHOR'S ORGANIZ ATION 12/07/2021 [employer] DATE CREATED AUTHOR AUTHOR'S ORGANIZ ATION 01/28/2024 [facility] DATE CREATED AUTHOR AUTHOR'S ORGANIZ ATION 07/05/2024 [facility] DATE CREATED AUTHOR AUTHOR'S ORGANIZ ATION 07/09/2024 [facility] DATE CREATED AUTHOR AUTHOR'S ORGANIZ ATION 07/25/2024 [facility] DATE CREATED AUTHOR AUTHOR'S ORGANIZ ATION 07/29/2024 [facility] Goals (unrecognized section and content) Goals may be documented in a n alternate sectionGoals may be documented in an alternate section Reason for Visit (unrecogniz ed section and content) Reason Comments Follow-up 6 mo fu rev labs Reason Comments Medicare Annual Wellness Visit Subsequen t 6 mo fu rev labs Specialty Diagnoses / Procedures Referred By Contac t Referred To Contact Primary Care Diagnoses Type 2 diabetes mellitus without complication, without long-term current use of insulin (CMS/HCC) Procedures Follow Up In Primary Care Nilsa Malik MD [address] [place] [address] Referral ID Status Reason Start Date Expiration Date Visits Re quested Visits Authorized [id number] Closed 06/09/2022 12/06/2022 1 1 Reason Comments Follow-up 6 MO FU Specialty Diagnoses / Procedures Referred By Contac t Referred To Contact Primary Care Diagnoses Type 2 diabetes mellitus without complication, without long-term current use of insulin (Multi) 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, unspecified whether recurrent (CMS-HCC) Acquired hypothyroidism Primary hypertension Mixed hyperlipidemia Procedures Follow Up In Primary Care Nilsa Malik MD [address] [place] [address] Referral ID Status Reason Start Date Expiration Date V isits Requested Visits Authorized [id number] Authorized 12/20/2022 12/20/2023 1 1 Reason Comments Chest Pain Pt comes in for ches t pain x last pm. Pt reports having upper/mid chest pain that radiates into bilateral shoulders. Pt denies any nausea, vomiting, back pain. Pt does have some neck pain, but had a fall last wk. Pt states that it hurts to breath. 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-HCC) Acquired hypothyroidism Primary hypertension Mixed hyperlipidemia Procedures Follow Up In Primary Care - Established Nilsa Malik MD [address] [place] [phone] Referral ID Status Reason Start Date Expiration Date V isits Requested Visits Authorized [id number] Authorized 06/22/2023 06/21/2024 1 1 Reason Comments Medicare Annual Wellness Visit Subsequen t 6 mo fu rev labs Specialty Diagnoses / Procedures Referred By Contac t Referred To Contact Primary Care Diagnoses Type 2 diabetes mellitus without complication, without long-term current use of insulin (Multi) Primary hypertension Procedures Follow Up In Primary Care - Established Nilsa Malik MD Phone: tel: fax: Referral ID Status Reason Start Date Expiration Date V isits Requested Visits Authorized [id number] Authorized 07/27/2023 07/26/2024 1 1 Specialty Diagnoses / Procedures Referred By Contac t Referred To Contact Radiology Diagnoses Chronic bilateral low back pain with bilateral sciatica Procedures XR lumbar spine complete 4+ views Mary Thomason MD [address] [place] [address] Referral ID Status Reason Start Date Expiration Date Visits Requested Visits Authorized [id number] Authorized Perform Procedure 10/25/2023 10/24/2024 1 1 Reason Comments Back Pain LOWER BACK Reason Comments Stroke Pt son found her on the floor and thought she was having cardiac arrest and started doing cpr. When ems got there pt was breathing but lethargic and had difficulty speaking. Last known well 1914. Reason Comments UTI Confusion- shuffle w ith feet since Sunday- hallucinations constantly Care Teams (unrecognized sec tion and content) Neurology Hospitalist Relationship Specialty Start Date End Date Nilsa Malik MD [address] [id number] PCP - General 10/29/18 Nilsa Malik MD [address] [id number] [place] [place] [facility] Att[facility] Provider 02/26/21 Nilsa Malik MD [address] [place] [address] PCP - [employer] [facility] PCP 02/26/21 Neurology Hospitalist Relationship Specialty Start Date End Date Nilsa Malik MD [address] [place] [address] PCP - General 10/29/18 Nilsa Malik MD [address] [place] [address] [place] [facility] Att[place] Provider 02/26/21 Nilsa Malik MD [address] [place] [address] PCP - [employer] [facility] PCP 02/26/21 Neurology Hospitalist Relationship Specialty Start Date End Date Nilsa Malik MD [address] [place] [address] PCP - General 10/29/18 Nilsa Malik MD [address] [place] [address] PCP - [facility] Attributed Provider 02/26/21 Nilsa Malik MD [address] [place] [address] PCP - [employer] [facility] PCP 02/26/21 Neurology Hospitalist Relationship Specialty Start Date End Date Nilsa Malik MD [address] [place] [address] PCP - General 10/29/18 Nilsa Malik MD [address] [place] [address] PCP - [facility] Attributed Provider 02/26/21 Nilsa Malik MD [address] [place] [address] PCP - [employer] [facility] PCP 02/26/21 Neurology Hospitalist Relationship Specialty Start Date End Date Nilsa Malik MD [address] [place] [address] PCP - General 10/29/18 Nilsa Malik MD [address] [place] [address] PCP - [facility] Attributed Provider 02/26/21 Nilsa Malik MD [address] [place] [address] PCP - [employer] [facility] PCP 02/26/21 Neurology Hospitalist Relationship Specialty Start Date End Date Nilsa Malik MD [address] [place] [address] PCP - General 10/29/18 Nilsa Malik MD [address] [place] [address] [place] [facility] Att[place] Provider 02/26/21 Neurology Hospitalist Relationship Specialty Start Date End Date Nilsa Malik MD [address] [place] [address] PCP - General 10/29/18 Nilsa Malik MD [address] [place] [address] PCP - [facility] Attributed Provider 02/26/21 Neurology Hospitalist Relationship Specialty Start Date End Date Nilsa Malik MD [address] [place] [address] PCP - General 10/29/18 Nilsa Malik MD [address] [place] [address] PCP - [facility] Attributed Provider 02/26/21 Neurology Hospitalist Relationship Specialty Start Date End Date Nilsa Malik MD [address] [place] [address] PCP - General 10/29/18 Nilsa Malik MD [address] [place] [address] PCP - [facility] Attributed Provider 02/26/21 Neurology Hospitalist Relationship Specialty Start Date End Date Nilsa Malik MD [address] [place] [address] PCP - General 10/29/18 Nilsa Malik MD [address] [place] [address] PCP - [facility] Attributed Provider 02/26/21 Neurology Hospitalist Relationship Specialty Start Date End Date Nilsa Malik MD [address] [place] [address] PCP - [facility] Attributed Provider 02/26/21 Nilsa Malik MD [address] [facility] [address] [place] [address] PCP - General Family Medicine 02/05/24 Neurology Hospitalist Relationship Specialty Start Date End Date Nilsa Malik MD [address] [place] [address] PCP - General 10/29/18 Nilsa Malik MD [address] [place] [address] PCP - [facility] Attributed Provider 02/26/21 Neurology Hospitalist Relationship Specialty Start Date End Date Nilsa Malik MD [address] [place] [address] PCP - General 10/29/18 Nilsa Malik MD [address] [place] [address] PCP - [facility] A[facility] Attributed Provider 02/26/21 Neurology Hospitalist Relationship Specialty Start Date End Date Nilsa Malik MD [address] [address] PCP - [facility] Attributed Provider 02/26/21 Nilsa Malik MD [address] [address] PCP - General Family Medicine 02/05/24 Neurology Hospitalist Relationship Specialty Start Date End Date Nilsa Malik MD [address] [address] PCP - [facility] Attributed Provider 02/26/21 Nilsa Malik MD [address] [address] PCP - General Family Medicine 02/05/24 Neurology Hospitalist Relationship Specialty Start Date End Date Nilsa Malik MD [address] [address] PCP - [facility] Attributed Provider 02/26/21 Nilsa Malik MD [address] [address] PCP - General Family Medicine 02/05/24 Team Status: Active Member Role Status Dates Dr. Nilsa Malik MD Primary Care Provider Active Team Status: Inactive Member Role Status Dates Dr. Nilsa Malik MD Primary Care Provider Active Start: May 26, 2024 End: May 26, 2024 Dr. Nilsa Malik MD Referring Provider Active Start: May 26, 2024 End: May 26, 2024 Dr. Isaiah Sterling MD Attending Provider Active Start: May 26, 2024 End: May 26, 2024 Team Status: Inactive Member Role Status Dates Dr. Nilsa Malik MD Primary Care Provider Active Start: July 03, 2024 End: July 03, 2024 Dr. Nilsa Malik MD Referring Provider Active Start: July 03, 2024 End: July 03, 2024 Dr. Isaiah Sterling MD Attending Provider Active Start: July 03, 2024 End: July 03, 2024 Team Status: Inactive Member Role Status Dates Dr. Nilsa Malik MD Primary Care Provider Active Start: July 03, 2024 End: July 03, 2024 Dr. Isaiah Sterling MD Attending Provider Active Start: July 03, 2024 End: July 03, 2024 Dr. Isaiah Sterling MD Referring Provider Active Start: July 03, 2024 End: July 03, 2024 Scheduled Active and Recently Administ ered Medications (unrecognized section and content) Medication Order 06/22/2023 06/23/2023 06/24/2023 iohexol (OMNIPaque) 350 mg iodine/mL solution 73 mL (COMPLETED) 73 mL, intravenous, Once in imaging, Starting on 06/24/23 at 0855, For 1 dose 0932 (Given - Provid er: Bertha Flowers) ketorolac (Toradol) injection 15 mg (COMPLETED) 15 mg, intravenous, Once, On 06/24/23 at 0840, For 1 dose 0848 (Given - Provid er: Jasmyne Grande RN) magnesium sulfate IV 2 g (COMPLETED) 2 g, intravenous, at 25 mL/hr, Administer over 2 Hours, Once, On 06/24/23 at 0750, For 1 dose 0850 (New Bag - Prov ider: Jasmyne Grande RN)1050 (Stopped - Provider: Jasmyne Grande RN) sodium chloride 0.9 % bolus 1,000 mL (COMPLETED) 1,000 mL, intravenous, at 1,000 mL/hr, Administer over 1 Hours, Once, On 06/24/23 at 0750, For 1 dose 0815 (New Bag - Prov ider: Jasmyne Grande RN)0915 (Stopped - Provider: Jasmyne Grande RN) Scheduled Medication Order 06/30/2024 07/01/2024 07/02/2024 iohexol (OMNIPaque) 350 mg iodine/mL solution 68 mL (COMPLETED) 68 mL, intravenous, Once in imaging, Starting on Sun07/02/24 at 2103, For 1 dose 2052 (Given - Provid er: Alex Dixon-Sparkle) levETIRAcetam (Keppra) 500 mg in sodium chloride (iso) IV 100 mL (COMPLETED) 500 mg, intravenous, at 857.1 mL/hr, Administer over 7 Minutes, Once, On Sun07/02/24 at 2200, For 1 dose 2208 (New Bag - Prov ider: Kylie Edwards, LEILA)2215 (Stopped - Provider: Natasha Agosto RN) FOR RECORDS PERTAINING TO PATIENTS WHO ARE OR HAVE BEEN ENROLLED IN A CHEMICAL DEPENDENCY/SUBSTANCEABUSE PROGRAM, SOME INFORMATION MAY BE OMITTED. This clinical summary was aggregated from multiple sources. Caution should be exercised in using it in the provision of clinical care. This summary normalizes information from multiple sources, and as a consequence, information in this document may materially change the coding, format and clinical context of patient data. In addition, data may be omitted in some cases. CLINICAL DECISIONS SHOULD BE BASED ON THE PRIMARY CLINICAL RECORDS. [facility]. provides no warranty or guarantee of the accuracy or completeness of information in this document.
== END | disposition home or self-care (01) ==
LOC: MRI 15:32
PROVIDERS: PCP Family Medicine; Referring Provider Psychiatry & Neurology Neurology; Visit Provider Psychiatry & Neurology Neurology
DX: G20.A1 Parkinson's disease without dyskinesia, without mention of fluctuations (principal); R56.9 Unspecified convulsions; G31.84 Mild cognitive impairment of uncertain or unknown etiology; R55 Syncope and collapse
CPT/HCPCS: 70553; A9575

== ENCOUNTER → 2024-08-11 | Outpatient (CLI) | payer MEDICARE, OTHER, SELFPAY ==
[2024-08-11 13:55] LABS: Bacteria 0 SEEN /hpf (None Seen); Mucous, Urine 0 SEEN /hpf (<or=2+)
[2024-08-11 17:12] LABS: Color, Urine Straw (Yellow); Glucose, Dipstick Normal (Normal); Ketone-Dipstick 5 mg/dl (Negative); Leukocyte Esterase-Dipstick Negative /ul (Negative); Nitrite-Dipstick Negative (Negative); Occult Blood-Urine 10 /ul (Negative); Protein-Dipstick 15 mg/dl (Negative); Urine Bilirubin Dipstick Negative (Negative); Urine Clarity Clear (Clear); Urine Urobilinogen Normal (Normal)
[2024-08-11 18:03] LABS: Ammonia 16.8 umol/L (11-51)
[2024-08-11 18:05] LABS: Hematocrit 33.1 % (37-47); Hemoglobin 10.2 g/dL (12.0-15.0); Mean Corp Hgb Conc 30.8 g/dL (32-36); Mean Corpuscular Hgb 28.6 pg (27.0-32.0); Mean Corpuscular Volume 92.7 fL (81-99); Mean Platelet Vol. 10.6 fl (6.2-12.0); Platelet Count 250 K/mm3 (150-450); RBC Distribution Width CV 14.1 % (11.6-14.6); RBC Distribution Width SD 47.7 fl (35.1-43.9); Red Blood Count 3.57 M/mm3 (4.2-5.4)
[2024-08-11 18:14] LABS: Magnesium 1.6 mg/dL (1.5-2.2)
[2024-08-11 19:05] LABS: Red Blood Cells-Urine 0-5 SEEN /hpf (0-5); Squamous Epithelial Cells - UA 0-5 SEEN /hpf (5-10); White Blood Cells 0-5 SEEN /hpf (0-5)
--- OUTSIDE RECORDS SUMMARY | 2024-08-11 23:26 | XMS RPT_ITS | CCD ---
Author Organization [facility] Team Providers Care 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 Name Role Phone Zhen Duncan Unavailable Unavailable StencelNilsa Unavailable Unavailable StenNilsa pastor Unavailable Unavailable Nilsa Malik Unavailable [phone] Isaiah Sterling Attending Provider [phone] Nilsa Malik MD Primary Care Provider Nilsa [...] Provider Dr. Nilsa Malik MD Referring Provider [phone] Dr. Isaiah Sterling MD Attending Provider [phone] Dr. Isaiah Sterling MD Referring Provider [phone] NILSA MALIK Primary Care Unavailable JAIRON DENISE Attending Unavailable JAIRON DENISE Referring Unavailable NILSA MALIK Primary Care Unavailable MARY THOMASON Referring Unavailable STENNILSA PASTOR Primary Care Unavailable MARY THOMASON Referring Unavailable STENCEL, NILSA Ham Primary Care Unavailable MARY THOMASON Referring Unavailable [...] BOLIVAR, AUBREY T Attending Unavailable YEATER, MARY Hopper Referring Unavailable STENCEL, [...] Attending Unavailable Stencel, Nilsa Primary Care Unavailable Baddour, [...] Acid Decarboxylation Inhibitor, Aromatic Amino Acid Start: 06-16-2025 Carbidopa-Levodopa (Sinemet) 25-100 mg tablet Active 2 {tbl} PO .QID 240 August 11, 2024 1:35pm Start: 10-04-2021 End: 08-11-2024 Carbidopa-Levodopa (Sinemet) 25-100 mg tablet Discontinued 2 {tbl} PO THREE TIMES A DAY 180 May 26, 2024 5:21pm August 11, 2024 1:37pm Start: 08-31-2020 Carbidopa-Levo dopa ER 25-100 MG Oral Tablet Extended Release Quantity: 0 Refills: 0 Ordered: 07-Jun-2021 DO Start : 31-Aug-2020 Active carbidopa-levodo pa (Sinemet) 25-100 mg tablet Take by mouth 4 times a day. Active escitalopram 10 mg oral tablet (20 sources) Serotonin Reuptake Inhibitor Start: 01-21-2019 End: 07-26-2024 take 1 tablet by mouth once daily Escitalopram Oxalate 10 mg tablet Active 10 mg PO DAILY October 04, 2021 12:00am fludrocortisone acetate 0.1 mg oral tablet (4 sources) Start: 07-03-2024 End: 08-11-2024 take 1 tablet by mouth once daily in the morning Fludrocortisone 0.1 mg tablet Active 0.1 mg PO 3 TIMES A WEEK August 11, 2024 1:36pm Take 1 tablet orally every morning every Sunday, Sunday, , and Sunday levETIRAcetam 500 mg oral tablet (3 sources) Start: 08-06-2024 take 1 tablet by mouth twice daily Levetiracetam 500 mg tablet Active 500 mg PO TWICE A DAY 60 August 06, 2024 12:00am Start: 07-04-2024 End: 08-03-2024 take 1 tablet [...] Start: 10-04-2021 take 1 capsule by mo uth once daily Levothyroxine 75 mcg capsule Active 75 ug PO DAILY October 04, 2021 12:00am Start: 01-21-2019 take 1 tablet by rosio th once daily levothyroxine (Synthroid, Levoxyl) 75 mcg [...] take 1 tablet by mouth twice daily Metformin 1,000 mg tablet Active 1000 mg PO TWICE A DAY October 04, 2021 12:00am pioglitazone 15 mg oral tablet (20 sources) Peroxisome Proliferator Receptor alpha Agonist, Peroxisome Proliferator Receptor gamma Agonist, Thiazolidinedione Start: 08-31-2020 End: 07-26-2024 take 1 tablet by mouth once daily Pioglitazone 15 mg tablet Active 15 mg PO DAILY October 04, 2021 12:00am simvastatin 20 mg oral tablet (20 sources) HMG-CoA Reductase Inhibitor Start: 01-21-2019 End: 07-26-2024 take 1 tablet by mouth once daily Simvastatin 20 mg tablet Active 20 mg PO DAILY October 04, 2021 12:00am sulfamethoxazole 800 mg / trimethoprim 160 mg oral tablet (1 source) Dihydrofolate Reductase Inhibitor Antibacterial, Sulfonamide Antimicrobial Start: 07-04-2024 End: 07-11-2024 take 1 tablet by mouth twice daily sulfamethoxazole -trimethoprim (Bactrim DS) 800-160 mg tablet Indications: Urgency [...] 100 mg PO THREE TIMES A DAY May 26, 2024 5:23pm July 03, 2024 8:34am Start: 02-16-2022 End: 05-26-2024 take 1 capsule by mouth twice daily Amantadine Hcl 100 mg capsule Discontinued 100 mg PO TWICE A DAY 60 October 12, 2023 1:53am May 26, 2024 5:23pm busPIRone hydrochloride 5 mg oral tablet (3 sources) Start: 10-17-2022 End: 07-03-2024 take 1 tablet by mouth twice daily Buspirone 5 mg tablet Discontinued 5 mg PO TWICE A DAY October 17, 2022 12:00am July 03, 2024 8:32am ferrous sulfate 325 mg oral tablet (20 sources) Start: 10-17-2022 End: 05-26-2024 take 1 tablet by mouth twice daily Ferrous Sulfate 325 mg (65 mg iron) tablet Discontinued 325 mg PO DAILY October 12, 2023 1:53am May 26, 2024 5:23pm Do not take within 2 hours of a carbidopa/levodopa dose. Start: 08-31-2020 End: 10-17-2022 take 1 tablet by mouth once daily Ferrous Sulfate 325 mg (65 mg iron) tablet Discontinued 325 mg PO DAILY June 22, 2022 7:45pm October 17, 2022 10:21pm iohexol (OMNIPaque) 350 mg iodine/mL solution 68 [...] End: 06-24-2023 15 mg, intravenous, Once, On 06/24/23 at 0840, For 1 dose lisinopril 10 mg oral tablet (20 sources) Angiotensin Converting Enzyme Inhibitor Start: 01-21-2019 End: 10-12-2023 take 1 tablet by mouth once daily Lisinopril 10 mg tablet Discontinued 10 mg PO DAILY October 04, 2021 12:00am October 12, 2023 1:53am 50 ml magnesium sulfate 40 mg/ml injection (1 source) Start: 06-24-2023 End: 06-24-2023 2 g, intravenous, at 25 mL/hr, Administer over 2 Hours, Once, On 06/24/23 at 0750, For 1 dose regadenoson (Lexiscan) injection 0.4 mg (1 source) Start: 07-09-2023 End: 07-09-2023 0.4 mg, intravenous, Once, On Sun07/09/23 at 0915, For 1 dose risperiDONE 0.5 mg oral tablet (20 sources) Atypical Antipsychotic Start: 06-07-2023 End: 05-26-2024 take 1 tablet by mouth twice daily Risperidone 0.5 mg tablet Discontinued 0.5 mg PO TWICE A DAY 60 October 12, 2023 1:54am May 26, 2024 5:23pm Start: 10-17-2022 End: 10-17-2022 take 1 tablet [...] day. 01/21/2019 06/22/2023 Discontinued (Med List Cleanup) 1000 ml sodium chloride 9 mg/ml injection [...] Problem Date Documented Date Episodic/Chronic Anxiety disorders (3 sources) Anxiety; Translations: [Anxiety disorder, unspecified] 10-17-2022 Chronic Chronic kidney disease (17 sources) Chronic kidney disease stage 3A ; Translations: [Stage 3a chronic kidney disease (Multi)] Onset: 06-22-2023 06-22-2023 Chronic Deficiency and other anemia (10 sources) Iron deficiency anemia; Translations: [Iron deficiency [...] hyperlipidemia] Onset: 04-17-2022 06-09-2022 Chronic Epilepsy; convulsions (11 sources) Seizure; Translations: [Unspecified convulsions] Onset: 07-02-2024 [...] [Chest pain, unspecified] 06-24-2023 Episodic Nutritional deficiencies (8 sources) Cobalamin deficiency; Translations: [Deficiency of other specified B group vitamins] Episodic Osteoporosis (20 sources) Osteoporosis; Translations: [Osteoporosis, unspecified] Onset: 04-17-2022 04-17-2022 Chronic Other circulatory disease (6 sources) Orthostatic hypotension; Translations: [Orthostatic hypotension] 07-06-2024 Episodic Other hereditary and degenerative nervous system conditions (10 sources) Impaired cognition; Translations: [Mild cognitive impairment, so stated] 10-04-2021 Chronic Other hereditary and degenerative nervous system conditions (2 sources) Mild cognitive impairment, so stated; Translations: [...] [Parkinson's disease] Onset: 06-22-2023 Chronic Parkinson`s disease (3 sources) Parkinson`s disease; Translations: [Parkinson's disease without [...] unspecified] Onset: 05-31-2023 Episodic Residual codes; unclassified (10 sources) Hallucinations; Translations: [Hallucinations, unspecified] 07-04-2024 Episodic Syncope (4 sources) Syncope; Translations: [Syncope and collapse] Onset: [...] found on diagnostic imaging of breast] Onset: 3 04-17-2022 Episodic Other connective tissue disease (4 [...] Test Name Value Interpretation Reference Range Facility Brain W/WO Contraston 2024 Brain W/WO Contrast [facility] [address] [place] [address] Brain W/WO Contrast MR#: [id number] Acct: [id number] Name: RAMYA MOSS Rep #: [id number] : 1935 F 88 From: Narinder Foote PCP: Dr. Nilsa Malik MD Status: REG CLI Study: Brain W/WO Contrast Date of Exam: 07/31/24 Exam# [id number] Ordering Dr: Isaiah Sterling MD 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 Multiplanar and multisequence images were obtained. CONTRAST: [facility] VOLUME: 11 ML COMPARISON: None FINDINGS: No diffusion restriction to suggest acute/subacute ischemia. No acute intracranial hemorrhage, midline shift or mass effect. Moderate generalized cerebral atrophy. Scattered periventricular, subcortical and deep white matter hyperintense FLAIR signal most likely related to chronic small-vessel ischemic disease. Mild ventriculomegaly likely related to central atrophy. No suspicious cortical edema. No evidence of chronic microhemorrhage. No definite MR evidence of mesial temporal sclerosis. No pathologic enhancement. Poorly visualized right vertebral artery flow void which may relate to vascular occlusion. Globes are intact. Calvarium is within normal limits. Paranasal sinuses and mastoid air cells are clear. MRI/Brain W/WO Contrast IMPRESSION: 1. No acute intracranial abnormality or pathologic enhancement. 2. Atrophy and chronic small-vessel ischemic disease. 3. Possible occlusion of the right vertebral artery. Recommend further assessment with CTA neck. Reading Location: [facility] CC: Dr. Nilsa Malik MD; Dr. Isaiah Sterling MD Electrostatic Powder Coating Technician: Signed Normal [facility] Magnetic resonance imaging r eportOrdered By: Narinder Lopez on 07-31-2024 Study report [facility] [address] [place] [place] [address] Brain W/WO Contrast MR#: [id number] Acct: [id number] Name: RAMYA MOSS Rep #: [id number] : 1935 F 88 From: Eliud Lopez DO PCP: Dr. Nilsa Malik MD Status: RE G CLI Study:Brain W/WO Contrast Date of Exam: 07/31/24 Exam# [id number] Ordering Dr: Isaiah Setrling MD 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 Multiplanar and multisequence images were obtained. CONTRAST: [facility] VOLUME: 11 ML COMPARISON: None FINDINGS: No diffusion restriction to suggest acute/subacute ischemia. No acute intracranial hemorrhage, midline shift or mass effect. Moderate generalized cerebral atrophy. Scattered periventricular, subcortical and deep white matter hyperintense FLAIR signal most likely related to chronic small-vessel ischemic disease. Mild ventriculomegaly likely related to central atrophy. No suspicious cortical edema. No evidence of chronic microhemorrhage. No definiteMR evidence of mesial temporal sclerosis. No pathologic enhancement. Poorly visualized right vertebral artery flow void which may relate to vascular occlusion. Globes are intact. Calvarium is within normal limits. Paranasal sinuses and mastoid air cells are clear. MRI/Brain W/WO Contrast IMPRESSION: 1. No acute intracranial abnormality or pathologic enhancement. 2. Atrophy and chronic small-vessel ischemic disease. 3. Possible occlusion of the right vertebral artery. Recommend further assessment with CTA neck. Reading Location: [facility] CC: Dr. Nilsa Malik MD; Dr. Isaiah Sterling MD ~ Electrostatic Powder Coating Technician: Signed [facility] POCT UA Automated manually r esultedon 07-04-2024 Appearance (U) Clear Clear [facility] Work Phone: Glucose Test strip (U) [Mass/Vol] Negative NEGATIVE mg/dl [facility] Work Phone: [phone] Hemoglobin Ql (U) Negative NEGATIVE [facility] Work Phone: [phone] Leukocyte esterase Test strip Ql (U) Negative NEGATIVE [facility] Work Phone: [phone] Nitrite Ql (U) Negative NEGATIVE [facility] Work Phone: [phone] pH (U) 5.5 [pH] No Reference Range Established [facility] Work Phone: [phone] POC Bilirubin, Urine Negative NEGATIVE [facility]: [phone] POC Color, Urine Yellow Straw, Yellow, Light-Yellow [facility] Work Phone: [phone] POC Ketones, Urine Negative NEGATIVE mg/dl [facility] Work Phone: [phone] POC Protein, Urine Negative NEGATIVE mg/dl [facility] Work Phone: [phone] POC Specific [place], Urine 1.015 1.005 - 1.035 [facility] Work Phone: POC Urobilinogen, Urine 0.2 0.2, 1.0 EU/DL [facility] Work Phone: [facility] Work Phone: Neurology Visit Reporton Neurology Visit Report [facility] [address] [place] [address], [address] [place] [address] OFFICE VISIT Date of Service: 07/03/24 MR#: [id number] Acct: [id number] Name: RAMYA MOSS Rep #: [id number] : 1935 Provider: Dr. Isaiah bland MD Age/Sex: 88/F [place] [facility] [place] Signed HPI HPI Chief Complaint: Details: [...] range). (more content not included)... Normal [facility] TSH DL <= 0.005 mIU/L QnOrde red By: Isaiah Sterling on 07-03-2024 TSH Qn 1.250 uIU/mL 0.300-4.200 [facility] Thyroid Stim Hormone (TSH)on 07-03-2024 TSH 1.250 uIU/mL Normal 0.300-4.200 [facility] Comment on above: Order Comment: TROYO U RINE Performed By: #### L [phone] #### [facility] [address] [place], [address] APTTon 07-02-2024 aPTT Coag (PPP) [Time] 29 s [facility] CBC W Auto Differential pane l (Bld)on 07-02-2024 Basophils (Bld) [#/Vol] 0.03 10*3/uL [facility] Basophils/100 WBC (Bld) 0.3 % 0.0 - 2.0 % [facility] Eosinophils (Bld) [#/Vol] 0.13 10*3/uL [facility] Eosinophils/100 WBC (Bld) 1.3 % 0.0 - 6.0 % [facility] Erythrocyte distribution width (RBC) [Ratio] 14.1 % 11.5 - 14.5 % [facility] Hematocrit (Bld) [Volume fraction] 31.7 % Low 36.0 - 46.0 % [facility] Hemoglobin (Bld) [Mass/Vol] 10.1 g/dL Low 12.0 - 16.0 g/dL [facility] Immature granulocytes (Bld) [#/Vol] 0.04 10*3/uL [facility] Immature granulocytes/100 WBC (Bld) 0.4 % 0.0 - 0.9 % [facility] Comment on above: Immature Granulocyte Count (IG) includes promyelocytes, myelocytes and metamyelocytes but does not include bands. Percent differential counts (%) should be interpreted in the context of the absolute cell counts (cells/UL). Interpretation and review of laboratory results Abnormal [facility] Lymphocytes (Bld) [#/Vol] 3.74 10*3/uL High [facility] Lymphocytes/100 WBC (Bld) 38.7 % 13.0 - 44.0 % [facility] MCH (RBC) [Entitic mass] 28.5 pg 26.0 - 34.0 pg [facility] MCHC (RBC) [Mass/Vol] 31.9 g/dL Low 32.0 - 36.0 g/dL [facility] MCV (RBC) [Entitic vol] 90 fL 80 - 100 fL [facility] Monocytes (Bld) [#/Vol] 0.59 10*3/uL [facility] Monocytes/100 WBC (Bld) 6.1 % 2.0 - 10.0 % [facility] Neutrophils (Bld) [#/Vol] 5.14 10*3/uL [facility] Comment on above: Percent differential counts (%) should be interpreted in the context of the absolute cell counts (cells/uL). Neutrophils/100 WBC (Bld) 53.2 % 40.0 - 80.0 % [facility] Nucleated RBC/100 WBC (Bld) [Ratio] 0 % [facility] Platelets (Bld) [#/Vol] 249 10*3/uL [facility] RBC (Bld) [#/Vol] 3.54 10*6/uL Low [facility] WBC (Bld) [#/Vol] 9.7 10*3/uL [facility] Basophils (Bld) [#/Vol] 0.03 x10*3/uL Normal 0.00-0.10 [facility] Comment on above: Performed By: #### 5 7021-8 #### BUZZ FUNEZ ([id number]) [facility] ([facility]) [address] [place] [address] 65829 Basophils/100 WBC (Bld) 0.3 % Normal 0.0-2.0 [facility] Comment on above: Performed By: #### 5 7021-8 #### BUZZ UFNEZ ([id number]) [facility] ([facility]) [address] [place] [address] 22194 Eosinophils (Bld) [#/Vol] 0.13 x10*3/uL Normal 0.00-0.40 [facility] Comment on above: Performed By: #### 5 7021-8 #### BUZZ FUNEZ ([id number]) [facility] ([facility]) [address] [place] [address] 86960 Eosinophils/100 WBC (Bld) 1.3 % Normal 0.0-6.0 [facility] Comment on above: Performed By: #### 5 7021-8 #### BUZZ FUNEZ ([id number]) [facility] ([facility]) [address] [place] [address] 34862 Erythrocyte distribution width (RBC) [Ratio] 14.1 % Normal 11.5-14.5 [facility] Comment on above: Performed By: #### 5 7021-8 #### BUZZ FUNEZ ([id number]) [facility] ([facility]) [address] [place], [place] [address] Hematocrit (Bld) [Volume fraction] 31.7 % Low 36.0-46.0 [facility] Comment on above: Performed By: #### 5 7021-8 #### BUZZ FUNEZ ([id number]) [facility] ([facility]) [address] [place] [address] 20633 Hemoglobin (Bld) [Mass/Vol] 10.1 g/dL Low 12.0-16.0 [facility] Comment on above: Performed By: #### 5 7021-8 #### BUZZ FUNEZ ([id number]) [facility] ([facility]) [address] [place] [address] 84556 Immature granulocytes (Bld) [#/Vol] 0.04 x10*3/uL Normal 0.00-0.50 [facility] Comment on above: Performed By: #### 5 7021-8 #### BUZZ FUNEZ ([id number]) [facility] ([facility]) [address] [place] [address] 82255 Immature granulocytes/100 WBC (Bld) 0.4 % Normal 0.0-0.9 [facility] Comment on above: Result Comment: Olivia ture Granulocyte Count (IG) includes promyelocytes, myelocytes and metamyelocytes but does not include bands. Percent differential counts (%) should be interpreted in the context of the absolute cell counts (cells/UL). Performed By: #### 5 7021-8 #### BUZZ FUNEZ ([id number]) [facility] ([facility]) [address] [place] [address] 66674 Lymphocytes (Bld) [#/Vol] 3.74 x10*3/uL High 0.80-3.00 [facility] Comment on above: Performed By: #### 7021-8 #### BUZZ FUNEZ ([id number]) [facility] ([facility]) [address] [place] [address] 63959 Lymphocytes/100 WBC (Bld) 38.7 % Normal 13.0-44.0 [facility] Comment on above: Performed By: #### 5 7021-8 #### BUZZ FUNEZ ([id number]) [facility] ([facility]) [address] [place] [address] 38236 MCH (RBC) [Entitic mass] 28.5 pg Normal 26.0-34.0 [facility] Comment on above: Performed By: #### 7021-8 #### BUZZ FUNEZ ([id number]) [facility] ([facility]) [address] [place] [address] 04574 MCHC (RBC) [Mass/Vol] 31.9 g/dL Low 32.0-36.0 [facility] Comment on above: Performed By: #### 5 7021-8 #### BUZZ FUNEZ ([id number]) [facility] ([facility]) [address] [place] [address] 39548 MCV (RBC) [Entitic vol] 90 fL Normal 80-100 [facility] Comment on above: Performed By: #### 5 7021-8 #### BUZZ FUNEZ ([id number]) [facility] ([facility]) [address] [place] [address] 77727 Monocytes (Bld) [#/Vol] 0.59 x10*3/uL Normal 0.05-0.80 [facility] Comment on above: Performed By: #### 5 7021-8 #### BUZZ FUNEZ ([id number]) [facility] ([facility]) [address] [place] [address] 05336 Monocytes/100 WBC (Bld) 6.1 % Normal 2.0-10.0 [facility] Comment on above: Performed By: #### 5 7021-8 #### BUZZ FUNEZ ([id number]) [facility] ([facility]) [address] [place] [address] 89304 Neutrophils (Bld) [#/Vol] 5.14 x10*3/uL Normal 1.60-5.50 [facility] Comment on above: Result Comment: Perc ent differential counts (%) should be interpreted in the context of the absolute cell counts (cells/uL). Performed By: #### 5 7021-8 #### BUZZ FUNEZ ([id number]) [facility] ([facility]) [address] [place] [address] 77995 Neutrophils/100 WBC (Bld) 53.2 % Normal 40.0-80.0 [facility] Comment on above: Performed By: #### 5 7021-8 #### BUZZ FUNEZ ([id number]) [facility] ([facility]) [address] [place] [address] 94120 Nucleated RBC/100 WBC (Bld) [Ratio] 0.0 /100 WBCs Normal 0.0-0.0 [facility] Comment on above: Performed By: #### 5 7021-8 #### BUZZ FUNEZ ([id number]) [facility] ([facility]) [address] [place] [address] 63058 Platelets (Bld) [#/Vol] 249 x10*3/uL Normal 150-450 [facility] Comment on above: Performed By: #### 5 7021-8 #### BUZZ FUNEZ ([id number]) [facility] ([facility]) [address] [place] [address] 34122 RBC (Bld) [#/Vol] 3.54 x10*6/uL Low 4.00-5.20 [facility] Comment on above: Performed By: #### 5 7021-8 #### BUZZ FUNEZ ([id number]) [facility] ([facility]) [address] [place] [address] WBC (Bld) [#/Vol] 9.7 x10*3/uL Normal 4.4-11.3 [facility] Comment on above: Performed By: #### 5 7021-8 #### GERBER ARMIN ([id number]) [facility] ([facility]) [facility] [place] [address] CT BRAIN ATTACK ANGIO HEAD A ND NECK W AND WO IV CONTRASTon 07-02-2024 CT BRAIN ATTACK ANGIO HEAD AND NECK W AND WO IV CONTRAST Interpreted By: Nighat Ngo, STUDY: CT BRAIN ATTACK ANGIO HEAD AND NECK W AND WO IV CONTRAST; 07/02/2024 9:03 pm INDICATION: Signs/Symptoms:Strokelike symptoms COMPARISON: Correlation with noncontrast CT of the same day ACCESSION NUMBER(S): [id number] ORDERING CLINICIAN: JAIRON DENISE TECHNIQUE: Following IV contrast administration, a CT angiography of the head and neck was performed. Triplanar MIPS and 3D reconstructions of the clark's point of Garcia and neck were generated. FINDINGS: [...] nodes. There is no acute osseous abnormality. [id number]-[id number] diffuse cervical degenerative disc changes. The imaged [...] Nighat Ngo 07/02/2024 9:28 PM Dictation workstation: [id number] [facility] CT BRAIN ATTACK HEAD WO IV C Sherrell 07-02-2024 CT BRAIN ATTACK HEAD WO IV CONTRAST Interpreted By: Nighat Ngo, STUDY: CT BRAIN ATTACK HEAD WO IV CONTRAST; 07/02/2024 8:51 pm INDICATION: Signs/Symptoms:Stroke Evaluation. COMPARISON: None. ACCESSION NUMBER(S): [id number] ORDERING CLINICIAN: JAIRON DENISE TECHNIQUE: Axial noncontrast [...] Nighat Ngo 07/02/2024 9:12 PM Dictation workstation: [id number] [facility] CT Head WO contraston 2024 No acute [...] Nighat Ngo 07/02/2024 9:12 PM Dictation workstation: [id number] [facility] Interpreted By: Nighat Manzano, STUDY: CT BRAIN ATTACK HEAD WO IV CONTRAST; 07/02/2024 8:51 pm INDICATION: Signs/Symptoms:Stroke Evaluation. COMPARISON: None. ACCESSION NUMBER(S): [id number] ORDERING CLINICIAN: JAIRON DENISE TECHNIQUE: Axial noncontrast [...] No destructive osseous lesion. OTHER FINDINGS: None. MMODAL Nighat Ngo MD - 07/02/2024 Interpreted By: Nighat Ngo, STUDY: CT BRAIN ATTACK HEAD WO IV CONTRAST; 07/02/2024 8:51 pm INDICATION: Signs/Symptoms:Stroke Evaluation. COMPARISON: None. ACCESSION NUMBER(S): [id number] ORDERING CLINICIAN: JAIRON DENISE TECHNIQUE: Axial noncontrast [...] Nighat Ngo 07/02/2024 9:12 PM Dictation workstation: [id number] [facility] Work Phone: Radiology Study observation (narrative) [facility] Work Phone: CT Head WO contrastOrdered B y: Nighat Ngo on 07-02-2024 [facility] Work Phone: CTA Head vessels and Neck [...] Nighat Ngo 07/02/2024 9:28 PM Dictation workstation: [id number] [facility] Interpreted By: Nighat Manzano, STUDY: CT BRAIN ATTACK ANGIO HEAD AND NECK W AND WO IV CONTRAST; 07/02/2024 9:03 pm INDICATION: Signs/Symptoms:Strokelike symptoms COMPARISON: Correlation with noncontrast CT of the same day ACCESSION NUMBER(S): [id number] ORDERING CLINICIAN: JAIRON DENISE TECHNIQUE: Following IV contrast administration, a CT angiography of the head and neck was performed. Triplanar MIPS and 3D reconstructions of the clark's point of Garcia and neck were generated. FINDINGS: [...] nodes. There is no acute osseous abnormality. Jugf-hz-bfafymie diffuse cervical degenerative disc changes. The imaged [...] and 3D reconstructions confirm the above findings. [facility] Nighat Ngo MD - 07/02/2024 Interpreted By: Nighat Ngo, STUDY: CT BRAIN ATTACK ANGIO HEAD AND NECK W AND WO IV CONTRAST; 07/02/2024 9:03 pm INDICATION: Signs/Symptoms:Strokelike symptoms COMPARISON: Correlation with noncontrast CT of the same day ACCESSION NUMBER(S): [id number] ORDERING CLINICIAN: JAIRON DENISE TECHNIQUE: Following IV contrast administration, a CT angiography of the head and neck was performed. Triplanar MIPS and 3D reconstructions of the clark's point of Garcia and neck were generated. FINDINGS: [...] nodes. There is no acute osseous abnormality. Bebh-ke-lmqkaeni diffuse cervical degenerative disc changes. The imaged [...] Nighat Ngo 07/02/2024 9:28 PM Dictation workstation: [id number] [facility] Work Phone: [facility] Work Phone: Radiology Study observation (narrative) [facility] Work Phone: Coagulation surface inducedo n 07-02-2024 aPTT Coag (PPP) [Time] 29 s Normal 26-36 [facility] Comment on above: Order Comment: The A PTT is no longer used for monitoring Unfractionated Heparin Therapy. For monitoring Heparin Therapy, use the Heparin Assay. Performed By: #### 1 4979-9 #### GERBER ARMIN [id number]) [facility] ([facility]) [address] [place] [address] Coagulation tissue factor in ducedon 07-02-2024 PT Coag (PPP) [Time] 11.4 s Normal 9.8-12.4 [facility] Comment on above: Performed By: #### 5 902-2 #### GERBER ARMIN ([id number]) [facility] ([facility]) [facility] [place] [id number] Comprehensive metabolic 2000 panelon 07-02-2024 Albumin BCP dye [Mass/Vol] 4.2 g/dL 3.4 - 5.0 g/dL [facility] ALP [Catalytic activity/Vol] 62 U/L 33 - 136 U/L [facility] ALT With P-5'-P [Catalytic activity/Vol] 9 U/L 7 - 45 U/L [facility] Comment on above: Patients treated wit h Sulfasalazine may generate falsely decreased results for ALT. Anion gap [Moles/Vol] 18 mmol/L 10 - 20 mmol/L [facility] AST With P-5'-P [Catalytic activity/Vol] 10 U/L 9 - 39 U/L [facility] Bilirubin [Mass/Vol] 0.4 mg/dL 0.0 - 1 .2 mg/dL [facility] Calcium [Mass/Vol] 8.9 mg/dL 8.6 - 10. 3 mg/dL [facility] Chloride [Moles/Vol] 98 mmol/L 98 - 10 7 mmol/L [facility] CO2 [Moles/Vol] 21 mmol/L 21 - 32 mmol/L [facility] Creatinine [Mass/Vol] 1.27 mg/dL High 0.50 - 1.05 mg/dL [facility] GFR/1.73 sq M.predicted among non-blacks MDRD (S/P/Bld) [Vol rate/Area] 41 mL/min/{1.73_m2} Low - PINF [facility] Comment on above: Calculations of julia mated GFR are performed using the 2020 CKD-EPI Study Refit equation without the race variable for the IDMS-Traceable creatinine methods. https://jasn.asnjournals.org/content//ASN.7450921 988 Glucose [Mass/Vol] 191 mg/dL High 74 - 99 mg/dL [facility] Interpretation and review of laboratory results Abnormal [facility] Potassium [Moles/Vol] 4 mmol/L 3.5 - 5.3 mmol/L [facility] Protein [Mass/Vol] 6.8 g/dL 6.4 - 8.2 g/dL [facility] Sodium [Moles/Vol] 133 mmol/L Low 136 - 145 mmol/L [facility] Urea nitrogen [Mass/Vol] 16 mg/dL 6 - 23 mg/dL [facility] Albumin BCP dye [Mass/Vol] 4.2 g/dL Normal 3.4-5.0 [facility] Comment on above: Performed By: #### 2 4323-8 #### BUZZ FUNEZ ([id number]) [facility] ([facility]) [address] [place] [address] ALP [Catalytic activity/Vol] 62 U/L Normal 33-136 [facility] Comment on above: Performed By: #### 2 4323-8 #### BUZZ FUNEZ ([id number]) [facility] ([facility]) [address] [place] [address] ALT With P-5'-P [Catalytic activity/Vol] 9 U/L Normal 7-45 [facility] Comment on above: Result Comment: Desiree ents treated with Sulfasalazine may generate falsely decreased results for ALT. Performed By: #### 2 4323-8 #### BUZZ FUNEZ ([id number]) [facility] ([facility]) [facility] [place] [address] Anion gap [Moles/Vol] 18 mmol/L Normal 10-20 [facility] Comment on above: Performed By: #### 2 4323-8 #### BUZZ FUNEZ ([id number]) [facility] ([facility]) [address] [place] [address] AST With P-5'-P [Catalytic activity/Vol] 10 U/L Normal 9-39 [facility] Comment on above: Performed By: #### 2 4323-8 #### BUZZ FUNEZ ([id number]) [facility] ([facility]) [address] [place] [address] Bilirubin [Mass/Vol] 0.4 mg/dL Normal 0.0-1.2 [facility] Comment on above: Performed By: #### 2 4323-8 #### BUZZ FUNEZ ([id number]) [facility] ([facility]) [address] [place] [address] Calcium [Mass/Vol] 8.9 mg/dL Normal 8.6-10.3 [facility] Comment on above: Performed By: #### 2 432-8 #### BUZZ FUNEZ ([id number]) [facility] ([facility]) [address] [place] [address] Chloride [Moles/Vol] 98 mmol/L Normal 98-107 [facility] Comment on above: Performed By: #### 2 432-8 #### BUZZ FUNEZ ([id number]) [facility] ([facility]) [address] [place] [address] CO2 [Moles/Vol] 21 mmol/L Normal 21-32 [facility] Comment on above: Performed By: #### 2 4323-8 #### BUZZ FUNEZ ([id number]) [facility] ([facility]) [address] [place] [address] Creatinine [Mass/Vol] 1.27 mg/dL High 0.50-1.05 [facility] Comment on above: Performed By: #### 2 4323-8 #### BUZZ FUNEZ ([id number]) [facility] ([facility]) [address] [place] [address] Glomerular filtration rate/1.73 sq M.predicted 41 mL/min/1.73m*2 Low >60 [facility] Comment on above: Result Comment: Calc ulations of estimated GFR are performed using the 2020 CKD-EPI Study Refit equation without the race variable for the IDMS-Traceable creatinine methods. https://jasn.asnjournals.org/content//ASN.5481763 988 Performed By: #### 2 4323-8 #### BUZZ FUNEZ ([id number]) [facility] ([facility]) [address] [place] [address] 27771 Glucose [Mass/Vol] 191 mg/dL High 74-99 [facility] Comment on above: Performed By: #### 2 4323-8 #### BUZZ FUNEZ ([id number]) [facility] ([facility]) [address] [place] [address]69 Potassium [Moles/Vol] 4.0 mmol/L Normal 3.5-5.3 [facility] Comment on above: Performed By: #### 2 4323-8 #### BUZZ FUNEZ ([id number]) [facility] ([facility]) [address] [place] [address]504 Protein [Mass/Vol] 6.8 g/dL Normal 6.4-8.2 [facility] Comment on above: Performed By: #### 2 4323-8 #### BUZZ FUNEZ ([id number]) [facility] ([facility]) [address] [place] [address] Sodium [Moles/Vol] 133 mmol/L Low 136-145 [facility] Comment on above: Performed By: #### 2 4323-8 #### BUZZ FUNEZ ([id number]) [facility] ([facility]) [address] [place] [address] 26277 Urea nitrogen [Mass/Vol] 16 mg/dL Normal 6-23 [facility] Comment on above: Performed By: #### 2 4323-8 #### BUZZ FUNEZ ([id number]) [facility] ([facility]) [address] [place] [address] 75061 ECG 12-LEADon 07-02-2024 ECG 12-LEAD Ventricular Rate 88 Atrial Rate 88 P-R Interval 168 QRS Duration 74 Q-T Interval 372 QTC Calculation(Bazett) 450 P Meherrin 117 R Meherrin -25 T Meherrin 109 QRS Count 15 Q Onset 213 [...] Balbuena (887) on 07/04/2024 9:28:24 PM Normal [facility] No Panel Informationon 07-02 Interpretation and review of laboratory results Normal [facility] POCT glucoseOrdered By: Kumar Agosto on 07-02-2024 Glucose [Mass/Vol] 177 mg/dL Abnormal 74 - 99 mg/dL [facility] Interpretation and review of laboratory results Abnormal [facility] PT Coag (PPP) [Time]on 07-02 INR Coag (PPP) [Relative time] 1 {INR} 0.9 - 1.1 [facility] INR Coag (PPP) [Relative time] 1.0 Normal 0.9-1.1 [facility] Comment on above: Performed By: #### 5 902-2 #### GERBER ARMIN ([id number]) [facility] ([facility]) [address] [place] [address] Protime-INRon 07-02-2024 PT Coag (PPP) [Time] 11.4 s [facility] Tropinin I.cardiac panel Hig h sensitivity methodon 07-02-2024 Interpretation and review of laboratory results Normal [facility] Less than 99th perce ntile of normal [...] performed using a different testing methodology at [facility] than at other [facility]. Direct result comparisons should only be made within the same method. [facility] Troponin I, High Sensitivity on 07-02-2024 Tropinin I.cardiac panel High sensitivity method 8 ng/L 0 - 13 ng/L [facility] Troponin I.cardiac panelon 0 07-02-2024 Tropinin I.cardiac panel High sensitivity method 8 ng/L Normal 0-13 [facility] Comment on above: Order Comment: Less than [...] performed using a different testing methodology at [facility] than at other [facility]. Direct result comparisons should only be made within the same method. Performed By: #### 8 9577-1 #### GERBER ARMIN ([id number]) [facility] ([facility]) [address] [place] [address] aPTT Coag (PPP) [Time]on The APTT is no longe r used for monitoring Unfractionated Heparin Therapy. For monitoring Heparin Therapy, use the Heparin Assay. [facility] Neurology Visit Reporton Neurology Visit Report [facility] [address], [address] [place] [id number] OFFICE VISIT Date of Service: 05/26/24 MR#: [id number] Acct: [id number] Name: RAMYA MOSS Rep #: [id number] : 1935 Provider: Dr. Isaiah bland MD Age/Sex: 88/F [place] [facility] [place]: Signed HPI [facility] Chief Complaint: Details: Interim History: Ramya returns [...] sphenoi (more content not included)... Normal [facility] HbA1c (Bld) [Mass fraction]o n 01-28-2024 Average glucose Estimated from glycated hemoglobin (Bld) [Mass/Vol] 169 mg/dL Normal Not Established [facility] Comment on above: Order Comment: Diagn osis of Diabetes-Adults Non-Diabetic: < or = 5.6% Increased risk for developing diabetes: 5.7-6.4% Diagnostic of diabetes: > or = 6.5% Performed By: #### 4 548-4 #### DANELLE Douglas ([id number]) [facility] ([facility]) [address] [place] [address] Hemoglobin A1c/Hemoglobin.to stephanie 01-28-2024 HbA1c (Bld) [Mass fraction] 7.5 % High See comment [facility] Comment on above: Order Comment: Diagn osis of Diabetes-Adults Non-Diabetic: < or = 5.6% Increased risk for developing diabetes: 5.7-6.4% Diagnostic of diabetes: > or = 6.5% Performed By: #### 4 548-4 #### DANELLE Douglas ([id number]) [facility] ([facility]) [address] [place] [address] XR LUMBAR SPINE COMPLETE 4+ VIEWSon 10-25-2023 XR LUMBAR SPINE COMPLETE 4+ VIEWS Interpreted By: Simba Escobar, STUDY: XR LUMBAR SPINE COMPLETE 4+ VIEWS; ; 10/25/2023 11:45 am INDICATION: Signs/Symptoms:88 year old female with bilateral low back pain with bialteral sciatica.. ,M54.42 Lumbago with sciatica, left side,M54.41 Lumbago with sciatica, right side,G89.29 Other chronic pain COMPARISON: None. ACCESSION NUMBER(S): [id number] ORDERING CLINICIAN: MARY THOMASON FINDINGS: Lumbar spine, five views Mild anterolisthesis of L4 on L5. There is moderate disc space narrowing with osteophytosis and sclerosis at L4-L5 and L5-S1. Facet disease as well. No fracture seen IMPRESSION: Moderate spondylosis facet disease lower lumbar spine. Mild anterolisthesis L4 on L5 MACRO: None Signed by: Simba Escobar 10/31/2023 5:42 PM Dictation workstation: [id number] [facility] Neurology Visit Reporton Neurology Visit Report [facility] [address], [address] [place] [address] OFFICE VISIT Date of Service: 10/11/23 MR#: [id number] Acct: [id number] Name: RAMYA MOSS Rep #: [id number] : 1935 Provider: Dr. Isaiah bland MD Age/Sex: 88/F [place] [facility] [place] Status: Signed HPI HPI Chief Complaint: Details: [...] Skull (more content not included)... Normal [facility] NM Heart Perfusion W stress and W radionuclide Paul 07-09-2023 Normal myocardial perfusion study without evidence of ischemia or prior infarction. The left ventricle is normal in size. Normal LV wall motion with an LV EF estimated at greater than 65%. I personally reviewed the images/study and I agree with the findings as stated. This study was interpreted at [facility], [place], [place]. MACRO: None Signed by: Narinder Tristan 07/09/2023 12:00 PM Dictation workstation: [id number] [facility] Interpreted By: Narinder Sharp and Bartolomei Aguilar Christopher STUDY: NUCLEAR STRESS TEST; 07/09/2023 11:22 am INDICATION: Signs/Symptoms:atypical chest ain. COMPARISON: None. ACCESSION NUMBER(S): [id number] ORDERING CLINICIAN: NILSA MALIK TECHNIQUE: DIVISION OF [...] Tristan MD - 07/09/2023 Interpreted By: Narinder Tristan, Karissa Acharya STUDY: NUCLEAR STRESS TEST; 07/09/2023 11:22 am INDICATION: Signs/Symptoms:atypical chest ain. COMPARISON: None. ACCESSION NUMBER(S): [id number] ORDERING CLINICIAN: NILSA MALIK TECHNIQUE: DIVISION OF [...] as stated. This study was interpreted at [facility], [place], [place]. MACRO: None Signed by: Narinder Tristan 07/09/2023 12:00 PM Dictation workstation: [id number] [facility] Work Phone: Radiology Study observation (narrative) [facility] Work Phone: NM Heart Perfusion W stress and W radionuclide IVOrdered By: Narinder Tristan on 07-09-2023 [facility] Work Phone: No Panel Informationon 07-08 [place] [address] [phone], Nuclear Pharmacologic Stress Test Patient Name: RAMYA MOSS Ordering Provider: [id number] NILSA MALIK Study Date: 07/09/2023 Reading Physician: [id number] Louis Morrissey MD MRN/PID: [id number] Supervising Physician: [id number] Louis Morrissey MD Fellow: Date of /Age: 7 1935 / 87 years Fellow: Gender: F Nurse: N/A Admit Date: 07/09/2023 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 Nuclear image results are reported separately. [id number] Louis Morrissey MD Electronically signed on 07/09/2023 at 5:52:15 PM Final Louis Bar MD - 07/09/2023 [place] [address] [phone], Nuclear Pharmacologic Stress Test Patient Name: RAMYA MOSS Ordering Provider: [id number] NILSA MALIK Study Date: 07/09/2023 Reading Physician: Pedro Morrissey MD MRN/PID: [id number] Supervising Physician: Pedro Morrissey MD Fellow: Date of /Age: 7 1935 / 87 years Fellow: Gender: F Nurse: N/A Admit Date: 07/09/2023 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 Nuclear image results are reported separately. [id number] Louis Morrissey MD Electronically signed on 07/09/2023 at 5:52:15 PM Final [facility] Work Phone: No Panel InformationOrdered By: Louis Morrissey on 07-09-2023 [facility] Work Phone: CBC W Auto Differential pane l (Bld)on 06-24-2023 Basophils (Bld) [#/Vol] 0.04 10*3/uL [facility] Basophils/100 WBC (Bld) 0.3 % 0.0 - 2.0 % [facility] Eosinophils (Bld) [#/Vol] 0.03 10*3/uL [facility] Eosinophils/100 WBC (Bld) 0.2 % 0.0 - 6.0 % [facility] Erythrocyte distribution width (RBC) [Ratio] 13.3 % 11.5 - 14.5 % [facility] Hematocrit (Bld) [Volume fraction] 37.1 % 36.0 - 46.0 % [facility] Hemoglobin (Bld) [Mass/Vol] 11.6 g/dL Low 12.0 - 16.0 g/dL [facility] Immature granulocytes (Bld) [#/Vol] 0.08 10*3/uL [facility] Immature granulocytes/100 WBC (Bld) 0.6 % 0.0 - 0.9 % [facility] Comment on above: Immature Granulocyte Count (IG) includes promyelocytes, myelocytes and metamyelocytes but does not include bands. Percent differential counts (%) should be interpreted in the context of the absolute cell counts (cells/UL). Interpretation and review of laboratory results Abnormal [facility] Lymphocytes (Bld) [#/Vol] 1.11 10*3/uL [facility] Lymphocytes/100 WBC (Bld) 7.8 % 13.0 - 44.0 % [facility] MCH (RBC) [Entitic mass] 28.8 pg 26.0 - 34.0 pg [facility] MCHC (RBC) [Mass/Vol] 31.3 g/dL Low 32.0 - 36.0 g/dL [facility] MCV (RBC) [Entitic vol] 92 fL 80 - 100 fL [facility] Monocytes (Bld) [#/Vol] 1.08 10*3/uL High [facility] Monocytes/100 WBC (Bld) 7.6 % 2.0 - 10.0 % [facility] Neutrophils (Bld) [#/Vol] 11.93 10*3/uL [facility] Comment on above: Percent differential counts (%) should be interpreted in the context of the absolute cell counts (cells/uL). Neutrophils/100 WBC (Bld) 83.5 % 40.0 - 80.0 % [facility] Nucleated RBC/100 WBC (Bld) [Ratio] 0.0 % [facility] Platelets (Bld) [#/Vol] 253 10*3/uL [facility] RBC (Bld) [#/Vol] 4.03 10*6/uL [facility] WBC (Bld) [#/Vol] 14.3 10*3/uL [facility] CT Chest W contrast IV and C T angiogram Pulmonary arteries for pulmonary embolus W contrast Paul 06-24-[address] evidence of ac tanana pulmonary embolism. MACRO: None. Signed by: Len Becker 06/24/2023 10:24 AM Dictation workstation: [id number] [facility] Interpreted By: Len Becker, STUDY: CT ANGIO CHEST FOR PULMONARY EMBOLISM; 06/24/2023 9:31 am INDICATION: Signs/Symptoms:chest pain. COMPARISON: None.. ACCESSION NUMBER(S): [id number] ORDERING CLINICIAN: JEAN PIERRE MATHIAS TECHNIQUE: CT [...] INDICATION: Signs/Symptoms:chest pain. COMPARISON: None.. ACCESSION NUMBER(S): [id number] ORDERING CLINICIAN: JEAN PIERRE MATHIAS TECHNIQUE: CT [...] Len Becker 06/24/2023 10:24 AM Dictation workstation: [id number] [facility] Work Phone: Radiology Study observation (narrative) [facility] Work Phone: CT Chest W contrast IV and C T angiogram Pulmonary arteries for pulmonary embolus W contrast IVOrdered By: Len Becker on 06-24-2023 [facility] Work Phone: Comprehensive metabolic 2000 panelon 06-24-2023 Albumin BCP dye [Mass/Vol] 4.3 g/dL 3.4 - 5.0 g/dL [facility] ALP [Catalytic activity/Vol] 71 U/L 33 - 136 U/L [facility] ALT With P-5'-P [Catalytic activity/Vol] 5 U/L Low 7 - 45 U/L [facility] Comment on above: Patients treated wit h Sulfasalazine may generate falsely decreased results for ALT. Anion gap [Moles/Vol] 14 mmol/L 10 - 20 mmol/L [facility] AST With P-5'-P [Catalytic activity/Vol] 10 U/L 9 - 39 U/L [facility] Bilirubin [Mass/Vol] 0.6 mg/dL 0.0 - 1 .2 mg/dL [facility] Calcium [Mass/Vol] 9.1 mg/dL 8.6 - 10. 3 mg/dL [facility] Chloride [Moles/Vol] 103 mmol/L 98 - 10 7 mmol/L [facility] CO2 [Moles/Vol] 22 mmol/L 21 - 32 mmol/L [facility] Creatinine [Mass/Vol] 1.07 mg/dL High 0.50 - 1.05 mg/dL [facility] GFR/1.73 sq M.predicted among non-blacks MDRD (S/P/Bld) [Vol rate/Area] 51 mL/min/{1.73_m2} Low - PINF [facility] Comment on above: Calculations of julia mated GFR are performed using the 2020 CKD-EPI Study Refit equation without the race variable for the IDMS-Traceable creatinine methods. https://jasn.asnjournals.org/content//ASN.8945857 988 Glucose [Mass/Vol] 194 mg/dL High 74 - 99 mg/dL [facility] Potassium [Moles/Vol] 4.3 mmol/L 3.5 - 5.3 mmol/L [facility] Protein [Mass/Vol] 7.2 g/dL 6.4 - 8.2 g/dL [facility] Sodium [Moles/Vol] 135 mmol/L Low 136 - 145 mmol/L [facility] Urea nitrogen [Mass/Vol] 31 mg/dL High 6 - 23 mg/dL [facility] Magnesiumon 06-24-2023 Magnesium [Mass/Vol] 1.19 mg/dL Low 1.60 - 2.40 mg/dL [facility] No Panel Informationon 06-23 NO ACUTE INTRACRANIA L PROCESS. SKULL INTACT NO ACUTE FRACTURE OR SUBLUXATION IN THE CERVICAL SPINE THIS REPORT SERVES THE DIAGNOSTIC INTERPRETATION FOR TWO EXAMS PERFORMED CONCURRENTLY: CT BRAIN WITHOUT IV CONTRAST AND CT CERVICAL SPINE WITHOUT IV CONTRAST MACRO: None Signed by: Derick Arguelles 06/24/2023 8:33 AM Dictation workstation: [id number] [facility] Interpreted By: Derick Dinero, STUDY: CT HEAD WO IV CONTRAST; CT CERVICAL SPINE WO IV CONTRAST; 06/24/2023 8:07 am INDICATION: Signs/Symptoms:head injury; Signs/Symptoms:neck pain. COMPARISON: MRI brain 09 June 2020 ACCESSION NUMBER(S): [id number]; [id number] ORDERING CLINICIAN: JEAN PIERRE MATHIAS TECHNIQUE: CT [...] hemorrhage): None detected Reference: Yoseph Duque, Sandra CHRISTENSEN, Stephanie Hopper, et al. The BIG (brain injury guidelines) project: defining the management of traumatic brain injury by acute care surgeons. J Trauma Acute Care Surg. 2014;76:901w602. OTHER ACUTE INTRACRANIAL MASS EFFECT: Negative CT [...] MRI brain 09 June 2020 ACCESSION NUMBER(S): [id number]; [id number] ORDERING CLINICIAN: JEAN PIERRE MATHIAS TECHNIQUE: CT [...] care surgeons. J Trauma Acute Care Surg. 2014;76:635k179. OTHER ACUTE INTRACRANIAL MASS EFFECT: Negative CT [...] Derick Arguelles 06/24/2023 8:33 AM Dictation workstation: [id number] [facility] Work Phone: Interpretation and review of laboratory results Abnormal [facility] Radiology Study observation (narrative) [facility] Work Phone: No Panel InformationOrdered By: Derick Arguelles on 06-24-2023 [facility] Work Phone: Tropinin I.cardiac panel Hig h sensitivity methodon 06-24-2023 Interpretation and review of laboratory results Normal [facility] Less than 99th perce ntile of normal [...] performed using a different testing methodology at [facility] than at other [facility]. Direct result comparisons should only be made within the same method. [facility] Interpretation and review of laboratory results Normal [facility] Less than 99th perce ntile of normal [...] performed using a different testing methodology at [facility] than at other [facility]. Direct result comparisons should only be made within the same method. [facility] Troponin I, High Sensitivity , Initialon 06-24-2023 Tropinin I.cardiac panel High sensitivity method 3 ng/L 0 - 13 ng/L [facility] Troponin, High Sensitivity, 1 Houron 06-24-2023 Tropinin I.cardiac panel High sensitivity method 3 ng/L 0 - 13 ng/L [facility] XR Chest Single viewon 06-23 No acute abnormaliti es. Chronic changes noted. Signed by: Guillermina Finn 06/24/2023 8:21 AM Dictation workstation: [id number] [facility] MMODAL Interpreted By: Guillermina Munoz ch, STUDY: XR CHEST 1 VIEW 06/24/2023 7:24 am INDICATION: Signs/Symptoms:Chest Pain COMPARISON: None ACCESSION NUMBER(S): [id number] ORDERING CLINICIAN: JEAN PIERRE MATHIAS TECHNIQUE: AP view FINDINGS: There are low lung volumes. No infiltrates. Slight basilar atelectasis or scarring in the right lung base. Heart size is accentuated by the poor inspiration. Pulmonary vascularity is normal. MMODAL Guillermina Finn MD - 06/24/2023 Interpreted By: Guillermina Finn, STUDY: XR CHEST 1 VIEW 06/24/2023 7:24 am INDICATION: Signs/Symptoms:Chest Pain COMPARISON: None ACCESSION NUMBER(S): [id number] ORDERING CLINICIAN: JEAN PIERRE MATHIAS TECHNIQUE: AP view FINDINGS: There are low lung volumes. No infiltrates. Slight basilar atelectasis or scarring in the right lung base. Heart size is accentuated by the poor inspiration. Pulmonary vascularity is normal. IMPRESSION: No acute abnormalities. Chronic changes noted. Signed by: Guillermina Finn 06/24/2023 8:21 AM Dictation workstation: [id number] [facility] Work Phone: Radiology Study observation (narrative) [facility] Work Phone: XR Chest Single viewOrdered By: Guillermina Finn on 06-24-2023 [facility] Work Phone: Albumin/Creatinineon 024 Albumin/Creatinine DL <= 20 mg/L (U) [Mass ratio] 9.6 ug/mg Creat Normal <30.0 [facility] Comment on above: Performed By: #### 1 4959-1 #### DANELLE Douglas ([id number]) [facility] ([facility]) [address] [place] [address] 11026 Albumin/Creatinine DL <= 20 mg/L (U) [Mass ratio]on 06-15-2023 Albumin DL <= 20 mg/L (U) [Mass/Vol] 12.1 mg/L Normal Not established [facility] Comment on above: Performed By: #### 1 4959-1 #### DANELLE Douglas ([id number]) [facility] ([facility]) [address] [place] [address] 39982 Creatinine (U) [Mass/Vol] 126.0 mg/dL Normal 20.0-320.0 [facility] Comment on above: Performed By: #### 1 4959-1 #### DANELLE Douglas ([id number]) [facility] ([facility]) [address] [place] [address] 94806 CBC panel Auto (Bld)on 06-14 Erythrocyte distribution width (RBC) [Ratio] 13.6 % Normal 11.5-14.5 [facility] Comment on above: Performed By: #### 5 8410-2 #### BUZZ FUNEZ ([id number]) [facility] ([facility]) [address] [place] [address] 95089 Hematocrit (Bld) [Volume fraction] 37.3 % Normal 36.0-46.0 [facility] Comment on above: Performed By: #### 5 8410-2 #### BUZZ FUNEZ (37084) [facility] ([facility]) [address] [place] [address] 43535 Hemoglobin (Bld) [Mass/Vol] 11.4 g/dL Low 12.0-16.0 [facility] Comment on above: Performed By: #### 5 8410-2 #### BUZZ FUNEZ (70219) [facility] ([facility]) [address] [place] [address] 60298 MCH (RBC) [Entitic mass] 29.2 pg Normal 26.0-34.0 [facility] Comment on above: Performed By: #### 5 8410-2 #### BUZZ FUNEZ (10783) [facility] ([facility]) [address] [place] [address] 21613 MCHC (RBC) [Mass/Vol] 30.6 g/dL Low 32.0-36.0 [facility] Comment on above: Performed By: #### 5 8410-2 #### BUZZ FUNEZ ([id number]) [facility] ([facility]) [address] [place] [address] 74321 MCV (RBC) [Entitic vol] 96 fL Normal 80-100 [facility] Comment on above: Performed By: #### 5 8410-2 #### BUZZ FUNEZ ([id number]) [facility] ([facility]) [address] [place] [address] 22589 Nucleated RBC/100 WBC (Bld) [Ratio] 0.0 /100 WBCs Normal 0.0-0.0 [facility] Comment on above: Performed By: #### 5 8410-2 #### BUZZ FUNEZ ([id number]) [facility] ([facility]) [address] [place] [address] 00132 Platelets (Bld) [#/Vol] 273 x10*3/uL Normal 150-450 [facility] Comment on above: Performed By: #### 5 8410-2 #### BUZZ FUNEZ ([id number]) [facility] ([facility]) [address] [place] [address] RBC (Bld) [#/Vol] 3.90 x10*6/uL Low 4.00-5.20 [facility] Comment on above: Performed By: #### 5 8410-2 #### BUZZ FUNEZ ([id number]) [facility] ([facility]) [address] [place] [address] WBC (Bld) [#/Vol] 8.9 x10*3/uL Normal 4.4-11.3 [facility] Comment on above: Performed By: #### 5 8410-2 #### BUZZ FUNEZ (94611) [facility] ([facility]) [address] [place] [address] Comprehensive metabolic 2000 panelon 06-15-2023 Albumin BCP dye [Mass/Vol] 4.0 g/dL Normal 3.4-5.0 [facility] Comment on above: Performed By: #### 2 4323-8 #### BUZZ FUNEZ (26050) [facility] ([facility]) [address] [place] [address] ALP [Catalytic activity/Vol] 72 U/L Normal 33-136 [facility] Comment on above: Performed By: #### 2 4323-8 #### BUZZ FUNEZ ([id number]) [facility] ([facility]) [address] [place] [address] ALT With P-5'-P [Catalytic activity/Vol] 11 U/L Normal 7-45 [facility] Comment on above: Result Comment: Desiree ents treated with Sulfasalazine may generate falsely decreased results for ALT. Performed By: #### 2 4323-8 #### BUZZ FUNEZ ([id number]) [facility] ([facility]) [address] [place] [address] 12535 Anion gap [Moles/Vol] 11 mmol/L Normal 10-20 [facility] Comment on above: Performed By: #### 2 4323-8 #### BUZZ FUNEZ ([id number]) [facility] ([facility]) [address] [place] [address] 55724 AST With P-5'-P [Catalytic activity/Vol] 11 U/L Normal 9-39 [facility] Comment on above: Performed By: #### 2 4323-8 #### BUZZ FUNEZ ([id number]) [facility] ([facility]) [address] [place] [address] 85613 Bilirubin [Mass/Vol] 0.3 mg/dL Normal 0.0-1.2 [facility] Comment on above: Performed By: #### 2 4323-8 #### BUZZ FUNEZ ([id number]) [facility] ([facility]) [address] [place] [address] 39745 Calcium [Mass/Vol] 9.3 mg/dL Normal 8.6-10.3 [facility] Comment on above: Performed By: #### 2 432-8 #### BUZZ FUNEZ (75434) [facility] ([facility]) [address] [place] [address] 88998 Chloride [Moles/Vol] 104 mmol/L Normal 98-107 [facility] Comment on above: Performed By: #### 2 432-8 #### BUZZ FUNEZ (85020) [facility] ([facility]) [address] [place] [address] 70018 CO2 [Moles/Vol] 30 mmol/L Normal 21-32 [facility] Comment on above: Performed By: #### 2 4323-8 #### BUZZ FUNEZ (97099) [facility] ([facility]) [address] [place] [address] 37407 Creatinine [Mass/Vol] 0.97 mg/dL Normal 0.50-1.05 [facility] Comment on above: Performed By: #### 2 4323-8 #### BUZZ FUNEZ (85455) [facility] ([facility]) [address] [place] [address] 02809 Glomerular filtration rate/1.73 sq M.predicted 57 mL/min/1.73m*2 Low >60 [facility] Comment on above: Result Comment: Calc ulations of estimated GFR are performed using the 2020 CKD-EPI Study Refit equation without the race variable for the IDMS-Traceable creatinine methods. https://jasn.asnjournals.org/content//ASN.6503839 988 Performed By: #### 2 4323-8 #### BUZZ FUNEZ ([id number]) [facility] ([facility]) [address] [place] [address] 95245 Glucose [Mass/Vol] 145 mg/dL High 74-99 [facility] Comment on above: Performed By: #### 2 4323-8 #### BUZZ FUNEZ ([id number]) [facility] ([facility]) [address] [place] [address] 99151 Potassium [Moles/Vol] 4.0 mmol/L Normal 3.5-5.3 [facility] Comment on above: Performed By: #### 2 4323-8 #### BUZZ FUNEZ (81963) [facility] ([facility]) [address] [place] [address] 17351 Protein [Mass/Vol] 6.7 g/dL Normal 6.4-8.2 [facility] Comment on above: Performed By: #### 2 4323-8 #### BUZZ FUNEZ (21753) [facility] ([facility]) [address] [place] [address] 04459 Sodium [Moles/Vol] 141 mmol/L Normal 136-145 [facility] Comment on above: Performed By: #### 2 4323-8 #### BUZZ FUNEZ (31801) [facility] ([facility]) [address] [place] [address] 26144 Urea nitrogen [Mass/Vol] 17 mg/dL Normal 6-23 [facility] Comment on above: Performed By: #### 2 4323-8 #### BUZZ FUNEZ ([id number]) [facility] ([facility]) [address] [place] [address] 42883 HbA1c (Bld) [Mass fraction]o n 06-15-2023 Average glucose Estimated from glycated hemoglobin (Bld) [Mass/Vol] 171 mg/dL Normal Not Established [facility] Comment on above: Order Comment: Diagn osis of Diabetes-Adults Non-Diabetic: < or = 5.6% Increased risk for developing diabetes: 5.7-6.4% Diagnostic of diabetes: > or = 6.5% Monitoring of Diabetes Age (y)....................... Therapeutic Goal (%) Adults: >18.........................<7.0 Pediatrics: 13-18...................<7.5 Pediatrics: 7-12....................<8.0 Pediatrics: 0-6..................... 7.5-8.5 [place]. Diabetes Care 33(S1), Feb 2009 Performed By: #### 4 548-4 #### GERBER ARMIN ([id number]) [facility] ([facility]) [facility] [place] [id number] Hemoglobin A1c/Hemoglobin.to stephanie 06-15-2023 HbA1c (Bld) [Mass fraction] 7.6 % High see below [facility] Comment on above: Order Comment: Diagn osis of Diabetes-Adults Non-Diabetic: < or = 5.6% Increased risk for developing diabetes: 5.7-6.4% Diagnostic of diabetes: > or = 6.5% Monitoring of Diabetes Age (y)....................... Therapeutic Goal (%) Adults: >18.........................<7.0 Pediatrics: 13-18...................<7.5 Pediatrics: 7-12....................<8.0 Pediatrics: 0-6..................... 7.5-8.5 [place]. Diabetes Care 33(S1), Feb 2009 Performed By: #### 4 548-4 #### BUZZ FUNEZ ([id number]) [facility] ([facility]) [address] [place] [address] 32748 Lipid 1996 panelon 4 Cholesterol [Mass/Vol] 137 mg/dL Normal 0-199 [facility] Comment on above: Result Comment: Age Desirable [...] By: #### 2 4331-1 #### BUZZ FUNEZ (95480) [facility] ([facility]) [address] [place] [address] 01258 Cholesterol in HDL [Mass/Vol] 64.0 mg/dL Normal [facility] Comment on above: Result Comment: Age Very Low Low Normal High 0-19 Y < 35 < 40 40-45 ---- 20-24 Y ---- < 40 >45 ---- >24 Y ---- < 40 40-60 >60 Performed By: #### 2 4331-1 #### BUZZ FUNEZ (94210) [facility] ([facility]) [address] [place] [address] 08674 Cholesterol in LDL [Mass/Vol] 50 mg/dL Normal <=99 [facility] Comment on above: Result Comment: Near Borderline AGE Desirable Optimal High High Very High 0-19 Y 0 - 109 --- 110-129 >/= 130 ---- 20-24 Y 0 - 119 --- 120-159 >/= 160 ---- >24 Y 0 - 99 100-129 130-159 160-189 >/=190 Performed By: #### 2 4331-1 #### BUZZ FUNEZ ([id number]) [facility] ([facility]) [address] [place] [address] 18015 Cholesterol in VLDL [Mass/Vol] 23 mg/dL Normal 0-40 [facility] Comment on above: Performed By: #### 2 4331-1 #### BUZZ FUNEZ (95345) [facility] ([facility]) [address] [place] [address] 21062 CHOLESTEROL/HDL RATIO 2.1 Normal [facility] Comment on above: Result Comment: Ref Values Desirable < 3.4 High Risk > 5.0 Performed By: #### 2 4331-1 #### BUZZ FUNEZ (34229) [facility] ([facility]) [address] [place] [address] 96316 NON HDL CHOLESTEROL 73 mg/dL Normal 0-149 [facility] Comment on above: Result Comment: Age Desirable Borderline High High Very High 0-19 Y 0 - 119 120 - 144 >/= 145 >/= 160 20-24 Y 0 - 149 150 - 189 >/= 190 ---- >24 Y 30 mg/dL above LDL Cholesterol goal Performed By: #### 2 4331-1 #### BUZZ FUNEZ (18779) [facility] ([facility]) [address] [place] [address] 75047 Triglyceride [Mass/Vol] 117 mg/dL Normal 0-149 [facility] Comment on above: Result Comment: Age Desirable [...] By: #### 2 4331-1 #### BUZZ FUNEZ (68389) [facility] ([facility]) [address] [place] [address] Thyrotropinon 06-15-2023 TSH Qn 0.95 m[IU]/L Normal 0.44-3.98 [facility] Comment on above: Order Comment: TSH t esting is performed using different testing methodology at [facility] than at [facility]. Direct result comparisons should only be made within the same method. Performed By: #### 3 016-3 #### BUZZ FUNEZ (10000) [facility] ([facility]) [address] [place] [address] Bacteria identifiedon 2023 Bacteria identified Cx Nom (U) Test: Urine Culture Specimen Source: Clean Catch/Voided Specimen Type: Urine Specimen Date: 05/31/2023 5:37 PM Result Date: 06/01/2023 10:59 PM Result Status: Final result Abnormal: No Resulting Lab: [facility] [address] [place] [address] CULTURE No significant growth Normal [facility] Comment on above: Performed By: #### 6 30-4 #### DANELLE Douglas ([id number]) [facility] ([facility]) [address] [place] [address] Urinalysis complete panel (U )on 05-31-2023 Appearance (U) Clear Normal Clear [facility] Comment on above: Performed By: #### 2 4356-8 #### BUZZ FUNEZ ([id number]) [facility] ([facility]) [address] [place] [address] Bilirubin (U) [Mass/Vol] Negative Normal NEGATIVE [facility] Comment on above: Performed By: #### 2 4356-8 #### BUZZ FUNEZ (60879) [facility] ([facility]) [address] [place] [address] Color (U) Straw Normal Straw, Yellow [facility] Comment on above: Performed By: #### 2 4356-8 #### BUZZ FUNEZ (02375) [facility] ([facility]) [address] [place] [address] 89554 Glucose Auto test strip (U) [Mass/Vol] Negative Normal NEGATIVE [facility] Comment on above: Performed By: #### 2 4356-8 #### BUZZ FUNEZ (15071) [facility] ([facility]) [address] [place] [address] 89982 Ketones (U) [Mass/Vol] 5 (TRACE) Abnormal NEGATIVE [facility] Comment on above: Performed By: #### 2 4356-8 #### BUZZ FUNEZ (89348) [facility] ([facility]) [address] [place] [address] 38419 Leukocyte esterase Auto test strip Ql (U) Negative Normal NEGATIVE [facility] Comment on above: Performed By: #### 2 4356-8 #### BUZZ FUNEZ (21582) [facility] ([facility]) [address] [place] [address] 80362 Nitrite Auto test strip Ql (U) Negative Normal NEGATIVE [facility] Comment on above: Performed By: #### 2 4356-8 #### BUZZ FUNEZ ([id number]) [facility] ([facility]) [address] [place] [address] 56747 pH (U) 5.0 [pH] Normal 5.0, 5.5, 6.0, 6.5, 7.0, 7.5, 8.0 [facility] Comment on above: Performed By: #### 2 4356-8 #### BUZZ FUNEZ (41126) [facility] ([facility]) [address] [place] [address] 58318 Protein (U) [Mass/Vol] Negative Normal NEGATIVE [facility] Comment on above: Performed By: #### 2 4356-8 #### BUZZ FUNEZ ([id number]) [facility] ([facility]) [address] [place] [address] 54749 RBC (U) [#/Vol] Negative Normal NEGATIVE [facility] Comment on above: Performed By: #### 2 4356-8 #### BUZZ FUNEZ ([id number]) [facility] ([facility]) [address] [place] [address] 24104 Specific gravity (U) [Rel density] 1.010 Normal 1.005-1.035 [facility] Comment on above: Performed By: #### 2 4356-8 #### BUZZ FUNEZ (75771) [facility] ([facility]) [address] [place] [address] 21602 Urobilinogen (U) [Mass/Vol] mg/dL Normal <2.0 [facility] Comment on above: Performed By: #### 2 4356-8 #### BUZZ FUNEZ (39454) [facility] ([facility]) [address] [place] [address] 93707 Office Visit (Primary Care T xt/Forms)on 12-07-2021 Follow-up visit Diagnoses/Problems Assessed Diabetes mellitus, type 2 (250.00) (E11.9) Hypothyroid (244.9) (E03.9) Depression (311) (F32.A) Hyperlipemia (272.4) (E78.5) Hypertension (401.9) (I10) Overweight with body mass index (BMI) of 27 to 27.9 in adult (278.02,V85.23) (E66.3,Z68.27) Orders Diabetes mellitus, type 2 Albumin, Urine Spot; Status:Active; Requested for:43Sor2906; Complete Blood Count; Status:Active; Requested for:90Glp5290; Comprehensive Metabolic Panel; Status:Active; Requested for:54Isj6743; Hemoglobin A1C; Status:Active; Requested for:01Cba7626; Lipid Panel; Status:Active; Requested for:23Odz4365; Hypothyroid TSH - Thyroid Stimulating Hormone, Serum; Status:Active; Requested for:51Oqc2860; Patient Discussion/Summary 6 month appointment and labs. Chief Complaint 6 MO FU. REV LABS History of Present Illness Since the last office visit there have been no interval operations, hospitalizations, important illnesses or injuries. 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 shelter nonneuro, no nepro HTN-Takes and tolerates meds [...] Known Drug Allergies Vitals Vital Signs Recorded: 07Dec2021 09:29AM Heart Rate: 76 Systolic: 128 Diastolic: [...] Dec 07 2021 10:11AM EST (Author) Normal [employer] Hemoglobin A1Con 11-30-2021 Glucose [Mass/Vol] 163 mg/dL [facility] Work Phone: HbA1c (Bld) [Mass fraction] 7.3 % Abnormal [facility] Work Phone: Comment on above: Diagnosis of Diabete s-Adults Non-Diabetic: < or = 5.6% Increased risk for developing diabetes: 5.7-6.4% Diagnostic of diabetes: > or = 6.5%. Monitoring of Diabetes Age (y) Therapeutic Goal (%) Adults: >18 <7.0 Pediatrics: 13-18 <7.5 7-12 <8.0 0- 6 7.5-8.5 [place] [employer]. Diabetes Care 33(S1), Feb 2009. [...] 1 TABLET DAILY. Vitals Vital Signs Recorded: 01Raa1069 11:09AM Heart Rate80 Ukepsoam166 Vpiuvomrg39 Height4 ft 9 in Miffyi225 lb 2 oz BMI Pyqmxzjjmt29.94 kg/m2 BSA Calculated1.49 Tobacco Useb) No Falls Screening (Age 18+)a) No falls within the last year Physical Exam Eyes - Anicteric. Pulmonary - Respiratory effort: Normal respiration. Cardiovascular - Regular rate. Chest - No dominant mass or nipple discharge. Abdomen - Soft and nontender. Neurologic - Nonfocal. Psychiatric - Appropriate. Results/Data Mamm - Screening Mammogram w/ [id number] 10:25AMMaSerena Fair Test NameResultFlagReference Mamm Screening Digital with Tomosynthesis(Report) FINAL REPORT Interpreted by: HERMAN AHMADI CHRISTOPHER, MD 09/13/21 08:32 Patient Name: RAMYA MOSS STUDY: Digital mammography screening with parmjit; 09/12/2021 10:25 am ACCESSION NUMBER(S): [id number] ORDERING CLINICIAN: SERENA HULL INDICATION: Screening. COMPARISON: [...] by : (more content not included)... [facility] Scre[facility].on 022 Fall risk assessment a) No falls within the last year [facility] Work Phone: Tobacco use status CPHS b) No [facility] Work Phone: Basophil percentageon 2021 WBC (Bld) [#/Vol] 7.6 10*3/uL 4.4-11.0 [facility] Work Phone: Blood erythrocytes count (nu mber/volume)on 10-04-2021 RBC (Bld) [#/Vol] 3.90 10*6/uL 4.2-5.4 [facility] Work Phone: Blood hemoglobin measurement (mass/volume)on 10-04-2021 Hemoglobin (Bld) [Mass/Vol] 11.3 g/dL 12.0-15.0 [facility] Work Phone: Blood platelet mean volumeon 10-04-2021 Platelet mean volume (Bld) [Entitic vol] 9.5 fL 6.2-12.0 [facility] Work Phone: Determination of erythrocyte mean corpuscular volume (MCV)on 10-04-2021 MCV (RBC) [Entitic vol] 89.2 fL 81-99 [facility] Work Phone: Hematocrit Auto (Bld) [Volum e fraction]on 10-04-2021 Hematocrit (Bld) [Volume fraction] 34.8 % 37-47 [facility] Work Phone: Iron measurement (mass/mass) on 10-04-2021 Iron (Unsp spec) [Mass/Mass] 55 ug/dL 50-170 [facility] Work Phone: Laboratory - Chemistry and C hemistry - challengeon 10-04-2021 Cobalamin (Vitamin B12) [Mass/Vol] 254 pg/mL 211-911 [facility] Work Phone: Laboratory - Hematology and Cell countson 10-04-2021 Erythrocyte distribution width (RBC) [Entitic vol] 44.8 fL 35.1-43.9 [facility] Work Phone: Erythrocyte distribution width (RBC) [Ratio] 13.8 % 11.6-14.6 [facility] Work Phone: MCH (RBC) [Entitic mass] 29.0 pg 27.0-32.0 [facility] Work Phone: MCHC Auto (RBC) [Mass/Vol]on 10-04-2021 MCHC (RBC) [Mass/Vol] 32.5 g/dL 32-36 [facility] Work Phone: Platelets bldon 10-04-2021 Platelets (Bld) [#/Vol] 279 10*3/uL 150-450 [facility] Work Phone: Serum or plasma ferritin shelby surement (mass/volume)on 10-04-2021 Ferritin [Mass/Vol] 54 ng/mL 8-252 [facility] Work Phone: DIGITAL MAMM SCREENING W/ TO Sahni 09-12-2021 DIGITAL MAMM SCREENING W/ APRMJIT Patient Name: RAMYA MOSS STUDY: Digital mammography screening with parmjit; 09/12/2021 10:25 am ACCESSION NUMBER(S): [id number] ORDERING CLINICIAN: SERENA HULL INDICATION: Screening. COMPARISON: [...] Screening. Electronically signed by: HERMAN AHMADI MD [facility] Mamm - Screening Mammogram w / Tomosynthesison 09-12-2021 MG Breast Screening Normal [facility] Work Phone: Laboratory - Chemistry and C hemistry - challengeon 06-07-2021 Albumin Ql (U) <7.0 See Below [facility] Work Phone: Comment on above: Reference Range: Not Established Albumin/Creatinine DL <= 20 mg/L (U) [Mass ratio] SEE COMMENT 0.0 - 30.0 -[facility] Work Phone: Comment on above: One or more analytes used in this calculation is outside of the analytical measurement range.Calculation cannot be performed. Creatinine (U) [Mass/Vol] 82.0 mg/dL See Below [facility] Work Phone: Comment on above: Reference Range: 20. 0 - 320.0 Medicare Annual Wellness Vis dalia 06-07-2021 Medicare Annual Wellness Visit *Chief Complaint [...] 1 T (more content not included)... Normal [employer] Tobacco Screening.on 022 Adult depression screening assessment No [employer] [facility] Work Phone: Fall risk assessment a) No falls within the last year [employer] [facility] Work Phone: Tobacco use status CPHS b) No [facility] Work Phone: Hemoglobin A1Con 05-31-2021 Glucose [Mass/Vol] 169 mg/dL [facility] Work Phone: HbA1c (Bld) [Mass fraction] 7.5 % Abnormal [employer] [facility] Work Phone: Comment on above: Diagnosis of Diabete s-Adults Non-Diabetic: < or = 5.6% Increased risk for developing diabetes: 5.7-6.4% Diagnostic of diabetes: > or = 6.5%. Monitoring of Diabetes Age (y) Therapeutic Goal (%) Adults: >18 <7.0 Pediatrics: 13-18 <7.5 7-12 <8.0 0- 6 7.5-8.5 [place] [employer]. Diabetes Care 33(S1), Feb 2009. Laboratory - Chemistry and C hemistry - challengeon 05-31-2021 Albumin BCP dye [Mass/Vol] 4.0 g/dL 3.4 - 5.0 [facility] Work Phone: Albumin Ql (U) Canceled -[facility] Work Phone: Albumin/Creatinine DL <= 20 mg/L (U) [Mass ratio] Canceled -[facility] Work Phone: ALP [Catalytic activity/Vol] 71 U/L 33 - 136 -[facility] Work Phone: ALT With P-5'-P [Catalytic activity/Vol] 10 U/L 7 - 45 -[facility] Work Phone: Comment on above: Patients treated wit h Sulfasalazine may generate falsely decreased results for ALT. Anion gap [Moles/Vol] 13 mmol/L 10 - 20 -[facility] Work Phone: AST With P-5'-P [Catalytic activity/Vol] 11 U/L 9 - 39 -[facility] Work Phone: Bilirubin [Mass/Vol] 0.3 mg/dL 0.0 - 1.2 - [facility] Work Phone: Calcium [Mass/Vol] 9.5 mg/dL 8.6 - 10.3 -[facility] Work Phone: Chloride [Moles/Vol] 104 mmol/L 98 - 107 [facility] Work Phone: CO2 [Moles/Vol] 27 mmol/L 21 - 32 -[facility] Work Phone: Creatinine (U) [Mass/Vol] Canceled [facility] Work Phone: Creatinine [Mass/Vol] 0.86 mg/dL See Below -[facility] Work Phone: Comment on above: Reference Range: 0.5 0 - 1.05 Glucose [Mass/Vol] 136 mg/dL above high threshold 74 - 99 -[facility] Work Phone: Potassium [Moles/Vol] 3.8 mmol/L 3.5 - 5.3 -[facility] Work Phone: Protein [Mass/Vol] 7.1 g/dL 6.4 - 8.2 [facility] Work Phone: Sodium [Moles/Vol] 140 mmol/L 136 - 145 [facility] Work Phone: Urea nitrogen [Mass/Vol] 20 mg/dL 6 - 23 [facility] Work Phone: Laboratory - Hematology and Cell countson 05-31-2021 Erythrocyte distribution width (RBC) [Ratio] 14.6 % above high threshold See Below [facility] Work Phone: Comment on above: Reference Range: 11. 5 - 14.5 Hematocrit (Bld) [Volume fraction] 36.1 % See Below [facility] Work Phone: [phone] Comment on above: Reference Range: 36. 0 - 46.0 Hemoglobin (Bld) [Mass/Vol] 11.5 g/dL below low threshold See Below [facility] Work Phone: Comment on above: Reference Range: 12. 0 - 16.0 MCHC (RBC) [Mass/Vol] 31.9 g/dL below low threshold See Below [facility] Work Phone: Comment on above: Reference Range: 32. 0 - 36.0 MCV (RBC) [Entitic vol] 89 fL 80 - 100 [facility] Work Phone: Platelets (Bld) [#/Vol] 316 10*3/uL 150 - 450 [facility] Work Phone: [phone] RBC (Bld) [#/Vol] 4.08 {x10E12/L} See Below [facility] Work Phone: [phone] Comment on above: Reference Range: 4.0 0 - 5.20 WBC (Bld) [#/Vol] 8.1 10*3/uL 4.4 - 11.3 [facility] Work Phone: Lipid Panelon 05-31-2021 Cholesterol [Mass/Vol] 163 mg/dL 0 - 199 [facility] Work Phone: Comment on above: . [...] guidelines reference: NCEP ATPIII Guidelines, OSWALD 2001, 258:6826-97. Venipuncture immediately after or during the administration of Metamizole may lead to falsely low results. Testing should be performed immediately prior to Metamizole dosing. Cholesterol in HDL [Mass/Vol] 53.0 mg/dL [facility] Work Phone: Comment on above: . AGE VERY LOW LOW N ORMAL HIGH 0-19 Y < 35 < 40 40-45 ---- 20- 24 Y ---- < 40 >45 ---- >24 Y ---- < 40 40-60 >60. Cholesterol in LDL [Mass/Vol] 54 mg/dL 0 - 99 [facility] Work Phone: Comment on above: . NEAR BORD AGE FRANCISCO RABLE OPTIMAL HIGH HIGH VERY HIGH 0-19 Y 0 - 109 --- 110-129 >/= 130 ---- 20-24 Y 0 - 119 --- 120-159 >/= 160 ---- >24 Y 0 - 99 100-129 130-159 160-189 >/=190. Cholesterol non HDL [Mass/Vol] 110 mg/dL [facility] Work Phone: Comment on above: AGE DESIRABLE BORDER LINE HIGH HIGH VERY HIGH 0-19 Y 0 - 119 120 - 144 >/= 145 >/= 160 20-24 Y 0 - 149 150 - 189 >/= 190 ---- >24 Y 30 MG/DL ABOVE LDL CHOLESTEROL GOAL. Cholesterol.total/Ch olesterol in HDL [Mass ratio] 3.1 {ratio} [facility] Work Phone: Comment on above: REF VALUESDESIRABLE < 3.4HIGH RISK > 5.0 Triglyceride [Mass/Vol] 278 mg/dL above high threshold 0 - 149 [facility] Work Phone: Comment on above: . [...] mg/dL above high threshold 0 - 40 [facility] Work Phone: No Panel Informationon 05-31 67 {mL/min/1.73m2} >90 [facility] Work Phone: Comment on above: CALCULATIONS OF JULIA MATED GFR ARE PERFORMED USING THE 2020 CKD-EPI STUDY REFIT EQUATION WITHOUT THE RACE VARIABLE FOR THE IDMS-TRACEABLE CREATININE METHODS.https://jasn.asnjournals.org/content/early/ASN .0455271938 TSH - Thyroid Stimulating Ho rmone, Serumon 05-31-2021 TSH Qn 2.08 m[IU]/L See Below [facility] Work Phone: Comment on above: Reference Range: 0.4 4 - 3.98 TSH testing is performed using different testing methodology at [facility] than at other [facility]. Direct result comparisons should only be made within the same method. Falls Risk Screeningon 12-06 Fall risk assessment a) No falls within the last year [facility] Work Phone: Tobacco use status CPHS b) No [facility] Work Phone: HEMOGLOBIN A1Con 11-29-2020 Glucose [Mass/Vol] 160 mg/dL Normal [facility] Comment on above: Performed By: #### H BA1E #### [address] [address] HbA1c (Bld) [Mass fraction] 7.2 % Abnormal [facility] Comment on above: Result Comment: Diag nosis of Diabetes-Adults Non-Diabetic: < or = 5.6% Increased risk for developing diabetes: 5.7-6.4% Diagnostic of diabetes: > or = 6.5% . Monitoring of Diabetes Age (y) Therapeutic Goal (%) Adults: >18 <7.0 Pediatrics: 13-18 <7.5 7-12 <8.0 0- 6 7.5-8.5 [place] [employer]. Diabetes Care 33(S1), Feb 2009. Performed By: #### H BA1E #### [address] [address] Hemoglobin A1Con 11-29-2020 Glucose [Mass/Vol] 160 mg/dL [facility] Work Phone: HbA1c (Bld) [Mass fraction] 7.2 % Abnormal [facility] Work Phone: Comment on above: Diagnosis of Diabete s-Adults Non-Diabetic: < or = 5.6% Increased risk for developing diabetes: 5.7-6.4% Diagnostic of diabetes: > or = 6.5%. Monitoring of Diabetes Age (y) Therapeutic Goal (%) Adults: >18 <7.0 Pediatrics: 13-18 <7.5 7-12 <8.0 0- 6 7.5-8.5 [place] [employer]. Diabetes Care 33(S1), Feb 2009. GLUCOSE-POCTon 10-15-2020 Glucose [Mass/Vol] 160 mg/dL High 74 - 99 [facility] Comment on above: Performed By: #### G MIGUEL ANGEL #### [facility] [address] [place] [address] Laboratory - Chemistry and C hemistry - challengeon 10-15-2020 Glucose [Mass/Vol] 160 mg/dL above high threshold 74 - 99 [facility] 120 Work Phone: No Panel Informationon 10-15 [email or web address]} [facility] 120 Work Phone: Tobacco Screening.on 021 Fall risk assessment a) No falls within the last year [facility] Work Phone: Tobacco use status CP b) No [facility] Surgical [facility] Work Phone: Tobacco Screening.on 021 Fall risk assessment a) No falls within the last year -[facility] Work Phone: Tobacco use status CPHS b) No [facility] Work Phone: Hemoglobin A1Con 08-23-2020 Glucose [Mass/Vol] 171 mg/dL [facility] Work Phone: HbA1c (Bld) [Mass fraction] 7.6 % [facility] Work Phone: Comment on above: Diagnosis of Diabete s-Adults Non-Diabetic: < or = 5.6% Increased risk for developing diabetes: 5.7-6.4% Diagnostic of diabetes: > or = 6.5%. Monitoring of Diabetes Age (y) Therapeutic Goal (%) Adults: >18 <7.0 Pediatrics: 13-18 <7.5 7-12 <8.0 0- 6 7.5-8.5 [place] [employer]. Diabetes Care 33(S1), Feb 2009. Laboratory - Chemistry and C hemistry - challengeon 08-23-2020 Albumin BCP dye [Mass/Vol] 3.9 g/dL 3.4 - 5.0 [facility] Work Phone: Albumin Ql (U) 14.4 mg/L See Below [facility] Work Phone: Comment on above: Reference Range: Not Established Albumin/Creatinine DL <= 20 mg/L (U) [Mass ratio] 10.5 {ug/mg_crt} 0.0 - 30.0 [facility] Work Phone: [phone] ALP [Catalytic activity/Vol] 75 U/L 33 - 136 [facility] Work Phone: ALT With P-5'-P [Catalytic activity/Vol] 14 U/L 7 - 45 [facility]ITAL[facility] Work Phone: Comment on above: Patients treated wit h Sulfasalazine may generate falsely decreased results for ALT. Anion gap [Moles/Vol] 13 mmol/L 10 - 20 [facility] Work Phone: AST With P-5'-P [Catalytic activity/Vol] 14 U/L 9 - 39 [facility]ITAL[facility] Work Phone: Bilirubin [Mass/Vol] 0.3 mg/dL 0.0 - 1.2 [facility] Work Phone: Calcium [Mass/Vol] 8.9 mg/dL 8.6 - 10.3 [facility] Work Phone: Chloride [Moles/Vol] 105 mmol/L 98 - 107 [facility] [employer] [facility] Work Phone: CO2 [Moles/Vol] 26 mmol/L 21 - 32 [facility] Work Phone: Creatinine (U) [Mass/Vol] 137.0 mg/dL See Below [facility] Work Phone: Comment on above: Reference Range: 20. 0 - 320.0 Creatinine [Mass/Vol] 0.81 mg/dL See Below [facility] Work Phone: Comment on above: Reference Range: 0.5 0 - 1.05 Glucose [Mass/Vol] 146 mg/dL above high threshold 74 - 99 -[facility] Work Phone: Potassium [Moles/Vol] 4.1 mmol/L 3.5 - 5.3 [facility] Work Phone: Protein [Mass/Vol] 6.7 g/dL 6.4 - 8.2 [facility] Work Phone: Sodium [Moles/Vol] 140 mmol/L 136 - 145 [facility] Work Phone: Urea nitrogen [Mass/Vol] 18 mg/dL 6 - 23 [facility] Work Phone: Laboratory - Hematology and Cell countson 08-23-2020 Erythrocyte distribution width (RBC) [Ratio] 14.5 % See Below [facility] Work Phone: Comment on above: Reference Range: 11. 5 - 14.5 Hematocrit (Bld) [Volume fraction] 34.5 % below low threshold See Below [facility]ITAL[facility] Work Phone: Comment on above: Reference Range: 36. 0 - 46.0 Hemoglobin (Bld) [Mass/Vol] 11.2 g/dL below low threshold See Below [facility] Work Phone: Comment on above: Reference Range: 12. 0 - 16.0 MCHC (RBC) [Mass/Vol] 32.5 g/dL See Below [facility]ITAL[facility] Work Phone: Comment on above: Reference Range: 32. 0 - 36.0 MCV (RBC) [Entitic vol] 88 fL 80 - 100 [facility] Work Phone: Platelets (Bld) [#/Vol] 268 10*3/uL 150 - 450 [facility]ITAL[facility] Work Phone: RBC (Bld) [#/Vol] 3.92 {x10E12/L} below low threshold See Below [facility] Work Phone: Comment on above: Reference Range: 4.0 0 - 5.20 WBC (Bld) [#/Vol] 8.3 10*3/uL 4.4 - 11.3 [facility] Work Phone: Lipid Panelon 08-23-2020 Cholesterol [Mass/Vol] 161 mg/dL 0 - 199 [facility] Work Phone: Comment on above: . [...] dosing. Cholesterol in HDL [Mass/Vol] 48.0 mg/dL [facility] Work Phone: Comment on above: . AGE VERY LOW LOW N ORMAL HIGH 0-19 Y < 35 < 40 40-45 ---- 20- 24 Y ---- < 40 >45 ---- >24 Y ---- < 40 40-60 >60. Cholesterol in LDL [Mass/Vol] 66 mg/dL 0 - 99 [facility] Work Phone: Comment on above: . NEAR BORD AGE FRANCISCO RABLE OPTIMAL HIGH HIGH VERY HIGH 0-19 Y 0 - 109 --- 110-129 >/= 130 ---- 20-24 Y 0 - 119 --- 120-159 >/= 160 ---- >24 Y 0 - 99 100-129 130-159 160-189 >/=190. Cholesterol non HDL [Mass/Vol] 113 mg/dL [employer] [facility] Work Phone: Comment on above: AGE DESIRABLE BORDER LINE HIGH HIGH VERY HIGH 0-19 Y 0 - 119 120 - 144 >/= 145 >/= 160 20-24 Y 0 - 149 150 - 189 >/= 190 ---- >24 Y 30 MG/DL ABOVE LDL CHOLESTEROL GOAL. Cholesterol.total/Ch olesterol in HDL [Mass ratio] 3.4 {ratio} [employer] [facility] Work Phone: Comment on above: REF VALUESDESIRABLE < 3.4HIGH RISK > 5.0 Triglyceride [Mass/Vol] 233 mg/dL above high threshold 0 - 149 [employer] [facility] Work Phone: Comment on above: . [...] mg/dL above high threshold 0 - 40 [employer] [facility] Work Phone: No Panel Informationon 08-23 >60 >60 [employer] [facility] Work Phone: Comment on above: CALCULATIONS OF JULIA MATED GFR ARE PERFORMED USING THE MDRD STUDY EQUATION FOR THE IDMS-TRACEABLE CREATININE METHODS. CLIN CHEM 2007;53:766-72 TSH - Thyroid Stimulating Ho nadja, Serumon 08-23-2020 TSH Qn 1.59 m[IU]/L See Below [employer] [facility] Work Phone: Comment on above: Reference Range: 0.4 4 - 3.98 TSH testing is performed using different testing methodology at [facility] than at other system hospitals. Direct result comparisons should only be made within the same method. Metabolic Panelon 10-23-2019 Glucose [Mass/Vol] 136 mg/dL above high threshold 74 - 99 [facility] Work Phone: Otheron 10-23-2019 Interpreted by: HERMAN AHMADI10/23/19 10:45MRN: [id number] Name: RAMYA MOSS STUDY:RAD BREAST EXAM SPECIMEN; CLIP IMAGING DURING BREAST BIOPSY;ULTRASOUND GUIDED PLACEMENT BREAST LOC DEV; 10/23/2019 10:29 am;10/23/2019 9:15 am; 10/23/2019 9:11 am [id number]; [id number] ORDERING CLINICIAN:SERENA HULL INDICATION:ATYPICAL DUCTAL HYPERPLASIA; Atypical [...] signed by: HERMAN AHMADI 10/23/19 10:45 Normal [facility] Work Phone: Name RAMYA MOSS Pathologist: BEE DELGADO, MDDate of Procedure: 10/23/2019Date Received: 10/23/2019Date Reported 10/28/2019Submitting Physician: SERENA HULL MDLocation: [facility] Copy To/Referring/Attending:RAMON HULL MD Other External # FINAL DIAGNOSISA. 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 Electronically Signed Out By BEE DELGADO MD/Michaela the signature on this report, the individual or group listed as making theFinal Interpretation/Diagnosis certifies that they have reviewed this case. Clinical History:Physician Contact Number: [phone] (A): FreshClinical Diagnosis History RT BREAST MASSout of body time unknown: recieved in mammo @ 1021recieved in lab and formalin added @ 1030Ischemic Time: estimate: [id number]= 9 min(within the hour)Specimens Submitted As:A: RT [...] yellow, black, blue 18 slice 13, blackiad/10/25/2019 [facility] Surgical [facility] Work Phone: Interpreted by: HERMAN AHMADI10/23/19 10:45MRN: [id number] Name: RAMYA MOSS STUDY:RAD BREAST EXAM SPECIMEN; CLIP IMAGING DURING BREAST BIOPSY;ULTRASOUND GUIDED PLACEMENT BREAST LOC DEV; 10/23/2019 10:29 am;10/23/2019 9:15 am; 10/23/2019 9:11 am [id number]; [id number] ORDERING CLINICIAN:SERENA HULL INDICATION:ATYPICAL DUCTAL HYPERPLASIA; Atypical [...] signed by: HERMAN AHMADI 10/23/19 10:45 Normal [facility] Work Phone: [place] Guidance for needle localization of Breast Interpreted by: HERMAN AHMADI10/23/19 10:45MRN: [id number] Name: RAMYA MOSS STUDY:RAD BREAST EXAM SPECIMEN; CLIP IMAGING DURING BREAST BIOPSY;ULTRASOUND GUIDED PLACEMENT BREAST LOC DEV; 10/23/2019 10:29 am;10/23/2019 9:15 am; 10/23/2019 9:11 am [id number]; [id number] ORDERING CLINICIAN:SERENA HULL INDICATION:ATYPICAL DUCTAL HYPERPLASIA; Atypical [...] signed by: HERMAN AHMADI 10/23/19 10:45 Normal [facility] Work Phone: Otheron 10-21-2019 NOT DETECTED See Below [facility] Work Phone: Comment on above: SOURCE: Nasal, [...] make patient management decisions.Fact sheet for providers: https://www.fda.gov/media/900830/downloadFact sheet for patients: https://www.fda.gov/media/992378/downloadThis test has received FDA Emergency Use Authorization (EUA) and has been verified by [facility] ([facility]). This test is only authorized for the duration of time that circumstances exist to justify the authorization of the emergency use of in vitro diagnostic tests for the detection of SARS-CoV-2 virus and/or diagnosis of COVID-19 infection under section 564(b)(1) of the Act, 21 U.S.C. 360bbb-3(b)(1), unless the authorization is terminated or revoked sooner. [facility] is certified under CLIA-88 as qualified to perform high complexity testing. Testing is performed in the [facility] laboratories located at [address] [place] [address]. Hematologyon 08-12-2019 Hematocrit (Bld) [Volume fraction] 37.8 % See Below [facility] Work Phone: Comment on above: Reference Range: 36. 0 - 46.0 Hemoglobin (Bld) [Mass/Vol] 12.1 g/dL See Below [facility] Work Phone: Comment on above: Reference Range: 12. 0 - 16.0 MCV (RBC) [Entitic vol] 87 fL 80 - 100 [facility] Work Phone: Platelets (Bld) [#/Vol] 314 {x10E9/L} 150 - 450 [facility] Work Phone: RBC (Bld) [#/Vol] 4.35 {x10E12/L} See Below [facility] Work Phone: Comment on above: Reference Range: 4.0 0 - 5.20 WBC (Bld) [#/Vol] 10.1 {x10E9/L} 4.4 - 11.3 [employer] [facility] Work Phone: Hemoglobin A1Con 08-12-2019 HbA1c (Bld) [Mass fraction] 166 {MG/DL} [facility] Work Phone: HbA1c (Bld) [Mass fraction] 7.4 % [facility] Work Phone: Comment on above: Diagnosis of Diabete s-Adults Non-Diabetic: < or = 5.6% Increased risk for developing diabetes: 5.7-6.4% Diagnostic of diabetes: > or = 6.5%. Monitoring of Diabetes Age (y) Therapeutic Goal (%) Adults: >18 <7.0 Pediatrics: 13-18 <7.5 7-12 <8.0 0- 6 7.5-8.5 [place] [employer]. Diabetes Care 33(S1), Feb 2009. Lipid Panelon 08-12-2019 Cholesterol [Mass/Vol] 147 mg/dL 0 - 199 [facility] Work Phone: Comment on above: . [...] dosing. Cholesterol in HDL [Mass/Vol] 43.0 mg/dL [employer] [facility] Work Phone: Comment on above: . AGE VERY LOW LOW N ORMAL HIGH 0-19 Y < 35 < 40 40-45 ---- 20- 24 Y ---- < 40 >45 ---- >24 Y ---- < 40 40-60 >60. Cholesterol in LDL [Mass/Vol] 62 mg/dL 0 - 99 [employer] [facility] Work Phone: Comment on above: . NEAR BORD AGE FRANCISCO RABLE OPTIMAL HIGH HIGH VERY HIGH 0-19 Y 0 - 109 --- 110-129 >/= 130 ---- 20-24 Y 0 - 119 --- 120-159 >/= 160 ---- >24 Y 0 - 99 100-129 130-159 160-189 >/=190. Cholesterol non HDL [Mass/Vol] 104 mg/dL [facility] Work Phone: Comment on above: AGE DESIRABLE BORDER LINE HIGH HIGH VERY HIGH 0-19 Y 0 - 119 120 - 144 >/= 145 >/= 160 20-24 Y 0 - 149 150 - 189 >/= 190 ---- >24 Y 30 MG/DL ABOVE LDL CHOLESTEROL GOAL. Cholesterol.total/Ch olesterol in HDL [Mass ratio] 3.4 {ratio} [employer] [facility] Work Phone: Comment on above: REF VALUESDESIRABLE < 3.4HIGH RISK > 5.0 Triglyceride [Mass/Vol] 211 mg/dL above high threshold 0 - 149 [employer] [facility] Work Phone: Comment on above: . [...] mg/dL above high threshold 0 - 40 [facility] Work Phone: Metabolic Panelon 08-12-2019 ALP [Catalytic activity/Vol] 79 U/L 33 - 136 [facility] Work Phone: Anion gap [Moles/Vol] 12 mmol/L 10 - 20 [facility] Work Phone: Bilirubin [Mass/Vol] 0.2 mg/dL 0.0 - 1.2 [facility] Work Phone: Calcium [Mass/Vol] 9.5 mg/dL 8.6 - 10.3 [facility] Work Phone: Chloride [Moles/Vol] 104 mmol/L 98 - 107 [facility] Work Phone: CO2 [Moles/Vol] 29 mmol/L 21 - 32 [facility] Work Phone: Creatinine [Mass/Vol] 0.99 mg/dL See Below [facility] Work Phone: Comment on above: Reference Range: 0.5 0 - 1.05 Glucose [Mass/Vol] 139 mg/dL above high threshold 74 - 99 [facility] Work Phone: Potassium [Moles/Vol] 3.9 mmol/L 3.5 - 5.3 -[facility] Work Phone: Protein [Mass/Vol] 7.1 g/dL 6.4 - 8.2 -Med [facility] Work Phone: Sodium [Moles/Vol] 141 mmol/L 136 - 145 -[facility] Work Phone: Urea nitrogen [Mass/Vol] 21 mg/dL 6 - 23 [facility] Work Phone: Otheron 08-12-2019 Albumin Ql (U) 8.7 mg/L See Below [facility] Work Phone: Comment on above: Reference Range: Not Established Albumin BCP dye [Mass/Vol] 4.1 g/dL 3.4 - 5.0 [facility] Work Phone: ALT With P-5'-P [Catalytic activity/Vol] 14 U/L 7 - 45 [facility] Work Phone: Comment on above: Patients treated wit h Sulfasalazine may generate falsely decreased results for ALT. AST With P-5'-P [Catalytic activity/Vol] 14 U/L 9 - 39 [facility] Work Phone: Erythrocyte distribution width (RBC) [Ratio] 14.7 % above high threshold See Below [facility] Work Phone: Comment on above: Reference Range: 11. 5 - 14.5 MCHC (RBC) [Mass/Vol] 32.2 g/dL See Below [facility] Work Phone: Comment on above: Reference Range: 32. 0 - 36.0 65 {mL/min/1.73m2} >60 [employer] [facility] Work Phone: Comment on above: CALCULATIONS OF JULIA MATED GFR ARE PERFORMED USING THE MDRD STUDY EQUATION FOR THE IDMS-TRACEABLE CREATININE METHODS. CLIN CHEM 2007;53:766-72 54 {mL/min/1.73m2} Abnormal >60 [employer] [facility] Work Phone: TSH - Thyroid Stimulating Ho rmone, Serumon 08-12-2019 TSH Qn 1.56 {mIU/L} See Below [facility] Work Phone: Comment on above: Reference Range: 0.4 4 - 3.98 TSH testing is performed using different testing methodology at [facility] than at other [facility] [place]. Direct result comparisons should only be made within the same method. Urinalysison 08-12-2019 Albumin/Creatinine DL <= 20 mg/L (U) [Mass ratio] 6.3 {ug/mg_crt} 0.0 - 30.0 [facility] Work Phone: Creatinine (U) [Mass/Vol] 138.0 mg/dL See Below -[facility] Work Phone: Comment on above: Reference Range: 20. 0 - 320.0 Auto Diffon 07-31-2018 Basophils (Bld) [#/Vol] 0.0 E3/mcL Normal 0.0-0.2 [facility] Comment on above: Order Comment: Order Added by Discern Expert. Performed By: #### 2 [id number] #### GIANLUCA PedersenHemrocio [address] [place] [address] 20988 Basophils/100 WBC (Bld) 0.3 % Normal 0.0-2.0 [facility] Comment on above: Order Comment: Order Added by Discern Expert. Performed By: #### 2 [id number] #### GIANLUCA PedersenHemo [address] [place] [address] 38900 Eos Absolute 0.2 E3/mcL Normal 0.0-0.7 [facility] Comment on above: Order Comment: Order Added by Discern Expert. Performed By: #### 2 040532 #### GIANLUCA PedersenHemo [address] [place] [address] 22196 Eosinophils/100 WBC (Bld) 2.2 % Normal 0.0-11.0 [facility] Comment on above: Order Comment: Order Added by Discern Expert. Performed By: #### 2 [id number] #### GIANLUCA PedersenHemo [address] [place] [address] 59221 Lymphocytes (Bld) [#/Vol] 2.8 E3/mcL Normal 1.2-3.4 [facility] Comment on above: Order Comment: Order Added by Discern Expert. Performed By: #### 2 126045 #### GIANLUCA PedersenHemo [address] [place] [address] 17045 Lymphocytes/100 WBC (Bld) 30.4 % Normal 20.0-55.0 [facility] Comment on above: Order Comment: Order Added by Discern Expert. Performed By: #### 2 649608 #### GIANLUCA PedersenHemo [address] [place] [address] [place] Absolute 0.5 E3/mcL Normal 0.0-0.7 [facility] Comment on above: Order Comment: Order Added by Discern Expert. Performed By: #### 2 947649 #### GIANLUCA PedersenHemo [address] [place] [address] Monocytes/100 WBC (Bld) 5.9 % Normal 0.0-10.0 [facility] Comment on above: Order Comment: Order Added by Discern Expert. Performed By: #### 2 056044 #### GIANLUCA RemHemo [address] [place] [address] Neutro Absolute 5.5 E3/mcL Normal 1.4-6.5 [facility] Comment on above: Order Comment: Order Added by Discern Expert. Performed By: #### 2 230676 #### GIANLUCA PedersenHemo [address] [place] [address] Neutro Auto 61.2 % Normal 37.0-75.0 [facility] Comment on above: Order Comment: Order Added by Discern Expert. Performed By: #### 2 158133 #### GIANLUCA PedersenHemo [address] [place] [address] CBC w/ Auto Diffon 9 Erythrocyte distribution width (RBC) [Ratio] 13.9 % Normal 11.5-14.5 [facility] Comment on above: Performed By: #### 2 746687 #### GIANLUCA PedersenHemo [address] [place] [address] Hematocrit (Bld) [Volume fraction] 36.4 % Normal 36.0-48.0 [facility] Comment on above: Performed By: #### 2 668908 #### GIANLUCA PedersenHemo [address] [place] [address] Hemoglobin (Bld) [Mass/Vol] 11.9 g/dL Low 12.0-16.0 [facility] Comment on above: Performed By: #### 2 809760 #### GIANLUCA RemHemo [address] [place] [address] MCH (RBC) [Entitic mass] 29.1 pg Normal 27.0-31.0 [facility] Comment on above: Performed By: #### 2 567239 #### GIANLUCA RemHemo [address] [place] [address] MCHC (RBC) [Mass/Vol] 32.8 g/dL Low 33.0-37.0 [facility] Comment on above: Performed By: #### 2 346176 #### GIANLUCA RemHemo [address] [place] [address] MCV (RBC) [Entitic vol] 88.9 fL Normal 78.0-100.0 [facility] Comment on above: Performed By: #### 2 835313 #### GIANLUCA RemHemo [address] [place] [address] Platelet mean volume (Bld) [Entitic vol] 8.7 fL Normal 7.4-11.0 [facility] Comment on above: Performed By: #### 2 092400 #### GIANLUCA RemHemo [address] [place] [address] Platelets (Bld) [#/Vol] 267 E3/mcL Normal 130-400 [facility] Comment on above: Performed By: #### 2 045417 #### GIANLUCA RemHemo [address] [place] [address] RBC (Bld) [#/Vol] 4.10 E6/mcL Normal 3.90-5.40 [facility] Comment on above: Performed By: #### 2 568035 #### GIANLUCA RemHemo [address] [place] [address] WBC (Bld) [#/Vol] 9.1 E3/mcL Normal 3.6-11.0 [facility] Comment on above: Performed By: #### 2 292127 #### GIANLUCA RemHemo [address] [place] [address] CMPon 07-31-2018 Albumin [Mass/Vol] 4.0 g/dL Normal 3.4-5.0 [facility] Comment on above: Performed By: #### 2 601686 #### GIANLUCA RemHemo [address] [place] [address] Albumin/Globulin [Mass ratio] 1.3 {ratio} Normal 1.1-1.9 [facility] Comment on above: Performed By: #### 2 102699 #### GIANLUCA PedersenHemo [address] [place] [address] Alk Phos 73 Int._Unit/L Normal 33-136 [facility] Comment on above: Performed By: #### 2 557155 #### GIANLUCA PedersenHemo [address] [place] [address] ALT [Catalytic activity/Vol] 16 Int._Unit/L Normal 7-45 [facility] Comment on above: Performed By: #### 2 816129 #### GIANLUCA RemHemo [address] [place] [address] Anion gap [Moles/Vol] 12 mmol/L Normal 10-20 [facility] Comment on above: Performed By: #### 2 203223 #### GIANLUCA PedersenHemo [address] [place] [address] AST [Catalytic activity/Vol] 13 Int._Unit/L Normal 9-39 [facility] Comment on above: Performed By: #### 2 479604 #### GIANLUCA RemHemo [address] [place] [address] Bili Total 0.22 mg/dL Normal 0.00-1.20 [facility] Comment on above: Performed By: #### 2 408864 #### GIANLUCA PedersenHemo [address] [place] [address] Calcium [Mass/Vol] 9.2 mg/dL Normal 8.6-10.3 [facility] Comment on above: Performed By: #### 2 395537 #### GIANLUCA RemHemo [address] [place] [address] Chloride [Moles/Vol] 106 mmol/L Normal 98-107 [facility] Comment on above: Performed By: #### 2 882127 #### GIANLUCA RemHemo [address] [place] [address] CO2 [Moles/Vol] 26.0 mmol/L Normal 21.0-32.0 [facility] Comment on above: Performed By: #### 2 987175 #### GIANLUCA RemHemo [address] [place] [address] Creatinine [Mass/Vol] 0.8 mg/dL Normal 0.5-1.1 [facility] Comment on above: Performed By: #### 2 203435 #### GIANLUCA Evanso [address] [place] [address] Globulin (S) [Mass/Vol] 3.0 g/dL Normal 2.0-4.0 [facility] Comment on above: Performed By: #### 2 603559 #### GIANLUCA Evanso [address] [place] [address] Glucose [Mass/Vol] 129 mg/dL High 70-99 [facility] Comment on above: Performed By: #### 2 290848 #### GIANLUCA Evans[address] [address] Potassium [Moles/Vol] 4.4 mmol/L Normal 3.5-5.3 [facility] Comment on above: Performed By: #### 2 538164 #### GIANLUCA Evans[address] [address] Protein [Mass/Vol] 7.0 g/dL Normal 6.4-8.2 [facility] Comment on above: Performed By: #### 2 357565 #### GIANLUCA Evans[address] [address] Sodium [Moles/Vol] 139 mmol/L Normal 136-145 [facility] Comment on above: Performed By: #### 2 881079 #### GIANLUCA Evanso [address] [place] [address] Urea nitrogen [Mass/Vol] 18 mg/dL Normal 6-23 [facility] Comment on above: Performed By: #### 2 955380 #### GIANLUCA PedersenHemo [facility] [place] [address] Urea nitrogen/Creatinine [Mass ratio] 22.5 ratio Normal 5.4-30.0 [facility] Comment on above: Performed By: #### 2 872109 #### GIANLUCA PedersenHemo [facility] [place] [address] HavH4doc 07-31-2018 HbA1c (Bld) [Mass fraction] 7.1 % High 4.0-6.3 [facility] Comment on above: Performed By: #### 2 020025 #### GIANLUCA RemHemo [facility] [place] [address] Lipid Profileon 07-31-2018 Cholesterol [Mass/Vol] 139 mg/dL Normal 0-199 [facility] Comment on above: Result Comment: TOTA L CHOLEESTEROL: <200 NORMAL 200 - 239 BORDERLINE HIGH >240 HIGH Performed By: #### 2 198225 #### GIANLUCA NuviaHemo [address] [place] [address] Cholesterol in HDL [Mass/Vol] 41 mg/dL Normal 40-60 [facility] Comment on above: Performed By: #### 2 641627 #### GIANLUCA NuviaHemo [address] [place] [address] Cholesterol in LDL [Mass/Vol] 42 mg/dL Normal 0-130 [facility] Comment on above: Result Comment: <100 OPTIMAL 100-129 NEAR / ABOVE OPTIMAL 130-159 BORDERLINE HIGH 160-189 HIGH >190 VERY HIGH CALC LDL NOT VALID WHEN TRIGLYCERIDE IS >400 MG/DL Performed By: #### 2 898602 #### GIANLUCA RemHemo [address] [place] [address] Cholesterol in VLDL [Mass/Vol] 56 mg/dL High 0-40 [facility] Comment on above: Performed By: #### 2 199248 #### GIANLUCA RemHemo [address] [place] [address] Triglyceride [Mass/Vol] 279 mg/dL High 0-149 [facility] Comment on above: Result Comment: AGE DESIRABLE BORDERLINE HIGH 91 D - 9 Y 0 - 74 75 - 99 > 100 10 - 19 Y 0 - 89 90 - 129 > 130 20 -24 Y 0 - 114 115 - 149 > 150 > 25 0 - 149 150 - 199 200 - 499 Performed By: #### 2 327523 #### GIANLUCA NuviaHemo [facility] [place] [address] TSHon 07-31-2018 TSH Qn 1.63 mcIU/mL Normal 0.30-5.60 [facility] Comment on above: Performed By: #### 2 914268 #### GIANLUCA [employer] [address] [place] [address] eGFRon 07-31-2018 GFR/1.73 sq M predicted among non-blacks MDRD (S/P/Bld) [Vol rate/Area] mL/min/{1.73_m2} Normal [facility] Comment on above: Order Comment: Order Added by Discern Expert. Performed By: #### 2 950741 #### GIANLUCA RemHemo [facility] [place] [address] Auto Diffon 01-30-2018 Basophils (Bld) [#/Vol] 0.0 E3/mcL Normal 0.0-0.2 [facility] Comment on above: Order Comment: Order Added by Preeti Expert. Performed By: #### 2 608440 #### GIANLUCA NuviaHemo [address] [place] [address]198 Basophils/100 WBC (Bld) 0.4 % Normal 0.0-2.0 [facility] Comment on above: Order Comment: Order Added by Discern Expert. Performed By: #### 2 429829 #### GIANLUCA RemHemo [address] [place] [address] Eos Absolute 0.3 E3/mcL Normal 0.0-0.7 [facility] Comment on above: Order Comment: Order Added by Discern Expert. Performed By: #### 2 758560 #### GIANLUCA RemHemo [address] [place] [address] Eosinophils/100 WBC (Bld) 3.5 % Normal 0.0-11.0 [facility] Comment on above: Order Comment: Order Added by Discern Expert. Performed By: #### 2 677531 #### GIANLUCA RemHemo [facility] [place] [address] Lymphocytes (Bld) [#/Vol] 2.5 E3/mcL Normal 1.2-3.4 [facility] Comment on above: Order Comment: Order Added by Discern Expert. Performed By: #### 2 133974 #### GIANLUCA RemHemo [facility] [place] [address] Lymphocytes/100 WBC (Bld) 30.3 % Normal 20.0-55.0 [facility] Comment on above: Order Comment: Order Added by Discern Expert. Performed By: #### 2 733286 #### GIANLUCA PedersenHemo [address] [place] [address] [place] Absolute 0.5 E3/mcL Normal 0.0-0.7 [facility] Comment on above: Order Comment: Order Added by Discern Expert. Performed By: #### 2 733711 #### GIANLUCA PedersenHemo [address] [place] [address] Monocytes/100 WBC (Bld) 6.2 % Normal 0.0-10.0 [facility] Comment on above: Order Comment: Order Added by Discern Expert. Performed By: #### 2 583497 #### GIANLUCA PedersenHemo [address] [place] [address] Neutro Absolute 4.9 E3/mcL Normal 1.4-6.5 [facility] Comment on above: Order Comment: Order Added by Discern Expert. Performed By: #### 2 481173 #### GIANLUCA PedersenHemo [address] [place], [place] [address] Neutro Auto 59.6 % Normal 37.0-75.0 [facility] Comment on above: Order Comment: Order Added by Discern Expert. Performed By: #### 2 178282 #### GIANLUCA PedersenHemo [address] [place], [place] [address] CBC w/ Auto Diffon 8 Erythrocyte distribution width (RBC) [Ratio] 13.9 % Normal 11.5-14.5 [facility] Comment on above: Performed By: #### 2 008693 #### GIANLUCA PedersenHemo [address] [place] [address] Hematocrit (Bld) [Volume fraction] 37.7 % Normal 36.0-48.0 [facility] Comment on above: Performed By: #### 2 698271 #### GIANLUCA PedersenHemo [address] [place] [address] Hemoglobin (Bld) [Mass/Vol] 12.1 g/dL Normal 12.0-16.0 [facility] Comment on above: Performed By: #### 2 692546 #### GIANLUCA PedersenHemo [address] [place], [place] [address] MCH (RBC) [Entitic mass] 28.4 pg Normal 27.0-31.0 [facility] Comment on above: Performed By: #### 2 293295 #### GIANLUCA RemHemo [address] [place] [address] MCHC (RBC) [Mass/Vol] 32.2 g/dL Low 33.0-37.0 [facility] Comment on above: Performed By: #### 2 201214 #### GIANLUCA RemHemo [address] [place] [address] MCV (RBC) [Entitic vol] 88.2 fL Normal 78.0-100.0 [facility] Comment on above: Performed By: #### 2 449118 #### GIANLUCA RemHemo [address] [place] [address] Platelet mean volume (Bld) [Entitic vol] 8.7 fL Normal 7.4-11.0 [facility] Comment on above: Performed By: #### 2 158866 #### GIANLUCA RemHemo [address] [place] [address] Platelets (Bld) [#/Vol] 283 E3/mcL Normal 130-400 [facility] Comment on above: Performed By: #### 2 300146 #### GIANLUCA RemHemo [address] [place] [address] RBC (Bld) [#/Vol] 4.28 E6/mcL Normal 3.90-5.40 [facility] Comment on above: Performed By: #### 2 290152 #### GIANLUCA RemHemo [address] [place] [address] WBC (Bld) [#/Vol] 8.2 E3/mcL Normal 3.6-11.0 [facility] Comment on above: Performed By: #### 2 205775 #### GIANLUCA RemHemo [address] [place] [address] CMPon 01-30-2018 Albumin [Mass/Vol] 4.0 g/dL Normal 3.4-5.0 [facility] Comment on above: Performed By: #### 2 458268 #### GIANLUCA [employer] [address] [place] [address] Albumin/Globulin [Mass ratio] 1.5 {ratio} Normal 1.1-1.9 [facility] Comment on above: Performed By: #### 2 320763 #### GIANLUCA [employer] [address] [place] [address] Alk Phos 79 Int._Unit/L Normal 33-136 [facility] Comment on above: Performed By: #### 2 411349 #### GIANLUCA [employer] [address] [place] [address] ALT [Catalytic activity/Vol] 19 Int._Unit/L Normal 7-45 [facility] Comment on above: Performed By: #### 2 637938 #### GIANLUCA [employer] [address] [place] [address] Anion gap [Moles/Vol] 11 mmol/L Normal 10-20 [facility] Comment on above: Performed By: #### 2 556689 #### GIANLUCA [employer] [address] [place] [address] AST [Catalytic activity/Vol] 15 Int._Unit/L Normal 9-39 [facility] Comment on above: Performed By: #### 2 002545 #### GIANLUCA [employer] [address] [place] [address] Bili Total 0.32 mg/dL Normal 0.00-1.20 [facility] Comment on above: Performed By: #### 2 985534 #### GIANLUCA [employer] [address] [place] [address] Calcium [Mass/Vol] 9.0 mg/dL Normal 8.6-10.3 [facility] Comment on above: Performed By: #### 2 398882 #### GIANLUCA [employer] [address] [place] [address] Chloride [Moles/Vol] 105 mmol/L Normal 98-107 [facility] Comment on above: Performed By: #### 2 807121 #### GIANLUCA [employer] [address] [place] [address] CO2 [Moles/Vol] 28.0 mmol/L Normal 21.0-32.0 [facility] Comment on above: Performed By: #### 2 408879 #### GIANLUCA [employer] [address] [place] [address] Creatinine [Mass/Vol] 0.9 mg/dL Normal 0.5-1.1 [facility] Comment on above: Performed By: #### 2 068873 #### GIANLUCA PedersenEnvoy Therapeutics [facility] [place] [address] Globulin (S) [Mass/Vol] 3.0 g/dL Normal 2.0-4.0 [facility] Comment on above: Performed By: #### 2 569804 #### GIANLUCA PedersenEnvoy [employer] [address] [place] [address] Glucose [Mass/Vol] 149 mg/dL High 70-99 [facility] Comment on above: Performed By: #### 2 590005 #### GIANLUCA PedersenEnvoy [employer] [address] [place] [address] Potassium [Moles/Vol] 4.1 mmol/L Normal 3.5-5.3 [facility] Comment on above: Performed By: #### 2 686119 #### GIANLUCA [employer]en[employer] [address] [place] [address] Protein [Mass/Vol] 6.6 g/dL Normal 6.4-8.2 [facility] Comment on above: Performed By: #### 2 874398 #### GIANLUCA [employer] [address] [place] [address] Sodium [Moles/Vol] 140 mmol/L Normal 136-145 [facility] Comment on above: Performed By: #### 2 496830 #### GIANLUCA PedersenEnv[employer] [facility] [place] [address] Urea nitrogen [Mass/Vol] 17 mg/dL Normal 6-23 [facility] Comment on above: Performed By: #### 2 361469 #### GIANLUCA [employer] [address] [place] [address] Urea nitrogen/Creatinine [Mass ratio] 18.9 ratio Normal 5.4-30.0 [facility] Comment on above: Performed By: #### 2 662244 #### GIANLUCA [employer] [address] [place] [address] [id number] 01-30-2018 HbA1c (Bld) [Mass fraction] 7.9 % High 4.0-6.3 [facility] Comment on above: Performed By: #### 3 [id number] #### GIANLUCA Chemistry Manual Subsection [address] [place] [address] Lipid Profileon 01-30-2018 Cholesterol [Mass/Vol] 158 mg/dL Normal 0-199 [facility] Comment on above: Performed By: #### 3 [id number] #### GIANLUCA [employer] [address] [place] [address] Cholesterol in HDL [Mass/Vol] 44 mg/dL Normal 40-60 [facility] Comment on above: Performed By: #### 3 [id number] #### GIANLUCA [employer] [facility] [place] [address] Cholesterol in LDL [Mass/Vol] 59 mg/dL Normal 0-130 [facility] Comment on above: Performed By: #### 3 [id number] #### GIANLUCA [employer] [address] [place] [address] Cholesterol in VLDL [Mass/Vol] 55 mg/dL High 0-40 [facility] Comment on above: Performed By: #### 3 0356482 #### GIANLUCA [employer] [address] [place] [address] Triglyceride [Mass/Vol] 277 mg/dL High 0-149 [facility] Comment on above: Result Comment: AGE DESIRABLE BORDERLINE HIGH 91 D - 9 Y 0 - 74 75 - 99 > 100 10 - 19 Y 0 - 89 90 - 129 > 130 20 - 24 Y 0 - 114 115 - 149 > 150 > 25 0 - 149 150 - 199 200 - 499 Performed By: #### 3 [id number] #### GIANLUCA [employer] [address] [place] [address] Microalb/Creat Ratioon 01-30 Creatinine [Mass/Vol] 181.0 mg/dL Normal 20.0-300.0 [facility] Comment on above: Performed By: #### 1 [id number] #### GIANLUCA [employer] [address] [place] [address] Creatinine [Mass/Vol] 9 ug/mg Normal 0-30 [facility] Comment on above: Performed By: #### 1 [id number] #### GIANLUCA [employer] [address] [place] [address] Ur Microalbumin 1.6 mg/dL Normal 0.0-1.9 [facility] Comment on above: Performed By: #### 1 [id number] #### GIANLUCA [employer] [address] [place] [address] eGFRon 01-30-2018 GFR/1.73 sq M predicted among non-blacks MDRD (S/P/Bld) [Vol rate/Area] mL/min/{1.73_m2} Normal [facility] Comment on above: Order Comment: Order added by Discern Expert. Performed By: #### 1 [id number] #### GIANLUCA [employer] [address] [place] [address] Vital Signs Date Time Vital Sign Value Performing Clinician Facility 08-11-2024 13:33-0400 Diastolic blood pressure 58 mm[Hg] Dr. Nilsa Malik MD Work Phone: 1(904)[phone] [place] [address] 08-11-2024 13:33-0400 Systolic blood pressure 106 mm[Hg] Dr. Nilsa Malik MD Work Phone: 5(025)[phone] [place] [address] 08-11-2024 13:01-0400 Body height 146.[address] Nilsa Malik MD Work Phone: 7(351)[phone] [place] [address] 08-11-2024 13:01-0400 Body mass index (BMI) [Ratio] 25.8 kg/m2 Dr. Nilsa Malik MD Work Phone: [facility] 08-11-2024 13:01-0400 Body weight 55.[address] Nlisa Malik MD Work Phone: [facility] 08-11-2024 13:01-0400 Heart rate 75 /min Dr. Nilsa Malik MD Work Phone: [facility] 08-11-2024 13:01-0400 Respiratory rate 17 /min Dr. Nilsa Malik MD Work Phone: [facility] 08-11-2024 13:01-0400 SaO2% (BldA) [Mass fraction] 94 % Dr. Nilsa Malik MD Work Phone: [facility] 07-04-2024 13:53-0400 Body height 144.8 cm Zhen Duncan MD Work Phone: [facility] 07-04-2024 13:53-0400 Body mass index (BMI) [Ratio] 26.83 kg/m2 Zhen Duncan MD Work Phone: [facility] 07-04-2024 13:53-0400 Body weight 56.25 kg Zhen Duncan MD Work Phone: [facility] 07-04-2024 13:53-0400 Diastolic blood pressure 56 mm[Hg] Zhen Duncan MD Work Phone: [facility] 07-04-2024 13:53-0400 Heart rate 65 /min Zhen Duncan MD Work Phone: [facility] 07-04-2024 13:53-0400 SaO2% (BldA) [Mass fraction] 96 % Zhen Duncan MD Work Phone: [facility] 07-04-2024 13:53-0400 Systolic blood pressure 104 mm[Hg] Zhen Duncan MD Work Phone: [facility] 07-03-2024 11:38-0400 Diastolic blood pressure 64 mm[Hg] Dr. Nilsa Malik MD Work Phone: [facility] 07-03-2024 11:38-0400 Systolic blood pressure 90 mm[Hg] Dr. Nilsa Malik MD Work Phone: [facility] 07-03-2024 08:00-0400 Body height 146.[address] Nilsa Malik MD Work Phone: [facility] 07-03-2024 08:00-0400 Body mass index (BMI) [Ratio] 25.9 kg/m2 Dr. Nilsa Malik MD Work Phone: [facility] 07-03-2024 08:00-0400 Body temperature 97.8 [degF] Dr. Nilsa Malik MD Work Phone: [facility] 07-03-2024 08:00-0400 Body weight 55.[address] Nilsa Malik MD Work Phone: [facility] 07-03-2024 08:00-0400 Heart rate 76 /min Dr. Nilsa Malik MD Work Phone: [facility] 07-03-2024 08:00-0400 Respiratory rate 16 /min Dr. Nilsa Malik MD Work Phone: [facility] 07-03-2024 08:00-0400 SaO2% (BldA) [Mass fraction] 94 % Dr. Nilsa Malik MD Work Phone: [facility] 07-02-2024 23:30-0400 Diastolic blood pressure 84 mm[Hg] Jairon Denise MD Work Phone: [facility] 07-02-2024 23:30-0400 Heart rate 81 /min Jairon Denise MD Work Phone: [facility] 07-02-2024 23:30-0400 Respiratory rate 16 /min Jairon Denise MD Work Phone: [facility] 07-02-2024 23:30-0400 SaO2% (BldA) [Mass fraction] 97 % Jarion Denise MD Work Phone: [facility] 07-02-2024 23:30-0400 Systolic blood pressure 175 mm[Hg] Jairon Denise MD Work Phone: [facility] 07-02-2024 21:04-0400 Body temperature 97.59 [degF] Jairon Denise MD Work Phone: [facility] 07-02-2024 20:58-0400 Body height 144.8 cm Jairon Denise MD Work Phone: [facility] 07-02-2024 20:58-0400 Body mass index (BMI) [Ratio] 26.24 kg/m2 Jairon Denise MD Work Phone: [facility] 07-02-2024 20:58-0400 Body weight 55 kg Jairon Denise MD Work Phone: [facility] 05-26-2024 17:06-0400 Diastolic blood pressure 66 mm[Hg] Dr. Nilsa Malik MD Work Phone: [facility] 05-26-2024 17:06-0400 Systolic blood pressure 124 mm[Hg] Dr. Nilsa Malik MD Work Phone: [facility] 05-26-2024 11:22-0400 Body mass index (BMI) [Ratio] 26.6 kg/m2 Dr. Nilsa Malik MD Work Phone: 0(779)[phone] [place] [address] 05-26-2024 11:22-0400 Body temperature 98 [degF] Dr. Nilsa Malik MD Work Phone: 7(530)[phone] [place] [address] 05-26-2024 11:22-0400 Body weight 56.[address] Nilsa Malik MD Work Phone: [facility] 05-26-2024 11:22-0400 Heart rate 81 /min Dr. Nilsa Malik MD Work Phone: 3(209)[phone] [place] [address] 05-26-2024 11:22-0400 Respiratory rate 15 /min Dr. Nilsa Malik MD Work Phone: [facility] 05-26-2024 11:22-0400 SaO2% (BldA) [Mass fraction] 99 % Dr. Nilsa Malik MD Work Phone: [facility] 02-05-2024 11:10-0500 Body height 145.7 cm Nilsa Malik MD Work Phone: [facility] 02-05-2024 11:10-0500 Body mass index (BMI) [Ratio] 27.79 kg/m2 Nilsa Malik MD Work Phone: [facility] 02-05-2024 11:10-0500 Body weight 58.97 kg Nilsa Malik MD Work Phone: [facility] 02-05-2024 11:10-0500 Diastolic blood pressure 84 mm[Hg] Nilsa Malik MD Work Phone: [facility] 02-05-2024 11:10-0500 Heart rate 86 /min Nilsa Malik MD Work Phone: [facility] 02-05-2024 11:10-0500 SaO2% (BldA) [Mass fraction] 96 % Nilsa Malik MD Work Phone: [facility] 02-05-2024 11:10-0500 Systolic blood pressure 144 mm[Hg] Nilsa Malik MD Work Phone: 4(253)940-895431 [place] [address] 10-25-2023 09:26-0400 Body height 146.1 cm Mary Thomason MD Work Phone: 3(944)[phone] [place] [address] 10-25-2023 09:26-0400 Body mass index (BMI) [Ratio] 27.98 kg/m2 Mary Thomason MD Work Phone: 6(571)[phone] [place] [address] 10-25-2023 09:26-0400 Body weight 59.69 kg Mary Thomason MD Work Phone: 7(003)[phone] [address] [place] [address] 10-25-2023 09:26-0400 Diastolic blood pressure 74 mm[Hg] Mary Thomason MD Work Phone: [facility] 10-25-2023 09:26-0400 Heart rate 78 /min Mary Thomason MD Work Phone: [facility] 10-25-2023 09:26-0400 SaO2% (BldA) [Mass fraction] 96 % Mary Thomason MD Work Phone: [facility] 10-25-2023 09:26-0400 Systolic blood pressure 140 mm[Hg] Mary Thomason MD Work Phone: 0(685)232-189831 [place] [address] 07-27-2023 10:06-0400 Body height 146.1 cm Nilsa Malik MD Work Phone: 8(191)413-262531 [place] [address] 07-27-2023 10:06-0400 Body mass index (BMI) [Ratio] 26.84 kg/m2 Nilsa Malik MD Work Phone: [facility] 07-27-2023 10:06-0400 Body weight 57.24 kg Nilsa Malik MD Work Phone: [facility] 07-27-2023 10:06-0400 Diastolic blood pressure 70 mm[Hg] Nilsa Malik MD Work Phone: [facility] 07-27-2023 10:06-0400 Heart rate 87 /min Nilsa Malik MD Work Phone: [facility] 07-27-2023 10:06-0400 SaO2% (BldA) [Mass fraction] 95 % Nilsa Malik MD Work Phone: [facility] 07-27-2023 10:06-0400 Systolic blood pressure 130 mm[Hg] Nilsa Malik MD Work Phone: [facility] 06-25-2023 09:13-0400 Body height 146.1 cm Nilsa Malik MD Work Phone: [facility] 06-25-2023 09:13-0400 Body mass index (BMI) [Ratio] 26.99 kg/m2 Nilsa Malik MD Work Phone: [facility] 06-25-2023 09:13-0400 Body weight 57.56 kg Nilsa Malik MD Work Phone: [facility] 06-25-2023 09:13-0400 Diastolic blood pressure 64 mm[Hg] Nilsa Malik MD Work Phone: [facility] 06-25-2023 09:13-0400 Heart rate 78 /min Nilsa Malik MD Work Phone: [facility] 06-25-2023 09:13-0400 SaO2% (BldA) [Mass fraction] 92 % Nilsa Malik MD Work Phone: [facility] 06-25-2023 09:13-0400 Systolic blood pressure 130 mm[Hg] Nilsa Malik MD Work Phone: [facility] 06-24-2023 11:25-0400 Diastolic blood pressure 72 mm[Hg] Jean Pierre Mathias DO Work Phone: [facility] 06-24-2023 11:25-0400 Heart rate 82 /min Jean Pierre Mathias DO Work Phone: [facility] 06-24-2023 11:25-0400 Respiratory rate 20 /min Jean Pierre Mathias DO Work Phone: [facility] 06-24-2023 11:25-0400 SaO2% (BldA) [Mass fraction] 92 % Jean Pierre Mathias DO Work Phone: [facility] 06-24-2023 11:25-0400 Systolic blood pressure 151 mm[Hg] Jean Pierre Mathias DO Work Phone: [facility] 06-24-2023 07:00-0400 Body height 146.1 cm Jean Pierre Mathias DO Work Phone: [facility] 06-24-2023 07:00-0400 Body mass index (BMI) [Ratio] 26.13 kg/m2 Jean Pierre Mathias DO Work Phone: [facility] 06-24-2023 07:00-0400 Body temperature 97 [degF] Jean Pierre Mathias DO Work Phone: [facility] 06-24-2023 07:00-0400 Body weight 55.75 kg Jean Pierre Mathias DO Work Phone: [facility] 06-22-2023 10:01-0400 Body height 144.8 cm Nilsa Malik MD Work Phone: [facility] 06-22-2023 10:01-0400 Body mass index (BMI) [Ratio] 26.6 kg/m2 Nilsa Malik MD Work Phone: [facility] 06-22-2023 10:01-0400 Body weight 55.75 kg Nilsa Mlaik MD Work Phone: [facility] 06-22-2023 10:01-0400 Diastolic blood pressure 60 mm[Hg] Nilsa Malik MD Work Phone: [facility] 06-22-2023 10:01-0400 Heart rate 58 /min Nilsa Malik MD Work Phone: [facility] 06-22-2023 10:01-0400 SaO2% (BldA) [Mass fraction] 97 % Nilsa Malik MD Work Phone: [facility] 06-22-2023 10:01-0400 Systolic blood pressure 108 mm[Hg] Nilsa Malik MD Work Phone: 1(889)916-042331 [place] [address] 12-20-2022 09:49-0400 Body height 144.8 cm Nilsa Malik MD Work Phone: 7(302)852-557431 [place] [address] 12-20-2022 09:49-0400 Body mass index (BMI) [Ratio] 26.94 kg/m2 Nilsa Malik MD Work Phone: 9(027)545-103831 [place] [address] 12-20-2022 09:49-0400 Body weight 56.47 kg Nilsa Malik MD Work Phone: 2(248)[phone] [place] [address] 12-20-2022 09:49-0400 Diastolic blood pressure 62 mm[Hg] Nilsa Malik MD Work Phone: [facility] 12-20-2022 09:49-0400 Heart rate 100 /min Nilsa Malik MD Work Phone: 8(318)132-055431 [place] [address] 12-20-2022 09:49-0400 SaO2% (BldA) [Mass fraction] 95 % Nilsa Malik MD Work Phone: 2(643)829-788331 [place] [address] 12-20-2022 09:49-0400 Systolic blood pressure 124 mm[Hg] Nilsa Malik MD Work Phone: [facility] 06-09-2022 09:28-0400 Body height 144.8 cm Nilsa Malik MD Work Phone: 6(970)205-554431 [place] [address] 06-09-2022 09:28-0400 Body mass index (BMI) [Ratio] 28.07 kg/m2 Nilsa Malik MD Work Phone: [facility] 06-09-2022 09:28-0400 Body weight 58.83 kg Nilsa Malik MD Work Phone: [facility] 06-09-2022 09:28-0400 Diastolic blood pressure 64 mm[Hg] Nilsa Malik MD Work Phone: [facility] 06-09-2022 09:28-0400 Heart rate 77 /min Nilsa Malik MD Work Phone: [facility] 06-09-2022 09:28-0400 SaO2% (BldA) [Mass fraction] 97 % Nilsa Malik MD Work Phone: [facility] 06-09-2022 09:28-0400 Systolic blood pressure 122 mm[Hg] Nilsa Malik MD Work Phone: [facility] 10-25-2021 11:09-0400 Body height 144.78 cm Nilsa Malik Work Phone: -[facility] Work Phone: 10-25-2021 11:09-0400 Body mass index (BMI) [Ratio] 27.94 kg/m2 Nilsa Malik Work Phone: -[facility] Work Phone: 10-25-2021 11:09-0400 Body surface area Derived from formula 1.49 m2 Nilsa Malik Work Phone: [facility] Work Phone: 10-25-2021 11:09-0400 Body weight 58.57 kg Nilsa Malik Work Phone: [facility] Work Phone: 10-25-2021 11:09-0400 Diastolic blood pressure 72 mm[Hg] Nilsa Malik Work Phone: [facility] Work Phone: 10-25-2021 11:09-0400 Heart rate 80 /min Nilsa Malik Work Phone: [facility] Work Phone: 10-25-2021 11:09-0400 Systolic blood pressure 102 mm[Hg] Nilsa Malik Work Phone: [facility] Work Phone: 10-04-2021 08:19-0400 Body height 146.[address] Isaiah Sterling Work Phone: [facility] Work Phone: 10-04-2021 08:19-0400 Body mass index (BMI) [Ratio] 27 kg/m2 Dr. Isaiah Sterling Work Phone: [facility] Work Phone: 10-04-2021 08:19-0400 Body temperature 98.2 [degF] Dr. Isaiah Sterling Work Phone: [facility] Work Phone: 10-04-2021 08:19-0400 Body weight 57.[address] Isaiah Sterling Work Phone: [facility] Work Phone: 10-04-2021 08:19-0400 Diastolic blood pressure 88 mm[Hg] Dr. Isaiah Sterling Work Phone: [facility] Work Phone: 10-04-2021 08:19-0400 Heart rate 76 /min Dr. Isaiah Sterling Work Phone: [facility] Work Phone: 10-04-2021 08:19-0400 Respiratory rate 16 /min Dr. Isaiah Sterling Work Phone: [facility] Work Phone: 10-04-2021 08:19-0400 SaO2% (BldA) [Mass fraction] 92 % Dr. Isaiah Sterling Work Phone: [facility] Work Phone: 10-04-2021 08:19-0400 Systolic blood pressure 138 mm[Hg] Dr. Isaiah Sterling Work Phone: [facility] Work Phone: 06-07-2021 08:39-0400 Body height 144.78 cm Nilsa Malik Work Phone: [facility] Work Phone: 06-07-2021 08:39-0400 Body mass index (BMI) [Ratio] 28.69 kg/m2 Nilsa Rajancel Work Phone: [facility] Work Phone: 06-07-2021 08:39-0400 Body surface area Derived from formula 1.51 m2 Nilsa Malik Work Phone: [facility] Work Phone: 06-07-2021 08:39-0400 Body weight 60.13 kg Nilsa Malik Work Phone: [facility] Work Phone: 06-07-2021 08:39-0400 Diastolic blood pressure 72 mm[Hg] Nilsa Rajancel Work Phone: [facility] Work Phone: 06-07-2021 08:39-0400 Heart rate 75 /min Nilsa Rajancel Work Phone: [facility] Work Phone: 06-07-2021 08:39-0400 SaO2% (BldA) [Mass fraction] 95 % Nilsa Rajancel Work Phone: [facility] Work Phone: 06-07-2021 08:39-0400 Systolic blood pressure 132 mm[Hg] Nilsa Ham Mohinicel Work Phone: [facility] Work Phone: 12-06-2020 14:05-0400 Body height 144.78 cm Nilsa Malik Work Phone: [facility] Work Phone: 12-06-2020 14:05-0400 Body mass index (BMI) [Ratio] 28.17 kg/m2 Nilsa Malik Work Phone: [facility] Work Phone: 12-06-2020 14:05-0400 Body surface area Derived from formula 1.5 m2 Nilsa Malik Work Phone: [facility] Work Phone: 12-06-2020 14:05-0400 Body temperature 96.9 [degF] Nilsa Malik Work Phone: [facility] Work Phone: 12-06-2020 14:05-0400 Body weight 59.05 kg Nilsa Malik Work Phone: [facility] Work Phone: 12-06-2020 14:05-0400 Diastolic blood pressure 58 mm[Hg] Nilsa Malik Work Phone: [facility] Work Phone: 12-06-2020 14:05-0400 Heart rate 71 /min Nilsa Malik Work Phone: [facility] Work Phone: 12-06-2020 14:05-0400 SaO2% (BldA) [Mass fraction] 95 % Nilsa Malik Work Phone: [facility] Work Phone: 12-06-2020 14:05-0400 Systolic blood pressure 118 mm[Hg] Nilsa Rajancel Work Phone: [facility] Work Phone: 09-10-2020 13:13-0400 Body height 144.78 cm Nilsa Ham Stencel Work Phone: -[facility] Work Phone: 09-10-2020 13:13-0400 Body mass index (BMI) [Ratio] 27.92 kg/m2 Nilsa D Stencel Work Phone: [facility] Work Phone: 09-10-2020 13:13-0400 Body surface area Derived from formula 1.49 m2 Nilsa Ham Stencel Work Phone: -[facility] Work Phone: 09-10-2020 13:13-0400 Body weight 58.51 kg Nilsa Ham Stencel Work Phone: [facility] Work Phone: 09-10-2020 13:13-0400 Diastolic blood pressure 74 mm[Hg] Nilsa Ham Stencel Work Phone: [facility] Work Phone: 09-10-2020 13:13-0400 Heart rate 76 /min Nilsa Ham Stencel Work Phone: [facility] Work Phone: 09-10-2020 13:13-0400 Systolic blood pressure 122 mm[Hg] Nilsa Ham Stencel Work Phone: [facility] Work Phone: 08-31-2020 10:05-0400 Body height 144.78 cm Nilsa Ham Stencel Work Phone: [facility] Work Phone: 08-31-2020 10:05-0400 Body mass index (BMI) [Ratio] 28.36 kg/m2 Nilsa D Stencel Work Phone: [facility] Work Phone: 08-31-2020 10:05-0400 Body surface area Derived from formula 1.5 m2 Nilsa Malik Work Phone: [facility] Work Phone: 08-31-2020 10:05-0400 Body temperature 97.6 [degF] Nilsa Malik Work Phone: [facility] Work Phone: 08-31-2020 10:05-0400 Body weight 59.45 kg Nilsa Malik Work Phone: [facility] Work Phone: 08-31-2020 10:05-0400 Diastolic blood pressure 78 mm[Hg] Nilsa Malik Work Phone: [facility] Work Phone: 08-31-2020 10:05-0400 Heart rate 75 /min Nilsa Malik Work Phone: [facility] Work Phone: 08-31-2020 10:05-0400 SaO2% (BldA) [Mass fraction] 96 % Nilsa Malik Work Phone: [facility] Work Phone: 08-31-2020 10:05-0400 Systolic blood pressure 118 mm[Hg] Nilsa Malik Work Phone: [facility] Work Phone: 08-19-2019 10:37-0400 BP Diastolic 72 mm[Hg] Zhen Duncan [facility] Work Phone: 08-19-2019 10:37-0400 BP Systolic 144 mm[Hg] Zhen Duncan [facility] Work Phone: 08-19-2019 10:30-0400 BMI (Body Mass Index) 28.7 kg/m2 Zhen Duncan [facility] Work Phone: 08-19-2019 10:30-0400 Body Temperature 96.9 [degF] Zhen Duncan [facility] Work Phone: 08-19-2019 10:30-0400 Body weight 58.06 kg Zhen Duncan -[facility] Work Phone: 08-19-2019 10:30-0400 BSA (Body Surface Area) 1.47 m2 Zhen Duncan -[facility] Work Phone: 08-19-2019 10:30-0400 Height 142.24 cm Zhen Bowsertiburcio -[facility] Work Phone: 08-19-2019 10:30-0400 Pulse (Heart Rate) 80 /min [facility] Work Phone: 08-19-2019 10:30-0400 Pulse Oximetry 95 % [facility]urcio [facility] Work Phone: Encounters Encounter Date Encounter Type Care Provider Facility Start: 08-11-2024 End: 08-11-[address] Nilsa Malik MD Work Phone: [facility] Work Phone: Start: 08-11-2024 End: 08-11-[address] Isaiah Sterling MD -[facility] Work Phone: Start: 07-31-2024 End: 07-31-[address] Nilsa Malik MD Work Phone: [facility] Work Phone: Start: 07-31-2024 End: 07-31-[address] Isaiah Sterling MD -[facility] Work Phone: Start: 07-31-2024 End: 07-31-2024 ambulatory Nilsa Malik Facility:[facility] Start: 07-04-2024 End: 07-04-2024 Office outpatient visit 25 minutes Zhen Duncan MD Work Phone: [facility] Comment on above: Urgency of urination (Primary Dx); Hallucinations; Primary hypertension Start: 07-04-2024 End: 07-04-[address] [facility] Start: 07-03-2024 End: 07-03-[address] Nilsa Malik MD Work Phone: [facility] Work Phone: Start: 07-03-2024 End: 07-03-[address] Isaiah Sterling MD -[facility] [place] Work Phone: Start: 07-03-2024 End: 07-03-[address] Isaiah Sterling MD -[facility] Work Phone: Start: 07-03-2024 End: 07-03-2024 ambulatory Nilsa Malik Facility:[facility] Start: 07-03-2024 End: 07-03-2024 ambulatory Nilsa Malik Facility:[facility] Start: 07-02-2024 End: 07-03-2024 Emergency department patient visit JAIRON DENISE [facility] Start: 07-02-2024 End: 07-02-2024 Subsequent hospital visit by physician Alex [facility] Start: 07-02-2024 End: 07-02-2024 Emergency department patient visit Jairon Denise MD Work Phone: [facility] Comment on above: New onset seizure (M ulti) (Primary Dx) Start: 05-26-2024 End: 05-26-[address] 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, unspecified whether recurrent ([facility]); Type 2 diabetes mellitus without complication, without long-term current use of insulin (Multi); Primary hypertension; Parkinson's disease, unspecified whether dyskinesia present, unspecified whether manifestations fluctuate; Acquired hypothyroidism Start: 02-05-2024 End: 02-05-2024 ambulatory NILSA Ham [facility] Start: 02-05-2024 End: 02-05-2024 Encounter for general adult medical examination without abnormal findings [facility] Start: 01-28-2024 ambulatory NILSA MALIK [facility] Start: 12-06-2023 End: 12-06-2023 ambulatory MARY [facility] Start: 12-03-2023 End: 12-03-2023 ambulatory AUBREY BOLIVAR [facility] Start: 11-29-2023 End: 11-29-2023 ambulatory MARY [facility] Start: 11-26-2023 End: 11-26-2023 ambulatory [facility] Start: 11-22-2023 End: 11-22-2023 ambulatory MARY [facility] Start: 11-19-2023 End: 11-19-20[facility] Start: 11-15-2023 End: 11-15-2023 ambulatory MARY Hopper [facility] Start: 11-12-2023 End: 11-12-2023 ambulatory MARY Hopper [facility] Start: 11-05-2023 End: 11-05-2023 ambulatory MARY [facility] Start: 10-25-2023 End: 10-25-2023 ambulatory MARY [facility] Start: 10-25-2023 End: 10-25-2023 Subsequent hospital visit by physician Alex [facility] [address] [facility] Comment on above: Chronic bilateral lo w back pain with bilateral sciatica Start: 10-25-2023 End: 10-25-2023 ambulatory 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, unspecified whether recurrent (CMS-HCC); Acquired hypothyroidism; Primary hypertension; Mixed hyperlipidemia; Hypothyroidism, unspecified type Start: 07-27-2023 End: 07-27-2023 ambulatory INLSA Ham [facility] Start: 07-09-2023 End: 07-09-2023 Subsequent hospital visit by physician [address] Comment on above: Arrived Atypical chest pain Start: 06-25-2023 End: 06-25-2023 Office outpatient visit 25 minutes Nilsa Malik MD Work Phone: [facility] Comment on above: Atypical chest pain (Primary Dx) Start: 06-24-2023 End: 06-24-2023 Emergency department patient visit Jean Pierre Mathias DO Work Phone: [facility] Comment on above: Chest pain, unspecif ied type (Primary Dx); Neck pain Start: 06-22-2023 End: 06-22-2023 Office outpatient visit 25 minutes Nilsa Malik MD Work Phone: [facility] Comment on above: Type 2 diabetes zach itus without complication, without long- term current use of insulin (Multi) (Primary Dx); 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, unspecified whether recurrent (CMS-HCC); Acquired hypothyroidism; Primary hypertension; Mixed hyperlipidemia; Parkinson's disease, unspecified whether dyskinesia present, unspecified whether manifestations fluctuate (Multi); Stage 3a chronic kidney disease (Multi) Start: 06-15-2023 End: 06-15-2023 ambulatory NILSA MALIK [facility] Start: 05-31-2023 End: 05-31-2023 ambulatory NILSA MALIK [facility] Start: 12-20-2022 End: 12-20-2022 Assay of hemosiderin, quant Nilsa Malik MD Work Phone: [facility] Work Phone: Start: 12-20-2022 End: 12-20-2022 Patient encounter procedure Nilsa Malik MD Work Phone: [facility] Comment on above: Routine general medi marko examination at [facility] (Primary Dx); Type 2 diabetes mellitus without complication, without long-term current use of insulin (CMS/HCC); 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, unspecified whether recurrent (CMS/HCC); Acquired hypothyroidism; Primary hypertension; Mixed hyperlipidemia Start: 06-09-2022 End: 06-09-2022 Office outpatient visit 25 minutes Nilsa Malik MD Work Phone: [facility] Comment on above: Primary hypertension (Primary Dx); Type 2 diabetes mellitus without complication, without long-term current use of insulin (CMS/HCC); Mixed hyperlipidemia; 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, unspecified whether recurrent (CMS/HCC) Start: 11-30-2021 Chart Update Nilsa pastor Work Phone: [facility] Work Phone: Start: 10-25-2021 Office outpatient vi sit 15 minutes Nilsa Malik Work Phone: [facility] Work Phone: Start: 10-25-2021 Patient encounter procedure Nilsa Malik Work Phone: [facility] Work Phone: Start: 10-04-2021 End: 10-04-[address] Isaiah Sterling Work Phone: [facility] Start: 10-04-2021 End: 10-04-[address] Isaiah Sterling Work Phone: [facility] Start: 09-14-2021 Chart Update Nilsa Jitendra Sten darby Work Phone: [facility] Work Phone: Start: 08-16-2021 AUDIT Nilsa Jitendra Sten darby Work Phone: [facility] Work Phone: Start: 06-07-2021 Chart Update Nilsa D Sten darby Work Phone: [facility] Work Phone: Start: 06-07-2021 Adv care pln/ no alt dcsn mkr docd or refusal Nilsa Ham Stencel Work Phone: [facility] Work Phone: Start: 05-31-2021 Chart Update Nilsa D Sten darby Work Phone: [facility] Work Phone: Start: 01-26-2021 Chart Update Nilsa D Sten darby Work Phone: [facility] Work Phone: Start: 12-06-2020 Office outpatient vi sit 25 minutes Nilsa Jitendra Stencel Work Phone: [facility] Work Phone: Start: 11-29-2020 Chart Update Nilsa D Sten darby Work Phone: [facility] Work Phone: Start: 10-18-2020 Chart Update Nilsa D Sten darby Work Phone: [facility] Work Phone: Start: 09-10-2020 Office outpatient vi sit 15 minutes Nilsa Ham Stencel Work Phone: [facility] Work Phone: Start: 09-10-2020 Patient encounter procedure Nilsa Malik Work Phone: [facility] Work Phone: Start: 08-31-2020 Office outpatient vi sit 25 minutes Nilsa Jitendra Mohinidarby Work Phone: [facility] Work Phone: Start: 08-23-2020 Chart Update Nilsa pastor Work Phone: [facility] Work Phone: Start: 09-29-2019 Patient encounter procedure Zhen Duncan [facility] Work Phone: Start: 08-19-2019 Patient encounter procedure Zhen Duncan [facility] Work Phone: Start: 02-06-2019 Patient encounter procedure Zhen Duncan [facility] Work Phone: Procedures Date Procedure Procedure Detail Performing Clinician Start: 07-31-2024 MRI of brain with contrast Dr. Nilsa Malik MD Work Phone: Start: 07-04-2024 Urnls dip stick/tabl et rgnt [...] xers&/or rx cont ecg trcg only Nilsa Mlaik MD Work Phone: Start: 07-09-2023 Myocardial spect mul tiple studies Nilsa Malik MD Work Phone: Start: 06-24-2023 Ecg routine ecg w/le ast 12 lds trcg only w/o i&r Jean Pierre Jitendra Andrea DO Work Phone: Start: 06-24-2023 Ct angiography chest w/contrast/noncontrast Jean Pierre Mathias DO Work Phone: Start: 06-24-2023 Assay of troponin quantitative Jean Pierre Mathias DO Work Phone: Start: 06-24-2023 Ct cervical [...] Zhen Duncan Start: 08-19-2019 MG Breast screening Pat brittany Duncan Appendectomy Zhen Duncan Biopsy of breast Nilsa chambers Work Phone: Cataract surgery Zhen Fur ness Cholecystectomy Zhen dey Colonoscopy Zhen Duncan Comment on above: 2011; Hysterectomy Zhen Duncan Plan of Treatment Date Care Activity Detail Author Start: 03-01-2030 DTaP/Tdap/Td Vaccine s (2 - Td or Tdap) DTaP/Tdap/Td Vaccines (2 - Td or Tdap) [facility] Start: 10-31-2025 Glaucoma screening Diabetes: R etinopathy Screening [facility] Start: 02-05-2025 Medicare Annual Well ness Visit Medicare Annual Wellness Visit (AWV) [facility] Start: 10-31-2024 Glaucoma screening Diabetes: R etinopathy Screening [facility] Start: 08-07-2024 End: 08-07-2024 Patient encounter procedure 08/07/2024 3:20 PM EDT Office Visit [place] [address] [address] Nilsa Malik MD [facility] [address] [address] [facility] Start: 07-14-2024 Electroencephalogram [facility] Start: 06-14-2024 Lipid panel Lipid Panel [facility] Start: 06-14-2024 Thyroid stimulating hormone measurement TSH Level [facility] Start: 06-14-2024 Urine screening for protein Di abetes: Urine Protein Screening [facility] Start: 04-27-2024 Hemoglobin A1c measurement Torri betes: Hemoglobin A1C [facility] Start: 02-05-2024 End: 02-04-2025 CBC panel - Blood by Automated count CBC Lab Routine 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, unspecified whether recurrent (CMS-HCC) Type 2 diabetes mellitus without complication, without long-term current use of insulin (Multi) Primary hypertension Parkinson's disease, unspecified whether dyskinesia present, unspecified whether manifestations fluctuate (Multi) Expected: 02/05/2024 (Approximate), Expires: 02/04/2025 [facility] Work Phone: Comment on above: Expected: 02/05/2024 [...] fluctuate (Multi) Expected: 02/05/2024 (Approximate), Expires: 02/04/2025 [facility] Service Area Work Phone: Comment on above: Expected: 02/05/2024 (Approximate), Expires: 02/04/2025 Start: 02-05-2024 End: 02-04-2025 Hemoglobin A1c/Hemoglobin.total in Blood Hemoglobin A1C Lab Routine Type 2 diabetes mellitus without complication, without long-term current use of insulin (Multi) Expected: 02/05/2024 (Approximate), Expires: 02/04/2025 [facility] Work Phone: Comment on above: Expected: 02/05/2024 (Approximate), Expires: 02/04/2025 Start: 02-05-2024 End: 02-04-2025 Lipid 1996 panel - Serum or Plasma Lipid Panel Lab Routine Type 2 diabetes mellitus without complication, without long-term current use of insulin (Multi) Primary hypertension Expected: 02/05/2024 (Approximate), Expires: 02/04/2025 [facility] Work Phone: Comment on above: Expected: 02/05/2024 (Approximate), Expires: 02/04/2025 Start: 02-05-2024 End: 02-04-2025 Microalbumin/Creatinine [Mass Ratio] in Urine Albumin-Creatinine Ratio, Urine Random Lab Routine Type 2 diabetes mellitus without complication, without long-term current use of insulin (Multi) Expected: 02/05/2024 (Approximate), Expires: 02/04/2025 [facility] Work Phone: Comment on above: Expected: 02/05/2024 (Approximate), Expires: 02/04/2025 Start: 02-05-2024 End: 02-04-2025 Thyrotropin [Units/volume] in Serum or Plasma Thyroid Stimulating Hormone Lab Routine Acquired hypothyroidism Expected: 02/05/2024 (Approximate), Expires: 02/04/2025 [facility] Work Phone: Comment on above: Expected: 02/05/2024 (Approximate), Expires: 02/04/2025 Start: 02-05-2024 End: 02-05-2024 Patient encounter procedure [facility] Start: 12-22-2023 Medicare Annual Well ness Visit Medicare Annual Wellness Visit (AWV) [facility] Start: 11-05-2023 End: 11-05-2023 ambulatory 11/05/2023 1:45 PM EDT Evaluation [facility] [address] [place] [phone] Petra Dangelo, PT [address] [facility] [place] [address] [facility] Start: 10-28-2023 COVID-19 Vaccine ( season) COVID-19 Vaccine () [facility] Start: 10-28-2023 Influenza vaccination Influenz a Vaccine (#1) [facility] Start: 10-25-2023 End: 10-24-2024 XR Lumbar spine 4 Views [facility] Service Are a Work Phone: Comment on above: Once for 1 Occurrenc es starting 10/25/2023 until 10/25/2023 Expected: 10/25/2023 , Expires: 10/24/2024 Start: 09-14-2023 Hemoglobin A1c measurement Torri betes: Hemoglobin A1C [facility] Start: 07-27-2023 End: 07-26-2024 Hemoglobin A1c/Hemoglobin.total in Blood Hemoglobin A1C Lab Routine Type 2 diabetes mellitus without complication, without long-term current use of insulin (Multi) Expected: 07/27/2023 (Approximate), Expires: 07/26/2024 [facility] Service Area Work Phone: Comment on above: Expected: 07/27/2023 (Approximate), Expires: 07/26/2024 Start: 07-27-2023 End: 07-27-2023 Patient encounter procedure 07/27/2023 10:00 AM EDT Office Visit [facility] [address] [place] [address] Nilsa Malik MD [address] [place] [address] [facility] Start: 07-09-2023 End: 07-09-2023 Patient encounter procedure 07/09/2023 10:15 AM EDT Appointment [facility] [address] [place] [phone] [facility] Start: 07-09-2023 End: 07-09-2023 Patient encounter procedure [facility] Start: 06-25-2023 End: 06-24-2024 NM Heart Perfusion W stress and W radionuclide IV Nuclear Stress Test Cardiac Nuclear Medicine Routine Atypical chest pain Expected: 06/25/2023, Expires: 06/24/2024 [facility] Service Area Work Phone: Comment on above: Expected: 06/25/2023 , Expires: 06/24/2024 Start: 06-22-2023 End: 06-22-2023 Patient encounter procedure 06/22/2023 10:00 AM EDT Office Visit [facility] [address] [place] [phone] Nilsa Malik MD [address] [facility] [place] [address] [facility] Start: 06-03-2023 Lipid panel Lipid Panel [facility] Start: 06-03-2023 Thyroid stimulating hormone measurement TSH Level [facility] Start: 06-03-2023 Urine screening for protein Di abetes: Urine Protein Screening [facility] Start: 03-15-2023 Hemoglobin A1c measurement Torri betes: Hemoglobin A1C [facility] Start: 12-20-2022 End: 12-21-2023 CBC panel - Blood by Automated count CBC Lab Routine Type 2 diabetes mellitus without complication, without long-term current use of insulin (CMS/[facility]) Primary hypertension Mixed hyperlipidemia Expected: 12/20/2022 (Approximate), Expires: 12/21/2023 [facility] Work Phone: Comment on above: Expected: 12/20/2022 (Approximate), Expires: 12/21/2023 Start: 12-20-2022 End: 12-21-2023 Comprehensive metabolic 2000 panel - Serum or Plasma Comprehensive Metabolic Panel Lab Routine Type 2 diabetes mellitus without complication, without long-term current use of insulin (CMS/HCC) Primary hypertension Mixed hyperlipidemia Expected: 12/20/2022 (Approximate), Expires: 12/21/2023 [facility] Work Phone: Comment on above: Expected: 12/20/2022 (Approximate), Expires: 12/21/2023 Start: 12-20-2022 End: 12-21-2023 Hemoglobin A1c/Hemoglobin.total in Blood Hemoglobin A1C Lab Routine Type 2 diabetes mellitus without complication, without long-term current use of insulin (CMS/HCC) Expected: 12/20/2022 (Approximate), Expires: 12/21/2023 [facility] Work Phone: Comment on above: Expected: 12/20/2022 (Approximate), Expires: 12/21/2023 Start: 12-20-2022 End: 12-21-2023 Lipid 1996 panel - Serum or Plasma Lipid Panel Lab Routine Type 2 diabetes mellitus without complication, without long-term current use of insulin (CMS/HCC) Primary hypertension Mixed hyperlipidemia Expected: 12/20/2022 (Approximate), Expires: 12/21/2023 [facility] Work Phone: Comment on above: Expected: 12/20/2022 (Approximate), Expires: 12/21/2023 Start: 12-20-2022 End: 12-21-2023 Microalbumin/Creatinine [Mass Ratio] in Urine Albumin , Urine Random Lab Routine Type 2 diabetes mellitus without complication, without long-term current use of insulin (CMS/HCC) Primary hypertension Mixed hyperlipidemia Expected: 12/20/2022 (Approximate), Expires: 12/21/2023 [facility] Service Area Work Phone: Comment on above: Expected: 12/20/2022 (Approximate), Expires: 12/21/2023 Start: 12-20-2022 End: 12-21-2023 Thyrotropin [Units/volume] in Serum or Plasma Thyroid Stimulating Hormone Lab Routine Acquired hypothyroidism Expected: 12/20/2022 (Approximate), Expires: 12/21/2023 [facility] Work Phone: Comment on above: Expected: 12/20/2022 (Approximate), Expires: 12/21/2023 Start: 12-20-2022 End: 12-20-2022 Patient encounter procedure 12/20/2022 10:00 AM EDT Office Visit [facility] [address] [place] [phone] Nilsa Malik MD [address] [place], [place] [id number] [facility] Start: 10-27-2022 COVID-19 Vaccine () COVID-19 Vaccine () [facility] Start: 2022 Hemoglobin A1c measurement Torri christopher: Hemoglobin A1C [facility] Start: 06-29-2022 Glaucoma screening Diabetes: R etinopathy Screening [facility] Start: 06-09-2022 End: 06-10-2023 Hemoglobin A1c/Hemoglobin.total in Blood Hemoglobin A1C Lab Routine Type 2 diabetes mellitus without complication, without long-term current use of insulin ([facility]) Expected: 06/09/2022 (Approximate), Expires: 06/10/2023 [facility] Service Area Work Phone: Comment on above: Expected: 06/09/2022 (Approximate), Expires: 06/10/2023 Start: 12-07-2021 EPV, Provider: Nilsa Malik, Status: Pen, Time: 9:20 AM EPV, Provider: Nilsa Malik, Status: Pen, Time: 9:20 AM [facility] Work Phone: Start: 06-07-2021 EPV, Provider: Nilsa Malik, Status: Pen, Time: 8:40 AM EPV, Provider: Nilsa Malik, Status: Pen, Time: 8:40 AM [facility] Work Phone: Start: 02-15-2021 COVID-19 Vaccine (4 - Booster for Moderna series) COVID-19 Vaccine (4 - Booster for Moderna series) [facility] Start: 02-15-2021 COVID-19 Vaccine (4 - Moderna series) COVID-19 Vaccine (4 - Moderna series) [facility] Start: 12-06-2020 EPV, Provider: Nilsa Malik, Status: Pen, Time: 2:00 PM EPV, Provider: Nilsa Malik, Status: Pen, Time: 2:00 PM [facility] Work Phone: Start: 10-15-2020 COLON, Provider: Jaison Messer, Status: Pen, Time: 11:00 AM COLON, Provider: Jaison Messer, Status: Pen, Time: 11:00 AM [facility] Work Phone: Start: 09-10-2020 FUV, Provider: Serena Hull, Status: Pen, Time: 1:00 PM FUV, Provider: Serena Hull, Status: Pen, Time: 1:00 PM [facility] Work Phone: Start: 08-31-2020 EPV, Provider: Nilsa Malik, Status: Pen, Time: 10:00 AM EPV, Provider: Nilsa Malik, Status: Pen, Time: 10:00 AM [facility] Work Phone: Start: 09-03-2019 MG Breast screening Mamm - Scr eening Mammogram w/ Tomosynthesis [facility] Work Phone: Start: 2012 RSV High Risk: (Elde rly (60+) or Population) (1 - 1-dose 75+ series) RSV High Risk: (Elderly (60+) or Population) (1 - 1-dose 75+ series) [facility] Start: 06-26-2009 Screening for osteoporosis Bone Dens ity Scan [facility] Start: 1997 RSV patient s and/or patients aged 60+ years (1 - 1-dose 60+ series) RSV patients and/or patients aged 60+ years (1 - 1-dose 60+ series) [facility] Start: 09-02-1987 Zoster Vaccines (1 of 2) Zoste r Vaccines (1 of 2) [facility] Start: 09-02-1947 Diabetic foot examination Diabetes: Foot Exam [facility] Start: 09-02-1947 Ophthalmic examinati on and evaluation Diabetes: Retinopathy Screening [facility] Start: 1937 Medicare Annual Well ness Visit Medicare Annual Wellness Visit (AWV) [facility] Start: 1937 Screening for osteoporosis Bone Dens ity Scan [facility] Blood ammonia measurement [facility] Cobalamin (Vitamin B 12) [Mass/volume] in Serum or Plasma [facility] Complete blood count [facility] Comprehensive metabo lic 2000 panel - Serum or Plasma [facility] End: 06-24-2023 ECG 12 lead [facility] Service Area Work Phone: Comment on above: Every 1 hour for 2 O ccurrences starting 06/24/2023 until 06/24/2023, 1 completed As needed until disc ontinued starting 06/24/2023 End: 07-02-2024 ECG 12 lead [facility] Service Area Work Phone: Comment on above: Once for 1 Occurrenc es starting 07/02/2024 until 07/02/2024 Electroencephalogram [facility] Magnesium measurement [facility] Measurement of substance [facility] MR Brain WO and W co ntrast IV [facility] Patient referral [facility] Work Phone: Urinalysis complete panel - Urine [facility] Work Phone: [facility] NEGATED: Highlighted row has been ruled out! Planned Goals not documented [facility] Work Phone: Immunizations Immunization Date Immunization Notes Care Provider Chan vaelrio 11-15-2023 influenza, high dose seasonal, preservative-free Nilsa Malik MD Work Phone: [facility] Work Phone: 11-09-2022 Influenza, Seasonal, Quadrivalent, Adjuvanted Nilsa Malik MD Work Phone: [facility] Work Phone: 11-09-2022 influenza virus vacc ine, unspecified formulation Mary Thomason MD Work Phone: [facility] Work Phone: 11-10-2021 influenza, seasonal, injectable Nilsa Malik MD Work Phone: [facility] Work Phone: 12-21-2020 Pfizer-BioNTBarcoding COVI D-19 Vacc 30 MCG/0.3ML Intramuscular Suspension Nilsa Malik Work Phone: [facility] 11-10-2020 Fluzone High-Dose Quadrivalent 0.7 ML Intramuscular Suspension Prefilled Syringe Nilsa Malik Work Phone: [facility] Work Phone: 05-13-2020 Moderna COVID-19 Vac cine 100 MCG/0.5ML Intramuscular Suspension Nilsa Malik Work Phone: [facility] 04-14-2020 Moderna COVID-19 Vac cine 100 MCG/0.5ML Intramuscular Suspension Nilsa Malik Work Phone: [facility] 03-01-2020 pneumococcal polysaccharide vaccine, 23 valent; Translations: [Pneumococcal polysaccharide vaccine, 23 valent] Nilsa Malik Work Phone: [facility] Work Phone: Comment on above: Series: 03-01-2020 tetanus toxoid, redu baljeet diphtheria toxoid, and acellular pertussis vaccine, adsorbed; Translations: [Tdap] Nilsa Rajandarby Work Phone: [facility] Work Phone: Comment on above: Series: 11-19-2019 Flu vaccine, quadrivalent, high-dose, preservative free, age 65y+ (FLUZONE) Nilsa Malik MD Work Phone: [facility] Work Phone: 11-19-2019 influenza, seasonal, injectable Nilsa Malik Work Phone: [facility] Work Phone: Comment on above: Series: 11-20-2018 influenza, high dose seasonal, preservative-free Nilsa Malik MD Work Phone: [facility] Work Phone: 11-20-2018 influenza, seasonal, injectable Zhen Duncan [facility] Work Phone: Comment on above: Series: 08-04-2015 pneumococcal conjuga te vaccine, 13 valent Zhen Duncan [facility] Work Phone: Comment on above: Series: Payers Date Payer Category Payer Self-pay [id number] 2007 Managed Care (Private) [facility] [id number] 2007 Private Health Insurance [facility] [id number] 2007-Present [address] [place] [address] [id number] 2007 Private Health Insurance [id number] 2002 Medicare [id number] 2002 Medicare [id number] 1937 Unknown [id number] 2.840.1.928444.3.57 9.2.124 1937 Unknown [id number] 2.16840.1.575531.3.57 9.2.1244 1937 Unknown [id number] 2.16840.1.351698.3.57 9.2.124 1937 Unknown [id number] 2.16840.1.556870.3.57 9.2.124 1937 Unknown [id number] 2.16.840.1.888630.3.57 9.2.1242 1937 Unknown [id number] 2.16840.1.134298.3.57 9.2.1242 1937 Unknown [id number] 2.16.840.1.158415.3.57 9.2.1242 1937 Unknown [id number] 2.840.1.039040.3.57 9.2.1242 1937 Unknown [id number] 2.840.1.987934.3.57 9.2.1242 1937 Unknown [id number] 2.840.1.343252.3.57 9.2.1242 1937 Unknown [id number] 2.840.1.761910.3.57 9.2.1242 1937 Unknown [id number] 2.840.1.850920.3.57 9.2.1242 1937 Unknown [id number] 2.840.1.990641.3.57 9.2.1242 1937 Unknown [id number] 2.840.1.224254.3.57 9.2.1242 1937 Unknown [id number] 2.840.1.148574.3.57 9.2.1242 1937 Unknown [id number] 2.840.1.342626.3.57 9.2.124 1937 Unknown [id number] 2.840.1.715691.3.57 9.2.1243 1937 Unknown [id number] 2.16840.1.276196.3.57 9.2.1243 1937 Unknown [id number] 2.840.1.236076.3.57 9.2.1244 Unknown Unknown [id number] 2.16.840.1.838855.3.57 9.2.462 Unknown [id number] 2.16.840.1.118133.3.57 9.2.462 Unknown [id number] 2.16.840.1.745171.3.57 9.2.462 Unknown [id number] 2.16.840.1.961028.3.57 9.2.462 Unknown [id number] 2.16.840.1.994169.3.57 9.2.462 Social History Date Type Detail Facility Assertion Tobacco smoking consumption unknown (finding) [facility] Work Phone: Start: 06-09-2022 End: 07-04-2024 Non-smoker Non-smoker [facility] [facility] [employer] [facility] Work Phone: Start: 10-04-2021 Tobacco smoking stat us MEIS Unknown if ever smoked [facility] Work Phone: Start: 1935 Sex Assigned At Female [facility] Start: 06-09-2022 End: 07-02-2024 Tobacco smoking status NHIS Never smoked tobacco [facility] Work Phone: Start: 06-09-2022 Tobacco use and exposure Smokeless tobacco non-user [facility] Work Phone: Start: 06-09-2022 Alcohol intake [facility] Work Phone: Start: 06-09-2022 End: 07-04-2024 Tobacco use panel [facility] Work Phone: Start: 1935 Sex Assigned At Not on file [facility] Work Phone: Start: 05-30-2022 End: 07-04-2024 Exposure to SARS-CoV-2 (event) Not sure [facility] Start: 12-20-2022 End: 07-04-2024 Alcohol intake Lifetime non-drinker (finding) [facility] Work Phone: Functional Status Date Assessment Result Facility 07-04-2024 Patient Health Questionnaire 2 item (PHQ-2) [Reported] [facility] Work Phone: 07-02-2024 Roxana - suicide severity rating scale screener - recent [C-SSRS] [facility] Work Phone: NEGATED: Highlighted row Functional performance Functional status health issues are not documented [facility] Work Phone: Mental Status Date Assessment Result Facility NEGATED: Highlighted row Cognitive function [Interpretation] Cognitive status health issues are not documented [facility] Work Phone: Clinical Notes 06-09-2022 to 07-04-2024 Zhen Duncan MD - 07/04/2024 1:40 PM EDTPatient InstructionsDischarge InstructionsAttachmentsChajitendra Denise MD - 07/02/2024 11:12 PM EDTChad Ernestine Denise MD - 07/02/2024 11:12 PM EDT [...] prevention instructions provided. documented in this encounter [facility] Work Phone: 07-04-2024 Instructions Zhen Duncan MD [...] your healthcare team if you have questions [facility]2021 documented in this encounter [facility] Work Phone: 07-02-2024 Hospital Discharge instructions Jairon Denise MD - 07/02/2024 11:19 PM EDT Recommend no driving until follow-up. The following attachments cannot be sent through Care Everywhere.Seizures, Adult ED (Paraguayan)Time to stop driving? (Paraguayan)documented in this encounter [facility] Work Phone: 07-02-2024 Physician Emergency department Note [...] performed using a different testing methodology at [facility] than at other [facility]. Direct result comparisons should only be made [...] Nighat Ngo 07/02/2024 9:28 PM Dictation workstation: [id number] CT brain attack head wo IV contrast [...] Nighat Ngo 07/02/2024 9:12 PM Dictation workstation: [id number] Procedures Medical Decision Making Patient is an [...] hypoglycemia, hyperglycemia, intracranial bleed Diagnoses as of 07/02/240 New onset seizure (Multi) Jairon Denise MD 07/02/242319 [facility] Work Phone: 07-02-2024 Emergency department Note Patient [...] performed using a different testing methodology at [facility] than at other [facility]. Direct result comparisons should only be made [...] Nighat Ngo 07/02/2024 9:28 PM Dictation workstation: [id number] CT brain attack head wo IV contrast [...] Nighat Ngo 07/02/2024 9:12 PM Dictation workstation: [id number] Procedures Medical Decision Making Patient is an [...] New onset seizure (Multi) Jairon Denise MD 07/02/24 2320 documented in this encounter [facility] Work Phone: 07-02-2024 Nurse Note Pt Stroke Alert. Pt has never smoked. [facility] 07-02-2024 Nurse Note Pt Stroke Alert. Pt has never smoked. documented in this encounter [facility] Work Phone: 05-26-2024 Evaluation note Diagnosis Onset Date Resolution Hallucinations chronic April 11:20am Iron deficiency anemia chronic [facility] 2024 11:20am Mild cognitive impairment chronic May 26, 2024 11:20am Parkinson disease chronic April 282024 11:20am B12 nutritional deficiency resolved May 26, 2024 11:20am Orthostatic hypotension acute M ay 2024 8:03am Seizure acute July 03, 2024 8:03am Hallucinations chronic July 03, 2 025 8:03am Iron deficiency anemia chronic Ma y 2024 8:03am Mild cognitive impairment chronic July 03, 2024 8: 03am Parkinson disease chronic June 8:03am [facility] Work Phone: 1(344) 250-254003-31-2025 Evaluation note* Diagnosis Onset Date Resolution Status Admit Date Hallucinations chronic April 11:20am Iron deficiency anemia chronic Ma [facility] 2024 11:20am Mild cognitive impairment chronic May 26, 2024 11:20am Parkinson disease chronic April 282024 11:20am B12 nutritional deficiency resolved May 26, 2024 11:20am Orthostatic hypotension acute M ay 2024 8:03am Seizure acute July 03, 2024 8:03am Hallucinations chronic July 03, 2 025 8:03am Iron deficiency anemia chronic Ma y 2024 8:03am Mild cognitive impairment chronic July 03, 2024 8:03am Parkinson disease chronic June 8:03am Seizure acute August 11 12:54pm [place] [facility] Work Phone: 1(992) 855-166512-10-2024 History of Present illness Narrative* Nilsa Malik [...] Care - Wellness Exam documented in this [facility] Work Phone: 1(410) 425-455108-29-2024 History of Present illness Narrative* Mary Thomason [...] pain daily since visiting her granddaughter in [place]. She notes that tylenol takes the edge [...] time. Mary Thomason MD documented in this [facility] Work Phone: 1(387) 735-336405-31-2024 History of Present illness Narrative* Nilsa Malik [...] Primary Care - Established documented in this [facility] Work Phone: 1(888) 152-573504-29-2024 History of Present illness Narrative* Nilsa Malik MD - 06/25/2023 9:00 AM EDT Subjective Patient ID: Ramya Moss is a 87 y.o. female who presents for Follow-up (ER-06/24/23). HPI in er. Pain neck, shoulders. Felll 2wks ago and onset pain yesterday. ER record reviewed radiograph CAT scan reviewed. Reviewed use of [id number] analgesics Additionally reported some substernal discomfort. Will [...] Orders Nuclear Stress Test [facility] 1(650) 708-788404-28-2024 Hospital Discharge instructions* Discharge Instructions* Jean Pierre Mathias DO - 06/24/2023 10:32 AM EDT Motrin and Tylenol as needed for pain. * Attachments The following attachments cannot be sent through Care Everywhere. * Chest Pain Discharge Instructions (Paraguayan) * Neck Pain ED (Paraguayan) [facility] Phone: 1(156) 945-466104-28-2024 Emergency department Note* Jean Pierre Mathias DO [...] performed using a different testing methodology at [facility] than at other [facility]. Direct result comparisons should only be made [...] performed using a different testing methodology at [facility] than at other [facility]. Direct result comparisons should only be made within the same method. TROPONIN SERIES- (INITIAL, 1 HR) CT angio chest for pulmonary embolism Final Result No CT evidence of acute pulmonary embolism. MACRO: None. Signed by: Len Becker 06/24/2023 10:24 AM Dictation workstation: [id number] CT head wo IV contrast Final Result NO ACUTE INTRACRANIAL PROCESS. SKULL INTACT NO ACUTE FRACTURE OR SUBLUXATION IN THE CERVICAL SPINE THIS REPORT SERVES THE DIAGNOSTIC INTERPRETATION FOR TWO EXAMS PERFORMED CONCURRENTLY: CT BRAIN WITHOUT IV CONTRAST AND CT CERVICAL SPINE WITHOUT IV CONTRAST MACRO: None Signed by: Derick Arguelles 06/24/2023 8:33 AM Dictation workstation: [id number] CT cervical spine wo IV contrast Final Result NO ACUTE INTRACRANIAL PROCESS. SKULL INTACT NO ACUTE FRACTURE OR SUBLUXATION IN THE CERVICAL SPINE THIS REPORT SERVES THE DIAGNOSTIC INTERPRETATION FOR TWO EXAMS PERFORMED CONCURRENTLY: CT BRAIN WITHOUT IV CONTRAST AND CT CERVICAL SPINE WITHOUT IV CONTRAST MACRO: None Signed by: Derick Arguelles 06/24/2023 8:33 AM Dictation workstation: [id number] XR chest 1 view Final Result No acute abnormalities. Chronic changes noted. Signed by: Guillermina Finn 06/24/2023 8:21 AM Dictation workstation: [id number] Medical Decision Making: Patient appears well nontoxic. [...] ED Physician in the absence of a sole skiver: yes Comments: EKG interpreted by Dr. Jean Pierre Mathias: Normal sinus rhythm at 93 bpm. [place] interval 154 ms. QTc of422 ms. No evidence of ST elevation or depression at this time. Jean Pierre Mathias DO 06/24/23 1034 documented in this [facility] Work Phone: [phone]) [phone] Physician Emergency department Note* Jean Pierre Mathias [...] performed using a different testing methodology at [facility] than at other [facility]. Direct result comparisons should only be [...] performed using a different testing methodology at [facility] than at other [facility]. Direct result comparisons should only be made within the same method. TROPONIN SERIES- (INITIAL, 1 HR) CT angio chest for pulmonary embolism Final Result No CT evidence of acute pulmonary embolism. MACRO: None. Signed by: Len Becker 06/24/2023 10:24 AM Dictation workstation: [id number] CT head wo IV contrast Final Result NO ACUTE INTRACRANIAL PROCESS. SKULL INTACT NO ACUTE FRACTURE OR SUBLUXATION IN THE CERVICAL SPINE THIS REPORT SERVES THE DIAGNOSTIC INTERPRETATION FOR TWO EXAMS PERFORMED CONCURRENTLY: CT BRAIN WITHOUT IV CONTRAST AND CT CERVICAL SPINE WITHOUT IV CONTRAST MACRO: None Signed by: Derick Arguelles 06/24/2023 8:33 AM Dictation workstation: [id number] CT cervical spine wo IV contrast Final Result NO ACUTE INTRACRANIAL PROCESS. SKULL INTACT NO ACUTE FRACTURE OR SUBLUXATION IN THE CERVICAL SPINE THIS REPORT SERVES THE DIAGNOSTIC INTERPRETATION FOR TWO EXAMS PERFORMED CONCURRENTLY: CT BRAIN WITHOUT IV CONTRAST AND CT CERVICAL SPINE WITHOUT IV CONTRAST MACRO: None Signed by: Derick Arguelles 06/24/2023 8:33 AM Dictation workstation: [id number] XR chest 1 view Final Result No acute abnormalities. Chronic changes noted. Signed by: Guillermina Finn 06/24/2023 8:21 AM Dictation workstation: [id number] Medical Decision Making: Patient appears well nontoxic. [...] ED Physician in the absence of a sole skiver: yes Comments: EKG interpreted by Dr. Jean Pierre Mathias: Normal sinus rhythm at 93 bpm. [place] interval 154 ms. QTc of422 ms. No evidence of ST elevation or depression at this time. Jean Pierre Mathias DO 06/24/23 1034 [facility] Work Phone: 1(959) 577-644504-28-2024 Reason for referral (narrative)* Consultation (Routine) - Authorized Specialty Diagnoses / Procedures Referred By Contmeli drummond Referred To Contact Cardiology Jean Pierre Mathias DO [address] [place] [address] Department [place] [address] Referral ID Status Reason Start Date Expiration Date Visits Requested Visits Authorized [id number] Authorized Specialty Services Required 06/24/2023 06/23/2024 1 1 * Consultation (Routine) - Authorized Specialty Diagnoses / Procedures Referred By Contac t Referred To Contact Family Medicine / Primary Care Jean Pierre Mathias DO [address] [place] [address] [place] [address] Referral ID Status Reason Start Date Expiration Date Visits Requested Visits Authorized [id number] Authorized Specialty Services Required 06/24/2023 06/23/2024 1 1 [facility] Work Phone: 1(168) 903-920504-26-2024 History of Present illness Narrative* Nilsa Malik [...] blood pressure. Here today with son and [id number] as she has had an acceleration in [...] nightly 1 month follow-up documented in this [facility] Work Phone: [phone]) 441-553810-25-2023 History of Present illness Narrative* Nilsa Malik [...] General Nilsa Malik MD as PCP - [facility] Attributed Provider Nilsa Malik MD as PCP - [employer] [facility] PCP Dr Sterling for parkinsons on sinemet HTN-Takes and tolerates meds without side effects. No alcohol. no tobacco. no exercise. low salt. Reviewed recommendation for 150 minutes of exercise per week including 2 days of weight training if over age 50 Hyperlipidemia- is on a statin and a prudent diet. Hypothyroid- is euthyroid on replacement. Thyroid ros is unremarkable. Dm-no checks, no [facility],retin, nephrop On risperdone woth no hallucinations or [...] care facility - [facility]: [phone]) [phone] History of Present illness Narrative* Nilsa Malik [...] A1C Other Depression Hyperlipemia [facility]: Evaluation note* Diagnosis Onset Date Resolution Status B12 nutritional deficiency c hronic Iron deficiency anemia chron ic Mild cognitive impairment ch ronic Parkinson disease [facility] Work Phone: Evaluation note* Diagnosis Primary hypertension- Primary Unspecified essential hypertension Type 2 diabetes mellitus without complication, without long-term current use of insulin (CMS/HCC) Mixed hyperlipidemia 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, unspecified whether recurrent (CMS/HCC) documented in this encounter [facility] Work Phone: Evaluation note* Diagnosis Routine general medical examination at health care facility- Primary Routine general medical examination at a health care facility Type 2 diabetes mellitus without complication, without long-term current use of insulin (CMS/HCC) 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, unspecified whether recurrent (CMS/HCC) Acquired hypothyroidism Unspecified hypothyroidism Primary hypertension Unspecified essential hypertension Mixed hyperlipidemia documented in this encounter [facility] Work Phone: [phone] note* Diagnosis Type 2 diabetes mellitus without complication, without long-term current use of insulin (Multi)- Primary 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, unspecified whether recurrent (CMS-HCC) Acquired hypothyroidism Unspecified hypothyroidism Primary hypertension Unspecified essential hypertension Mixed hyperlipidemia Parkinson's disease, unspecified whether dyskinesia present, unspecified whether manifestations fluctuate (Multi) Stage 3a chronic kidney disease (Multi) documented in this encounter [facility] Work Phone: [phone] note* Diagnosis Chest pain, unspecified type- Primary Neck pain Cervicalgia documented in this encounter [facility] Work Phone: [phone] note* Diagnosis Atypical chest pain- Primary Other chest pain documented in this encounter [facility] Work Phone: [phone] note* Diagnosis Atypical chest pain Other chest pain Atypical chest pain Other chest pain documented in this encounter [facility] Work Phone: [phone] note* Diagnosis Atypical chest pain Other chest pain Atypical chest pain Other chest pain documented in this encounter [facility] Work Phone: [phone] note* Diagnosis Type 2 diabetes mellitus without complication, without long-term current use of insulin (Multi) 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, unspecified whether recurrent (CMS-HCC) Acquired hypothyroidism Unspecified hypothyroidism Primary hypertension Unspecified essential hypertension Mixed hyperlipidemia Hypothyroidism, unspecified type documented in this encounter [facility] Work Phone: [phone] note* Diagnosis Routine general medical examination at [...] hypothyroidism Unspecified hypothyroidism documented in this encounter [facility] Work Phone: [phone] note* Diagnosis Chronic bilateral low back pain with bilateral sciatica documented in this encounter [facility] Work Phone: [phone] note* Diagnosis Chronic bilateral low back pain with bilateral sciatica- Primary Stage 3a chronic kidney disease (Multi) documented in this encounter [facility] Work Phone: [phone] note* Diagnosis New onset seizure (Multi)- Primary documented in this encounter [facility] Work Phone: [phone] note* Diagnosis Urgency of urination- Primary Hallucinations Primary hypertension Unspecified essential hypertension documented in this encounter [facility] Work Phone: [phone] of Present illness Narrative* Since the last [...] no cks , eye dr current no [facility] * Hyperlipidemia- is on statin and a prudent diet. * is on b12 pills as b12 was low and anemia is persistent nc/ncyazmin has on . [facility] Work Phone: History of Present illness Narrative* Since the last office visit there have been no interval operations, hospitalizations, important illnesses or injuries. * dm back down to 7.2 and will return to 6 mo ov * eye current mar, no [facility] shelter * Hypothyroid- is euthyroid on replacement. Thyroid ros is unremarkable. * Hyperlipidemia- is on statin and a prudent diet. * HTN-Takes and tolerates meds without side effects. No alcohol. no tobacco. no exercise. low salt. Reviewed recommendation for 150 minutes of exercise per week including 2 days of weight training if over age 50 [facility] Work Phone: History of Present illness [...] no improbable thoughts on risperdala dn lexapro [facility] Work Phone: History of Present illness NarrativePatient is seen for breast exam and mammogram follow-up. She denies any change in her breast self-exam.-[place] [facility] Work Phone: reason for referral (narrative)* Consultation (Routine) - Authorized Specialty Diagnoses / Procedures Referred By Lorraine drummond Referred To Contact Primary Care Diagnoses Type 2 diabetes mellitus without complication, without long-term current use of insulin (CMS/HCC) Procedures Follow Up In Primary Care Nilsa Malik MD [address] [id number] Referral ID Status Reason Start Date Expiration Date V isits Requested Visits Authorized [id number] Authorized 06/09/2022 12/06/2022 1 1 [facility] Work Phone: Rezvmq for referral (narrative)* Consultation (Routine) - Authorized Specialty Diagnoses / Procedures Referred By Lorraine drummond Referred To Contact Primary Care Diagnoses Type 2 diabetes mellitus without complication, without long-term current use of insulin (CMS/HCC) 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, unspecified whether recurrent (CMS/HCC) Acquired hypothyroidism Primary hypertension Mixed hyperlipidemia Procedures Follow Up In Primary Care Nilsa Malik MD [address] [id number] Referral ID Status Reason Start Date Expiration Date V isits Requested Visits Authorized [id number] Authorized 12/20/2022 12/20/2023 1 1 [facility] Work Phone: reason for referral (narrative)* Consultation (Routine) - Authorized Specialty Diagnoses / Procedures Referred By Contac t Referred To Contact Primary Care Diagnoses Type 2 diabetes mellitus without complication, without long-term current use of insulin (Multi) 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, unspecified whether recurrent ([facility]-HCC) Acquired hypothyroidism Primary hypertension Mixed hyperlipidemia Procedures Follow Up In Primary Care - Established Nilsa Malik MD [address] [place], [place] [phone] Referral ID Status Reason Start Date Expiration Date V isits Requested Visits Authorized [id number] Authorized 06/22/2023 06/21/2024 1 1 [facility] Work Phone: reason for referral (narrative)* Consultation (Routine) - Authorized Specialty Diagnoses / Procedures Referred By Contac t Referred To Contact Primary Care Diagnoses Type 2 diabetes mellitus without complication, without long-term current use of insulin (Multi) Primary hypertension Procedures Follow Up In Primary Care - Established Nilsa Malik MD [address] [place] [address] Referral ID Status Reason Start Date Expiration Date V isits Requested Visits Authorized [id number] Authorized 07/27/2023 07/26/2024 1 1 [facility] Work Phone: reason for referral (narrative)* Consultation (Routine) - Pending Review Specialty Diagnoses / Procedures Referred By Contac t Referred To Contact Physical Therapy Diagnoses Chronic bilateral low back pain with bilateral sciatica Mary Thomason MD [address] [place] [address] Referral ID Status Reason Start Date Expiration Date Visits Requested Visits Authorized [id number] Pending Review Specialty Services Required 10/25/2023 10/24/2024 1 1 * Imaging (Routine) - Authorized Specialty Diagnoses / Procedures Referred By Contac t Referred To Contact Radiology Diagnoses Chronic bilateral low back pain with bilateral sciatica Procedures XR lumbar spine complete 4+ views Mary Thomason MD [address] [place] [address] Referral ID Status Reason Start Date Expiration Date Visits Requested Visits Authorized [id number] Authorized Perform Procedure 10/25/2023 10/24/2024 1 1 [facility] Work Phone: Reason for referral (narrative)No reason for referral information availableWOhio[facility] Work Phone: Summary Purpose Family History Sister Name Dates Details Family history of [...] Reason for Visit Chief Complaint Parkinson's disease/ [place] PATIENT EORDER Reason for Visit B12 nutritional [...] 2024 11: 20am B12 nutritional deficiency May 26, 025 11:20am Orthostatic hypotension July 03, 2024 8: 03am Seizure July 03, 2024 8:03am Hallucinations July 03, 2024 8:03am Iron deficiency anemia July 03, 2024 8:0 3am Mild cognitive impairment July 03, 2024 8:03am Parkinson disease July 03, 2024 8:03am Chief Complaint Admit Date FOLLOW UP May 26, 2024 11: 20am ACUTE-DIFFICULTY WALKING July 03, 2024 8 :03am E-ORDER July 03, 2024 9:08am SEIZURES SYNCOPE July 31, 2024 3:32p m Chief Complaint Admit Date FOLLOW UP May 26, 2024 11: 20am ACUTE-DIFFICULTY WALKING July 03, 2024 8 :03am E-ORDER July 03, 2024 9:08am SEIZURES SYNCOPE July 31, 2024 3:32p m 1 M FU August 11, 2024 12:5 4pm Reason for Visit Admit Date Hallucinations May [...] 8:03am Parkinson disease July 03, 2024 8:03am Seizure August 11, 2024 12:5 4pm Reason for Referral Specialty Diagnoses / Procedures Referred By Contac t Referred To Contact Diagnoses Atypical chest pain Procedures Nuclear Stress Test Nilsa Malik MD [address] [place] [phone] Referral ID Status Reason Start Date Expiration Date V isits Requested Visits Authorized [id number] Pending Review 06/25/2023 06/24/2024 5 5 Specialty Diagnoses / Procedures Referred By Contac t Referred To Contact Diagnoses Atypical chest pain Procedures Cardiology Interpretation Of Nuclear Stress - See Other Report For Nuclear Portion Nilsa Malik MD [address] [place] [phone] Referral ID Status Reason Start Date Expiration Date V isits Requested Visits Authorized [id number] Pending Review 07/09/2023 07/08/2024 1 1 Specialty Diagnoses / Procedures Referred By Contac t Referred To Contact Radiology Diagnoses Chronic bilateral low back pain with bilateral sciatica Procedures XR lumbar spine complete 4+ views Mary Thomason MD [address] [place] [phone] Referral ID Status Reason Start Date Expiration Date Visits Requested Visits Authorized [id number] Authorized Perform Procedure 10/25/2023 10/24/2024 1 1 Additional Source Comments INFORMATION SOURCE (unrecogn ized section and content) DATE CREATED AUTHOR 10/11/2018 [facility] DATE CREATED AUTHOR AUTHOR'S ORGANIZ ATION 09/16/2021 [facility] DATE CREATED AUTHOR AUTHOR'S ORGANIZ ATION 12/07/2021 [employer] DATE CREATED AUTHOR AUTHOR'S ORGANIZ ATION 01/28/2024 [facility] DATE CREATED AUTHOR AUTHOR'S ORGANIZ ATION 07/05/2024 [facility] DATE CREATED AUTHOR AUTHOR'S ORGANIZ ATION 07/09/2024 [facility] DATE CREATED AUTHOR AUTHOR'S ORGANIZ ATION 07/25/2024 [facility] DATE CREATED AUTHOR AUTHOR'S ORGANIZ ATION 08/05/2024 [facility] Goals (unrecognized section and content) Goals may be documented in a n alternate sectionGoals may be documented in an alternate sectionGoals may be documented in an alternate sectionGoals may be documented in an alternate section Reason for Visit (unrecogniz ed section and content) Reason Comments Follow-up 6 mo fu rev labs Reason Comments Medicare Annual Wellness Visit Lacho t 6 mo fu rev labs Specialty Diagnoses / Procedures Referred By Lorraine t Referred To Contact Primary Care Diagnoses Type 2 diabetes mellitus without complication, without long-term current use of insulin (CMS/HCC) Procedures Follow Up In Primary Care Nilsa Malik MD [address] [phone] Referral ID Status Reason Start Date Expiration Date Visits Re quested Visits Authorized [id number] Closed 06/09/2022 12/06/2022 1 1 Reason Comments Follow-up 6 MO FU Specialty Diagnoses / Procedures Referred By Lorraine drummond Referred To Contact Primary Care Diagnoses Type 2 diabetes mellitus without complication, without long-term current use of insulin (Multi) 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, unspecified whether recurrent (CMS-HCC) Acquired hypothyroidism Primary hypertension Mixed hyperlipidemia Procedures Follow Up In Primary Care Nilsa Malik MD [address] [place] [address] Referral ID Status Reason Start Date Expiration Date V isits Requested Visits Authorized [id number] Authorized 12/20/2022 12/20/2023 1 1 Reason Comments [...] ER-06/24/23 Specialty Diagnoses / Procedures Referred By Lorraine t Referred To Contact Diagnoses Atypical chest pain Procedures Nuclear Stress Test Nilsa Malik MD [address] [place] [phone] Referral ID Status Reason Start Date Expiration Date V isits Requested Visits Authorized [id number] Pending Review 06/25/2023 06/24/2024 5 5 Reason Comments Follow-up 1 mo Specialty Diagnoses / Procedures Referred By Lorraine t Referred To Contact Primary Care Diagnoses Type 2 diabetes mellitus without complication, without long-term current use of insulin (Multi) 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, unspecified whether recurrent ([facility]-HCC) Acquired hypothyroidism Primary hypertension Mixed hyperlipidemia Procedures Follow Up In Primary Care - Established Nilsa Malik MD [address] [place] [phone] Referral ID Status Reason Start Date Expiration Date V isits Requested Visits Authorized [id number] Authorized 06/22/2023 06/21/2024 1 1 Reason Comments Medicare Annual Wellness Visit Lacho drummond 6 mo fu rev labs Specialty Diagnoses / Procedures Referred By Lorraine t Referred To Contact Primary Care Diagnoses Type 2 diabetes mellitus without complication, without long-term current use of insulin (Multi) Primary hypertension Procedures Follow Up In Primary Care - Established Nilsa Malik MD Phone: tel: fax: Referral ID Status Reason Start Date Expiration Date V isits Requested Visits Authorized [id number] Authorized 07/27/2023 07/26/2024 1 1 Specialty Diagnoses / Procedures Referred By Contac t Referred To Contact Radiology Diagnoses Chronic bilateral low back pain with bilateral sciatica Procedures XR lumbar spine complete 4+ views Mary Thomason MD [address] [place] [phone] Referral ID Status Reason Start Date Expiration Date Visits Requested Visits Authorized [id number] Authorized Perform Procedure 10/25/2023 10/24/2024 1 1 [...] Care Teams (unrecognized sec tion and content) 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 Relationship Specialty Start Date End Date Nilsa Malik MD [address] [facility] [place] [address] PCP - General 10/29/18 Nilsa Malik MD [address] [place] [address] [facility] Att[facility] Provider 02/26/21 Nilsa Malik MD [address] [place] [address] PCP - [employer] PCP 02/26/21 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 Relationship Specialty Start Date End Date Nilsa Malik MD [address] [place] [address] PCP - General 10/29/18 Nilsa Malik MD [address] [place] [address] [facility] Attributed Provider 02/26/21 Nilsa Malik MD [address] [place] [address] PCP - [employer] PCP 02/26/21 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 Relationship Specialty Start Date End Date Nilsa Malik MD [address] [place] [address] PCP - General 10/29/18 Nilsa Malik MD [address] [place] [address] PCP - [employer] [facility] Attributed Provider 02/26/21 Nilsa Malik MD [address] [place] [address] PCP - [employer] PCP 02/26/21 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 Relationship Specialty Start Date End Date Nilsa Malik MD [address] [place] [address] PCP - General 10/29/18 Nilsa Malik MD [address] [place] [address] PCP - [employer] [facility] Attributed Provider 02/26/21 Nilsa Malik MD [address] [place] [address] PCP - [employer] PCP 02/26/21 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 Relationship Specialty Start Date End Date Nilsa Malik MD [address] [place] [address] PCP - General 10/29/18 Nilsa Malik MD [address] [place] [address] PCP - [employer] Attributed Provider 02/26/21 Nilsa Malik MD [address] [place] [address] PCP - [employer] PCP 02/26/21 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 Relationship Specialty Start Date End Date Nilsa Malik MD [address] [place] [address] PCP - General 10/29/18 Nilsa Malik MD [address] [place] [address] PCP - [employer] Attributed Provider 02/26/21 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 Relationship Specialty Start Date End Date Nilsa Malik MD [address] [place] [address] PCP - General 10/29/18 Nilsa Malik MD [address] [place] [address] PCP - [employer] Attributed Provider 02/26/21 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 Relationship Specialty Start Date End Date Nilsa Malik MD [address] [place] [address] PCP - General 10/29/18 Nilsa Malik MD [address] [place] [address] PCP - [employer] Attributed Provider 02/26/21 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 Relationship Specialty Start Date End Date Nilsa Malik MD [address] [place] [address] PCP - General 10/29/18 Nilsa Malik MD [address] [place] [address] PCP - [employer] [facility] Attributed Provider 02/26/21 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 Relationship Specialty Start Date End Date Nilsa Malik MD [address] [place] [address] PCP - General 10/29/18 Nilsa Malik MD [address] [place] [address] PCP - [facility] Attributed Provider 02/26/21 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 Relationship Specialty Start Date End Date Nilsa Malik MD [address] [address] PCP - [facility] Attributed Provider 02/26/21 Nilsa Malik MD [address] [address] PCP - General Family Medicine 02/05/24 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 Relationship Specialty Start Date End Date Nilsa Malik MD [address] [place] [phone] PCP - General 10/29/18 Nilsa Malik MD [address] [place] [address] PCP - [facility] Attributed Provider 02/26/21 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 Relationship Specialty Start Date End Date Nilsa Malik MD [address] [place] [phone] PCP - General 10/29/18 Nilsa Malik MD [address] [place] [address] PCP - [facility] Attributed Provider 02/26/21 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 Relationship Specialty Start Date End Date Nilsa Malik MD [address] [address] [facility] Att[facility] Provider 02/26/21 Nilsa Malik MD [address] [address] PCP - General Family Medicine 02/05/24 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 Relationship Specialty Start Date End Date Nilsa Malik MD [address] [address] [facility] Attributed Provider 02/26/21 Nilsa Malik MD [address] [address] PCP - General Family Medicine 02/05/24 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 Relationship Specialty Start Date End Date Nilsa Malik MD [address] [address] [facility] Attributed Provider 02/26/21 Nilsa Malik MD [address] [address] PCP - General Family Medicine 02/05/24 Team [...] MD Primary Care Provider Active Start: July 31, 2024 End: July 31, 2024 Dr. Isaiah Sterling MD Attending Provider Active Start: July 31, 2024 End: July 31, 2024 Dr. Isaiah Sterling MD Referring Provider Active Start: July 31, 2024 End: July 31, 2024 Team Status: Inactive Member Role Status Dates Dr. Nilsa Malik MD Primary Care Provider Active Start: August 11, 2024 End: August 11, 2024 Dr. Nilsa Malik MD Referring Provider Active Start: August 11, 2024 End: August 11, 2024 Dr. Isaiah Sterling MD Attending Provider Active Start: August 11, 2024 End: August 11, 2024 Scheduled Active and Recently Administ ered [...] mL/hr, Administer over 1 Hours, Once, On Sun06/24/23 at 0750, For 1 dose 0815 (New Bag - Prov ider: Jasmyne Grande RN)0915 (Stopped - Provider: Jasmyne Grande RN) Scheduled Medication Order 06/30/2024 07/01/2024 07/02/2024 iohexol (OMNIPaque) 350 mg iodine/mL solution 68 mL (COMPLETED) 68 mL, intravenous, Once in imaging, Starting on Sun07/02/24 at 2103, For 1 dose 2052 (Given - Provid er: Alex Jansen) levETIRAcetam (Keppra) 500 mg in sodium chloride (iso) IV 100 mL (COMPLETED) 500 mg, intravenous, at 857.1 mL/hr, Administer over 7 Minutes, Once, On Sun07/02/24 at 2200, For 1 dose 2208 (New Bag - Prov ider: Kylie Edwards RN)2215 (Stopped - Provider: Natasha Agosto RN) FOR [...] BE BASED ON THE PRIMARY CLINICAL RECORDS. [employer] provides no warranty or guarantee of the accuracy or completeness of information in this document.
[2024-08-12 15:55] LABS: ALB/GLOB Ratio 1.2 RATIO (0.9-2.4); AST(SGOT) 11 U/L (<=31); Alanine Aminotransfer ALT/SGPT < 5 U/L (<=34); Albumin, Serum 3.7 g/dL (3.4-4.8); Alkaline Phosphatase 100 U/L (35-104); Anion Gap 13 (5-15); BUN 22 mg/dL (4-19); BUN/Creat Ratio 27.2 RATIO (10-20); Calcium,Total 9.5 mg/dL (7.6-11.0); Chloride 99 mmol/L (98-108); Creatinine, Serum 0.81 mg/dL (0.70-1.20); EST Glomerular Filtration Rate 71 (>60); Glucose 197 mg/dL (70-99); Potassium 4.4 mmol/L (3.3-5.1); Protein, Total 6.7 g/dL (5.9-8.4); Sodium Level 137 mmol/L (133-145); Total Bilirubin 0.17 mg/dL (0.00-1.30); Vitamin B12 815 pg/mL (180-914)
[2024-08-15 14:08] LABS: KEPPRA (LEVETIRACETAM) 36.8 ug/mL (10.0-40.0)
== END | disposition home or self-care (01) ==
LOC: MTLAB 13:51
PROVIDERS: PCP Family Medicine; Referring Provider Psychiatry & Neurology Neurology; Visit Provider Psychiatry & Neurology Neurology
DX: R41.82 Altered mental status, unspecified (principal); R56.9 Unspecified convulsions; R55 Syncope and collapse
CPT/HCPCS: 36415; 80053; 80177; 81001; 82140; 82607; 83735; 85027; 87086; 87088

== ENCOUNTER → 2024-09-01 | Outpatient (CLI) | payer MEDICARE, OTHER, SELFPAY | END | disposition home or self-care (01) | PROVIDERS: PCP Family Medicine; Referring Provider Psychiatry & Neurology Neurology; Visit Provider Psychiatry & Neurology Neurology | DX: R56.9 Unspecified convulsions (principal); R55 Syncope and collapse; G31.84 Mild cognitive impairment of uncertain or unknown etiology | CPT/HCPCS: 95819 ==